=== PATIENT | female | born 1975 | race Caucasian/White ===

== ENCOUNTER → 2016-11-22 | Day surgery (SDC) | payer OTHER ==
[2016-11-21 10:10] VITALS: Ht 176.5 cm; Wt 109.1 kg
[~2016-11-22] VITALS: Ht 176.5 cm; Wt 109.1 kg
[~2016-11-22] MED LIST: ALBINS/ INH; CARV25TA2 PO; CLON0.3T PO; CLON1TAB3 PO; DOCU-105 PO; ERGO500037 PO; FLUO40CA8 PO; FURO40TA3 PO; HYDR25TA4 PO; IMP/50 PO; INSDGI SC; IPRA1AER2 INH; ISOSORBIDE ER PO; LISI-725 PO; METF1000 PO; NIFE90TA34 PO; NVLGI/PEN PO; NVLGIPEN PO; PANT40TA PO; POTA20TA16 PO; RANI150T3 PO; SODIUM CHLORIDE 0.9% 500ML 500 ML IV ONE; SPIR25TA89 PO; TOPI100T20 PO; VNTHFA/IN INH; ZIPR60CA PO
--- NOTE | 2016-11-22 14:30 | Endo History and Physical ---
History & Physical Date of Service: Nov 22, 2016. Chief Complaint: Abnormal CT, change in bowel habits Referring Physician: Galen History of Present Illness Pt with chronic severe constipation for colonscopy. CT scan [facility] 2016 dilated colon with gastrograffin enema no obvious stricture. No abd pain at present. Past Surgical History Hx Cardiac Surgery: Yes (HEART CATH X3, STENT X1) Hx Internal Defibrillator: No Hx Pacemaker: No Hx Abdominal Surgery: Yes (LAPAROSCOPY X3, MULTIPLE D&C'S, JUSTINE BSO, LOTUS) Hx of Implantable Prosthesis: No Hx Post-Op Nausea and Vomiting: No Hx Cancer Surgery: No Hx Thoracic Surgery: No Hx Orthopedic: Yes (LT LEG BLOOD CLOT REMOVAL, LT KNEE SURGERY X4) Hx Urinary Tract Surgery: No Family History None Social History Smoking Status: Current Every Day Smoker Hx Substance Use: Yes (SEE MED LIST) Hx Alcohol Use: Yes (QUIT 9 YEARS AGO) Allergies Coded Allergies: Buspirone (Verified Allergy, Unknown, RASH, 11/21/16) Penicillins (Verified Allergy, Unknown, HIVES AND PASSES OUT, 11/21/16) Sertraline (Verified Allergy, Unknown, HIVES AND PASSES OUT, 11/21/16) Trazodone (Verified Allergy, Unknown, IRRITATES NEUROPATHY AND HIVES, 11/21) Valproic Acid (Verified Allergy, Unknown, HIVES, DIZZINESS, SLURRING SPEECH, 11/21/16) Current Medications Reported Home Medications Medications Dose Route/Sig Max Daily Dose Days Date Category Dose Instructions Combivent Respimat (Ipratropium-Albuterol) 1 Aer Aer 1 Puffs INH QID PRN 11/21/16 Reported Proventil 0.083% 2.5MG/3ML (Albuterol Sulf) 2.5 Mg/3 Ml Nebu 2.5 Mg INH TID 11/21/16 Reported Ventolin Hfa (Albuterol) 200 Puffs/45875 Mcg Aers 2-4 Puffs INH Q6H PRN 11/21/16 Reported Vitamin D 42870 Unit (Ergocalciferol) 50,000 Unit Cap 50,000 Unit PO WK 11/21/16 Reported Lantus (Insulin Glargine) 100 Unit/Ml Inj 38 Units SC 1130 11/21/16 Reported Novolog Flexpen (Insulin Aspart) 100 Units/Ml Inj 14 Units PO QPM 11/21/16 Reported +SLIDING SCALE Novolog Flexpen (Insulin Aspart) 100 Units/Ml Inj 12 Units PO LUNCH 11/21/16 Reported +SLIDING SCALE Novolog Flexpen (Insulin Aspart) 100 Units/Ml Inj 10 Units PO QAM 11/21/16 Reported +SLIDING SCALE Hctz (Hydrochlorothiazide) 25 Mg Tab 25 Mg PO BID 11/21/16 Reported [Isosorbide Er] 90 Mg PO QAM 11/21/16 Reported Prozac (Fluoxetine HCl) 40 Mg Cap 40 Mg PO QAM 11/21/16 Reported Lasix (Furosemide) 40 Mg Tab 40 Mg PO QAM 11/21/16 Reported Glucophage (Metformin Hcl) 1,000 Mg Tab 1,000 Mg PO BID 11/21/16 Reported Nifedipine Er (Nifedipine) 90 Mg Tab 1 Tab PO QAM 11/21/16 Reported Protonix (Pantoprazole Sodium) 40 Mg Tab 40 Mg PO BID 11/21/16 Reported Zantac (Ranitidine HCl) 150 Mg Tab 150 Mg PO BID 11/21/16 Reported Coreg (Carvedilol) 25 Mg Tab 25 Mg PO BID 11/21/16 Reported Klonopin (Clonazepam) 1 Mg Tab 1 Mg PO QID 11/21/16 Reported Catapres (Clonidine Hcl) 0.3 Mg Tab 2 Tabs PO TID 11/21/16 Reported Dulcolax Stool Softener (Docusate Sodium) 100 Mg Cap 1 Cap PO BID 11/21/16 Reported Tofranil (Imipramine HCl) 50 Mg Tab 3 Tabs PO HS 11/21/16 Reported Zestril (Lisinopril) 20 Mg Tab 20 Mg PO BID 11/21/16 Reported Klor-Con (Potassium Chloride) 20 Meq Tabcr 2 Tabs PO BID 11/21/16 Reported Aldactone (Spironolactone) 25 Mg Tab 25 Mg PO BID 11/21/16 Reported Topamax (Topiramate) 100 Mg Tab 100 Mg PO BID 11/21/16 Reported Geodon (Ziprasidone Hcl) 60 Mg Cap 60 Mg PO HS 11/21/16 Reported Vital Signs Weight (Kilograms): 109.09 Height (Feet): 5 Height (Inches): 9.5 Review of Systems Respiratory: No shortness of breath Cardiovascular: No chest pain Physical Exam General Appearance: WD/WN, no apparent distress Respiratory/Chest: Respiratory effort: no dyspnea, good air movement Auscultation: breath sounds normal Cardiovascular: Heart Auscultation: RRR, no murmurs Abdomen: Inspection & Palpation: soft, no tenderness, guarding & rebound, no masses, distended Liver: no hepatomegaly Assessment and Plan For colonscopy today for chronic constipation and dilated colon on CT scan.
--- NOTE | 2016-11-22 15:35 | Discharge Instructions ---
Endoscopy Patient Instructions Date / Procedure(s) Performed Nov 22, 2016. Colonoscopy Allergy Information Coded Allergies: Buspirone (Verified Allergy, Unknown, RASH, 11/21/16) Penicillins (Verified Allergy, Unknown, HIVES AND PASSES OUT, 11/21/16) Sertraline (Verified Allergy, Unknown, HIVES AND PASSES OUT, 11/21/16) Trazodone (Verified Allergy, Unknown, IRRITATES NEUROPATHY AND HIVES, 11/21) Valproic Acid (Verified Allergy, Unknown, HIVES, DIZZINESS, SLURRING SPEECH, 11/21/16) Discharge Date / Findings Nov 22, 2016. Poor prep. Dilated colon. Medication Instructions Stopped Medication(s): Metformin Restart Stopped Medication(s): Restart all medications Provider Instructions Activity Restrictions - No exercising or heavy lifting for 24 hours. - Do not drink alcohol the day of the procedure. - Do not drive a car or operate machinery until the day after the procedure. - Do not make any important decisions or sign important papers in 24 hours after the procedure. Following Day: - Return to full activity which may include returning to work/school. Diet Start your diet with liquids and light foods (jello, soup, juice, toast). Then eat your usual diet if not nauseated. Treatment For Common After Affects For mild abdominal pain, bloating, or excessive gas: - Rest - Eat lightly - Lie on right side Keep appointment with colorectal surgeon tomorrow 11/23/16. Please call to make appointment with DR Coto also. Follow-Up Information Follow-up with Galen as scheduled Anesthesia Information What You Should Know You have had a procedure that required some medicine to reduce anxiety and discomfort. This treatment is called moderate sedation. After receiving the treatment, you may be sleepy, but you will be able to breathe on your own. The effects of the treatment may last for several hours. Follow these instructions along with Activity/Diet recommendations noted above: * Do NOT do anything where dizziness or clumsiness would be dangerous. * Rest quietly at home today, then you can be up and about tomorrow. * Have a responsible person stay with you the rest of today. * You may have had an I.V. today. If so, you may take the dressing off later today. Recommendations Call your doctor if: * Trouble breathing * Continuous vomiting for more than 24 hours * Temperature above 101 degrees * Severe abdominal pain or bloating * Pain not relieved by pain medicine ordered * There is increased drainage or redness from any incision * A large amount of rectal bleeding greater than 2-3 tablespoons. (If you had a polyp/s removed or have hemorrhoids, a small amount of blood - from the rectum is to be expected.) * You have any unanswered questions or concerns. IN THE EVENT OF A SERIOUS EMERGENCY, GO TO THE NEAREST EMERGENCY ROOM Your discharge instructions were prepared by provider Valentin Bailey. Patient Instructions Signature Page Cheryl Gary Patient (or Guardian) Signature/Date: I have read and understand the instructions given to me by my caregivers. Caregiver/RN/Doctor Signature/Date: The above-named patient and/or guardian has received patient instructions on this date. + Original Patient Signature Page (only) stays with chart. Please make copy for patient.
--- NOTE | 2016-11-22 15:40 | Anesthesiology Progress Note ---
Anesthesia Post Op Note Date & Time Nov 22, 2016 at 15:39 Vital Signs Vital Signs Past 12 Hours Date Time Temp Pulse Resp B/P (MAP) Pulse Ox O2 Delivery O2 Flow Rate FiO2 11/22/16 14:29 36.7 71 20 125/92 (103) 97 Room Air Notes Mental Status: alert / awake / arousable, participated in evaluation Pt Amnestic to Procedure: Yes Nausea / Vomiting: adequately controlled Pain: adequately controlled Airway Patency, RR, SpO2: stable & adequate BP & HR: stable & adequate Hydration State: stable & adequate Anesthetic Complications: no major complications apparent Patient weaned to room air at time of this note. SpO2 98%. She is awake and conversant. Denies anesthetic problems.
--- NOTE | 2016-11-22 15:55 | Progress Note ---
Progress Note Date of Service Nov 22, 2016. Progress Note Pt awake and alert post colonoscopy with no complaint. present. Went over procedure results and recommendation for f/u with colorectal surgery and DR Coto.
[2016-11-22 16:03] VITALS: BP 135/97; PULSE 62; O2SAT 100
--- NOTE | 2016-11-23 00:14 | GI REPORT ---
Procedure Date: 11/22/2016 2:17 PM Procedure: Colonoscopy Indications: Abnormal CT of the GI tract markedly dilated colon, Constipation intractable/chronic Medicines: Monitored Anesthesia Care Complications: No immediate complications. Estimated Blood Loss: Estimated blood loss: none. Procedure: Pre-Anesthesia Assessment: - The risks and benefits of the procedure and the sedation options and risks were discussed with the patient. All questions were answered and informed consent was obtained. - Patient identification and proposed procedure were verified prior to the procedure by the physician, the nurse and the histology manager. The procedure was verified in the procedure room. - Procedure and risks explained to patient which include but not limited to medication reaction, bleeding, perforation, aspiration, and missed lesions. Prep was poor. Extensive washes and suctioning done as needed to get overall fair visualization of the mucosa. Retroflexion to look at the distal rectum and anal canal done. Scope only advanced with lumen visualized. Judicious gas insufflation and gas removal done on way out. Slow withdrawal with careful examination of the mucosa. After I obtained informed consent, the scope was passed under direct vision. Throughout the procedure, the patient's blood pressure, pulse, and oxygen saturations were monitored continuously. The On-site loaner was introduced through the anus and advanced to the cecum, identified by appendiceal orifice and ileocecal valve. The colonoscopy was technically difficult and complex due to significant looping. Successful completion of the procedure was aided by changing the patient to a prone position, using manual pressure and straightening and shortening the scope to obtain bowel loop reduction. The patient tolerated the procedure well. The bowel preparation used was GoLYTELY. Findings: The colon (entire examined portion) revealed grossly excessive looping. Advancing the scope required changing the patient to a prone position, using manual pressure and straightening and shortening the scope to obtain bowel loop reduction. The lumen of the colon (entire examined portion) was grossly dilated. Copious quantities of semi-liquid stool was found in the entire colon, interfering with visualization. The exam was otherwise without abnormality on direct and retroflexion views. Impression: - There was significant looping of the colon. - Dilated in the entire examined colon. - Stool in the entire examined colon. - The examination was otherwise normal on direct and retroflexion views. - No specimens collected. Recommendation: - Discharge patient to home (ambulatory). - Keep appointment with colorectal surgeon tomorrow 11/23/16 Dr Lai. F/U with Dr Coto. Continue laxative. Valentin Bailey M.D. Valentin Bailey MD 11/22/2016 3:41:56 PM This report has been signed electronically. Note Initiated On: 11/22/2016 2:17 PM I attest to the content of the Intraoperative Record and orders documented therein, exceptions below
== END | disposition home or self-care (01) ==
LOC: C.GI 13:53 → MERGE 14:15
PROVIDERS: ATTEND Internal Medicine Gastroenterology
DX: K59.39 Other megacolon (principal); K59.00 Constipation, unspecified; F17.200 Nicotine dependence, unspecified, uncomplicated; Z79.4 Long term (current) use of insulin; Z79.899 Other long term (current) drug therapy

== ENCOUNTER 2017-03-04 23:58 | Inpatient (IN) | payer OTHER ==
[~2017-03-04] VITALS: Ht 175.3 cm; Wt 109.5 kg
[2017-03-04 23:50] VITALS: BP 122/82; PULSE 65; TEMP 36.8; O2SAT 94; BMI 35.6
[~2017-03-04 23:58] MED LIST changes: +IMIP100C4 PO; -IMP/50 PO; +NITR0.2D7 SC; -SODIUM CHLORIDE 0.9% 500ML 500 ML IV ONE
[2017-03-05] VITALS (7 sets, daily range): BP systolic 111–137; BP diastolic 79–99; PULSE 67–83; TEMP 36.3–36.5; O2SAT 92–100
[2017-03-05] MEDS ORDERED: ACET325T96 PO (01:18)
[2017-03-05] MEDS ORDERED: CLON-497 PO (01:18)
--- NOTE | 2017-03-05 01:41 | History and Physical ---
History & Physical Date & Time of Service: Mar 05, 2017 at 01:41 Chief Complaint: Melena Primary Care Physician: No Doctor, Assigned History of Present Illness Source: patient Cheryl Gary is a 41 year old female with multiple chronic conditions (bipolar disorder, seizure disorder, type 2 diabetes on insulin, COPD, recent pancreatitis, chronic constipation, Hep C) who presents as a transfer from [facility] for evaluation of her persistent abdominal pain. The patient had initially presented to [facility] reporting a month history of severe nausea and reports 8 weeks of not having a bowel movement. She reports each time she smells food she gets severely nauseated, but is still able to eat and keep food down. She has not vomited this entire time. She had a CT scan in [place] which showed severe fecal matter dilating her colon, mainly in her ascending and transverse colon. She was given the diagnosis of colonic inertia. The patient requested to be transferred to [facility] since she has previously seen the GI physicians through the [facility] in [place]. Per records, she had a colonoscopy with Dr. Fisher in October which showed stool throughout her entire colon and multiple dilated loops of bowel. In January she had an EGD which demonstrated chronic gastritis and pathology reports were negative for H. pylori. Upon entering the patients room, she was very somnolent and required multiple attempts to wake up. Although laying comfortably, she requests further pain medications, specifically dilaudid. She denies any chest pain, shortness of breath, or leg swelling. Past Medical/Surgical History PMHx COPD DVT after knee surgery Hx of pneumonia Migraines Seizure disorder Hx of TIA Diabetes mellitus type 2 GERD IBS Chronic constipation Bipolar disorder Anemia Hepatitis C Hx of MRSA PSHx Hysterectomy L. knee surgery x 8 Cholecystectomy Cardiac catheterization in 2016 Family History Positive for diabetes, hypertension, and autoimmune disorders in parents. Social History Smoking Status: Current Every Day Smoker (smokes 1/2 to 1 pack per day) Smokeless Tobacco Use: No Alcohol Use: none Drug Use: none Housing status: lives alone Occupational Status: disabled (from knee surgery) Immunizations History of Influenza Vaccine: Unknown History of Tetanus Vaccine?: Unknown History of Pneumococcal: Unknown History of Hepatitis B Vaccine: Unknown Multi-Drug Resistant Organisms History of MDRO: No Allergies Coded Allergies: Buspirone (Verified Allergy, Unknown, RASH, 02/06/17) Penicillins (Verified Allergy, Unknown, HIVES AND PASSES OUT, 02/06/17) Sertraline (Verified Allergy, Unknown, HIVES AND PASSES OUT, 02/06/17) Trazodone (Verified Allergy, Unknown, IRRITATES NEUROPATHY AND HIVES, 02/06) Valproic Acid (Verified Allergy, Unknown, HIVES, DIZZINESS, SLURRING SPEECH, 02/06/17) Home Medications Scheduled Carvedilol (Coreg), 25 MG PO BID Clonazepam (Klonopin), 1 MG PO QID Clonidine Hcl (Catapres), 2 TAB PO TID Docusate Sodium (Dulcolax Stool Softener), 1 CAP PO BID Ergocalciferol (Vitamin D 06594 Unit), 50,000 UNIT PO WK Fluoxetine (Prozac), 40 MG PO QAM Imipramine Pamoate (Tofranil Pm), 2 CAP PO HS Insulin Aspart (Novolog Flexpen), 10 UNITS PO QAM Insulin Aspart (Novolog Flexpen), 12 UNITS PO LUNCH Insulin Aspart (Novolog Flexpen), 12 UNITS PO SUPPER Insulin Glargine (Lantus), 32 UNITS SC AT LUNCH Nitroglycerin (Nitroglycerin), 1 DOSE SC Q8H Pantoprazole (Protonix), 40 MG PO BID Potassium Ext Rel (Klor-Con), 2 TABS PO BID Ranitidine Hcl (Zantac), 150 MG PO BID Spironolactone (Aldactone), 25 MG PO BID Topiramate (Topamax), 100 MG PO BID Ziprasidone Hcl (Geodon), 60 MG PO HS [Isosorbide Er], 60 MG PO QAM Scheduled PRN Acetaminophen Tab (Tylenol), 650 MG PO Q6 PRN for Pain Albuterol Sulf (Proventil 0.083% 2.5MG/3ML), 2.5 MG INH TID PRN for Wheezing Review of Systems See HPI for pertinent positives & negatives. A total of 10 systems reviewed and were otherwise negative. Physical Exam Vital Signs Date Time Temp Pulse Resp B/P (MAP) Pulse Ox O2 Delivery O2 Flow Rate FiO2 03/04/17 23:50 36.8 65 18 122/82 (95) 94 Room Air General Appearance: WD/WN, no apparent distress, + obese Head: normocephalic, atraumatic Eyes: normal inspection, PERRL, EOMI ENT: hearing grossly normal Neck: supple, no JVD Respiratory/Chest: lungs clear, normal breath sounds, no respiratory distress Cardiovascular: regular rate, rhythm, no murmur, normal peripheral pulses Abdomen/GI: normal bowel sounds (soft but present), non tender, soft, + distended Back: no CVA tenderness, no muscle spasm Extremities/Musculoskelatal: normal inspection, no calf tenderness, normal capillary refill, no pedal edema, normal range of motion Neurologic/Psych: demand planning analyst II-XII nml as tested, no motor/sensory deficits, alert, normal mood/affect, oriented x 3 Skin: normal color, warm/dry, no rash Diagnostics Laboratory Results Pending Impression Assessment and Plan 41 yo F, transferred from [facility], primarily for evaluation and management of severe constipation (colonic inertia) Colonic inertia - GI Consult - Dr Coto - Continue Lactulose, Senna, Miralax - Toradol for pain. Will avoid opiates due to concern for pain medication seeking as well as worsening constipation. - Zofran/Compazine for nausea. Type 2 DM - Lantus w/Novolog sliding scale, goal 140-180 - Check A1c Bipolar disorder - Home dose of Klonopin is listed as 1mg QID - will need to clarify in daytime - Continue Geodon, Fluoxetine HTN - Continue Coreg, Aldactone, Lisinopril Hx of Migraines - Continue Topamax VTE: Heparin q8h SQ Code status: Full Dispo: Admit to Med/Surg Resident Physician Supervision Note: Pt seen/evaluated independently. I discussed the case with the resident and agree with the findings and plan as documented in the note. Any exceptions or clarifications are listed here: 41 y/o F Hx Bipolar disease, DM, HTN, Hep C, fecal impaction. Pt was transferred from [place] with a diagnosis of "colonic inertia" by her own request. OE AAO x 3 S1,2 R CTAB Abdomen shows mild distention without significant tenderness No CCE P: Pt had requested transfer specifically to see her GI MD who we will consult She appears fecally impacted on imaging and laxatives and an enema have been ordered Placed on SS for DM COnt psychoactive meds as prescribed Documented By: Kartik Chandler VTE Prophylaxis VTE Risk Assessment Done? Y/N: Yes Risk Level: Moderate Additional Copies To Cyndi Yepez M.D. Resident Tracking Resident Involvement: Resident Care Provided Care Provided: Adult [facility]
[2017-03-05] MEDS ORDERED: ONDANSETRON INJ 2 MG/ML 2 ML VIAL IV PRN (01:45)
[2017-03-05] MEDS ORDERED: POLYETHYLENE (MIRALAX) 17 GM PACK PO PRN (01:45)
[2017-03-05] MEDS ORDERED: MAGNESIUM HYDROXIDE SUSP 30 ML UDC PO PRN (01:45)
[2017-03-05] MEDS ORDERED: IPRATROPIUM BROMIDE/ALBUTEROL respimat INH INH PRN (01:45)
[2017-03-05] MEDS ORDERED: ALUMINUM/MAGNESIUM/SIMETH (MAALOX MAX) 30 ML UDC PO PRN (01:45)
[2017-03-05] MEDS ORDERED: ACETAMINOPHEN 325 MG TAB PO PRN (01:45)
[2017-03-05] MEDS ORDERED: CLON0.3T PO (02:14)
[2017-03-05 02:25] LABS: HEMATOCRIT 30.1 % (37-47); MEAN CELL VOLUME 84.1 fL (80-100); MEAN CORPUSCULAR HEMOGLOBIN 29.9 pg (25-34); MEAN CORPUSCULAR HGB CONC 35.5 g/dl (32-36); MEAN PLATELET VOLUME 9.4 fL (7.4-10.4); PLATELET COUNT 239 K/uL (130-400); RED BLOOD COUNT 3.58 M/uL (4.2-5.4); WHITE BLOOD COUNT 7.97 K/uL (4.8-10.8)
[2017-03-05] MEDS ORDERED: GLUCOSE 40% GEL 15 GM TUBE PO PRN (02:30)
[2017-03-05] MEDS ORDERED: GLUCOSE 10 TABS/TUBE PO PRN (02:30)
[2017-03-05] MEDS ORDERED: GLUCAGON FOR INJ 1 MG VIAL SQ PRN (02:30)
[2017-03-05] MEDS ORDERED: DEXTROSE 50% 50 ML SYR IV PRN (02:30)
[2017-03-05 02:41] LABS: PROTHROMBIN TIME (PATIENT) 10.7 SECONDS (9.0-12.0)
[2017-03-05 02:45] LABS: ALT/SGPT 27 U/L (12-78); AST/SGOT 20 U/L (15-37); BLOOD UREA NITROGEN 11 mg/dl (7-18); BUN/CREATININE RATIO 9.9 (10-20); CALCIUM 8.4 mg/dl (8.5-10.1); CARBON DIOXIDE 21 mmol/L (21-32); CHLORIDE 95 mmol/L (98-107); CREATININE 1.16 mg/dl (0.60-1.20); GLUCOSE 128 mg/dl (70-99); POTASSIUM 3.4 mmol/L (3.5-5.1); SODIUM 124 mmol/L (136-145)
[2017-03-05 02:47] LABS: ALKALINE PHOSPHATASE 100 U/L (45-117)
[2017-03-05] MEDS ORDERED: MILK AND MOLASSES ENEMA PR STA (02:54)
[2017-03-05 04:12] LABS: COMPLETE YES; EOS % 0.4 %; IG% 0.5 %; LYMPH % 23.8 %; MONO % 6.3 %; OVALOCYTES 1+
[2017-03-05] MEDS ORDERED: PNEUMOCOCCAL POLYSACCHARIDES 25 MCG/0.5 ML VIAL/SYR IM. ONE (05:30)
[2017-03-05] MEDS ORDERED: PNEUMOCOCCAL ADMINISTRATION CHARGE ONE (05:30)
[2017-03-05] MEDS ORDERED: NURSING DECISION MEDICATION ORDER SCH (06:00)
[2017-03-05] MEDS ORDERED: HEPARIN SOD 5000 UNIT/0.5 ML CARP SQ SCH (06:00)
[2017-03-05] MEDS: INSULIN ASPART 100 UNITS/ML 3 ML PEN SC SCH ×4 (07:09→22:05)
[2017-03-05] MEDS ORDERED: INSULIN ASPART 100 UNITS/ML 3 ML PEN SC SCH (08:00)
[2017-03-05] MEDS: KETOROLAC TROMETHAMINE 15 MG/ML VIAL IV PRN ×2 (08:02→19:14)
[2017-03-05] MEDS ORDERED: LISINOPRIL 20 MG TAB PO SCH (09:00)
[2017-03-05] MEDS ORDERED: METFORMIN HCL 500 MG TAB PO SCH (09:00)
[2017-03-05] MEDS ORDERED: NON-FORMULARY MEDICATION (Nifedipine (Nifedipine Er) 1 TAB) PO SCH (09:00)
[2017-03-05] MEDS: PANTOprazole SOD 40 MG TAB PO SCH ×2 (09:21→21:56)
[2017-03-05] MEDS: POTASSIUM CHLORIDE 20 MEQ TABCR PO SCH ×2 (09:22→21:56)
[2017-03-05] MEDS: INSULIN GLARGINE SOLOSTAR 100 UNITS/ML 3 ML PEN SC SCH ×2 (09:23→22:01)
[2017-03-05] MEDS: SPIRONOLACTONE 25 MG TAB PO SCH ×2 (09:24→21:57)
[2017-03-05] MEDS: RANITIDINE HCL 150 MG TAB PO SCH ×2 (09:24→21:57)
[2017-03-05] MEDS: DOCUSATE SODIUM 100 MG CAP PO SCH ×2 (09:24→21:56)
[2017-03-05] MEDS: ISOSORBIDE MONONITRATE 30 MG TABCR PO SCH (09:24)
[2017-03-05] MEDS: CARVEDILOL 25 MG TAB PO SCH ×2 (09:25→21:56)
[2017-03-05] MEDS: FLUOXETINE HCL 20 MG CAP PO SCH (09:25)
[2017-03-05] MEDS: CLONIDINE HCL 0.3 MG TAB PO SCH ×3 (09:26→21:57)
[2017-03-05] MEDS: TOPIRAMATE 100 MG TAB PO SCH ×2 (09:26→21:56)
[2017-03-05] MEDS ORDERED: NURSING VERBAL MED ORDER ONE ×2 (09:45→17:15)
[2017-03-05] MEDS: CLONAZEPAM 1 MG TAB PO SCH ×4 (09:46→22:04)
[2017-03-05] MEDS: ALBUTEROL 0.083% NEBU SOLN 3 ML VIAL INH PRN ×2 (10:44→17:11)
[2017-03-05] MEDS: LACTULOSE SYRUP 30 GM/45 ML UDP PO PRN (10:58)
[2017-03-05 12:48] LABS: BUN/CREATININE RATIO 9.8 (10-20); CREATININE 1.2 mg/dl (0.60-1.20); POTASSIUM 3.8 mmol/L (3.5-5.1)
[2017-03-05] MEDS ORDERED: TAP WATER ENEMA PR ONE (16:00)
[2017-03-05] MEDS ORDERED: NITROGLYCERIN OINT 2% 1GM PACKET EXT ONE (16:45)
--- NOTE | 2017-03-05 16:45 | GASTROINTESTINAL CONSULTATION ---
DATE OF CONSULTATION: 03/05/2017 DATE OF CONSULTATION: 03/05/2017 CHIEF COMPLAINT: Colonic inertia obstipation. HISTORY OF PRESENT ILLNESS: Mrs. Gary is a 41-year-old white female known to me from recent office visit evaluations. The patient has issues with colonic inertia and has had multiple evaluations. In October, the patient underwent colonoscopy which was poorly prepped. The patient presented to the Emergency Room in [place] on Saturday with several days of increasing abdominal girth with inability to have stools. She had been taking Ultram for 4-5 days prior to admission because of trauma to her head. She reports taking her lactulose twice daily as prescribed as well as MiraLax 2 capfuls in 12 ounces of water daily. I was contacted by Dr. Marinelli at [facility] who requested transfer at the patient's preference to [facility]. Presently, the patient has had some bowel movements by the patient's description with 2 events reported today. PAST MEDICAL HISTORY: Includes COPD, DVT after knee surgery, history of pneumonia, migraine, seizure disorder, diabetes type 2, GERD, IBS, chronic constipation, bipolar disorder, chronic hepatitis C, anemia and MRSA. PAST SURGICAL HISTORY: Surgically, she had a hysterectomy, left knee surgery several times, cholecystectomy and cardiac catheterization 2015. FAMILY HISTORY: Contributory for hypertension, diabetes, autoimmune disorders. SOCIAL HISTORY: The patient smokes 1/2-1 pack daily. Denies alcohol use. Lives alone and is disabled from her knee surgeries. ALLERGIES: SHE IS ALLERGIC TO BUSPIRONE, PENICILLIN, SERTRALINE, TRAZODONE, AND VALPROIC ACID. HOME MEDICATIONS: Include carvedilol, clonazepam, clonidine, Colace, vitamin D, fluoxetine, imipramine, insulin, nitroglycerin, pantoprazole, potassium, ranitidine, spironolactone, topiramate, ziprasidone, and isosorbide. REVIEW OF SYSTEMS: Otherwise noncontributory based on 13-point exam except for mentioned above. The patient denies any melena or bright red blood per rectum chronically, although she did report some small amount of blood last evening, perhaps due to administration of enemas. PHYSICAL EXAMINATION: VITAL SIGNS: On admission temperature 36.8, heart rate 65, blood pressure 122/82, respirations 18, 94% on room air. GENERAL: The patient is awake, alert and oriented x3. She is in bed comfortable, although her abdomen is distended compared to previous exams. LUNGS: Clear to auscultation. HEART: Normal S1, S2. HEENT: Sclerae are anicteric, conjunctiva moist. Oral mucosa moist. NECK: There is no cervical or supraclavicular adenopathy. I do not appreciate hepatosplenomegaly. Head is normocephalic. EXTREMITIES: Overall normal range of motion. ABDOMEN: Distended, tympanitic without rebound or guarding. There is no focal tenderness. There may be a ventral wall hernia. I do not appreciate ascites or shifting dullness. EXTREMITIES: Without clubbing, cyanosis. There is trace to +1 pitting edema bilaterally. RECTAL: Deferred. The patient has no imaging studies during this hospitalization. LABORATORY STUDIES: On admission, sodium was decreased at 124, BUN and creatinine 11 and 1.1 with normal liver function tests, ALT 27, AST 20, alkaline phosphatase 100, total bilirubin 0.1. Sugars have been in the 150-200 range and her sodium is improved today. BUN and creatinine are 12 and 1.2. INR 1.0. Her medications currently in the hospital include nitroglycerin patch, imipramine, ziprasidone, carvedilol, clonazepam, Colace, Prozac, Protonix, ranitidine, spironolactone, clonidine, isosorbide mononitrate, insulin, p.r.n. medications. She is also on lactulose 30 grams every 4 hours as a p.r.n. I made the following recommendations. IMPRESSION: The patient with history of chronic constipation, obstipation that seemed to worsen after taking Ultram prior to her [place] admission on Saturday. Her bowel habit problems are multifactorial and include medication effects, erratic diabetes control, possibly events of prior surgeries, irritable bowel syndrome, constipation as well as background colonic dysmotility. I believe the first point of order would be to aggressively try to promote stool evacuation and to this end I believe the use of enemas along with GoLYTELY prep. The lactulose, although it is reasonable has to be cautiously used given her history of diabetes. I will prescribe a GoLYTELY prep tonight and continue with tap water enemas. I would also consider a flat plate tomorrow to assess for her colonic distention and effectiveness of the bowel regimen. Senokot is reasonable along with daily MiraLax. This should be increased to 1 capful 3 times daily with 12-16 ounces of water. Would also refrain from any anticholinergic and opioid agents that would reduce colonic motility. Would also encourage patient to ambulate as soon as she is able. I will continue to follow with you. Please ensure that all of her electrolytes including magnesium, phosphorus, calcium and potassium are optimized. If you have any questions, please do not hesitate to contact me. Thank you for allowing me to participate in this patient's care.
[2017-03-05] MEDS ORDERED: LAVAGE SOLUTION 4000ML PO SCH (18:00)
[2017-03-05] MEDS: CEFTRIAXONE SOD INJ 1 GM in DEXTROSE 5% ADD-VANTAGE 50ML 50 ML IV SCH (18:58)
--- NOTE | 2017-03-05 19:11 | Hospitalist Progress Note ---
Hospitalist Progress Note Date of Service Mar 05, 2017. Subjective Pt evaluation today including: conversation w/ patient, physical exam, chart review, lab review, review of studies, review of inpatient medication list Patient seen and evaluated. Reporting improvement in abdominal pain and has had BMs. GI on the case. Initial evaluation this AM patient was sleeping and unable to wake up. She is completely A&O on re-evaluation this evening. She reports that she was recently diagnosed with esophageal yeast infection but only took 3 days of treatment because her dog ate the rest of the medication She reports dysuria and according to [place] records she presented with leukocytosis and was placed on Rocephin and will continue this. Patient was given IVF according to records at [place] and still presenting with hyponatremia. She has not had fluid here and repeat is showing an increase in fluids. She does appear dry and reporting limited urine output. Will get labs in AM and re-evaluate. Possible SIADH given SSRI use. She reports that she has had a strong cough x 1 month and did have mild hemoptysis in sputum when arriving to room. Constitutional: No fever, No chills Respiratory: + cough, + sputum, + hemoptysis, No shortness of breath Cardiovascular: + chest pain (chronic) Abdomen: + pain, + constipation, No nausea, No vomiting, No diarrhea Musculoskeletal: No swelling, No calf pain Female : + dysuria Skin: No rash Medications Current Inpatient Medications Medications (Trade) Dose Ordered Sig/Ralph Route Start Time Stop Time Status Last Admin Dose Admin Acetaminophen (Tylenol Tab) 650 mg Q4H PRN PO 03/05/17 01:45 04/04/17 01:44 Al Hydrox/Mg Hydrox/Simethicone (Maalox Max Susp) 15 ml Q4H PRN PO 03/05/17 01:45 04/04/17 01:44 Magnesium Hydroxide (Milk Of Magnesia Susp) 30 ml Q6H PRN PO 03/05/17 01:45 04/04/17 01:44 Polyethylene (Miralax Powder Packet) 17 gm DAILY PRN PO 03/05/17 01:45 04/04/17 01:44 Ondansetron HCl (Zofran Inj) 4 mg Q6H PRN IV 03/05/17 01:45 04/04/17 01:44 Albuterol Sulfate (Ventolin 0.083% 2.5MG/3ML Neb) 2.5 mg TID PRN INH 03/05/17 01:45 04/04/17 01:44 03/05/17 17:11 2.5 MG Carvedilol (Coreg Tab) 25 mg BID PO 03/05/17 09:00 04/04/17 08:59 03/05/17 09:25 25 MG Clonazepam (Klonopin Tab) 1 mg QID PO 03/05/17 09:00 04/04/17 08:59 03/05/17 17:18 1 MG Docusate Sodium (coLACE CAP) 100 mg BID PO 03/05/17 09:00 04/04/17 08:59 03/05/17 09:24 100 MG Fluoxetine HCl (Prozac Cap) 40 mg QAM PO 03/05/17 09:00 04/04/17 08:59 03/05/17 09:25 40 MG Imipramine HCl (Tofranil Tab) 200 mg HS PO 03/05/17 21:00 04/04/17 20:59 Albuterol/ Ipratropium (Combivent Respimat Inh) 1 puffs QID PRN INH 03/05/17 01:45 04/04/17 01:44 Pantoprazole Sodium (Protonix Tab) 40 mg BID PO 03/05/17 09:00 04/04/17 08:59 03/05/17 09:21 40 MG Potassium Chloride (Klor-Con Tab) 40 meq BID PO 03/05/17 09:00 04/04/17 08:59 03/05/17 09:22 40 MEQ Ranitidine HCl (zANTac TAB) 150 mg BID PO 03/05/17 09:00 04/04/17 08:59 03/05/17 09:24 150 MG Spironolactone (Aldactone Tab) 25 mg BID PO 03/05/17 09:00 04/04/17 08:59 03/05/17 09:24 25 MG Topiramate (Topamax Tab) 100 mg BID PO 03/05/17 09:00 04/04/17 08:59 03/05/17 09:26 100 MG Ziprasidone (Geodon Cap) 60 mg HS PO 03/05/17 21:00 04/04/17 20:59 Clonidine HCl (Catapres Tab) 0.6 mg TID PO 03/05/17 09:00 04/04/17 08:59 03/05/17 13:02 0.6 MG Isosorbide Mononitrate (Imdur Ext Rel Tab) 90 mg QAM PO 03/05/17 09:00 04/04/17 08:59 03/05/17 09:24 90 MG Lactulose (Chronulac Syrup) 30 gm Q4H PRN PO 03/05/17 01:45 04/04/17 01:44 03/05/17 10:58 30 GM Insulin Glargine (Lantus Solostar Pen) 10 units Q12 SC 03/05/17 09:00 04/04/17 08:59 03/05/17 09:23 10 UNITS Glucose (Glucose 40% Gel) 15-30 GRAMS 15 GRAMS... UD PRN PO 03/05/17 02:30 04/04/17 02:29 Glucose (Glucose Chew Tab) 4-8 Tablets 4 Tabl... UD PRN PO 03/05/17 02:30 04/04/17 02:29 Dextrose (Dextrose 50% 50ML Syringe) 25-50ML OF 50% DW IV FOR... UD PRN IV 03/05/17 02:30 04/04/17 02:29 Glucagon (Glucagon Inj) 1 mg UD PRN SQ 03/05/17 02:30 04/04/17 02:29 Ketorolac Tromethamine (Toradol Inj) 15 mg Q6H PRN IV 03/05/17 03:15 03/10/17 03:14 03/05/17 08:02 15 MG Nitroglycerin (Nitro-Dur 0.2 Mg/Hr Patch) 1 patch QAM TD 03/06/17 09:00 04/05/17 08:59 Miscellaneous (Remove Nitro-Dur Patch) 1 ea DAILY@21 N/A 03/06/17 21:00 04/05/17 20:59 Polyethylene Glycol/ Electrolytes (Golytely Soln) 1 dose 1800 PO 03/05/17 18:00 03/05/17 23:59 Ceftriaxone Sodium 1 gm/ Dextrose 50 ml @ 100 mls/hr Q24H IV 03/05/17 18:00 03/10/17 17:59 Insulin Aspart (novoLOG ASPART) SLIDING SCALE If C... ACHS SC 03/05/17 17:15 04/04/17 17:14 Objective Vital Signs Date Time Temp Pulse Resp B/P (MAP) Pulse Ox O2 Delivery O2 Flow Rate FiO2 03/05/17 17:19 116/84 (95) 03/05/17 17:12 70 16 99 Room Air 03/05/17 15:36 36.5 67 18 111/79 (90) 92 Room Air 03/05/17 10:45 77 16 99 Room Air 03/05/17 08:00 Room Air 03/05/17 07:17 83 18 133/99 (110) 99 Room Air 03/04/17 23:50 36.8 65 18 122/82 (95) 94 Room Air 03/04/17 23:50 Room Air 03/04/17 23:50 Room Air Physical Exam General Appearance: WD/WN, no apparent distress, + obese Eyes: sclerae normal ENT: hearing grossly normal, pharynx normal (no exudates or yeast findings in oropharynx) Neck: supple, no JVD, trachea midline Respiratory/Chest: lungs clear, normal breath sounds, no respiratory distress, no accessory muscle use Cardiovascular: regular rate, rhythm, no gallop, no murmur Abdomen: normal bowel sounds, non tender, + distended Extremities: no pedal edema, no calf tenderness Neurologic/Psychiatric: alert, oriented x 3 Skin: normal color, warm/dry Laboratory Results Last 24 Hours Test 03/05/17 01:58 03/05/17 02:29 03/05/17 06:21 03/05/17 11:59 White Blood Count 7.97 K/uL Red Blood Count 3.58 M/uL Hemoglobin 10.7 g/dL Hematocrit 30.1 % Mean Corpuscular Volume 84.1 fL Mean Corpuscular Hemoglobin 29.9 pg Mean Corpuscular Hemoglobin Concent 35.5 g/dl Platelet Count 239 K/uL Mean Platelet Volume 9.4 fL Neutrophils (%) (Auto) 69.0 % Lymphocytes (%) (Auto) 23.8 % Monocytes (%) (Auto) 6.3 % Eosinophils (%) (Auto) 0.4 % Basophils (%) (Auto) 0.0 % Neutrophils # (Auto) 5.50 K/uL Lymphocytes # (Auto) 1.90 K/uL Monocytes # (Auto) 0.50 K/uL Eosinophils # (Auto) 0.03 K/uL Basophils # (Auto) 0.00 K/uL RDW Standard Deviation 40.4 fL RDW Coefficient of Variation 13.3 % Immature Granulocyte % (Auto) 0.5 % Immature Granulocyte # (Auto) 0.04 K/uL Ovalocytes 1+ Prothrombin Time 10.7 SECONDS Prothromb Time International Ratio 1.0 Sodium Level 124 mmol/L 126 mmol/L Potassium Level 3.4 mmol/L 3.8 mmol/L Chloride Level 95 mmol/L 96 mmol/L Carbon Dioxide Level 21 mmol/L 20 mmol/L Anion Gap 8.0 mmol/L 10.0 mmol/L Blood Urea Nitrogen 11 mg/dl 12 mg/dl Creatinine 1.16 mg/dl 1.20 mg/dl Estimated GFR () 67.7 65.0 Estimated GFR (Non- 58.4 56.1 BUN/Creatinine Ratio 9.9 9.8 Random Glucose 128 mg/dl 183 mg/dl Calcium Level 8.4 mg/dl 9.0 mg/dl Total Bilirubin 0.1 mg/dl Aspartate Amino Transf (AST/SGOT) 20 U/L Alanine Aminotransferase (ALT/SGPT) 27 U/L Alkaline Phosphatase 100 U/L Total Protein 6.7 gm/dl Albumin 3.3 gm/dl Globulin 3.4 gm/dl Albumin/Globulin Ratio 1.0 Bedside Glucose 152 mg/dl 163 mg/dl Est Creatinine Clear Calc Drug Dose 81.4 ml/min Test 03/05/17 12:08 Bedside Glucose 201 mg/dl Assessment and Plan 41 yo F, transferred from [facility], primarily for evaluation and management of severe constipation (colonic inertia) Colonic Inertia: Possibly Worsened by Recent Ultram - Plan to utilize Golytely and Enemas; will add Senna and can place Miralax daily after prep - Colace 100 mg BID and add Senna 17.2 mg daily - Toradol PRN pain and avoid narcotics - GI Consult - Dr Coto following - recommending bowel regimen Hyponatremia: Possible SIADH - Was given fluids in [place] per records and still hyponatremic; with holding fluids the level is improving - Will draw labs in AM and see Na and re-evaluate - possibly induced by psych meds - Allow to drink orally and continue to monitor - Aldactone 25 mg BID - Monitor electrolytes UTI per [place]: - Per records she was treated with Ceftriaxone - she is reporting dysuria and will continue at this time Type 2 DM: - Hold Metformin at this time and cover with SSI and Lantus Bipolar disorder - Klonopin 1 mg QID - confirmed with her pharmacy - Prozac 40 mg daily, Imipramine 200 mg HS, Geodon 60 mg HS HTN: - Lisinopril on hold - Coreg 25 mg BID, Clonidine 0.6 mg TID Hx of Migraines - Continue Topamax 100 mg BID Tobacco User with Chronic Cough: - Albuterol PRN and Combivent PRN Chronic Chest Pain with CAD: - Imdur 90 mg daily, Nitro patch - Will cover with nitro paste through the evening until patch placed in AM - make sure paste removed before applying patch DVT Prophylaxis: Heparin 5000 units SC Q8H Code Status: FULL RESUSCITATION Disposition: - Continue bowel prep and antibiotics for UTI can treat x 3-5 days - Monitor hyponatremia and can D/C if this is resolved Continued [facility] stay due to: inadequate po fluid intake Discharge planning: home
[2017-03-05] MEDS: IMIPRAMINE HCL 50 MG TAB PO SCH (21:55)
[2017-03-05] MEDS: ZIPRASIDONE 20 MG CAP PO SCH (21:56)
[2017-03-06] MEDS: KETOROLAC TROMETHAMINE 15 MG/ML VIAL IV PRN ×3 (05:40→18:20)
[2017-03-06 07:53] LABS: HEMATOCRIT 28.2 % (37-47); MEAN CELL VOLUME 84.4 fL (80-100); MEAN CORPUSCULAR HEMOGLOBIN 29.3 pg (25-34); MEAN CORPUSCULAR HGB CONC 34.8 g/dl (32-36); MEAN PLATELET VOLUME 9.2 fL (7.4-10.4); PLATELET COUNT 212 K/uL (130-400); RED BLOOD COUNT 3.34 M/uL (4.2-5.4); WHITE BLOOD COUNT 8.51 K/uL (4.8-10.8)
[2017-03-06 08:17] LABS: CALCIUM 7.9 mg/dl (8.5-10.1); CREATININE 1.03 mg/dl (0.60-1.20); POTASSIUM 3.5 mmol/L (3.5-5.1)
[2017-03-06 08:18] LABS: PHOSPHORUS 2.1 mg/dl (2.5-4.9)
--- NOTE | 2017-03-06 09:07 | DIAGNOSTIC IMAGING REPORT ---
KUB CLINICAL HISTORY: Abdominal Pain COMPARISON STUDY: No previous studies for comparison. FINDINGS: There is an IVC filter with its apex at the L2 level. There is gaseous distention of the colon which measures up to 14 cm in diameter. Gas is visualized down to the level of the rectosigmoid. There are surgical clips within the right upper quadrant consistent with a prior cholecystectomy. IMPRESSION: Gaseous distention of colon consistent with a colonic ileus. The colon measures 14 cm in maximal diameter. Electronically signed by: Rod Potter M.D. 03/06/2017 9:05 AM Dictated Date/Time: 03/06/2017 9:03 AM
[2017-03-06] MEDS: CARVEDILOL 25 MG TAB PO SCH ×2 (09:32→20:04)
[2017-03-06] MEDS: TOPIRAMATE 100 MG TAB PO SCH ×2 (09:32→20:06)
[2017-03-06] MEDS: RANITIDINE HCL 150 MG TAB PO SCH ×2 (09:32→20:06)
[2017-03-06] MEDS: SPIRONOLACTONE 25 MG TAB PO SCH (09:33)
[2017-03-06] MEDS: DOCUSATE SODIUM 100 MG CAP PO SCH ×2 (09:33→20:04)
[2017-03-06] MEDS: FLUOXETINE HCL 20 MG CAP PO SCH (09:33)
[2017-03-06] MEDS: ISOSORBIDE MONONITRATE 30 MG TABCR PO SCH (09:33)
[2017-03-06] MEDS: SENNA 8.6 MG TAB PO SCH (09:34)
[2017-03-06] MEDS: POTASSIUM CHLORIDE 20 MEQ TABCR PO SCH ×2 (09:34→20:06)
[2017-03-06] MEDS: CLONIDINE HCL 0.3 MG TAB PO SCH ×3 (09:35→20:04)
[2017-03-06 09:40] VITALS: BP 114/81; PULSE 73
[2017-03-06] MEDS: INSULIN ASPART 100 UNITS/ML 3 ML PEN SC SCH ×5 (09:58→21:54)
[2017-03-06] MEDS: PANTOprazole SOD 40 MG TAB PO SCH ×2 (09:59→20:06)
[2017-03-06] MEDS: INSULIN GLARGINE SOLOSTAR 100 UNITS/ML 3 ML PEN SC SCH ×2 (10:02→21:55)
[2017-03-06] MEDS: CLONAZEPAM 1 MG TAB PO SCH ×4 (10:03→20:17)
[2017-03-06] MEDS: ACETAMINOPHEN 325 MG TAB PO PRN ×2 (11:32→19:48)
[2017-03-06] MEDS: NITROGLYCERIN 0.2 MG/HR PATCH TD SCH (11:32)
[2017-03-06] MEDS: SODIUM CHLORIDE 0.9% 1000ML 1,000 ML IV SCH ×2 (11:32→21:40)
[2017-03-06] MEDS: LACTULOSE SYRUP 30 GM/45 ML UDP PO PRN (11:38)
[2017-03-06] MEDS ORDERED: NICOTINE 21 MG/24 HR TDSY TD ONE (12:30)
[2017-03-06 14:07] VITALS: BP 158/66; PULSE 95
--- NOTE | 2017-03-06 14:27 | Hospitalist Progress Note ---
Hospitalist Progress Note Date of Service Mar 06, 2017. Subjective Pt evaluation today including: conversation w/ patient, physical exam, chart review, lab review, review of studies, review of inpatient medication list Patient seen and evaluated. No acute events overnight. Continues to have bowel movements but still having distention and abdominal pain. Is improving Na reduced back to 124. Appears she was 116 in [place] and will try to slowly correct this. She thinks she does have low Na levels chronically. Will request records from PCP and last labs. KUB reveals ileus. Denies any further symptoms at this time. Constitutional: No fever, No chills Respiratory: No cough, No shortness of breath Cardiovascular: No chest pain Abdomen: + pain, + diarrhea, No nausea, No vomiting, No GI bleeding Musculoskeletal: No calf pain Female : No dysuria Heme: No abnormal bleeding/bruising Skin: No rash Medications Current Inpatient Medications Medications (Trade) Dose Ordered Sig/Ralph Route Start Time Stop Time Status Last Admin Dose Admin Acetaminophen (Tylenol Tab) 650 mg Q4H PRN PO 03/05/17 01:45 04/04/17 01:44 03/06/17 11:32 650 MG Al Hydrox/Mg Hydrox/Simethicone (Maalox Max Susp) 15 ml Q4H PRN PO 03/05/17 01:45 04/04/17 01:44 03/05/17 21:13 15 ML Magnesium Hydroxide (Milk Of Magnesia Susp) 30 ml Q6H PRN PO 03/05/17 01:45 04/04/17 01:44 Polyethylene (Miralax Powder Packet) 17 gm DAILY PRN PO 03/05/17 01:45 04/04/17 01:44 Ondansetron HCl (Zofran Inj) 4 mg Q6H PRN IV 03/05/17 01:45 04/04/17 01:44 Albuterol Sulfate (Ventolin 0.083% 2.5MG/3ML Neb) 2.5 mg TID PRN INH 03/05/17 01:45 04/04/17 01:44 03/05/17 17:11 2.5 MG Carvedilol (Coreg Tab) 25 mg BID PO 03/05/17 09:00 04/04/17 08:59 03/06/17 09:32 25 MG Clonazepam (Klonopin Tab) 1 mg QID PO 03/05/17 09:00 04/04/17 08:59 03/06/17 10:03 1 MG Docusate Sodium (coLACE CAP) 100 mg BID PO 03/05/17 09:00 04/04/17 08:59 03/06/17 09:33 100 MG Fluoxetine HCl (Prozac Cap) 40 mg QAM PO 03/05/17 09:00 04/04/17 08:59 03/06/17 09:33 40 MG Imipramine HCl (Tofranil Tab) 200 mg HS PO 03/05/17 21:00 04/04/17 20:59 03/05/17 21:55 200 MG Albuterol/ Ipratropium (Combivent Respimat Inh) 1 puffs QID PRN INH 03/05/17 01:45 04/04/17 01:44 Pantoprazole Sodium (Protonix Tab) 40 mg BID PO 03/05/17 09:00 04/04/17 08:59 03/06/17 09:59 40 MG Potassium Chloride (Klor-Con Tab) 40 meq BID PO 03/05/17 09:00 04/04/17 08:59 03/06/17 09:34 40 MEQ Ranitidine HCl (zANTac TAB) 150 mg BID PO 03/05/17 09:00 04/04/17 08:59 03/06/17 09:32 150 MG Spironolactone (Aldactone Tab) 25 mg BID PO 03/05/17 09:00 04/04/17 08:59 03/06/17 09:33 25 MG Topiramate (Topamax Tab) 100 mg BID PO 03/05/17 09:00 04/04/17 08:59 03/06/17 09:32 100 MG Ziprasidone (Geodon Cap) 60 mg HS PO 03/05/17 21:00 04/04/17 20:59 03/05/17 21:56 60 MG Clonidine HCl (Catapres Tab) 0.6 mg TID PO 03/05/17 09:00 04/04/17 08:59 03/06/17 13:44 0.6 MG Isosorbide Mononitrate (Imdur Ext Rel Tab) 90 mg QAM PO 03/05/17 09:00 04/04/17 08:59 03/06/17 09:33 90 MG Lactulose (Chronulac Syrup) 30 gm Q4H PRN PO 03/05/17 01:45 04/04/17 01:44 03/06/17 11:38 30 GM Insulin Glargine (Lantus Solostar Pen) 10 units Q12 SC 03/05/17 09:00 04/04/17 08:59 03/06/17 10:02 10 UNITS Glucose (Glucose 40% Gel) 15-30 GRAMS 15 GRAMS... UD PRN PO 03/05/17 02:30 04/04/17 02:29 Glucose (Glucose Chew Tab) 4-8 Tablets 4 Tabl... UD PRN PO 03/05/17 02:30 04/04/17 02:29 Dextrose (Dextrose 50% 50ML Syringe) 25-50ML OF 50% DW IV FOR... UD PRN IV 03/05/17 02:30 04/04/17 02:29 Glucagon (Glucagon Inj) 1 mg UD PRN SQ 03/05/17 02:30 04/04/17 02:29 Ketorolac Tromethamine (Toradol Inj) 15 mg Q6H PRN IV 03/05/17 03:15 03/10/17 03:14 03/06/17 12:05 15 MG Nitroglycerin (Nitro-Dur 0.2 Mg/Hr Patch) 1 patch QAM TD 03/06/17 09:00 04/05/17 08:59 03/06/17 11:32 1 PATCH Miscellaneous (Remove Nitro-Dur Patch) 1 ea DAILY@21 N/A 03/06/17 21:00 04/05/17 20:59 Ceftriaxone Sodium 1 gm/ Dextrose 50 ml @ 100 mls/hr Q24H IV 03/05/17 18:00 03/10/17 17:59 03/05/17 18:58 100 MLS/HR Insulin Aspart (novoLOG ASPART) SLIDING SCALE If C... ACHS SC 03/05/17 17:15 04/04/17 17:14 03/06/17 13:41 7 UNITS Senna (Senokot Tab) 17.2 mg QAM PO 03/06/17 09:00 04/05/17 08:59 03/06/17 09:34 17.2 MG Sodium Chloride 1,000 ml @ 100 mls/hr Q10H IV 03/06/17 09:00 04/05/17 08:59 03/06/17 11:32 100 MLS/HR Nicotine (Nicoderm Cq 21MG Patch) 1 patch QAM TD 03/07/17 09:00 04/06/17 08:59 Miscellaneous (Remove Nicoderm Patch) 1 ea HS N/A 03/06/17 21:00 04/05/17 20:59 Objective Vital Signs Date Time Temp Pulse Resp B/P (MAP) Pulse Ox O2 Delivery O2 Flow Rate FiO2 03/06/17 09:40 73 114/81 (92) 03/06/17 00:55 Room Air 03/05/17 22:55 36.3 68 16 124/89 (101) 100 Room Air 03/05/17 21:48 70 137/91 (106) 03/05/17 17:19 116/84 (95) 03/05/17 17:12 70 16 99 Room Air 03/05/17 16:30 Room Air 03/05/17 15:36 36.5 67 18 111/79 (90) 92 Room Air Physical Exam General Appearance: WD/WN, no apparent distress, + obese Eyes: sclerae normal ENT: hearing grossly normal Neck: supple, no JVD, trachea midline Respiratory/Chest: lungs clear, normal breath sounds, no respiratory distress, no accessory muscle use Cardiovascular: regular rate, rhythm, no gallop, no murmur Abdomen: normal bowel sounds, non tender, + distended Extremities: no pedal edema Neurologic/Psychiatric: alert, + pertinent finding (drowsy) Skin: normal color, warm/dry Laboratory Results Last 24 Hours Test 03/05/17 15:11 03/05/17 17:12 03/05/17 20:56 03/06/17 07:35 Bedside Glucose 160 mg/dl 152 mg/dl 318 mg/dl White Blood Count 8.51 K/uL Red Blood Count 3.34 M/uL Hemoglobin 9.8 g/dL Hematocrit 28.2 % Mean Corpuscular Volume 84.4 fL Mean Corpuscular Hemoglobin 29.3 pg Mean Corpuscular Hemoglobin Concent 34.8 g/dl RDW Standard Deviation 42.1 fL RDW Coefficient of Variation 13.7 % Platelet Count 212 K/uL Mean Platelet Volume 9.2 fL Sodium Level 124 mmol/L Potassium Level 3.5 mmol/L Chloride Level 94 mmol/L Carbon Dioxide Level 20 mmol/L Anion Gap 9.0 mmol/L Blood Urea Nitrogen 11 mg/dl Creatinine 1.03 mg/dl Est Creatinine Clear Calc Drug Dose 94.8 ml/min Estimated GFR () 78.2 Estimated GFR (Non- 67.5 BUN/Creatinine Ratio 11.0 Random Glucose 148 mg/dl Calcium Level 7.9 mg/dl Phosphorus Level 2.1 mg/dl Magnesium Level 2.0 mg/dl Test 03/06/17 08:14 03/06/17 09:17 03/06/17 09:49 03/06/17 12:05 Bedside Glucose 142 mg/dl 274 mg/dl 207 mg/dl Osmolality 264 mOsm/kg Test 03/06/17 12:10 Urine Osmolality 134 mOms/kg Assessment and Plan 41 yo F, transferred from [facility], primarily for evaluation and management of severe constipation (colonic inertia) Colonic Inertia - Ileus: Possibly Worsened by Recent Ultram - Colace 100 mg BID, Senna 17.2 mg daily, and Miralax daily - Toradol PRN pain and avoid narcotics - GI Consult - Dr Coto following - recommending bowel regimen Hyponatremia: Possible SIADH - Was given fluids in [place] per records and still hyponatremic - per records was 116 on admission to [facility] - continue to monitor - Will draw labs in AM and see Na and re-evaluate - possibly induced by psych meds? possible chronic component? - did request records - Aldactone 25 mg BID will be on hold - Monitor electrolytes UTI per [facility]: - Per records she was treated with Ceftriaxone - she is reporting dysuria and will continue at this time Type 2 DM: - Hold Metformin at this time and cover with SSI and Lantus Bipolar disorder - Klonopin 1 mg QID - confirmed with her pharmacy - recommend slow taper - Prozac 40 mg daily, Imipramine 200 mg HS, Geodon 60 mg HS HTN: - Lisinopril on hold - Coreg 25 mg BID, Clonidine 0.6 mg TID Hx of Migraines - Continue Topamax 100 mg BID Tobacco User with Chronic Cough: - Albuterol PRN and Combivent PRN - Nicotine patch Chronic Chest Pain with CAD: - Imdur 90 mg daily, Nitro patch DVT Prophylaxis: Heparin 5000 units SC Q8H Code Status: FULL RESUSCITATION Disposition: - Continue bowel regimen and antibiotics for UTI can treat x 3-5 days - Monitor hyponatremia and can D/C when this resolves and can advance diet Continued [facility] stay due to: multiple IV medications needed Discharge planning: home
[2017-03-06 15:37] VITALS: BP 130/89; PULSE 67; TEMP 36.8; O2SAT 100
[2017-03-06 17:44] VITALS: PULSE 74; O2SAT 97
[2017-03-06] MEDS: ALBUTEROL 0.083% NEBU SOLN 3 ML VIAL INH PRN (17:44)
[2017-03-06] MEDS: CEFTRIAXONE SOD INJ 1 GM in DEXTROSE 5% ADD-VANTAGE 50ML 50 ML IV SCH (18:19)
[2017-03-06] MEDS: ZIPRASIDONE 20 MG CAP PO SCH (20:05)
[2017-03-06] MEDS: IMIPRAMINE HCL 50 MG TAB PO SCH (20:06)
[2017-03-06 23:06] VITALS: BP 98/61; PULSE 64; TEMP 36.4; O2SAT 100
[2017-03-07] VITALS (10 sets, daily range): BP systolic 140–175; BP diastolic 89–119; PULSE 64–81; TEMP 36.3–36.8; O2SAT 97–100; Ht 175.3 cm; Wt 109.5 kg
[2017-03-07] MEDS: KETOROLAC TROMETHAMINE 15 MG/ML VIAL IV PRN ×4 (02:52→22:17)
[2017-03-07] MEDS: SODIUM CHLORIDE 0.9% 1000ML 1,000 ML IV SCH ×2 (05:21→13:37)
[2017-03-07 06:27] LABS: HEMATOCRIT 24.9 % (37-47); MEAN CELL VOLUME 87.1 fL (80-100); MEAN CORPUSCULAR HGB CONC 33.3 g/dl (32-36); MEAN PLATELET VOLUME 8.9 fL (7.4-10.4); PLATELET COUNT 165 K/uL (130-400); RED BLOOD COUNT 2.86 M/uL (4.2-5.4); WHITE BLOOD COUNT 6.13 K/uL (4.8-10.8)
[2017-03-07] MEDS: ACETAMINOPHEN 325 MG TAB PO PRN ×2 (06:35→18:53)
--- NOTE | 2017-03-07 07:01 | GASTROENTEROLOGY PROGRESS NOTE ---
DATE: 03/06/2017 SUBJECTIVE: Mrs. Gary was seen, examined and chart reviewed. The patient reports that she has had some benefit with the bowel prep and finished nearly most of it. She continues on clear liquids. She denies any rectal bleeding. Her abdomen is flatter by her assessment and had a KUB earlier this morning which revealed gastric distention with colonic ileus. The colon shows a 14 cm maximum diameter. There was gas present to the level of the rectosigmoid region. CURRENT MEDICATIONS: Include nicotine patch, MiraLax, nitroglycerin patch, senna, imipramine, ziprasidone, Rocephin, insulin, carvedilol, clonazepam, Colace, Meloxicam, pantoprazole, ranitidine, topiramate, clonidine, Imdur. ALLERGIES: BUSPIRONE, PENICILLIN, SERTRALINE, TRAZODONE, VALPROIC ACID. PHYSICAL EXAMINATION: VITAL SIGNS: Today, blood pressure this afternoon 130/89, respirations are 18, heart rate 67, afebrile, 36.7 and 100% on room air. GENERAL: The patient is awake, alert and oriented x3. Sclerae are anicteric. HEENT: Conjunctiva moist. Oral mucosa moist. HEART: Normal S1, S2. LUNGS: Clear to auscultation. ABDOMEN: Less distended than yesterday and less tympanitic. There is no rebound or guarding. I do not appreciate hepatosplenomegaly although the abdominal body habitus limits the exam. EXTREMITIES: Trace edema is noted. RECTAL: Deferred. LABORATORY STUDIES: This morning, white count 8.5, platelet 212, hemoglobin is 9.8. IMPRESSION AND PLAN: We will continue bowel prepping with intentions to consider colonoscopy for this transition zone noted on the flat plate as well as the patient's chronic inertia and anemia. During the summer a colonoscopy was attempted but the bowel prep was limited. Will continue with the GoLYTELY prep , clear liquid diet and a regimen of lactulose. All questions answered. SHIRIND
[2017-03-07 07:07] LABS: BUN/CREATININE RATIO 7.9 (10-20); CALCIUM 7.4 mg/dl (8.5-10.1); CREATININE 0.8 mg/dl (0.60-1.20); MAGNESIUM 2.1 mg/dl (1.8-2.4); PHOSPHORUS 2.9 mg/dl (2.5-4.9); POTASSIUM 4.4 mmol/L (3.5-5.1)
[2017-03-07] MEDS: PANTOprazole SOD 40 MG TAB PO SCH ×2 (08:08→21:29)
[2017-03-07] MEDS: POTASSIUM CHLORIDE 20 MEQ TABCR PO SCH ×2 (08:09→21:30)
[2017-03-07] MEDS: CARVEDILOL 25 MG TAB PO SCH ×2 (08:10→21:31)
[2017-03-07] MEDS: NICOTINE 21 MG/24 HR TDSY TD SCH (08:10)
[2017-03-07] MEDS: FLUOXETINE HCL 20 MG CAP PO SCH (08:11)
[2017-03-07] MEDS: CLONIDINE HCL 0.3 MG TAB PO SCH ×3 (08:11→21:31)
[2017-03-07] MEDS: DOCUSATE SODIUM 100 MG CAP PO SCH ×2 (08:11→21:29)
[2017-03-07] MEDS: ISOSORBIDE MONONITRATE 30 MG TABCR PO SCH (08:12)
[2017-03-07] MEDS: POLYETHYLENE (MIRALAX) 17 GM PACK PO SCH (08:13)
[2017-03-07] MEDS: SENNA 8.6 MG TAB PO SCH (08:13)
[2017-03-07] MEDS: RANITIDINE HCL 150 MG TAB PO SCH ×2 (08:14→21:29)
[2017-03-07] MEDS: TOPIRAMATE 100 MG TAB PO SCH ×2 (08:14→21:29)
[2017-03-07] MEDS: NITROGLYCERIN 0.2 MG/HR PATCH TD SCH (08:14)
[2017-03-07] MEDS: CLONAZEPAM 1 MG TAB PO SCH ×4 (08:23→21:33)
[2017-03-07] MEDS: INSULIN ASPART 100 UNITS/ML 3 ML PEN SC SCH ×4 (09:46→21:00)
[2017-03-07] MEDS: INSULIN GLARGINE SOLOSTAR 100 UNITS/ML 3 ML PEN SC SCH ×2 (09:47→21:47)
[2017-03-07] MEDS ORDERED: ALBUT/IPRATROP 3MG/0.5MG NEB 3 ML VIAL INH PRN (11:30)
--- NOTE | 2017-03-07 12:55 | Hospitalist Progress Note ---
Hospitalist Progress Note Date of Service Mar 07, 2017. Subjective Pt evaluation today including: conversation w/ patient, physical exam, chart review, lab review, review of studies, review of inpatient medication list Patient seen and evaluated. No acute overnight. Patient expressed frustration about PRN breathing treatments. Explained that without orders they cannot be given. She does state she has PRN duonebs at home and will put them on order. Reporting continued abdominal pain but is improving. Abdomen is softer and continues to have bowel movements. Planning on colonoscopy tomorrow. Na is almost normal and looks more hydrated but continues on the dry side. Treating for UTI from [place] which can stop today as she will have 5 day coverage. Constitutional: No fever, No chills Respiratory: + cough, + shortness of breath (intermittent - chronic) Cardiovascular: No chest pain Abdomen: + pain, + diarrhea, No nausea, No vomiting Musculoskeletal: No swelling, No calf pain Female : No dysuria Heme: No abnormal bleeding/bruising Skin: No rash Medications Current Inpatient Medications Medications (Trade) Dose Ordered Sig/Ralph Route Start Time Stop Time Status Last Admin Dose Admin Acetaminophen (Tylenol Tab) 650 mg Q4H PRN PO 03/05/17 01:45 04/04/17 01:44 03/07/17 06:35 650 MG Al Hydrox/Mg Hydrox/Simethicone (Maalox Max Susp) 15 ml Q4H PRN PO 03/05/17 01:45 04/04/17 01:44 03/05/17 21:13 15 ML Magnesium Hydroxide (Milk Of Magnesia Susp) 30 ml Q6H PRN PO 03/05/17 01:45 04/04/17 01:44 Ondansetron HCl (Zofran Inj) 4 mg Q6H PRN IV 03/05/17 01:45 04/04/17 01:44 Carvedilol (Coreg Tab) 25 mg BID PO 03/05/17 09:00 04/04/17 08:59 03/07/17 08:10 25 MG Clonazepam (Klonopin Tab) 1 mg QID PO 03/05/17 09:00 04/04/17 08:59 03/07/17 08:23 1 MG Docusate Sodium (coLACE CAP) 100 mg BID PO 03/05/17 09:00 1/4/18 08:59 03/07/17 08:11 100 MG Fluoxetine HCl (Prozac Cap) 40 mg QAM PO 03/05/17 09:00 04/04/17 08:59 03/07/17 08:11 40 MG Imipramine HCl (Tofranil Tab) 200 mg HS PO 03/05/17 21:00 04/04/17 20:59 03/06/17 20:06 200 MG Albuterol/ Ipratropium (Combivent Respimat Inh) 1 puffs QID PRN INH 03/05/17 01:45 04/04/17 01:44 03/06/17 23:13 1 PUFFS Pantoprazole Sodium (Protonix Tab) 40 mg BID PO 03/05/17 09:00 04/04/17 08:59 03/07/17 08:08 40 MG Potassium Chloride (Klor-Con Tab) 40 meq BID PO 03/05/17 09:00 04/04/17 08:59 03/07/17 08:09 40 MEQ Ranitidine HCl (zANTac TAB) 150 mg BID PO 03/05/17 09:00 04/04/17 08:59 03/07/17 08:14 150 MG Spironolactone (Aldactone Tab) 25 mg BID PO 03/05/17 09:00 04/04/17 08:59 Future Hold 03/06/17 09:33 25 MG Topiramate (Topamax Tab) 100 mg BID PO 03/05/17 09:00 04/04/17 08:59 03/07/17 08:14 100 MG Ziprasidone (Geodon Cap) 60 mg HS PO 03/05/17 21:00 04/04/17 20:59 03/06/17 20:05 60 MG Clonidine HCl (Catapres Tab) 0.6 mg TID PO 03/05/17 09:00 04/04/17 08:59 03/07/17 08:11 0.6 MG Isosorbide Mononitrate (Imdur Ext Rel Tab) 90 mg QAM PO 03/05/17 09:00 04/04/17 08:59 03/07/17 08:12 90 MG Lactulose (Chronulac Syrup) 30 gm Q4H PRN PO 03/05/17 01:45 04/04/17 01:44 03/06/17 11:38 30 GM Insulin Glargine (Lantus Solostar Pen) 10 units Q12 SC 03/05/17 09:00 04/04/17 08:59 03/07/17 09:47 10 UNITS Glucose (Glucose 40% Gel) 15-30 GRAMS 15 GRAMS... UD PRN PO 03/05/17 02:30 04/04/17 02:29 Glucose (Glucose Chew Tab) 4-8 Tablets 4 Tabl... UD PRN PO 03/05/17 02:30 04/04/17 02:29 Dextrose (Dextrose 50% 50ML Syringe) 25-50ML OF 50% DW IV FOR... UD PRN IV 03/05/17 02:30 04/04/17 02:29 Glucagon (Glucagon Inj) 1 mg UD PRN SQ 03/05/17 02:30 04/04/17 02:29 Ketorolac Tromethamine (Toradol Inj) 15 mg Q6H PRN IV 03/05/17 03:15 03/10/17 03:14 03/07/17 09:23 15 MG Nitroglycerin (Nitro-Dur 0.2 Mg/Hr Patch) 1 patch QAM TD 03/06/17 09:00 04/05/17 08:59 03/07/17 08:14 1 PATCH Miscellaneous (Remove Nitro-Dur Patch) 1 ea DAILY@21 N/A 03/06/17 21:00 04/05/17 20:59 03/06/17 20:07 1 EA Ceftriaxone Sodium 1 gm/ Dextrose 50 ml @ 100 mls/hr Q24H IV 03/05/17 18:00 03/10/17 17:59 03/06/17 18:19 100 MLS/HR Insulin Aspart (novoLOG ASPART) SLIDING SCALE If C... ACHS SC 03/05/17 17:15 04/04/17 17:14 03/07/17 09:46 7 UNITS Senna (Senokot Tab) 17.2 mg QAM PO 03/06/17 09:00 04/05/17 08:59 03/07/17 08:13 17.2 MG Sodium Chloride 1,000 ml @ 100 mls/hr Q10H IV 03/06/17 09:00 04/05/17 08:59 03/07/17 05:21 100 MLS/HR Nicotine (Nicoderm Cq 21MG Patch) 1 patch QAM TD 03/07/17 09:00 04/06/17 08:59 03/07/17 08:10 1 PATCH Miscellaneous (Remove Nicoderm Patch) 1 ea HS N/A 03/06/17 21:00 04/05/17 20:59 03/06/17 20:07 1 EA Polyethylene (Miralax Powder Packet) 17 gm DAILY PO 03/07/17 09:00 04/04/17 01:44 03/07/17 08:13 17 GM Albuterol/ Ipratropium (Duoneb) 3 ml Q2H PRN INH 03/07/17 11:30 04/06/17 11:29 Objective Vital Signs Date Time Temp Pulse Resp B/P (MAP) Pulse Ox O2 Delivery O2 Flow Rate FiO2 03/07/17 07:40 Room Air 03/07/17 07:13 36.8 64 19 140/89 (106) 99 Room Air 03/06/17 23:15 Room Air 03/06/17 23:06 36.4 64 16 98/61 (73) 100 Room Air 03/06/17 17:44 74 16 97 Room Air 03/06/17 15:37 36.8 67 18 130/89 (103) 100 Room Air 03/06/17 15:30 Room Air Physical Exam General Appearance: WD/WN, no apparent distress, + obese Eyes: sclerae normal ENT: hearing grossly normal Neck: supple, no JVD, trachea midline Respiratory/Chest: lungs clear, normal breath sounds, no respiratory distress, no accessory muscle use Cardiovascular: regular rate, rhythm, no gallop, no murmur Abdomen: normal bowel sounds, soft (with minimal distension) Extremities: no calf tenderness Neurologic/Psychiatric: alert, oriented x 3 Skin: normal color, warm/dry Laboratory Results Last 24 Hours Test 03/06/17 16:58 03/06/17 20:28 03/07/17 06:07 03/07/17 07:43 Bedside Glucose 161 mg/dl 308 mg/dl 89 mg/dl White Blood Count 6.13 K/uL Red Blood Count 2.86 M/uL Hemoglobin 8.3 g/dL Hematocrit 24.9 % Mean Corpuscular Volume 87.1 fL Mean Corpuscular Hemoglobin 29.0 pg Mean Corpuscular Hemoglobin Concent 33.3 g/dl RDW Standard Deviation 44.7 fL RDW Coefficient of Variation 13.9 % Platelet Count 165 K/uL Mean Platelet Volume 8.9 fL Sodium Level 132 mmol/L Potassium Level 4.4 mmol/L Chloride Level 107 mmol/L Carbon Dioxide Level 20 mmol/L Anion Gap 5.0 mmol/L Blood Urea Nitrogen 6 mg/dl Creatinine 0.80 mg/dl Est Creatinine Clear Calc Drug Dose 122.0 ml/min Estimated GFR () 106.1 Estimated GFR (Non- 91.6 BUN/Creatinine Ratio 7.9 Random Glucose 61 mg/dl Calcium Level 7.4 mg/dl Phosphorus Level 2.9 mg/dl Magnesium Level 2.1 mg/dl Assessment and Plan 41 yo F, transferred from [facility], primarily for evaluation and management of severe constipation (colonic inertia) Colonic Inertia - Ileus: Possibly Worsened by Recent Ultram - Colace 100 mg BID, Senna 17.2 mg daily, and Miralax daily - Toradol PRN pain and avoid narcotics - GI Consult - Dr Coto following - recommending bowel regimen to start this evening with plans for colonoscopy tomorrow Hyponatremia: Dehydration - Was 116 on admission to [place] - almost resolved - Aldactone 25 mg BID will be on hold - Monitor electrolytes UTI per [place]: - Ceftriaxone x 1 more dose today to complete 5 day coverage Type 2 DM: - Hold Metformin at this time and cover with SSI and Lantus Bipolar Disorder - Klonopin 1 mg QID - confirmed with her pharmacy - recommend slow taper as an outpatient - Prozac 40 mg daily, Imipramine 200 mg HS, Geodon 60 mg HS HTN: - Lisinopril on hold - Coreg 25 mg BID, Clonidine 0.6 mg TID Hx of Migraines - Continue Topamax 100 mg BID Tobacco User with Chronic Cough: - Albuterol PRN and Combivent PRN - Nicotine patch Chronic Chest Pain with CAD: - Imdur 90 mg daily, Nitro patch DVT Prophylaxis: Heparin 5000 units SC Q8H Code Status: FULL RESUSCITATION Disposition: - Plan is for colonoscopy tomorrow - pending timing of colonoscopy and results - likely D/C tomorrow vs Saturday Continued [facility] stay due to: other (further studies) Discharge planning: home
[2017-03-07] MEDS: CEFTRIAXONE SOD INJ 1 GM in DEXTROSE 5% ADD-VANTAGE 50ML 50 ML IV SCH (17:33)
[2017-03-07] MEDS ORDERED: LAVAGE SOLUTION 4000ML PO SCH (18:43)
[2017-03-07] MEDS ORDERED: MoRPHine SULFATE 4 MG/ML 1 ML CARP\\VIAL IV STA (20:34)
[2017-03-07] MEDS ORDERED: HydrALAZINE HCL 20 MG/ML VIAL IV. STA (20:34)
[2017-03-07] MEDS ORDERED: HydrALAZINE HCL 20 MG/ML VIAL IV. PRN (20:45)
[2017-03-07] MEDS: IMIPRAMINE HCL 50 MG TAB PO SCH (21:29)
[2017-03-07] MEDS: ZIPRASIDONE 20 MG CAP PO SCH (21:30)
[2017-03-07] MEDS ORDERED: NURSING VERBAL MED ORDER ONE (22:15)
[2017-03-08] VITALS (10 sets, daily range): BP systolic 103–173; BP diastolic 65–121; PULSE 61–83; TEMP 36.2–36.7; O2SAT 98–100
[2017-03-08] MEDS: SODIUM CHLORIDE 0.9% 1000ML 1,000 ML IV SCH ×2 (00:26→10:18)
[2017-03-08] MEDS: KETOROLAC TROMETHAMINE 15 MG/ML VIAL IV PRN ×4 (03:44→23:26)
[2017-03-08] MEDS ORDERED: MAGNESIUM CITRATE 296 ML/BTL PO ONE (05:30)
[2017-03-08] MEDS: INSULIN ASPART 100 UNITS/ML 3 ML PEN SC SCH ×5 (06:00→21:00)
[2017-03-08] MEDS: NITROGLYCERIN 0.2 MG/HR PATCH TD SCH (06:07)
--- NOTE | 2017-03-08 07:24 | GASTROENTEROLOGY PROGRESS NOTE ---
DATE: 03/07/2017 The patient seen, chart reviewed. The patient has had several bowel movements that are liquid and reports that her stools are brownish in color, although relatively clear. She had some passage of solid stool earlier in the day. Her abdominal pain is intermittent but markedly diminished from admission as well as her sense of abdominal distention has also improved. CURRENT MEDICATIONS: Include insulin, DuoNeb, nicotine, MiraLax, senna, imipramine, ziprasidone, fluoxetine, ranitidine, pantoprazole. She is also on lactulose, although this appears to be a p.r.n. dosing schedule. ALLERGIES: INCLUDE BUSPIRONE, PENICILLIN, SERTRALINE, TRAZODONE, VALPROIC ACID. LABORATORY STUDIES: Hemoglobin today is 8.3 which is down from 03/05/2017, white count 6.1, platelets 165,000. Serum chemistry, BUN and creatinine are 6 and 0.8, potassium 4.4, sodium slightly low at 132, calcium 7.4, mag and phosphatase are in satisfactory range. PHYSICAL EXAMINATION: VITAL SIGNS: Blood pressure 175/115, afebrile at 36.3, pulse 69, 98% on room air. GENERAL: The patient is awake, alert and oriented x3. HEENT: Sclerae anicteric. Conjunctivae moist. Oral mucosa moist. HEART: Normal S1, S2. LUNGS: Clear to auscultation. ABDOMEN: Obese, minimally tympanitic without rebound or guarding. There is no area of focal tenderness. EXTREMITIES: Without clubbing or cyanosis. There is trace edema. RECTAL: Deferred. IMPRESSION AND PLAN: The patient has responded well to bowel cleansing over the last couple days and we will plan to do colonoscopy to assess for the patient's chronic constipation, transition zone appreciated on flat plate, as well as her anemia. Hopefully, with a little bit more prepping through the night and into tomorrow morning, she will be ready for colonoscopy tomorrow afternoon. This will be performed by Dr. Fisher or Dr. Bailey. Further recommendations to follow. We will make the patient n.p.o. after midnight except clears. All questions answered. Once the colonoscopy is completed, we will need to streamline and optimize the patient's home bowel regimen which ideally should include Senokot, MiraLax and a stool softener. Would minimize lactulose given her history of diabetes.
[2017-03-08] MEDS: NICOTINE 21 MG/24 HR TDSY TD SCH (07:42)
[2017-03-08] MEDS: INSULIN GLARGINE SOLOSTAR 100 UNITS/ML 3 ML PEN SC SCH (08:11)
[2017-03-08] MEDS: CLONAZEPAM 1 MG TAB PO SCH ×4 (08:14→20:25)
[2017-03-08] MEDS: POTASSIUM CHLORIDE 20 MEQ TABCR PO SCH ×2 (08:14→20:29)
[2017-03-08] MEDS: DOCUSATE SODIUM 100 MG CAP PO SCH ×2 (08:14→20:27)
[2017-03-08] MEDS: SENNA 8.6 MG TAB PO SCH (08:15)
[2017-03-08] MEDS: FLUOXETINE HCL 20 MG CAP PO SCH (08:15)
[2017-03-08] MEDS: CLONIDINE HCL 0.3 MG TAB PO SCH ×3 (08:15→20:27)
[2017-03-08] MEDS: PANTOprazole SOD 40 MG TAB PO SCH ×2 (08:15→20:30)
[2017-03-08] MEDS ORDERED: NURSING VERBAL MED ORDER ONE ×2 (08:15→15:30)
[2017-03-08] MEDS: TOPIRAMATE 100 MG TAB PO SCH ×2 (08:15→20:30)
[2017-03-08] MEDS: ISOSORBIDE MONONITRATE 30 MG TABCR PO SCH (08:15)
[2017-03-08] MEDS: RANITIDINE HCL 150 MG TAB PO SCH ×2 (08:15→20:30)
[2017-03-08] MEDS: POLYETHYLENE (MIRALAX) 17 GM PACK PO SCH (08:16)
[2017-03-08] MEDS: CARVEDILOL 25 MG TAB PO SCH ×2 (08:16→20:27)
[2017-03-08 08:39] LABS: HEMATOCRIT 31.2 % (37-47); MEAN CELL VOLUME 87.4 fL (80-100); MEAN CORPUSCULAR HEMOGLOBIN 29.1 pg (25-34); MEAN CORPUSCULAR HGB CONC 33.3 g/dl (32-36); MEAN PLATELET VOLUME 9.4 fL (7.4-10.4); PLATELET COUNT 215 K/uL (130-400); RED BLOOD COUNT 3.57 M/uL (4.2-5.4); WHITE BLOOD COUNT 7.53 K/uL (4.8-10.8)
[2017-03-08 09:11] LABS: CREATININE 0.79 mg/dl (0.60-1.20)
[2017-03-08 09:12] LABS: BUN/CREATININE RATIO 5.7 (10-20); CALCIUM 8.5 mg/dl (8.5-10.1); MAGNESIUM 2.9 mg/dl (1.8-2.4); PHOSPHORUS 3.3 mg/dl (2.5-4.9); POTASSIUM 3.8 mmol/L (3.5-5.1)
--- NOTE | 2017-03-08 12:30 | Endo History and Physical ---
History & Physical Date of Service: Mar 08, 2017. Chief Complaint: Rectal bleeding Referring Physician: Dr Chandler History of Present Illness For colonoscopy Past Surgical History Hx Cardiac Surgery: Yes (Cardiac cath/stent placed) Hx Internal Defibrillator: No Hx Pacemaker: No Hx Abdominal Surgery: Yes (Hysterectomy; cholecystectomy) Hx Post-Op Nausea and Vomiting: No Hx Cancer Surgery: No Hx Thoracic Surgery: No Hx Orthopedic: Yes (Left knee surgery) Hx Urinary Tract Surgery: No Social History Smoking Status: Current Every Day Smoker (smokes 1/2 to 1 pack per day) Smokeless Tobacco Use: No Hx Substance Use: No Hx Alcohol Use: No Allergies Coded Allergies: Buspirone (Verified Allergy, Unknown, RASH, 02/06/17) Penicillins (Verified Allergy, Unknown, HIVES AND PASSES OUT, 02/06/17) Sertraline (Verified Allergy, Unknown, HIVES AND PASSES OUT, 02/06/17) Trazodone (Verified Allergy, Unknown, IRRITATES NEUROPATHY AND HIVES, 02/06) Valproic Acid (Verified Allergy, Unknown, HIVES, DIZZINESS, SLURRING SPEECH, 02/06/17) Current Medications Reported Home Medications Medications Dose Route/Sig Max Daily Dose Days Date Category Dose Instructions Catapres (Clonidine Hcl) 0.3 Mg Tab 2 Tab PO TID 30 03/05/17 Reported Tylenol (Acetaminophen) 325 Mg Tab 650 Mg PO Q6 PRN 03/05/17 Reported Nitroglycerin 0.2 Mg/Hr Dis 1 Dose SC Q8H 01/21/17 Reported Tofranil Pm (Imipramine Pamoate) 100 Mg Cap 2 Cap PO HS 01/21/17 Reported Proventil 0.083% 2.5MG/3ML (Albuterol Sulf) 2.5 Mg/3 Ml Nebu 2.5 Mg INH TID PRN 11/21/16 Reported Vitamin D 74374 Unit (Ergocalciferol) 50,000 Unit Cap 50,000 Unit PO WK 11/21/16 Reported Lantus (Insulin Glargine) 100 Unit/Ml Inj 32 Units SC AT LUNCH 11/21/16 Reported Novolog Flexpen (Insulin Aspart) 100 Units/Ml Inj 12 Units PO SUPPER 11/21/16 Reported +SLIDING SCALE Novolog Flexpen (Insulin Aspart) 100 Units/Ml Inj 12 Units PO LUNCH 11/21/16 Reported +SLIDING SCALE Novolog Flexpen (Insulin Aspart) 100 Units/Ml Inj 10 Units PO QAM 11/21/16 Reported +SLIDING SCALE [Isosorbide Er] 60 Mg PO QAM 11/21/16 Reported Prozac (Fluoxetine HCl) 40 Mg Cap 40 Mg PO QAM 11/21/16 Reported Protonix (Pantoprazole Sodium) 40 Mg Tab 40 Mg PO BID 11/21/16 Reported Zantac (Ranitidine HCl) 150 Mg Tab 150 Mg PO BID 11/21/16 Reported Coreg (Carvedilol) 25 Mg Tab 25 Mg PO BID 11/21/16 Reported Klonopin (Clonazepam) 1 Mg Tab 1 Mg PO QID 11/21/16 Reported Dulcolax Stool Softener (Docusate Sodium) 100 Mg Cap 1 Cap PO BID 11/21/16 Reported Klor-Con (Potassium Chloride) 20 Meq Tabcr 2 Tabs PO BID 11/21/16 Reported Aldactone (Spironolactone) 25 Mg Tab 25 Mg PO BID 11/21/16 Reported Topamax (Topiramate) 100 Mg Tab 100 Mg PO BID 11/21/16 Reported Geodon (Ziprasidone Hcl) 60 Mg Cap 60 Mg PO HS 11/21/16 Reported Vital Signs Weight (Kilograms): 109.500 Height (Feet): 5 Height (Inches): 9.00 Date Time Temp Pulse Resp B/P (MAP) Pulse Ox O2 Delivery O2 Flow Rate FiO2 03/08/17 11:51 36.7 66 14 138/95 (109) 99 Room Air 03/08/17 08:24 98 Room Air 03/08/17 08:09 36.5 78 14 152/100 (117) 98 Room Air 03/08/17 07:48 Room Air 03/08/17 05:54 76 162/103 (122) 03/08/17 00:40 Room Air 03/08/17 00:27 36.4 73 17 132/93 (106) 100 Room Air 03/07/17 22:05 147/106 (120) 03/07/17 21:24 81 158/105 (122) 03/07/17 21:01 Room Air 03/07/17 20:31 36.5 75 18 169/113 (131) 100 Room Air 03/07/17 20:15 161/97 (118) 03/07/17 20:10 172/119 (136) 03/07/17 17:00 168/103 (124) 03/07/17 16:13 69 161/103 (122) 03/07/17 16:09 36.3 69 20 175/115 (135) 98 Room Air 03/07/17 15:48 77 16 97 Room Air 03/07/17 15:40 Room Air Physical Exam General Appearance: + obese Respiratory/Chest: Respiratory effort: no dyspnea Cardiovascular: Heart Auscultation: RRR Abdomen: Inspection & Palpation: soft Assessment and Plan Rectal bleeding for colonoscopy
--- NOTE | 2017-03-08 13:21 | Discharge Instructions ---
Endoscopy Patient Instructions Date / Procedure(s) Performed Mar 08, 2017. Colonoscopy Allergy Information Coded Allergies: Buspirone (Verified Allergy, Unknown, RASH, 02/06/17) Penicillins (Verified Allergy, Unknown, HIVES AND PASSES OUT, 02/06/17) Sertraline (Verified Allergy, Unknown, HIVES AND PASSES OUT, 02/06/17) Trazodone (Verified Allergy, Unknown, IRRITATES NEUROPATHY AND HIVES, 02/06) Valproic Acid (Verified Allergy, Unknown, HIVES, DIZZINESS, SLURRING SPEECH, 02/06/17) Discharge Date / Findings Mar 08, 2017. Redundant colon Medication Instructions Restart Stopped Medication(s): resume meds Current Inpatient Medications Medications (Trade) Dose Ordered Sig/Ralph Route Start Time Stop Time Status Last Admin Dose Admin Acetaminophen (Tylenol Tab) 650 mg Q4H PRN PO 03/05/17 01:45 04/04/17 01:44 03/07/17 18:53 650 MG Al Hydrox/Mg Hydrox/Simethicone (Maalox Max Susp) 15 ml Q4H PRN PO 03/05/17 01:45 04/04/17 01:44 03/05/17 21:13 15 ML Magnesium Hydroxide (Milk Of Magnesia Susp) 30 ml Q6H PRN PO 03/05/17 01:45 04/04/17 01:44 Ondansetron HCl (Zofran Inj) 4 mg Q6H PRN IV 03/05/17 01:45 04/04/17 01:44 Carvedilol (Coreg Tab) 25 mg BID PO 03/05/17 09:00 04/04/17 08:59 03/08/17 08:16 25 MG Clonazepam (Klonopin Tab) 1 mg QID PO 03/05/17 09:00 04/04/17 08:59 03/08/17 08:14 1 MG Docusate Sodium (coLACE CAP) 100 mg BID PO 03/05/17 09:00 04/04/17 08:59 03/08/17 08:14 100 MG Fluoxetine HCl (Prozac Cap) 40 mg QAM PO 03/05/17 09:00 04/04/17 08:59 03/08/17 08:15 40 MG Imipramine HCl (Tofranil Tab) 200 mg HS PO 03/05/17 21:00 04/04/17 20:59 03/07/17 21:29 200 MG Albuterol/ Ipratropium (Combivent Respimat Inh) 1 puffs QID PRN INH 03/05/17 01:45 04/04/17 01:44 03/06/17 23:13 1 PUFFS Pantoprazole Sodium (Protonix Tab) 40 mg BID PO 03/05/17 09:00 04/04/17 08:59 03/08/17 08:15 40 MG Potassium Chloride (Klor-Con Tab) 40 meq BID PO 03/05/17 09:00 04/04/17 08:59 03/08/17 08:14 40 MEQ Ranitidine HCl (zANTac TAB) 150 mg BID PO 03/05/17 09:00 04/04/17 08:59 03/08/17 08:15 150 MG Spironolactone (Aldactone Tab) 25 mg BID PO 03/05/17 09:00 04/04/17 08:59 Future Hold 03/06/17 09:33 25 MG Topiramate (Topamax Tab) 100 mg BID PO 03/05/17 09:00 04/04/17 08:59 03/08/17 08:15 100 MG Ziprasidone (Geodon Cap) 60 mg HS PO 03/05/17 21:00 04/04/17 20:59 03/07/17 21:30 60 MG Clonidine HCl (Catapres Tab) 0.6 mg TID PO 03/05/17 09:00 04/04/17 08:59 03/08/17 08:15 0.6 MG Isosorbide Mononitrate (Imdur Ext Rel Tab) 90 mg QAM PO 03/05/17 09:00 04/04/17 08:59 03/08/17 08:15 90 MG Lactulose (Chronulac Syrup) 30 gm Q4H PRN PO 03/05/17 01:45 04/04/17 01:44 03/06/17 11:38 30 GM Glucose (Glucose 40% Gel) 15-30 GRAMS 15 GRAMS... UD PRN PO 03/05/17 02:30 04/04/17 02:29 Glucose (Glucose Chew Tab) 4-8 Tablets 4 Tabl... UD PRN PO 03/05/17 02:30 04/04/17 02:29 Dextrose (Dextrose 50% 50ML Syringe) 25-50ML OF 50% DW IV FOR... UD PRN IV 03/05/17 02:30 04/04/17 02:29 03/08/17 06:33 25 ML Glucagon (Glucagon Inj) 1 mg UD PRN SQ 03/05/17 02:30 04/04/17 02:29 Ketorolac Tromethamine (Toradol Inj) 15 mg Q6H PRN IV 03/05/17 03:15 03/10/17 03:14 03/08/17 10:36 15 MG Nitroglycerin (Nitro-Dur 0.2 Mg/Hr Patch) 1 patch QAM TD 03/06/17 09:00 04/05/17 08:59 03/08/17 06:07 1 PATCH Miscellaneous (Remove Nitro-Dur Patch) 1 ea DAILY@21 N/A 03/06/17 21:00 04/05/17 20:59 03/06/17 20:07 1 EA Senna (Senokot Tab) 17.2 mg QAM PO 03/06/17 09:00 04/05/17 08:59 03/08/17 08:15 17.2 MG Sodium Chloride 1,000 ml @ 100 mls/hr Q10H IV 03/06/17 09:00 04/05/17 08:59 03/08/17 10:18 100 MLS/HR Nicotine (Nicoderm Cq 21MG Patch) 1 patch QAM TD 03/07/17 09:00 04/06/17 08:59 03/08/17 07:42 1 PATCH Miscellaneous (Remove Nicoderm Patch) 1 ea HS N/A 03/06/17 21:00 04/05/17 20:59 03/06/17 20:07 1 EA Polyethylene (Miralax Powder Packet) 17 gm DAILY PO 03/07/17 09:00 04/04/17 01:44 03/07/17 08:13 17 GM Albuterol/ Ipratropium (Duoneb) 3 ml Q2H PRN INH 03/07/17 11:30 04/06/17 11:29 03/07/17 15:48 3 ML Insulin Glargine (Lantus Solostar Pen) 5 units Q12 SC 12/7/17 21:00 04/04/17 08:59 03/07/17 21:47 5 UNITS Hydralazine HCl (HydrALAZINE INJ) 10 mg Q6H PRN IV. 03/07/17 20:45 04/06/17 20:44 Insulin Aspart (novoLOG ASPART) SLIDING SCALE If C... Q6 SC 03/08/17 00:00 04/04/17 17:14 Provider Instructions Activity Restrictions - No exercising or heavy lifting for 24 hours. - Do not drink alcohol the day of the procedure. - Do not drive a car or operate machinery until the day after the procedure. - Do not make any important decisions or sign important papers in 24 hours after the procedure. Following Day: - Return to full activity which may include returning to work/school. Diet Start your diet with liquids and light foods (jello, soup, juice, toast). Then eat your usual diet if not nauseated. Treatment For Common After Affects For mild abdominal pain, bloating, or excessive gas: - Rest - Eat lightly - Lie on right side Follow-Up Information Follow-up with as scheduled Anesthesia Information What You Should Know You have had a procedure that required some medicine to reduce anxiety and discomfort. This treatment is called moderate sedation. After receiving the treatment, you may be sleepy, but you will be able to breathe on your own. The effects of the treatment may last for several hours. Follow these instructions along with Activity/Diet recommendations noted above: * Do NOT do anything where dizziness or clumsiness would be dangerous. * Rest quietly at home today, then you can be up and about tomorrow. * Have a responsible person stay with you the rest of today. * You may have had an I.V. today. If so, you may take the dressing off later today. Recommendations Call your doctor if: * Trouble breathing * Continuous vomiting for more than 24 hours * Temperature above 101 degrees * Severe abdominal pain or bloating * Pain not relieved by pain medicine ordered * There is increased drainage or redness from any incision * A large amount of rectal bleeding greater than 2-3 tablespoons. (If you had a polyp/s removed or have hemorrhoids, a small amount of blood - from the rectum is to be expected.) * You have any unanswered questions or concerns. IN THE EVENT OF A SERIOUS EMERGENCY, GO TO THE NEAREST EMERGENCY ROOM Your discharge instructions were prepared by provider Andrea Fisher. Patient Instructions Signature Page Cheryl Gary Patient (or Guardian) Signature/Date: I have read and understand the instructions given to me by my caregivers. Caregiver/RN/Doctor Signature/Date: The above-named patient and/or guardian has received patient instructions on this date. + Original Patient Signature Page (only) stays with chart. Please make copy for patient.
--- NOTE | 2017-03-08 13:26 | GI REPORT ---
Procedure Date: 03/08/2017 12:46 PM Procedure: Colonoscopy Indications: Melena, Constipation Medicines: Propofol total dose 300 mg IV, Lidocaine 40 mg IV Complications: No immediate complications. Estimated Blood Loss: Estimated blood loss: none. Procedure: Pre-Anesthesia Assessment: - Prior to the procedure, a History and Physical was performed, and patient medications, allergies and sensitivities were reviewed. The patient's tolerance of previous anesthesia was reviewed. - The risks and benefits of the procedure and the sedation options and risks were discussed with the patient. All questions were answered and informed consent was obtained. After I obtained informed consent, the scope was passed under direct vision. Throughout the procedure, the patient's blood pressure, pulse, and oxygen saturations were monitored continuously. The Scope was introduced through the anus and advanced to the cecum, identified by appendiceal orifice and ileocecal valve. The colonoscopy was somewhat difficult due to significant looping. Successful completion of the procedure was aided by applying abdominal pressure. The quality of the bowel preparation was poor. Findings: Normal mucosa was found in the entire colon. Impression: - Preparation of the colon was poor. - Normal mucosa in the entire examined colon. - No specimens collected. Recommendation: - Return patient to [facility] for ongoing care. Andrea Fisher M.D. Andrea Fisher MD 03/08/2017 1:26:08 PM This report has been signed electronically. Note Initiated On: 03/08/2017 12:46 PM I attest to the content of the Intraoperative Record and orders documented therein, exceptions below
[2017-03-08] MEDS ORDERED: LIDOCAINE HCL 2% 2 ML VIAL (20MG/ML) ONE (13:50)
[2017-03-08] MEDS ORDERED: PROPOFOL IV EMULSION 10 MG/ML 20 ML VIAL IV ONE (13:50)
--- NOTE | 2017-03-08 14:14 | Anesthesiology Progress Note ---
Anesthesia Post Op Note Date & Time Mar 08, 2017 at 14:13 Vital Signs Pain Intensity: 0 Vital Signs Past 12 Hours Date Time Temp Pulse Resp B/P (MAP) Pulse Ox O2 Delivery O2 Flow Rate FiO2 03/08/17 14:00 70 20 150/103 (119) 99 Room Air 03/08/17 13:45 68 20 142/99 (113) 98 Room Air 03/08/17 13:30 66 20 121/72 (88) 96 Room Air 03/08/17 12:32 36.6 72 22 135/95 (108) 96 Room Air 03/08/17 11:51 36.7 66 14 138/95 (109) 99 Room Air 03/08/17 08:24 98 Room Air 03/08/17 08:09 36.5 78 14 152/100 (117) 98 Room Air 03/08/17 07:48 Room Air 03/08/17 05:54 76 162/103 (122) Notes Mental Status: alert / awake / arousable, participated in evaluation Pt Amnestic to Procedure: Yes Nausea / Vomiting: adequately controlled Pain: adequately controlled Airway Patency, RR, SpO2: stable & adequate BP & HR: stable & adequate Hydration State: stable & adequate Anesthetic Complications: no major complications apparent The patient is due for her BP medication on the floor. The floor nurse was contacted and will be giving her her scheduled medications when she arrives.
[2017-03-08] MEDS: ACETAMINOPHEN 325 MG TAB PO PRN ×2 (16:24→20:25)
--- NOTE | 2017-03-08 18:17 | Hospitalist Progress Note ---
Hospitalist Progress Note Date of Service Mar 08, 2017. Subjective Pt evaluation today including: conversation w/ patient, physical exam, chart review, lab review, review of studies, review of inpatient medication list Patient seen and evaluated. No acute events overnight. Continues to have good bowel movements and abdominal bloat and pain resolved. Have had issues with hypoglycemia likely due to clear liquid diet. Is on solid foods at this time. Will hold Lantus at this time and just cover with sliding scale. She underwent colonoscopy which bowel prep was poor Pending no further intervention in-hospital plan for D/C tomorrow with good bowel regimen. Constitutional: No fever, No chills Respiratory: + cough, No shortness of breath Cardiovascular: No chest pain Abdomen: + diarrhea, No pain, No nausea, No vomiting Musculoskeletal: No swelling, No calf pain Female : No dysuria Heme: No abnormal bleeding/bruising Skin: No rash Medications Current Inpatient Medications Medications (Trade) Dose Ordered Sig/Ralph Route Start Time Stop Time Status Last Admin Dose Admin Acetaminophen (Tylenol Tab) 650 mg Q4H PRN PO 03/05/17 01:45 04/04/17 01:44 03/08/17 16:24 650 MG Al Hydrox/Mg Hydrox/Simethicone (Maalox Max Susp) 15 ml Q4H PRN PO 03/05/17 01:45 04/04/17 01:44 03/05/17 21:13 15 ML Magnesium Hydroxide (Milk Of Magnesia Susp) 30 ml Q6H PRN PO 03/05/17 01:45 04/04/17 01:44 Ondansetron HCl (Zofran Inj) 4 mg Q6H PRN IV 03/05/17 01:45 04/04/17 01:44 03/08/17 16:18 4 MG Carvedilol (Coreg Tab) 25 mg BID PO 03/05/17 09:00 04/04/17 08:59 03/08/17 08:16 25 MG Clonazepam (Klonopin Tab) 1 mg QID PO 03/05/17 09:00 04/04/17 08:59 03/08/17 17:05 1 MG Docusate Sodium (coLACE CAP) 100 mg BID PO 03/05/17 09:00 04/04/17 08:59 03/08/17 08:14 100 MG Fluoxetine HCl (Prozac Cap) 40 mg QAM PO 03/05/17 09:00 04/04/17 08:59 03/08/17 08:15 40 MG Imipramine HCl (Tofranil Tab) 200 mg HS PO 03/05/17 21:00 04/04/17 20:59 03/07/17 21:29 200 MG Albuterol/ Ipratropium (Combivent Respimat Inh) 1 puffs QID PRN INH 03/05/17 01:45 04/04/17 01:44 03/06/17 23:13 1 PUFFS Pantoprazole Sodium (Protonix Tab) 40 mg BID PO 03/05/17 09:00 04/04/17 08:59 03/08/17 08:15 40 MG Potassium Chloride (Klor-Con Tab) 40 meq BID PO 03/05/17 09:00 04/04/17 08:59 03/08/17 08:14 40 MEQ Ranitidine HCl (zANTac TAB) 150 mg BID PO 03/05/17 09:00 04/04/17 08:59 03/08/17 08:15 150 MG Spironolactone (Aldactone Tab) 25 mg BID PO 03/05/17 09:00 04/04/17 08:59 Future Hold 03/06/17 09:33 25 MG Topiramate (Topamax Tab) 100 mg BID PO 03/05/17 09:00 04/04/17 08:59 03/08/17 08:15 100 MG Ziprasidone (Geodon Cap) 60 mg HS PO 03/05/17 21:00 04/04/17 20:59 03/07/17 21:30 60 MG Clonidine HCl (Catapres Tab) 0.6 mg TID PO 03/05/17 09:00 04/04/17 08:59 03/08/17 14:51 0.6 MG Isosorbide Mononitrate (Imdur Ext Rel Tab) 90 mg QAM PO 03/05/17 09:00 04/04/17 08:59 03/08/17 08:15 90 MG Lactulose (Chronulac Syrup) 30 gm Q4H PRN PO 03/05/17 01:45 04/04/17 01:44 03/06/17 11:38 30 GM Glucose (Glucose 40% Gel) 15-30 GRAMS 15 GRAMS... UD PRN PO 03/05/17 02:30 04/04/17 02:29 Glucose (Glucose Chew Tab) 4-8 Tablets 4 Tabl... UD PRN PO 03/05/17 02:30 04/04/17 02:29 Dextrose (Dextrose 50% 50ML Syringe) 25-50ML OF 50% DW IV FOR... UD PRN IV 03/05/17 02:30 04/04/17 02:29 03/08/17 06:33 25 ML Glucagon (Glucagon Inj) 1 mg UD PRN SQ 03/05/17 02:30 04/04/17 02:29 Ketorolac Tromethamine (Toradol Inj) 15 mg Q6H PRN IV 03/05/17 03:15 03/10/17 03:14 03/08/17 17:05 15 MG Nitroglycerin (Nitro-Dur 0.2 Mg/Hr Patch) 1 patch QAM TD 03/06/17 09:00 04/05/17 08:59 03/08/17 06:07 1 PATCH Miscellaneous (Remove Nitro-Dur Patch) 1 ea DAILY@21 N/A 03/06/17 21:00 04/05/17 20:59 03/06/17 20:07 1 EA Senna (Senokot Tab) 17.2 mg QAM PO 03/06/17 09:00 04/05/17 08:59 03/08/17 08:15 17.2 MG Sodium Chloride 1,000 ml @ 100 mls/hr Q10H IV 03/06/17 09:00 04/05/17 08:59 03/08/17 10:18 100 MLS/HR Nicotine (Nicoderm Cq 21MG Patch) 1 patch QAM TD 03/07/17 09:00 04/06/17 08:59 03/08/17 07:42 1 PATCH Miscellaneous (Remove Nicoderm Patch) 1 ea HS N/A 03/06/17 21:00 04/05/17 20:59 03/06/17 20:07 1 EA Polyethylene (Miralax Powder Packet) 17 gm DAILY PO 03/07/17 09:00 04/04/17 01:44 03/07/17 08:13 17 GM Albuterol/ Ipratropium (Duoneb) 3 ml Q2H PRN INH 03/07/17 11:30 04/06/17 11:29 03/07/17 15:48 3 ML Insulin Glargine (Lantus Solostar Pen) 5 units Q12 SC 03/07/17 21:00 04/04/17 08:59 03/07/17 21:47 5 UNITS Hydralazine HCl (HydrALAZINE INJ) 10 mg Q6H PRN IV. 03/07/17 20:45 04/06/17 20:44 Insulin Aspart (novoLOG ASPART) SLIDING SCALE If C... ACHS SC 03/08/17 17:15 04/07/17 17:14 Objective Vital Signs Date Time Temp Pulse Resp B/P (MAP) Pulse Ox O2 Delivery O2 Flow Rate FiO2 03/08/17 16:12 152/92 (112) 03/08/17 14:48 36.3 70 20 165/114 (131) 100 Room Air 03/08/17 14:00 70 20 150/103 (119) 99 Room Air 03/08/17 13:45 68 20 142/99 (113) 98 Room Air 03/08/17 13:30 66 20 121/72 (88) 96 Room Air 03/08/17 12:32 36.6 72 22 135/95 (108) 96 Room Air 03/08/17 11:51 36.7 66 14 138/95 (109) 99 Room Air 03/08/17 08:24 98 Room Air 03/08/17 08:09 36.5 78 14 152/100 (117) 98 Room Air 03/08/17 07:48 Room Air 03/08/17 05:54 76 162/103 (122) 03/08/17 00:40 Room Air 03/08/17 00:27 36.4 73 17 132/93 (106) 100 Room Air 03/07/17 22:05 147/106 (120) 03/07/17 21:24 81 158/105 (122) 03/07/17 21:01 Room Air 03/07/17 20:31 36.5 75 18 169/113 (131) 100 Room Air 03/07/17 20:15 161/97 (118) 03/07/17 20:10 172/119 (136) Physical Exam General Appearance: WD/WN, no apparent distress, + obese Eyes: sclerae normal ENT: hearing grossly normal Neck: supple, no JVD, trachea midline Respiratory/Chest: lungs clear, normal breath sounds, no respiratory distress, no accessory muscle use Cardiovascular: regular rate, rhythm, no gallop, no murmur Abdomen: normal bowel sounds, non tender, soft Extremities: no pedal edema, no calf tenderness Neurologic/Psychiatric: alert, oriented x 3 Skin: normal color, warm/dry Laboratory Results Last 24 Hours Test 03/07/17 21:38 03/08/17 00:32 03/08/17 06:29 03/08/17 06:57 Bedside Glucose 86 mg/dl 150 mg/dl 65 mg/dl 109 mg/dl Test 03/08/17 07:53 03/08/17 11:57 03/08/17 12:39 White Blood Count 7.53 K/uL Red Blood Count 3.57 M/uL Hemoglobin 10.4 g/dL Hematocrit 31.2 % Mean Corpuscular Volume 87.4 fL Mean Corpuscular Hemoglobin 29.1 pg Mean Corpuscular Hemoglobin Concent 33.3 g/dl RDW Standard Deviation 45.0 fL RDW Coefficient of Variation 14.0 % Platelet Count 215 K/uL Mean Platelet Volume 9.4 fL Nucleated RBC Absolute Count (auto) 0.02 K/uL Nucleated Red Blood Cells % 0.2 % Sodium Level 137 mmol/L Potassium Level 3.8 mmol/L Chloride Level 108 mmol/L Carbon Dioxide Level 19 mmol/L Anion Gap 10.0 mmol/L Blood Urea Nitrogen 5 mg/dl Creatinine 0.79 mg/dl Est Creatinine Clear Calc Drug Dose 123.6 ml/min Estimated GFR () 107.8 Estimated GFR (Non- 93.0 BUN/Creatinine Ratio 5.7 Random Glucose 83 mg/dl Calcium Level 8.5 mg/dl Phosphorus Level 3.3 mg/dl Magnesium Level 2.9 mg/dl Bedside Glucose 110 mg/dl 103 mg/dl Assessment and Plan 41 yo F, transferred from [facility], primarily for evaluation and management of severe constipation (colonic inertia) Colonic Inertia - Ileus: Possibly Worsened by Recent Ultram - IMPROVING - Colace 100 mg BID, Senna 17.2 mg daily, and Miralax daily - will likely need to continue this bowel regimen on D/C - Toradol PRN pain and avoid narcotics - GI following - appreciate recommendations - underwent colonoscopy with poor bowel prep prior - redundant colon Hyponatremia: Dehydration - RESOLVED - Was 116 on admission to [facility] - currently + 3.5 L fluids - will stop IVF allow her to take in orally - Aldactone 25 mg BID can be resumed on D/C - Monitor electrolytes UTI per [facility]: - UCx here with [place] - no further Abx Type 2 DM: - Hold Metformin at this time and cover with SSI - having intermittent lows likely due to clear liquid diet Bipolar Disorder - Klonopin 1 mg QID - confirmed with her pharmacy - recommend slow taper as an outpatient - Prozac 40 mg daily, Imipramine 200 mg HS, Geodon 60 mg HS HTN: - Lisinopril can be resumed on D/C - Coreg 25 mg BID, Clonidine 0.6 mg TID Hx of Migraines - Continue Topamax 100 mg BID Tobacco User with Chronic Cough: - Albuterol PRN and Combivent PRN - Nicotine patch Chronic Chest Pain with CAD: - Imdur 90 mg daily, Nitro patch DVT Prophylaxis: Heparin 5000 units SC Q8H Code Status: FULL RESUSCITATION Disposition: - Pending no further intervention by GI patient will be D/C'd tomorrow - Transportation set for 11 AM - plan to continue Colace, Senna, and Miralax with daily use - recommend GI follow-up as outpatient Discharge planning: home
[2017-03-08] MEDS: ZIPRASIDONE 20 MG CAP PO SCH (20:28)
[2017-03-08] MEDS: IMIPRAMINE HCL 50 MG TAB PO SCH (20:30)
[2017-03-09 00:30] VITALS: BP 127/83; PULSE 94; O2SAT 99
[2017-03-09 03:45] VITALS: BP 117/74; PULSE 75
[2017-03-09] MEDS: ACETAMINOPHEN 325 MG TAB PO PRN (04:35)
[2017-03-09] MEDS: KETOROLAC TROMETHAMINE 15 MG/ML VIAL IV PRN (05:32)
[2017-03-09 07:03] LABS: HEMATOCRIT 26.8 % (37-47); MEAN CELL VOLUME 87.6 fL (80-100); MEAN CORPUSCULAR HEMOGLOBIN 30.1 pg (25-34); MEAN CORPUSCULAR HGB CONC 34.3 g/dl (32-36); MEAN PLATELET VOLUME 9.3 fL (7.4-10.4); PLATELET COUNT 176 K/uL (130-400); RED BLOOD COUNT 3.06 M/uL (4.2-5.4); WHITE BLOOD COUNT 6.76 K/uL (4.8-10.8)
[2017-03-09 07:25] LABS: BUN/CREATININE RATIO 7.7 (10-20); CALCIUM 7.9 mg/dl (8.5-10.1); CREATININE 0.81 mg/dl (0.60-1.20); MAGNESIUM 2.1 mg/dl (1.8-2.4); POTASSIUM 4.2 mmol/L (3.5-5.1)
[2017-03-09 07:29] LABS: PHOSPHORUS 3.8 mg/dl (2.5-4.9)
[2017-03-09 07:33] VITALS: BP 145/95; PULSE 67; TEMP 36.4; O2SAT 96
[2017-03-09] MEDS: RANITIDINE HCL 150 MG TAB PO SCH (08:23)
[2017-03-09] MEDS: POTASSIUM CHLORIDE 20 MEQ TABCR PO SCH (08:23)
[2017-03-09] MEDS: TOPIRAMATE 100 MG TAB PO SCH (08:23)
[2017-03-09] MEDS: POLYETHYLENE (MIRALAX) 17 GM PACK PO SCH (08:24)
[2017-03-09] MEDS: FLUOXETINE HCL 20 MG CAP PO SCH (08:24)
[2017-03-09] MEDS: PANTOprazole SOD 40 MG TAB PO SCH (08:24)
[2017-03-09] MEDS: CLONIDINE HCL 0.3 MG TAB PO SCH (08:24)
[2017-03-09] MEDS: ISOSORBIDE MONONITRATE 30 MG TABCR PO SCH (08:25)
[2017-03-09] MEDS: NITROGLYCERIN 0.2 MG/HR PATCH TD SCH (08:25)
[2017-03-09] MEDS: SENNA 8.6 MG TAB PO SCH (08:25)
[2017-03-09] MEDS: NICOTINE 21 MG/24 HR TDSY TD SCH (08:26)
[2017-03-09] MEDS: DOCUSATE SODIUM 100 MG CAP PO SCH (08:26)
[2017-03-09] MEDS: CARVEDILOL 25 MG TAB PO SCH (08:26)
[2017-03-09] MEDS: CLONAZEPAM 1 MG TAB PO SCH (09:02)
[2017-03-09] MEDS: INSULIN ASPART 100 UNITS/ML 3 ML PEN SC SCH (09:06)
[2017-03-09 10:31] VITALS: BP 145/95; PULSE 67; TEMP 36.4; O2SAT 96
[2017-03-09] MEDS ORDERED: NTRTP2 TD (11:45)
[2017-03-09] MEDS ORDERED: INSDGIPEN SC (11:45)
--- NOTE | 2017-03-09 11:48 | Discharge Instructions ---
Discharge Instructions Date of Service Mar 09, 2017. Admission Reason for Admission: Melena Discharge Discharge Diagnosis / Problem: Large Bowel Obstruction Discharge Goals Goal(s): Decrease discomfort, Improve function Activity Recommendations Activity Limitations: resume your previous activity . Instructions / Follow-Up Instructions / Follow-Up Followup with Primary care provider in 1 [address] up [address]. Fisher's office in next 3-4 weeks for management of her chronic constipation. It is likely due to dependence on her laxatives. Patient willl need to slowly taper off these meds. Will defer to outpatient PCP and GI. Current Hospital Diet Patient's current hospital diet: Diabetes Type 2 Diet Discharge Diet Recommended Diet: Diabetes Type 2 Diet Procedures Procedures Performed: COLONOSCOPY Pending Studies Studies pending at discharge: no Medical Emergencies . Who to Call and When: Medical Emergencies: If at any time you feel your situation is an emergency, please call 911 immediately. . Non-Emergent Contact Non-Emergency issues call your: Primary Care Provider Call Non-Emergent contact if: you have any medication questions . . "Provider Documentation" section prepared by Willy Ayala. . VTE Core Measure Inpt VTE Proph given/why not?: Unfractionated heparin SQ
--- NOTE | 2017-03-09 11:49 | Discharge Summary ---
Discharge Summary Date of Service Mar 09, 2017. Discharge Summary Admission Date: Mar 04, 2017 at 23:58 Discharge Date: Mar 09, 2017 Immunizations: Have You Had Influenza Vaccine: Unknown History of Tetanus Vaccine?: Unknown History of Pneumococcal: Unknown History of Hepatitis B Vaccine: Unknown Hospital Course This includes examination of the patient, discharge planning, medication reconciliation, and communication with other providers. Discharge Instructions Please refer to the electronic Patient Visit Report (Discharge Instructions) for additional information.
== END 2017-03-09 12:24 | disposition home or self-care (01) | DRG 392 ==
LOC: C.MSW 23:58
PROVIDERS: ADMIT Internal Medicine; ATTEND Internal Medicine Sports Medicine
PROC: 0DJD8ZZ Inspection of Lower Intestinal Tract, Via Natural or Artificial Opening Endoscopic (ICD-10-PCS; principal; 2017-03-08 12:26)
DX: K59.8 Other specified functional intestinal disorders (principal); E87.1 Hypo-osmolality and hyponatremia; N39.0 Urinary tract infection, site not specified; J44.9 Chronic obstructive pulmonary disease, unspecified; G40.909 Epilepsy, unspecified, not intractable, without status epilepticus; E11.9 Type 2 diabetes mellitus without complications; K21.9 Gastro-esophageal reflux disease without esophagitis; K58.9 Irritable bowel syndrome, unspecified; F31.9 Bipolar disorder, unspecified; F17.200 Nicotine dependence, unspecified, uncomplicated; I25.10 Atherosclerotic heart disease of native coronary artery without angina pectoris; Z90.710 Acquired absence of both cervix and uterus; Z87.01 Personal history of pneumonia (recurrent); Z90.49 Acquired absence of other specified parts of digestive tract; Z86.73 Personal history of transient ischemic attack (TIA), and cerebral infarction without residual deficits; Z83.3 Family history of diabetes mellitus

== ENCOUNTER → 2017-04-19 | Outpatient (CLI) | payer OTHER ==
[~2017-04-19] MED LIST changes: +ACET325T96 PO; -FURO40TA3 PO; -HYDR25TA4 PO; -INSDGI SC; +INSDGIPEN SC; -IPRA1AER2 INH; -LISI-725 PO; -METF1000 PO; -NIFE90TA34 PO; -NITR0.2D7 SC; +NTRTP2 TD; -VNTHFA/IN INH
--- NOTE | 2017-04-19 12:06 | DIAGNOSTIC IMAGING REPORT ---
NECK ULTRASOUND HISTORY: RT SIDE FACE SWELLING COMPARISON: None. FINDINGS: Within the right cheek at the patient's abnormality there is a 5 x 4 x 3 mm subcutaneous hypoechoic focus. There is surrounding increased echogenicity. IMPRESSION: A 5 x 4 x 3 mm subcutaneous hypoechoic focus within the right cheek with surrounding increased echogenicity. This is nonspecific could be due to a tiny subcutaneous hematoma or an abscess. Clinical correlation recommended. Electronically signed by: Mike Mo M.D. 04/19/2017 12:04 PM Dictated Date/Time: 04/19/2017 12:02 PM
== END | disposition home or self-care (01) ==
LOC: C.ULTRBC 11:03
PROVIDERS: ATTEND Nurse Practitioner
DX: S00.83XA Contusion of other part of head, initial encounter (principal); X58.XXXA Exposure to other specified factors, initial encounter

== ENCOUNTER → 2017-05-03 | Outpatient (CLI) | payer OTHER ==
--- NOTE | 2017-05-03 14:53 | DIAGNOSTIC IMAGING REPORT ---
CT ABDOMEN NO IV/ORAL CONT (CT) CT DOSE: 694.36 mGycm CLINICAL HISTORY: ADRENAL NODULE TECHNIQUE: Unenhanced images through the upper abdomen were obtained. A dose lowering technique was utilized adhering to the principles of ALARA. COMPARISON STUDY: Outside CT scan dated 10/17/2016 FINDINGS: The visualized portions lung bases reveal minimal dependent atelectasis/scarring. No hepatic masses are visualized on this noncontrast study. The gallbladder is surgically absent. No splenic masses are visualized. No pancreatic masses are visualized. There is a 27 mm soft tissue mass abutting the left adrenal gland. This appears slightly smaller than on the preceding study. The mass has a mean attenuation value of 24 Hounsfield units. Previous CVA mass had a mean Hounsfield attenuation value of less than 10. There is no evidence of abdominal aortic dilatation. There is an IVC filter present. The struts extend beyond the IVC lumen. There is moderate fecal retention. There is a stable 8 mm right renal upper pole calculus. There is mild renal cortical scarring. There is a 12 mm left renal cyst. IMPRESSION: 1. Slight interval decrease in the size of the left adrenal gland nodule. Prior studies indicated that nodule represents an adenoma 2. Stable 8 mm right renal calculus 3. Moderate fecal retention 4. IVC filter. The struts extend beyond the IVC lumen Electronically signed by: Rod Potter M.D. 05/03/2017 2:51 PM Dictated Date/Time: 05/03/2017 2:45 PM
== END | disposition home or self-care (01) ==
LOC: C.CTS 14:19
PROVIDERS: ATTEND Nurse Practitioner
DX: E27.9 Disorder of adrenal gland, unspecified (principal); N20.0 Calculus of kidney

== ENCOUNTER 2017-05-10 14:05 | Inpatient (IN) | payer OTHER ==
[~2017-05-10] VITALS: Ht 165.1 cm; Wt 110.1 kg
[~2017-05-10 14:05] MED LIST changes: +ACET-1693 PO; -ACET325T96 PO; -IMIP100C4 PO
[2017-05-10] MEDS ORDERED: ONDA8TAB6 PO (14:42)
[2017-05-10] MEDS ORDERED: RIZA10TA18 PO (14:42)
[2017-05-10] MEDS ORDERED: NVLG SQ ×3 (14:42)
[2017-05-10] MEDS ORDERED: NICO21DI35 TD (14:42)
[2017-05-10] MEDS ORDERED: ATOR-24 PO (14:42)
[2017-05-10] MEDS ORDERED: HYDR2.5C37 TOP (14:42)
[2017-05-10] MEDS ORDERED: BENZ100C84 PO (14:42)
[2017-05-10] MEDS ORDERED: KETOROLAC TROMETHAMINE 30 MG/ML VIAL IV STA (14:42)
[2017-05-10] MEDS ORDERED: RRALBUT083 INH (14:42)
[2017-05-10] MEDS ORDERED: HYDR25TA4 PO (14:42)
[2017-05-10] MEDS ORDERED: IPRASOL4 INH (14:42)
[2017-05-10] MEDS ORDERED: VNTHFA/IN INH (14:42)
[2017-05-10] MEDS ORDERED: MRLP17 PO (14:42)
[2017-05-10] MEDS ORDERED: CLOP1TAB15 PO (14:42)
[2017-05-10] MEDS ORDERED: DICL50TA3 PO (14:42)
[2017-05-10] MEDS ORDERED: METH-307 PO (14:42)
[2017-05-10] MEDS ORDERED: NYSTCRE11 (14:42)
[2017-05-10] MEDS ORDERED: IPRA1AER2 INH (14:42)
[2017-05-10] MEDS ORDERED: SODIUM CHLORIDE 0.9% 1000ML 1,000 ML IV ONE (14:45)
[2017-05-10] MEDS ORDERED: PRCSR90 PO (14:49)
[2017-05-10] MEDS ORDERED: ISOS60TA25 PO (14:49)
[2017-05-10] MEDS ORDERED: LACT10SO17 PO (14:49)
[2017-05-10] MEDS ORDERED: INSPMPHMLG (14:49)
[2017-05-10] MEDS ORDERED: INSDGI SC (14:49)
--- NOTE | 2017-05-10 14:49 | EMERGENCY ROOM VISIT NOTE ---
"History First contact with patient: 14:19 Chief Complaint: ILLNESS Stated Complaint: ILLNESS History of Present Illness The patient is a 42 year old female who presents to the Emergency Room with complaints of leg weakness for the last 4 days. History is limited as the patient is altered. She says that her legs collapsed from underneath her 2 days ago. She also reports nausea and vomiting. She denies any abdominal pain. Her last bowel movement was reportedly normal. She denies any headache. She does feel cold. Review of Systems 10 system review performed and negative unless noted in HPI or below Past Medical/Surgical History Medical Problems: (1) Colonic inertia (2) Encephalopathy (3) Intractable abdominal pain Social History Smoking Status: Current Every Day Smoker Drug Use: none Occupation Status: disabled Current/Historical Medications Scheduled Atorvastatin (Lipitor), 40 MG PO DAILY Benzonatate (Tessalon Perles), 100 MG PO Q8 Carvedilol (Coreg), 25 MG PO BID Clonazepam (Klonopin), 1 MG PO QID Clonidine Hcl (Catapres), 2 TAB PO TID Clopidogrel (Plavix), 75 MG PO DAILY Diclofenac (Voltaren), 50 MG PO BID Docusate Sodium (Dulcolax Stool Softener), 1 CAP PO BID Fluoxetine (Prozac), 40 MG PO QAM Hydrochlorothiazide (Hctz), 25 MG PO BID Hydrocortisone 2.5% (Rectal) (Anusol-Hc 2.5%), 1 APPLN TOP BID Imipramine Pamoate (Tofranil Pm), 2 CAP PO HS Insulin Aspart (Novolog), 12 UNITS SQ QDB Insulin Aspart (Novolog), 12 UNITS SQ QDL Insulin Aspart (Novolog), 14 UNITS SQ QDD Insulin Glargine (Lantus), 38 UNITS SC QDL Ipratropium-Albuterol (Combivent Respimat), 1 PUFFS INH QID Isosorbide Mononitrate Ext Rel (Imdur Ext Rel), 60 MG PO QAM Lactulose (Chronulac), 30 ML PO QID Lisinopril (Prinivil), 20 MG PO BID Metformin Hcl (Glucophage), 1,000 MG PO BID Methocarbamol (Robaxin), 750 MG PO BID Nicotine (Nicoderm Cq 21MG Patch), 1 PATCH TD DAILY Nifedipine (Nifedipine ER), 90 MG PO DAILY Nitroglycerin (Nitroglycerin Transdermal), 1 PATCH TD QAM Pantoprazole (Protonix), 40 MG PO BID Polyethylene (Miralax), 17 GM PO BID Potassium Ext Rel (Klor-Con), 40 MEQ PO BID Ranitidine Hcl (Zantac), 150 MG PO BID Spironolactone (Aldactone), 25 MG PO DAILY Tiotropium [place] (Spiriva Respimat), 2 PUFF INH DAILY Tramadol (Ultram), 50 MG PO HS Ziprasidone Hcl (Geodon), 60 MG PO HS Scheduled PRN Albuterol Hfa (Ventolin Hfa), 2 PUFFS INH QID PRN for Wheezing Albuterol Sulf (Albuterol Sulfate), 3 ML INH Q6H PRN for SOB/Wheezing Ipratropium-Albuterol (Duoneb), 1 TREATMENT INH Q6H PRN for SOB/Wheezing Ondansetron (Ondansetron HCl), 4 MG SL TID PRN for Nausea or Vomiting Ondansetron Hcl (Zofran), 8 MG PO TID PRN for Nausea Miscellaneous Medications Insulin Human Lispro (Humalog) Nystatin/Triamcinolone (Mycolog ||) Rizatriptan Benzoate (Maxalt), 10 MG PO Physical Exam Vital Signs Date Time Temp Pulse Resp B/P (MAP) Pulse Ox O2 Delivery O2 Flow Rate FiO2 05/10/17 17:35 71 23 97 05/10/17 17:30 115/79 05/10/17 17:05 72 16 95 05/10/17 17:01 127/90 05/10/17 16:35 70 18 91 05/10/17 16:30 107/73 05/10/17 16:05 71 23 96 05/10/17 16:01 103/72 05/10/17 15:52 71 20 98/73 99 Room Air 05/10/17 15:51 98/73 05/10/17 14:37 99 Room Air 05/10/17 14:36 74 05/10/17 14:35 74 21 05/10/17 14:25 36.6 73 20 65/ 95 Room Air 05/10/17 14:23 97/65 Physical Exam GENERAL: 42-year-old female, drowsy in appearance, SKIN: The skin was without rashes, erythema, edema, or bruising. HEAD: Normocephalic atraumatic. EYES: Pupils equal round and reactive to light and accommodation. Conjunctivae without injection, sclerae without icterus. Extraocular movements intact. MOUTH: Mucous membranes dry NECK: Supple without nuchal rigidity. No lymphadenopathy. Cervical spine is nontender. No JVD. HEART: Regular rate and rhythm without murmurs gallops or rubs. LUNGS: Clear to auscultation bilaterally without wheezes, rales or rhonchi. No accessory muscle use. ABDOMEN: Positive bowel sounds x 4.Soft, nontender, without organomegaly. No guarding or rebound tenderness. MUSCULOSKELETAL: No muscle atrophy, erythema, or edema noted. Strength 5/5 throughout. NEURO: Patient was alert and oriented to person place and time. Slurred speech noted. Cerebellar function grossly intact. Normal sensation to touch. No focal neurological deficits. Medical Decision & Procedures ER Provider Diagnostic Interpretation: CT head IMPRESSION: No acute intracranial abnormality. Electronically signed by: Geoffrey Potts M.D. 05/10/2017 3:35 PM Dictated Date/Time: 05/10/2017 3:34 PM CXR Electronically signed by: Geoffrey Potts M.D. 05/10/2017 3:27 PM Dictated Date/Time: 05/10/2017 3:26 PM The status of this report is Signed. Draft = Not yet reviewed or approved by Radiologist. Signed = Reviewed and approved by Radiologist. <AttendingPhy></AttendingPhy> <FamilyPhy>Cyndi Yepez M.D.</FamilyPhy> < PrimaryPhy>Cyndi Yepez M.D.</PrimaryPhy> <UnitNumber>[id number]</ UnitNumber> <VisitNumber>[id number]</VisitNumber> Laboratory Results Test 05/10/17 15:50 Immature Granulocyte % (Auto) 0.9 % White Blood Count 10.58 K/uL (4.8-10.8) Red Blood Count 3.65 M/uL (4.2-5.4) Hemoglobin 10.7 g/dL (12.0-16.0) Hematocrit 31.8 % (37-47) Mean Corpuscular Volume 87.1 fL (80-100) Mean Corpuscular Hemoglobin 29.3 pg (25-34) Mean Corpuscular Hemoglobin Concent 33.6 g/dl (32-36) Platelet Count 255 K/uL (130-400) Mean Platelet Volume 9.8 fL (7.4-10.4) Neutrophils (%) (Auto) 64.8 % Lymphocytes (%) (Auto) 26.6 % Monocytes (%) (Auto) 6.2 % Eosinophils (%) (Auto) 1.5 % Basophils (%) (Auto) 0.0 % Neutrophils # (Auto) 6.86 K/uL (1.4-6.5) Lymphocytes # (Auto) 2.81 K/uL (1.2-3.4) Monocytes # (Auto) 0.66 K/uL (0.11-0.59) Eosinophils # (Auto) 0.16 K/uL (0-0.5) Basophils # (Auto) 0.00 K/uL (0-0.2) Immature Granulocyte # (Auto) 0.09 K/uL (0.00-0.02) Osmolality 267 mOsm/kg (280-300) Total Bilirubin 0.2 mg/dl (0.2-1) Aspartate Amino Transf (AST/SGOT) 9 U/L (15-37) Alanine Aminotransferase (ALT/SGPT) 21 U/L (12-78) Alkaline Phosphatase 124 U/L (45-117) Ammonia 24.0 umol/L (11-32) Total Protein 7.2 gm/dl (6.4-8.2) Albumin 3.7 gm/dl (3.4-5.0) Globulin 3.5 gm/dl (2.5-4.0) Albumin/Globulin Ratio 1.1 (0.9-2) Thyroid Stimulating Hormone (TSH) 1.540 uIu/ml (0.300-4.500) Medications Administered Medications (Trade) Dose Ordered Sig/Ralph Route Start Time Stop Time Status Last Admin Dose Admin Sodium Chloride 1,000 ml @ 999 mls/hr Q1H1M ONCE IV 05/10/17 14:45 05/10/17 15:45 DC 05/10/17 15:54 999 MLS/HR Ketorolac Tromethamine (Toradol Inj) 30 mg NOW STAT IV 05/10/17 14:42 05/10/17 14:44 DC 05/10/17 16:16 30 MG Sodium Chloride 1,000 ml @ 125 mls/hr Q8H IV 05/10/17 17:55 06/09/17 17:54 05/11/17 11:13 125 MLS/HR Ondansetron HCl (Zofran Inj) 4 mg Q6H PRN IV 05/10/17 18:00 06/09/17 17:59 05/11/17 12:18 4 MG Tramadol HCl (Ultram Tab) 50 mg HS PRN PO 05/10/17 18:00 05/11/17 11:01 DC 05/10/17 21:22 50 MG ECG Indication: altered mental status Rate (beats per minute): 70 Rhythm: normal sinus Findings: ST depression (Anterior) Change: no significant change ED Course Patient was seen and examined Vital signs including blood pressure were reviewed medications list was verified with patient Labs were obtained, and a saline lock was established The patient was medicated with Toradol. She was hydrated with 1 L of normal saline. The patient's workup was reviewed. She was reassessed. She was sleeping in bed. We discussed the results of her workup. She voiced understanding. Case was also discussed with my supervising physician and case management. I then discussed the case with the [facility] hospitalist group kindly agreed to admit the patient for further workup and treatment. Medical Decision Differential diagnosis: Intracranial abnormality, drug abuse, hypoglycemia, dehydration, infectious etiology This patient is a 42-year-old female that presents to the emergency department with leg weakness and altered mental status. On exam, her speech was slurred. She did not have any other focal weakness that I could assess. Her workup reveals significant hyponatremia and acute renal insufficiency. The etiology of these are unclear. Possibly related to her medications. I do feel comfortable sending this patient home. I believe she needs to be admitted to the hospital for further workup and treatment. She is in agreement with this plan. This chart was completed in part utilizing [employer] Voice Recognition software. Attempts were made to minimize the grammatical errors, random word insertions, pronoun errors and incomplete sentences. Any formal questions or concerns about the content, text or information contained within the body of this dictation should be directly addressed to the provider for clarification. Medication Reconcilliation Current Medication List: was personally reviewed by me Blood Pressure Screening Patient's blood pressure: Low blood pressure Blood pressure disposition: Did not require urgent referral Impression Primary Impression: Hyponatremia Departure Information Referrals Cyndi Yepez M.D. (PCP) Patient Instructions My [facility]"
[2017-05-10] MEDS ORDERED: ONDA4TAB54 SL (14:50)
[2017-05-10] MEDS ORDERED: LISI20TA3 PO (14:50)
[2017-05-10] MEDS ORDERED: METF-384 PO (14:50)
[2017-05-10] MEDS ORDERED: TIOT1SPR INH (14:52)
[2017-05-10] MEDS ORDERED: TRAM-10 PO (14:52)
[2017-05-10] MEDS ORDERED: IMIP100C4 PO (15:28)
--- NOTE | 2017-05-10 15:28 | DIAGNOSTIC IMAGING REPORT ---
SINGLE VIEW CHEST CLINICAL HISTORY: Change in mental status. FINDINGS: An AP, portable, upright chest radiograph is obtained. No prior studies are available for comparison at the time of dictation. The examination is degraded by portable technique and patient rotation. The cardiomediastinal silhouette is unremarkable. The lungs and pleural spaces are clear. No pneumothorax is seen. The bony thorax is grossly intact. IMPRESSION: No active disease in the chest. Electronically signed by: Geoffrey Potts M.D. 05/10/2017 3:27 PM Dictated Date/Time: 05/10/2017 3:26 PM
--- NOTE | 2017-05-10 15:36 | DIAGNOSTIC IMAGING REPORT ---
CT SCAN OF THE BRAIN WITHOUT IV CONTRAST CLINICAL HISTORY: Change in mental status. COMPARISON STUDY: No priors. TECHNIQUE: Unenhanced axial CT scan of the brain is performed from the vertex to the skull base. A dose lowering technique was utilized adhering to the principles of ALARA. CT DOSE: 623.48 mGy.cm FINDINGS: Brain parenchyma: The brain parenchyma is normal in appearance. There is no hemorrhage, mass effect, or evidence of acute territorial ischemia by CT criteria. Antonio-white matter is preserved. No extra-axial fluid collection is seen. Ventricles, sulci, cisterns: Normal in configuration. Intracranial vasculature: The visualized intracranial vasculature at the skull base is normal in appearance. Calvarium: Unremarkable. Sinuses and mastoids: The visualized paranasal sinuses are clear. The mastoid air cells are well pneumatized. Orbits: The bony orbits are grossly intact. IMPRESSION: No acute intracranial abnormality. Electronically signed by: Geoffrey Potts M.D. 05/10/2017 3:35 PM Dictated Date/Time: 05/10/2017 3:34 PM
[2017-05-10 16:18] LABS: EOS % 1.5 %; EOS ABS # 0.16 K/uL (0-0.5); HEMATOCRIT 31.8 % (37-47); HEMOGLOBIN 10.7 g/dL (12.0-16.0); IG# 0.09 K/uL (0.00-0.02); LYMPH % 26.6 %; LYMPH ABS # 2.81 K/uL (1.2-3.4); MEAN CELL VOLUME 87.1 fL (80-100); MEAN CORPUSCULAR HEMOGLOBIN 29.3 pg (25-34); MEAN CORPUSCULAR HGB CONC 33.6 g/dl (32-36); MEAN PLATELET VOLUME 9.8 fL (7.4-10.4); MONO % 6.2 %; MONO ABS # 0.66 K/uL (0.11-0.59); NEUT % 64.8 %; NEUT ABS # 6.86 K/uL (1.4-6.5); PLATELET COUNT 255 K/uL (130-400); RED CELL DISTRIBUTION WIDTH SD 44.9 fL (36.4-46.3); WHITE BLOOD COUNT 10.58 K/uL (4.8-10.8)
[2017-05-10 16:36] LABS: ALBUMIN 3.7 gm/dl (3.4-5.0); CALCIUM 8.8 mg/dl (8.5-10.1); CREATININE 1.78 mg/dl (0.60-1.20); POTASSIUM 4.6 mmol/L (3.5-5.1)
[2017-05-10 16:47] LABS: TOTAL PROTEIN 7.2 gm/dl (6.4-8.2)
[2017-05-10] MEDS ORDERED: ALUMINUM/MAGNESIUM/SIMETH (MAALOX MAX) 30 ML UDC PO PRN (18:00)
[2017-05-10] MEDS ORDERED: ACETAMINOPHEN 325 MG TAB PO PRN (18:00)
[2017-05-10] MEDS ORDERED: GLUCAGON FOR INJ 1 MG VIAL SQ PRN (18:00)
[2017-05-10] MEDS ORDERED: MAGNESIUM HYDROXIDE SUSP 30 ML UDC PO PRN (18:00)
[2017-05-10] MEDS ORDERED: GLUCOSE 10 TABS/TUBE PO PRN (18:00)
[2017-05-10] MEDS ORDERED: DEXTROSE 50% 50 ML SYR IV PRN (18:00)
[2017-05-10] MEDS ORDERED: POLYETHYLENE (MIRALAX) 17 GM PACK PO PRN (18:00)
[2017-05-10] MEDS ORDERED: METHOCARBAMOL 750 MG TAB PO PRN (18:00)
[2017-05-10] MEDS ORDERED: GLUCOSE 40% GEL 15 GM TUBE PO PRN (18:00)
[2017-05-10] MEDS ORDERED: ALBUTEROL HFA 8 GM INHALER INH PRN (18:00)
[2017-05-10] MEDS ORDERED: TRAMADOL HCL 50 MG TAB PO PRN (18:00)
--- NOTE | 2017-05-10 18:16 | History and Physical ---
History & Physical Date & Time of Service: May 10, 2017 at 18:13 Chief Complaint: Illness Primary Care Physician: Cyndi Yepez M.D. History of Present Illness Source: patient Ms. Gary is a 42 y/o female with PMHx of Bipolar Disorder, Seizure Disorder, T2DM, COPD, Chronic Constipation, Hepatitis C, and S/P B/L Fasciotomy from DVTs (unknown when this occurred but incisions well healed) who presents to the ED from her PCP for b/l leg pain and imbalance x 4 days. HPI limited as patient is altered. She will wake up and answers short questions but drifts off and mumbles and falls asleep. Unsure if she took anything that could have caused her AMS. She states her feet a very painful but cannot get further details. She says she has been extremely nauseous and vomiting but unsure how much. She states she has been having regular bowel movements each day. She also reports "seizures" stating they are not normal for her. She states she is awake and alert during these episodes and notices a diffuse shaking. Not able to get duration or these symptoms. She denies fevers. Past Medical/Surgical History 1. Bipolar Disorder 2. Seizure Disorder 3. T2DM 4. COPD 5. Chronic Constipation 6. Hepatitis C 7. H/O DVT S/P B/L Fasciotomy Family History Unable to obtain. Social History Smoking Status: Current Every Day Smoker Drug Use: none Housing status: lives alone Occupational Status: disabled Immunizations History of Influenza Vaccine: Unknown History of Tetanus Vaccine?: Unknown History of Pneumococcal: Unknown History of Hepatitis B Vaccine: Unknown Multi-Drug Resistant Organisms History of MDRO: Yes Type of MDRO: MRSA Allergies Coded Allergies: Buspirone (Verified Allergy, Unknown, RASH, 02/06/17) Penicillins (Verified Allergy, Unknown, HIVES AND PASSES OUT, 02/06/17) Sertraline (Verified Allergy, Unknown, HIVES AND PASSES OUT, 02/06/17) Trazodone (Verified Allergy, Unknown, IRRITATES NEUROPATHY AND HIVES, 02/06) Valproic Acid (Verified Allergy, Unknown, HIVES, DIZZINESS, SLURRING SPEECH, 02/06/17) Home Medications Scheduled Atorvastatin (Lipitor), 40 MG PO DAILY Benzonatate (Tessalon Perles), 100 MG PO Q8 Carvedilol (Coreg), 25 MG PO BID Clonazepam (Klonopin), 1 MG PO QID Clonidine Hcl (Catapres), 2 TAB PO TID Clopidogrel (Plavix), 75 MG PO DAILY Diclofenac (Voltaren), 50 MG PO BID Docusate Sodium (Dulcolax Stool Softener), 1 CAP PO BID Fluoxetine (Prozac), 40 MG PO QAM Hydrochlorothiazide (Hctz), 25 MG PO BID Hydrocortisone 2.5% (Rectal) (Anusol-Hc 2.5%), 1 APPLN TOP BID Imipramine Pamoate (Tofranil Pm), 2 CAP PO HS Insulin Aspart (Novolog), 12 UNITS SQ QDB Insulin Aspart (Novolog), 12 UNITS SQ QDL Insulin Aspart (Novolog), 14 UNITS SQ QDD Insulin Glargine (Lantus), 38 UNITS SC QDL Ipratropium-Albuterol (Combivent Respimat), 1 PUFFS INH QID Isosorbide Mononitrate Ext Rel (Imdur Ext Rel), 60 MG PO QAM Lactulose (Chronulac), 30 ML PO QID Lisinopril (Prinivil), 20 MG PO BID Metformin Hcl (Glucophage), 1,000 MG PO BID Methocarbamol (Robaxin), 750 MG PO BID Nicotine (Nicoderm Cq 21MG Patch), 1 PATCH TD DAILY Nifedipine (Nifedipine ER), 90 MG PO DAILY Nitroglycerin (Nitroglycerin Transdermal), 1 PATCH TD QAM Pantoprazole (Protonix), 40 MG PO BID Polyethylene (Miralax), 17 GM PO BID Potassium Ext Rel (Klor-Con), 40 MEQ PO BID Ranitidine Hcl (Zantac), 150 MG PO BID Spironolactone (Aldactone), 25 MG PO DAILY Tiotropium [place] (Spiriva Respimat), 2 PUFF INH DAILY Tramadol (Ultram), 50 MG PO HS Ziprasidone Hcl (Geodon), 60 MG PO HS Scheduled PRN Albuterol Hfa (Ventolin Hfa), 2 PUFFS INH QID PRN for Wheezing Albuterol Sulf (Albuterol Sulfate), 3 ML INH Q6H PRN for SOB/Wheezing Ipratropium-Albuterol (Duoneb), 1 TREATMENT INH Q6H PRN for SOB/Wheezing Ondansetron (Ondansetron HCl), 4 MG SL TID PRN for Nausea or Vomiting Ondansetron Hcl (Zofran), 8 MG PO TID PRN for Nausea Miscellaneous Medications Insulin Human Lispro (Humalog) Nystatin/Triamcinolone (Mycolog ||) Rizatriptan Benzoate (Maxalt), 10 MG PO Review of Systems ROS limited given AMS. States she has leg pain, nausea/vomiting, and tired. Physical Exam Vital Signs Date Time Temp Pulse Resp B/P (MAP) Pulse Ox O2 Delivery O2 Flow Rate FiO2 05/10/17 17:35 71 23 97 05/10/17 17:30 115/79 05/10/17 17:05 72 16 95 05/10/17 17:01 127/90 05/10/17 16:35 70 18 91 05/10/17 16:30 107/73 05/10/17 16:05 71 23 96 05/10/17 16:01 103/72 05/10/17 15:52 71 20 98/73 99 Room Air 05/10/17 15:51 98/73 05/10/17 14:37 99 Room Air 05/10/17 14:36 74 05/10/17 14:35 74 21 05/10/17 14:25 36.6 73 20 65/ 95 Room Air 05/10/17 14:23 97/65 General Appearance: WDWN in NAD who is intermittently alert but drowsy HEENT: Head is normocephalic/atraumatic; mucous membranes dry Neck: Supple; Trachea midline; Neg JVD Heart: RRR with no M/G/R Lungs: CTA in all lung bolanos bilaterally anteriorly Abdomen: Soft, non-tender, non-distended; Positive BS x 4 quadrants Extremities: Neg cyanosis or edema Neurological: Speech intermittently clear then mumbled due to drowsiness Skin: Normal Color; Warm/Dry Diagnostics Laboratory Results Results Past 24 Hours Test 05/10/17 15:50 Range/Units White Blood Count 10.58 4.8-10.8 K/uL Red Blood Count 3.65 4.2-5.4 M/uL Hemoglobin 10.7 12.0-16.0 g/dL Hematocrit 31.8 37-47 % Mean Corpuscular Volume 87.1 80-100 fL Mean Corpuscular Hemoglobin 29.3 25-34 pg Mean Corpuscular Hemoglobin Concent 33.6 32-36 g/dl Platelet Count 255 130-400 K/uL Mean Platelet Volume 9.8 7.4-10.4 fL Neutrophils (%) (Auto) 64.8 % Lymphocytes (%) (Auto) 26.6 % Monocytes (%) (Auto) 6.2 % Eosinophils (%) (Auto) 1.5 % Basophils (%) (Auto) 0.0 % Neutrophils # (Auto) 6.86 1.4-6.5 K/uL Lymphocytes # (Auto) 2.81 1.2-3.4 K/uL Monocytes # (Auto) 0.66 0.11-0.59 K/uL Eosinophils # (Auto) 0.16 0-0.5 K/uL Basophils # (Auto) 0.00 0-0.2 K/uL RDW Standard Deviation 44.9 36.4-46.3 fL RDW Coefficient of Variation 14.0 11.5-14.5 % Immature Granulocyte % (Auto) 0.9 % Immature Granulocyte # (Auto) 0.09 0.00-0.02 K/uL Sodium Level 125 136-145 mmol/L Potassium Level 4.6 3.5-5.1 mmol/L Chloride Level 98 98-107 mmol/L Carbon Dioxide Level 17 21-32 mmol/L Anion Gap 10.0 3-11 mmol/L Blood Urea Nitrogen 19 7-18 mg/dl Creatinine 1.78 0.60-1.20 mg/dl Est Creatinine Clear Calc Drug Dose 51.7 ml/min Estimated GFR () 40.1 Estimated GFR (Non- 34.6 BUN/Creatinine Ratio 10.8 10-20 Random Glucose 87 70-99 mg/dl Osmolality 267 280-300 mOsm/kg Calcium Level 8.8 8.5-10.1 mg/dl Total Bilirubin 0.2 0.2-1 mg/dl Aspartate Amino Transf (AST/SGOT) 9 15-37 U/L Alanine Aminotransferase (ALT/SGPT) 21 12-78 U/L Alkaline Phosphatase 124 45-117 U/L Ammonia 24.0 11-32 umol/L Total Protein 7.2 6.4-8.2 gm/dl Albumin 3.7 3.4-5.0 gm/dl Globulin 3.5 2.5-4.0 gm/dl Albumin/Globulin Ratio 1.1 0.9-2 Thyroid Stimulating Hormone (TSH) 1.540 0.300-4.500 uIu/ml Diagnostic Radiology CT SCAN OF THE BRAIN WITHOUT IV CONTRAST FINDINGS: Brain parenchyma: The brain parenchyma is normal in appearance. There is no hemorrhage, mass effect, or evidence of acute territorial ischemia by CT criteria. Antonio-white matter is preserved. No extra-axial fluid collection is seen. Ventricles, sulci, cisterns: Normal in configuration. Intracranial vasculature: The visualized intracranial vasculature at the skull base is normal in appearance. Calvarium: Unremarkable. Sinuses and mastoids: The visualized paranasal sinuses are clear. The mastoid air cells are well pneumatized. Orbits: The bony orbits are grossly intact. IMPRESSION: No acute intracranial abnormality. SINGLE VIEW CHEST FINDINGS: An AP, portable, upright chest radiograph is obtained. No prior studies are available for comparison at the time of dictation. The examination is degraded by portable technique and patient rotation. The cardiomediastinal silhouette is unremarkable. The lungs and pleural spaces are clear. No pneumothorax is seen. The bony thorax is grossly intact. IMPRESSION: No active disease in the chest. EKG Normal sinus rhythm Low voltage QRS ST & T wave abnormality, consider anterior ischemia Prolonged QT Abnormal ECG When compared with ECG of 09-MAR-2017 00:40, T wave inversion now evident in Anterior leads Confirmed by CARLEE HUGHES ([id number]) on 05/10/2017 4:36:41 PM Impression Assessment and Plan Ms. Gary is a 42 y/o female with PMHx of Bipolar Disorder, Seizure Disorder, T2DM, COPD, Chronic Constipation, Hepatitis C, and S/P B/L Fasciotomy from DVTs (unknown when this occurred but incisions well healed) who presents to the ED from her PCP for b/l leg pain and imbalance x 4 days. Acute Metabolic vs Toxic Encephalopathy: - No direct source of infectious identified currently - await UA and obtain drug screen - On previous direct admission she had moments of lethargy and was more altered from Dilaudid when coming from [place] via ambulance - Patient is maintaining her airway appropriately and will wake up and give short answers but quickly falls asleep - Hold medications while lethargic - she is on multiple psychiatric medications and when mentation improves will continue these at reduced dosing to prevent withdrawal effects - Ammonia is WNL Chronic Hyponatremic: - Above may be related to this but given chronicity possibly not - place [place] to assess I&O accurately - she does appear dry on examination but given home medications it is possible this is SIADH - Given that she is clinically dry will give NSS at 125 mL/hr and trend BMP NIDIA: - Fluids as above and monitor kidney function Leg Pain S/P B/L Fasciotomy with H/O DVT: - Obtain venous U/S - R/O DVT - Home pain medications when mentation improves - Plavix 75 mg daily HTN: - Coreg 25 mg BID; Nifedipine 90 mg daily, and Clonidine 0.6 mg TID COPD without Exacerbation: - PRN nebs and inhalers Bipolar Disorder and Seizure Disorder: - Reporting diffuse tremors with total cognitive awareness - possible pseudoseizure vs rigors? - Klonopin 0.5 mg QID (reduced from 1 mg); Prozac 40 mg daily; Tofranil 200 mg HS; Geodon 60 mg HS T2DM: - Hold home regimen and cover with SSI Chronic Chest Pain: - Imdur 60 mg daily and Nitro patch daily (she was very adamant about having this patch on previous admission) DVT Prophylaxis: Heparin Code Status: FULL RESUSCITATION Disposition: - Await improvement in mental status Resident Physician Supervision Note: Pt evaluated independently. I discussed the case with the PA and agree with the findings and plan as documented in the note. Any exceptions or clarifications are listed here: 42 y/o F Bipolar Disorder, seizure Disorder, DMII, COPD, chronic constipation, hepatitis C, DVTs - presents with impaired balance and AMS/somnolence. Initial labs are notable for hypoNa which appears chronic, NIDIA and a (+) UA. She takes multiple psychiatric meds and it is not clear if she is compliant with prescribed dosing. OE Somnolent, obese young F - cannoy contribute to HPI S1,2 R CTAB - poor effort NT, ND No CCE Will not comply with neuro exam - no notable motor deficits - tends to fall asleep P: AMS - etiology not clear - hold nonessential psychoactive meds and check levels Aggressive IVF for NIDIA Cont HTN meds as prescribed May need mental health involvement if there is no short-term improvement Documented By: Kartik Chandler Level of Care Telemetry Resuscitation Status FULL RESUSCITATION VTE Prophylaxis VTE Risk Assessment Done? Y/N: Yes Risk Level: Moderate Given or contraindicated: SCD's
--- NOTE | 2017-05-10 19:20 | DIAGNOSTIC IMAGING REPORT ---
VENOUS DOPPLER LWR EXT BILA HISTORY: Pain. Edema. Pain R/O DVT - H/O B/L Fasciotomy COMPARISON STUDY: None. FINDINGS: There is normal compressibility, flow, and augmentation within the bilateral lower extremity deep venous systems. IMPRESSION: No DVT within the right or left lower extremity. The above report was generated using voice recognition software. It may contain grammatical, syntax or spelling errors. Electronically signed by: Yahir Joe M.D. 05/10/2017 7:19 PM Dictated Date/Time: 05/10/2017 7:18 PM
[2017-05-10 20:00] VITALS: BP 143/92; PULSE 80; TEMP 36.6; Ht 165.1 cm; Wt 110.1 kg
[2017-05-10] MEDS: SODIUM CHLORIDE 0.9% 1000ML 1,000 ML IV SCH (20:06)
[2017-05-10 20:29] LABS: CALCIUM 8.5 mg/dl (8.5-10.1); CREATININE 1.59 mg/dl (0.60-1.20); POTASSIUM 4.3 mmol/L (3.5-5.1)
[2017-05-10] MEDS: DOCUSATE SODIUM 100 MG CAP PO SCH (20:59)
[2017-05-10] MEDS: INSULIN ASPART 100 UNITS/ML 3 ML PEN SC SCH (21:00)
[2017-05-10] MEDS: POLYETHYLENE (MIRALAX) 17 GM PACK PO SCH (21:00)
[2017-05-10] MEDS ORDERED: ALBUT/IPRATROP 3MG/0.5MG NEB 3 ML VIAL INH PRN (21:00)
[2017-05-10] MEDS: HYDROCORTISONE HC 2.5% CRM 30GM TUBE EXT SCH (21:00)
[2017-05-10] MEDS: CARVEDILOL 25 MG TAB PO SCH (21:03)
[2017-05-10] MEDS: DICLOFENAC SOD 25 MG TABEC PO SCH (21:03)
[2017-05-10] MEDS: LACTULOSE SYRUP 20 GM/30 ML UDC PO SCH (21:04)
[2017-05-10] MEDS: IPRATROPIUM BROMIDE/ALBUTEROL respimat INH INH SCH (21:04)
[2017-05-10] MEDS: CLONIDINE HCL 0.3 MG TAB PO SCH (21:04)
[2017-05-10] MEDS: CLONAZEPAM 0.5 MG TAB PO SCH (21:22)
[2017-05-10] MEDS: ONDANSETRON INJ 2 MG/ML 2 ML VIAL IV PRN (21:23)
[2017-05-10] MEDS: PANTOprazole SOD 40 MG TAB PO SCH (21:54)
[2017-05-10] MEDS: BENZONATATE 100MG CAP PO SCH (21:54)
[2017-05-10] MEDS: IMIPRAMINE HCL 50 MG TAB PO SCH (21:54)
[2017-05-10] MEDS: RANITIDINE HCL 150 MG TAB PO SCH (21:55)
[2017-05-10] MEDS: HEPARIN SOD 5000 UNIT/0.5 ML CARP SQ SCH (21:55)
[2017-05-10 23:32] VITALS: PULSE 77; O2SAT 94
[2017-05-11] VITALS (7 sets, daily range): BP systolic 93–138; BP diastolic 54–95; PULSE 66–77; TEMP 36.3–36.8; O2SAT 91–99
[2017-05-11] MEDS: SODIUM CHLORIDE 0.9% 1000ML 1,000 ML IV SCH ×3 (03:54→19:16)
[2017-05-11] MEDS: BENZONATATE 100MG CAP PO SCH (06:07)
[2017-05-11 06:09] LABS: HEMATOCRIT 28.7 % (37-47); HEMOGLOBIN 9.9 g/dL (12.0-16.0); MEAN CELL VOLUME 87.2 fL (80-100); MEAN CORPUSCULAR HEMOGLOBIN 30.1 pg (25-34); MEAN CORPUSCULAR HGB CONC 34.5 g/dl (32-36); MEAN PLATELET VOLUME 9.6 fL (7.4-10.4); PLATELET COUNT 243 K/uL (130-400); RED CELL DISTRIBUTION WIDTH SD 44.9 fL (36.4-46.3); WHITE BLOOD COUNT 10.01 K/uL (4.8-10.8)
[2017-05-11] MEDS: HEPARIN SOD 5000 UNIT/0.5 ML CARP SQ SCH ×3 (06:09→20:37)
[2017-05-11 06:50] LABS: CREATININE 1.39 mg/dl (0.60-1.20); POTASSIUM 4.4 mmol/L (3.5-5.1)
[2017-05-11] MEDS: HYDROCORTISONE HC 2.5% CRM 30GM TUBE EXT SCH ×2 (07:16→08:17)
[2017-05-11] MEDS: ONDANSETRON INJ 2 MG/ML 2 ML VIAL IV PRN ×3 (08:06→23:20)
[2017-05-11] MEDS: DOCUSATE SODIUM 100 MG CAP PO SCH ×2 (08:08→20:34)
[2017-05-11] MEDS: POLYETHYLENE (MIRALAX) 17 GM PACK PO SCH ×2 (08:08→20:34)
[2017-05-11] MEDS: NITROGLYCERIN 0.2 MG/HR PATCH TD SCH (08:09)
[2017-05-11] MEDS: CLONAZEPAM 0.5 MG TAB PO SCH ×4 (08:10→20:34)
[2017-05-11] MEDS: NIFEdipine 30 MG CR TAB PO SCH (08:10)
[2017-05-11] MEDS: LACTULOSE SYRUP 20 GM/30 ML UDC PO SCH ×4 (08:11→20:34)
[2017-05-11] MEDS: RANITIDINE HCL 150 MG TAB PO SCH ×2 (08:11→20:35)
[2017-05-11] MEDS: FLUOXETINE HCL 20 MG CAP PO SCH (08:12)
[2017-05-11] MEDS: IPRATROPIUM BROMIDE/ALBUTEROL respimat INH INH SCH ×4 (08:12→20:33)
[2017-05-11] MEDS: CLONIDINE HCL 0.3 MG TAB PO SCH ×3 (08:12→20:34)
[2017-05-11] MEDS: CLOPIDOGREL BISULFATE 75 MG TAB PO SCH (08:12)
[2017-05-11] MEDS: ATORVASTATIN 40 MG TAB PO SCH (08:12)
[2017-05-11] MEDS: ISOSORBIDE MONONITRATE 60 MG TABCR PO SCH (08:13)
[2017-05-11] MEDS: PANTOprazole SOD 40 MG TAB PO SCH ×2 (08:13→20:34)
[2017-05-11] MEDS: CARVEDILOL 25 MG TAB PO SCH ×2 (08:13→20:01)
[2017-05-11] MEDS: DICLOFENAC SOD 25 MG TABEC PO SCH ×2 (08:14→20:35)
[2017-05-11] MEDS: INSULIN ASPART 100 UNITS/ML 3 ML PEN SC SCH ×4 (08:16→20:36)
[2017-05-11] MEDS: NICOTINE 21 MG/24 HR TDSY TD SCH (08:17)
[2017-05-11] MEDS ORDERED: NYSTATIN POWDER 15GM BTL EXT PRN (11:00)
[2017-05-11] MEDS ORDERED: INSULIN GLARGINE SOLOSTAR 100 UNITS/ML 3 ML PEN SC SCH (11:00)
[2017-05-11] MEDS: TRAMADOL HCL 50 MG TAB PO PRN ×2 (12:00→16:44)
--- NOTE | 2017-05-11 15:06 | Progress Note ---
Subjective Date of Service: May 11, 2017. Subjective this pt is sleepy and has some slurring of speech, she complains that she does require additional pain medicine and had questions regarding needing nitro paste ( she is on isosorbide), she has no focal issues and she did not have a fluid restriction so her sodium has not improved Problem List Medical Problems: (1) Hyponatremia Status: Acute Review of Systems Constitutional: + weakness, + fatigue, No chills Respiratory: No cough, No wheezing Cardiac: No chest pain, No PND, No edema Abdomen: No pain, No nausea, No vomiting Musculoskeletal: + joint pain, + muscle pain Female : No dysuria, No urinary frequency Neurologic: + weakness, No memory loss Psychiatric: + depression symptoms, + anxiety Objective Vital Signs Date Time Temp Pulse Resp B/P (MAP) Pulse Ox O2 Delivery O2 Flow Rate FiO2 05/11/17 12:00 Room Air 05/11/17 12:00 36.6 74 19 138/95 (109) 99 Room Air 05/11/17 08:11 36.5 74 24 106/71 (83) 95 Room Air 05/11/17 08:00 Room Air 05/11/17 05:09 36.7 66 18 107/70 (82) 91 Nasal Cannula 05/11/17 04:00 Nasal Cannula 2.0 05/11/17 00:17 36.8 74 17 121/77 (92) 95 Nasal Cannula 3.0 05/11/17 00:00 Nasal Cannula 2.0 05/10/17 23:32 77 18 94 Nasal Cannula 2.0 05/10/17 20:00 36.6 80 16 143/92 Nasal Cannula 2.0 05/10/17 18:43 74 05/10/17 18:27 95 Nasal Cannula 3.0 05/10/17 18:27 88 Room Air 05/10/17 17:35 71 23 97 05/10/17 17:30 115/79 05/10/17 17:05 72 16 95 05/10/17 17:01 127/90 05/10/17 16:35 70 18 91 05/10/17 16:30 107/73 05/10/17 16:05 71 23 96 05/10/17 16:01 103/72 05/10/17 15:52 71 20 98/73 99 Room Air 05/10/17 15:51 98/73 Physical Exam General Appearance: WD/WN, + mild distress Eyes: normal inspection, sclerae normal Neck: supple, trachea midline Respiratory/Chest: chest non-tender, + decreased breath sounds (bases) Cardiovascular: regular rate, rhythm, no murmur Abdomen: normal bowel sounds, non tender, soft Extremities: no pedal edema, no calf tenderness Neurologic/Psychiatric: alert, oriented x 3 Laboratory Results Last 24 Hours Test 05/10/17 15:50 05/10/17 18:25 05/10/17 18:45 05/10/17 19:54 White Blood Count 10.58 K/uL Red Blood Count 3.65 M/uL Hemoglobin 10.7 g/dL Hematocrit 31.8 % Mean Corpuscular Volume 87.1 fL Mean Corpuscular Hemoglobin 29.3 pg Mean Corpuscular Hemoglobin Concent 33.6 g/dl Platelet Count 255 K/uL Mean Platelet Volume 9.8 fL Neutrophils (%) (Auto) 64.8 % Lymphocytes (%) (Auto) 26.6 % Monocytes (%) (Auto) 6.2 % Eosinophils (%) (Auto) 1.5 % Basophils (%) (Auto) 0.0 % Neutrophils # (Auto) 6.86 K/uL Lymphocytes # (Auto) 2.81 K/uL Monocytes # (Auto) 0.66 K/uL Eosinophils # (Auto) 0.16 K/uL Basophils # (Auto) 0.00 K/uL RDW Standard Deviation 44.9 fL RDW Coefficient of Variation 14.0 % Immature Granulocyte % (Auto) 0.9 % Immature Granulocyte # (Auto) 0.09 K/uL Sodium Level 125 mmol/L 127 mmol/L Potassium Level 4.6 mmol/L 4.3 mmol/L Chloride Level 98 mmol/L 100 mmol/L Carbon Dioxide Level 17 mmol/L 18 mmol/L Anion Gap 10.0 mmol/L 9.0 mmol/L Blood Urea Nitrogen 19 mg/dl 20 mg/dl Creatinine 1.78 mg/dl 1.59 mg/dl Est Creatinine Clear Calc Drug Dose 51.7 ml/min 57.9 ml/min Estimated GFR () 40.1 45.9 Estimated GFR (Non- 34.6 39.6 BUN/Creatinine Ratio 10.8 12.3 Random Glucose 87 mg/dl 88 mg/dl Osmolality 267 mOsm/kg Calcium Level 8.8 mg/dl 8.5 mg/dl Total Bilirubin 0.2 mg/dl Aspartate Amino Transf (AST/SGOT) 9 U/L Alanine Aminotransferase (ALT/SGPT) 21 U/L Alkaline Phosphatase 124 U/L Ammonia 24.0 umol/L Total Protein 7.2 gm/dl Albumin 3.7 gm/dl Globulin 3.5 gm/dl Albumin/Globulin Ratio 1.1 Thyroid Stimulating Hormone (TSH) 1.540 uIu/ml Bedside Glucose 92 mg/dl Urine Color YELLOW Urine Appearance CLEAR Urine pH 5.0 Urine Specific [place] 1.008 Urine Protein NEG Urine Glucose (UA) NEG Urine Ketones NEG Urine Occult Blood NEG Urine Nitrite NEG Urine Bilirubin NEG Urine Urobilinogen NEG Urine Leukocyte Esterase LARGE Urine WBC (Auto) 10-30 /hpf Urine RBC (Auto) 0-4 /hpf Urine Hyaline Casts (Auto) 1-5 /lpf Urine Epithelial Cells (Auto) >30 /lpf Urine Bacteria (Auto) NEG Urine Osmolality 243 mOms/kg Urine Test NEG Urine Opiates Screen NEG Urine Methadone, Qualitative NEG Urine Barbiturates NEG Urine Phencyclidine (PCP) Level NEG Ur Amphetamine/Methamphetamine NEG MDMA (Ecstasy) Screen NEG Urine Benzodiazepines Screen POS Urine Cocaine Metabolite NEG Urine Marijuana (THC) NEG Test 05/10/17 20:40 05/11/17 05:47 05/11/17 06:47 05/11/17 11:21 Bedside Glucose 136 mg/dl 159 mg/dl 261 mg/dl White Blood Count 10.01 K/uL Red Blood Count 3.29 M/uL Hemoglobin 9.9 g/dL Hematocrit 28.7 % Mean Corpuscular Volume 87.2 fL Mean Corpuscular Hemoglobin 30.1 pg Mean Corpuscular Hemoglobin Concent 34.5 g/dl RDW Standard Deviation 44.9 fL RDW Coefficient of Variation 14.0 % Platelet Count 243 K/uL Mean Platelet Volume 9.6 fL Sodium Level 127 mmol/L Potassium Level 4.4 mmol/L Chloride Level 102 mmol/L Carbon Dioxide Level 18 mmol/L Anion Gap 7.0 mmol/L Blood Urea Nitrogen 16 mg/dl Creatinine 1.39 mg/dl Est Creatinine Clear Calc Drug Dose 47.4 ml/min Estimated GFR () 54.0 Estimated GFR (Non- 46.6 BUN/Creatinine Ratio 11.7 Random Glucose 161 mg/dl Calcium Level 8.0 mg/dl Magnesium Level 2.1 mg/dl Assessment and Plan 42 y/o female with metabolic encephalopathy felt secondary to hyponatremia, has a PMHx of Bipolar Disorder, Seizure Disorder, T2DM, COPD, Chronic Constipation, Hepatitis C, and S/P B/L Fasciotomy from DVTs (unknown when this occurred but incisions well healed) Acute Metabolic vs Toxic Encephalopathy: concern for medications causing sedation, could protect airway on admission - No direct source of infectious identified currently - - Hold medications while lethargic - she is on multiple psychiatric medications - Ammonia is WNL Chronic Hyponatremia ? SIADH will check random urine sodium and place on fluid restriction - Given that she is clinically dry will give NSS at 125 mL/hr and trend BMP NIDIA: hydration and monitor kidney function Leg Pain S/P B/L Fasciotomy with H/O DVT: - Obtain venous U/S - negative for DVT - restart ultram prn leg pain - Plavix 75 mg daily HTN:- Coreg 25 mg BID; Nifedipine 90 mg daily, and Clonidine 0.6 mg TID COPD without Exacerbation: - PRN nebs and inhalers Bipolar Disorder and Seizure Disorder:- Klonopin 0.5 mg QID (reduced from 1 mg) ; Prozac 40 mg daily; Tofranil 200 mg HS; Geodon 60 mg HS T2DM:- Hold home regimen and cover with SSI Chronic Chest Pain:- Imdur 60 mg daily and Nitro patch daily (she was very adamant about having this patch on previous admission) however on 05/11 she wanted nitro paste, we stopped both DVT Prophylaxis: Heparin Code Status: FULL RESUSCITATION Disposition: - Await improvement in mental status
[2017-05-11] MEDS: ZIPRASIDONE 20 MG CAP PO SCH (20:34)
[2017-05-11] MEDS: IMIPRAMINE HCL 50 MG TAB PO SCH (20:34)
[2017-05-12] VITALS (7 sets, daily range): BP systolic 110–132; BP diastolic 72–93; PULSE 69–80; TEMP 36.4–36.8; O2SAT 93–98
[2017-05-12] MEDS: SODIUM CHLORIDE 0.9% 1000ML 1,000 ML IV SCH ×3 (01:55→18:00)
[2017-05-12] MEDS: HEPARIN SOD 5000 UNIT/0.5 ML CARP SQ SCH ×3 (05:16→21:56)
[2017-05-12 06:23] LABS: HEMATOCRIT 27.7 % (37-47); HEMOGLOBIN 9.3 g/dL (12.0-16.0); MEAN CELL VOLUME 88.2 fL (80-100); MEAN CORPUSCULAR HEMOGLOBIN 29.6 pg (25-34); MEAN CORPUSCULAR HGB CONC 33.6 g/dl (32-36); MEAN PLATELET VOLUME 9.7 fL (7.4-10.4); PLATELET COUNT 227 K/uL (130-400); RED CELL DISTRIBUTION WIDTH CV 14.2 % (11.5-14.5); RED CELL DISTRIBUTION WIDTH SD 45.9 fL (36.4-46.3); WHITE BLOOD COUNT 7.26 K/uL (4.8-10.8)
[2017-05-12 06:54] LABS: CALCIUM 7.7 mg/dl (8.5-10.1); CREATININE 1.17 mg/dl (0.60-1.20)
[2017-05-12] MEDS: IPRATROPIUM BROMIDE/ALBUTEROL respimat INH INH SCH ×4 (07:15→20:15)
[2017-05-12] MEDS: CLONIDINE HCL 0.3 MG TAB PO SCH ×3 (07:16→20:21)
[2017-05-12] MEDS: DOCUSATE SODIUM 100 MG CAP PO SCH ×2 (07:17→20:22)
[2017-05-12] MEDS: LACTULOSE SYRUP 20 GM/30 ML UDC PO SCH ×2 (07:17→12:04)
[2017-05-12] MEDS: CARVEDILOL 25 MG TAB PO SCH ×2 (07:18→20:24)
[2017-05-12] MEDS: ISOSORBIDE MONONITRATE 60 MG TABCR PO SCH (07:18)
[2017-05-12] MEDS: POLYETHYLENE (MIRALAX) 17 GM PACK PO SCH ×3 (07:19→20:22)
[2017-05-12] MEDS: CLOPIDOGREL BISULFATE 75 MG TAB PO SCH (07:19)
[2017-05-12] MEDS: ATORVASTATIN 40 MG TAB PO SCH (07:19)
[2017-05-12] MEDS: NIFEdipine 30 MG CR TAB PO SCH (07:20)
[2017-05-12] MEDS: RANITIDINE HCL 150 MG TAB PO SCH ×2 (07:20→20:28)
[2017-05-12] MEDS: PANTOprazole SOD 40 MG TAB PO SCH ×2 (07:20→20:26)
[2017-05-12] MEDS: DICLOFENAC SOD 25 MG TABEC PO SCH ×2 (07:21→20:27)
[2017-05-12] MEDS: FLUOXETINE HCL 20 MG CAP PO SCH (07:21)
[2017-05-12] MEDS: NICOTINE 21 MG/24 HR TDSY TD SCH (07:21)
[2017-05-12] MEDS: NITROGLYCERIN 0.2 MG/HR PATCH TD SCH (07:22)
[2017-05-12] MEDS: HYDROCORTISONE HC 2.5% CRM 30GM TUBE EXT SCH ×2 (07:29→20:14)
[2017-05-12] MEDS: CLONAZEPAM 0.5 MG TAB PO SCH ×4 (07:32→20:30)
--- NOTE | 2017-05-12 07:51 | Progress Note ---
Subjective Date of Service: May 12, 2017. Subjective this pt is feeling better still not able to ambulate well and concerned about constipaiton claims to have no bowel movement for 2 weeks Problem List Medical Problems: (1) Hyponatremia Status: Acute Review of Systems Constitutional: + weakness, + fatigue, No fever, No chills Respiratory: No cough, No shortness of breath, No dyspnea on exertion Cardiac: No chest pain, No PND, No edema Abdomen: + pain, + constipation, No nausea, No vomiting, No diarrhea Female : No dysuria, No urinary frequency Neurologic: + weakness, No memory loss Psychiatric: + depression symptoms, + anxiety Objective Vital Signs Date Time Temp Pulse Resp B/P (MAP) Pulse Ox O2 Delivery O2 Flow Rate FiO2 05/12/17 07:38 36.4 73 18 110/72 (85) 94 Room Air 05/12/17 04:01 Room Air 05/12/17 04:00 36.8 69 20 118/82 (94) 98 Room Air 05/12/17 00:02 Room Air 05/11/17 23:49 36.3 77 22 101/83 (89) 96 Room Air 05/11/17 20:02 Room Air 05/11/17 19:56 36.8 72 20 93/54 (67) 92 Room Air 05/11/17 16:00 Room Air 05/11/17 15:43 36.6 73 22 101/73 (82) 97 Room Air 05/11/17 12:00 Room Air 05/11/17 12:00 36.6 74 19 138/95 (109) 99 Room Air 05/11/17 08:11 36.5 74 24 106/71 (83) 95 Room Air 05/11/17 08:00 Room Air Physical Exam General Appearance: WD/WN, + mild distress Eyes: normal inspection, sclerae normal Respiratory/Chest: chest non-tender, lungs clear, normal breath sounds Cardiovascular: regular rate, rhythm, no murmur Abdomen: normal bowel sounds, soft, + guarding, + tenderness Extremities: no pedal edema, no calf tenderness Neurologic/Psychiatric: alert, oriented x 3 Laboratory Results Last 24 Hours Test 05/11/17 11:21 05/11/17 15:25 05/11/17 16:17 05/11/17 20:24 Bedside Glucose 261 mg/dl 121 mg/dl 215 mg/dl Urine Random Sodium 47 mEq/L Test 05/12/17 05:35 05/12/17 06:52 White Blood Count 7.26 K/uL Red Blood Count 3.14 M/uL Hemoglobin 9.3 g/dL Hematocrit 27.7 % Mean Corpuscular Volume 88.2 fL Mean Corpuscular Hemoglobin 29.6 pg Mean Corpuscular Hemoglobin Concent 33.6 g/dl RDW Standard Deviation 45.9 fL RDW Coefficient of Variation 14.2 % Platelet Count 227 K/uL Mean Platelet Volume 9.7 fL Sodium Level 137 mmol/L Potassium Level 4.0 mmol/L Chloride Level 110 mmol/L Carbon Dioxide Level 19 mmol/L Anion Gap 8.0 mmol/L Blood Urea Nitrogen 10 mg/dl Creatinine 1.17 mg/dl Est Creatinine Clear Calc Drug Dose 77.4 ml/min Estimated GFR () 66.6 Estimated GFR (Non- 57.4 BUN/Creatinine Ratio 8.6 Random Glucose 182 mg/dl Calcium Level 7.7 mg/dl Magnesium Level 2.0 mg/dl Bedside Glucose 195 mg/dl Assessment and Plan 42 y/o female with metabolic encephalopathy felt secondary to hyponatremia, has a PMHx of Bipolar Disorder, Seizure Disorder, T2DM, COPD, Chronic Constipation, Hepatitis C, and S/P B/L Fasciotomy from DVTs (unknown when this occurred but incisions well healed) Acute Metabolic vs Toxic Encephalopathy: concern for medications causing sedation, could protect airway on admission - No direct source of infectious identified currently -has had great improvement with supervision of medication administration implying that issue was toxic encephalopathy from polypharmacy Lethargy has resolved with holding medicines, - she was on multiple psychiatric medications for Bipolar Disorder and Seizure Disorder:- Klonopin 0.5 mg QID (reduced from 1 mg); Prozac 40 mg daily; Tofranil 200 mg HS; Geodon 60 mg HS Chronic Hyponatremia has improved with fluid restriction Constipation, has been issue with her before, will try enema and increased cathartics, in the past pt required go lytely and tap water enemas NIDIA: resolved Leg Pain S/P B/L Fasciotomy with H/O DVT: - Obtain venous U/S - negative for DVT - restarted ultram with good improvement - Plavix 75 mg daily HTN:- Coreg 25 mg BID; Nifedipine 90 mg daily, and Clonidine 0.6 mg TID COPD without Exacerbation: - PRN nebs and inhalers T2DM:- Hold home regimen and cover with SSI Chronic Chest Pain:- Imdur 60 mg daily and Nitro patch daily (she was very adamant about having this patch on previous admission) however on 05/11 she wanted nitro paste, we stopped both DVT Prophylaxis: Heparin Code Status: FULL RESUSCITATION Disposition: - Await improvement in mental status
[2017-05-12] MEDS: INSULIN ASPART 100 UNITS/ML 3 ML PEN SC SCH ×4 (08:27→21:58)
[2017-05-12] MEDS: ONDANSETRON INJ 2 MG/ML 2 ML VIAL IV PRN ×2 (14:33→20:46)
[2017-05-12] MEDS ORDERED: BISACODYL 10 MG SUPP PR STA (15:03)
[2017-05-12] MEDS: LACTULOSE SYRUP 30 GM/45 ML UDP PO SCH ×2 (17:01→20:22)
[2017-05-12] MEDS: TRAMADOL HCL 50 MG TAB PO PRN (18:11)
[2017-05-12] MEDS: ZIPRASIDONE 20 MG CAP PO SCH (20:24)
[2017-05-12] MEDS: IMIPRAMINE HCL 50 MG TAB PO SCH (20:31)
[2017-05-13 00:15] VITALS: O2SAT 93
[2017-05-13 00:39] VITALS: BP 128/86; PULSE 72; TEMP 36.5; O2SAT 98
[2017-05-13] MEDS: SODIUM CHLORIDE 0.9% 1000ML 1,000 ML IV SCH ×2 (02:09→08:22)
[2017-05-13] MEDS: HEPARIN SOD 5000 UNIT/0.5 ML CARP SQ SCH ×2 (06:16→13:58)
[2017-05-13 07:15] LABS: HEMATOCRIT 28.2 % (37-47); HEMOGLOBIN 9.4 g/dL (12.0-16.0); MEAN CORPUSCULAR HEMOGLOBIN 29.7 pg (25-34); MEAN CORPUSCULAR HGB CONC 33.3 g/dl (32-36); MEAN PLATELET VOLUME 9.9 fL (7.4-10.4); NUCLEATED RED BLOOD CELL ABS 0.03 K/uL (0-0); PLATELET COUNT 223 K/uL (130-400); RED CELL DISTRIBUTION WIDTH SD 45.9 fL (36.4-46.3); WHITE BLOOD COUNT 7.66 K/uL (4.8-10.8)
[2017-05-13 07:20] VITALS: BP 126/86; PULSE 65; TEMP 36.6; O2SAT 97
[2017-05-13 07:26] LABS: CALCIUM 8.4 mg/dl (8.5-10.1); CREATININE 0.96 mg/dl (0.60-1.20)
[2017-05-13] MEDS: HYDROCORTISONE HC 2.5% CRM 30GM TUBE EXT SCH (08:03)
[2017-05-13] MEDS: IPRATROPIUM BROMIDE/ALBUTEROL respimat INH INH SCH ×2 (08:04→12:46)
[2017-05-13] MEDS: CLONIDINE HCL 0.3 MG TAB PO SCH ×2 (08:06→13:54)
[2017-05-13] MEDS: LACTULOSE SYRUP 30 GM/45 ML UDP PO SCH ×2 (08:09→12:46)
[2017-05-13] MEDS: DOCUSATE SODIUM 100 MG CAP PO SCH (08:09)
[2017-05-13] MEDS: ISOSORBIDE MONONITRATE 60 MG TABCR PO SCH (08:10)
[2017-05-13] MEDS: CARVEDILOL 25 MG TAB PO SCH (08:10)
[2017-05-13] MEDS: POLYETHYLENE (MIRALAX) 17 GM PACK PO SCH ×2 (08:11→13:55)
[2017-05-13] MEDS: CLOPIDOGREL BISULFATE 75 MG TAB PO SCH (08:11)
[2017-05-13] MEDS: ATORVASTATIN 40 MG TAB PO SCH (08:11)
[2017-05-13] MEDS: FLUOXETINE HCL 20 MG CAP PO SCH (08:12)
[2017-05-13] MEDS: NIFEdipine 30 MG CR TAB PO SCH (08:12)
[2017-05-13] MEDS: PANTOprazole SOD 40 MG TAB PO SCH (08:12)
[2017-05-13] MEDS: RANITIDINE HCL 150 MG TAB PO SCH (08:13)
[2017-05-13] MEDS: DICLOFENAC SOD 25 MG TABEC PO SCH (08:13)
[2017-05-13] MEDS: NITROGLYCERIN 0.2 MG/HR PATCH TD SCH (08:14)
[2017-05-13] MEDS: CLONAZEPAM 0.5 MG TAB PO SCH ×2 (08:21→12:54)
[2017-05-13] MEDS: NICOTINE 21 MG/24 HR TDSY TD SCH (08:21)
[2017-05-13] MEDS: INSULIN ASPART 100 UNITS/ML 3 ML PEN SC SCH ×2 (08:29→12:51)
[2017-05-13] MEDS ORDERED: MAGNESIUM SULFATE 1GM / D5W 1 GM in PREMIXED IN D5W 100 ML IV ONE (09:15)
--- NOTE | 2017-05-13 10:36 | Discharge Instructions ---
Discharge Instructions Date of Service May 13, 2017. Admission Reason for Admission: Encephalopathy, Hyponatremia Discharge Discharge Diagnosis / Problem: encephalopathy from medicines, low sodium Discharge Goals Goal(s): Diagnostic testing, Therapeutic intervention Activity Recommendations Activity Limitations: as noted below You initially had confusion from low blood salt due to drinking too much water, this allowed your medicines to also make you confused this improved but please do not have excess water and only take medicines as directed For your constipation please try to have at least a bowel movement every day or every other day for your leg pain please be careful with your ultram use see your family doctor this week Current Hospital Diet Patient's current hospital diet: Diabetes Type 2 Diet Discharge Diet Recommended Diet: Diabetes Type 2 Diet Pending Studies Studies pending at discharge: no Medical Emergencies . Who to Call and When: Medical Emergencies: If at any time you feel your situation is an emergency, please call 911 immediately. . Non-Emergent Contact Non-Emergency issues call your: Primary Care Provider Call Non-Emergent contact if: temperature is above 101, your pain is unusual for you . . "Provider Documentation" section prepared by Sung Perea. . VTE Core Measure Inpt VTE Proph given/why not?: SCD's
[2017-05-13 11:06] VITALS: BP 126/86; PULSE 65; TEMP 36.6; O2SAT 97
[2017-05-13] MEDS ORDERED: INSULIN GLARGINE SOLOSTAR 100 UNITS/ML 3 ML PEN SC SCH (12:00)
--- NOTE | 2017-05-14 09:44 | Discharge Summary ---
"Discharge Summary Date of Service May 13, 2017. Discharge Summary Admission Date: May 10, 2017 at 18:07 Discharge Date: May 13, 2017 Discharge Disposition: Home Principal Diagnosis: toxic encephalopathy, constipation Immunizations: Have You Had Influenza Vaccine: Unknown History of Tetanus Vaccine?: Unknown History of Pneumococcal: Unknown History of Hepatitis B Vaccine: Unknown Medication Reconciliation Continued Medications: Albuterol Hfa (Ventolin Hfa) 200 Puffs/06291 Mcg Aers 2 PUFFS INH QID PRN for Wheezing, #1 INHALER Albuterol Sulf (Albuterol Sulfate) 2.5 Mg/3 Ml Nebu 3 ML INH Q6H PRN for SOB/Wheezing Atorvastatin (Lipitor) 40 Mg Tab 40 MG PO DAILY, TAB Carvedilol (Coreg) 25 Mg Tab 25 MG PO BID Clonazepam (Klonopin) 1 Mg Tab 0.5 MG PO QID one half of a pill Clonidine Hcl (Catapres) 0.3 Mg Tab 2 TAB PO TID for 30 Days, #30 TAB 2 Refills Clopidogrel (Plavix) 75 Mg Tab 75 MG PO DAILY, TAB Diclofenac (Voltaren) 50 Mg Tabec 50 MG PO BID, TAB Docusate Sodium (Dulcolax Stool Softener) 100 Mg Cap 1 CAP PO BID Fluoxetine (Prozac) 40 Mg Cap 40 MG PO QAM Hydrocortisone 2.5% (Rectal) (Anusol-Hc 2.5%) 2.5 % Cre 1 APPLN TOP BID for 7 Days, #30 GM Imipramine Pamoate (Tofranil Pm) 100 Mg Cap 2 CAP PO HS, CAP Insulin Aspart (Novolog) 100 Units/Ml Inj 12 UNITS SQ QDB Insulin Aspart (Novolog) 100 Units/Ml Inj 12 UNITS SQ QDL Insulin Aspart (Novolog) 100 Units/Ml Inj 14 UNITS SQ QDD Insulin Glargine (Lantus) 100 Unit/Ml Inj 38 UNITS SC QDL, VIAL Insulin Human Lispro (Humalog) 1 Ea Inj sliding scale Ipratropium-Albuterol (Combivent Respimat) 1 Aer Aer 1 PUFFS INH QID, INH Ipratropium-Albuterol (Duoneb) 3 Ml Nebu 1 TREATMENT INH Q6H PRN for SOB/Wheezing, INHA Isosorbide Mononitrate Ext Rel (Imdur Ext Rel) 60 Mg Ertab 60 MG PO QAM, TAB Lactulose (Chronulac) 10 Gm/15 Ml Syrp 30 ML PO QID Metformin Hcl (Glucophage) 1,000 Mg Tab 1000 MG PO BID, TAB Nicotine (Nicoderm Cq 21MG Patch) 21 Mg/24 Hr Dis 1 PATCH TD DAILY, PATCH Nifedipine (Nifedipine ER) 90 Mg Tabcr 90 MG PO DAILY Nitroglycerin (Nitroglycerin Transdermal) 1 Patch Tdsy 1 PATCH TD QAM for 30 Days, #30 PATCH 1 Refill Tolerance is minimized by using a patch-on period of 12 to 14 hours/day and patch-off period of 10 to 12 hours/day. Nystatin/Triamcinolone (Mycolog ||) Cr Ondansetron (Ondansetron HCl) 4 Mg Tab 4 MG SL TID PRN for Nausea or Vomiting Pantoprazole (Protonix) 40 Mg Tab 40 MG PO BID Polyethylene (Miralax) 17 Gm Pow 17 GM PO BID Potassium Ext Rel (Klor-Con) 20 Meq Tabcr 40 MEQ PO BID Ranitidine Hcl (Zantac) 150 Mg Tab 150 MG PO BID Rizatriptan Benzoate (Maxalt) 10 Mg Tab 10 MG PO, TAB Tiotropium [place] (Spiriva Respimat) 2.5 Mcg/Act Spr 2 PUFF INH DAILY, INHALER Tramadol (Ultram) 50 Mg Tab 50 MG PO HS, TAB Ziprasidone Hcl (Geodon) 60 Mg Cap 60 MG PO HS Discontinued Medications: Benzonatate (Tessalon Perles) 100 Mg Cap 100 MG PO Q8, CAP Hydrochlorothiazide (Hctz) 25 Mg Tab 25 MG PO BID, TAB Lisinopril (Prinivil) 20 Mg Tab 20 MG PO BID, TAB Methocarbamol (Robaxin) 750 Mg Tab 750 MG PO BID, TAB Ondansetron Hcl (Zofran) 8 Mg Tab 8 MG PO TID PRN for Nausea, TAB Spironolactone (Aldactone) 25 Mg Tab 25 MG PO DAILY Discharge Exam Review of Systems: Constitutional: No fever, No chills Abdomen: No pain, No nausea Physical Exam: General Appearance: WD/WN, no apparent distress Neurologic/Psychiatric: alert, oriented x 3 Hospital Course 42 y/o female with metabolic encephalopathy felt secondary to hyponatremia, has a PMHx of Bipolar Disorder, Seizure Disorder, T2DM, COPD, Chronic Constipation, Hepatitis C, and S/P B/L Fasciotomy from DVTs (unknown when this occurred but incisions well healed) Acute Metabolic vs Toxic Encephalopathy: concern for medications causing sedation, could protect airway on admission - No direct source of infectious identified currently -has had great improvement with supervision of medication administration implying that issue was toxic encephalopathy from polypharmacy Lethargy has resolved with holding medicines, - she was on multiple psychiatric medications for Bipolar Disorder and Seizure Disorder:- Klonopin 0.5 mg QID (reduced from 1 mg); Prozac 40 mg daily; Tofranil 200 mg HS; Geodon 60 mg HS Chronic Hyponatremia has improved with fluid restriction Constipation, has been issue with her before, will try enema and increased cathartics, in the past pt required go lytely and tap water enemas NIDIA: resolved Leg Pain S/P B/L Fasciotomy with H/O DVT: - Obtain venous U/S - negative for DVT - restarted ultram with good improvement - Plavix 75 mg daily HTN:- Coreg 25 mg BID; Nifedipine 90 mg daily, and Clonidine 0.6 mg TID COPD without Exacerbation: - PRN nebs and inhalers T2DM:- Hold home regimen and cover with SSI Chronic Chest Pain:- Imdur 60 mg daily and Nitro patch daily (she was very adamant about having this patch on previous admission) however on 05/11 she wanted nitro paste, we stopped both Code Status: FULL RESUSCITATION Total Time Spent: Greater than 30 minutes This includes examination of the patient, discharge planning, medication reconciliation, and communication with other providers. Discharge Instructions Please refer to the electronic Patient Visit Report (Discharge Instructions) for additional information."
--- NOTE | 2017-05-16 08:15 | EDITING REQUIRED CODING QUERY ---
CODING QUERY To promote full compliance with coding requirements relating to patient care, provider participation is requested in all cases of roll cleaner uncertainty. Please assist us with the question(s) below: Coding Question(s): Please clarify below, in your clinical opinion, regarding the Encephalopathy. ( ) Toxic Encephalopathy as well as possible Metabolic Encephalopathy ( xx ) Toxic Encephalopathy only - the Metabolic Encephalopathy was ruled-out Physician's Response(s): Thank you Lis Smith Principal Diagnosis: "_that condition established after study, to be chiefly responsible for occasioning the admission of the patient to the hospital for care." Co-Existing Principal Diagnosis: "_when two or more diagnoses equally meet the criteria for principal diagnosis as determined by the circumstances of admission, diagnostic work up, and/or therapy provided, and the Alphabetic Index, Tabular List, or another coding guideline does not provide sequencing direction, any one of the diagnoses may be sequenced first." "When the physician has documented what appears to be a current diagnosis in the body of the record, but has not included the diagnosis in the final diagnostic statement, the physician should be asked whether the diagnosis should be added." ([facility] 2 QTR90. p3-4)
--- NOTE | 2017-05-16 08:21 | EDITING REQUIRED CODING QUERY ---
CODING QUERY To promote full compliance with coding requirements relating to patient care, provider participation is requested in all cases of equipment mechanic uncertainty. Please assist us with the question(s) below: Coding Question(s): Chronic Hyponatremia with questionable SIADH was documented in the beginning of the record, however, there is no documentation of questionable SIADH on the last Progress Note and Discharge Summary. Please clarify below, in your clinical opinion. ( xx) Possible SIADH ( ) Possible SIADH was ruled-out Physician's Response(s): Thank you Lis Smith Principal Diagnosis: "_that condition established after study, to be chiefly responsible for occasioning the admission of the patient to the hospital for care." Co-Existing Principal Diagnosis: "_when two or more diagnoses equally meet the criteria for principal diagnosis as determined by the circumstances of admission, diagnostic work up, and/or therapy provided, and the Alphabetic Index, Tabular List, or another coding guideline does not provide sequencing direction, any one of the diagnoses may be sequenced first." "When the physician has documented what appears to be a current diagnosis in the body of the record, but has not included the diagnosis in the final diagnostic statement, the physician should be asked whether the diagnosis should be added." ([facility] 2 QTR90. p3-4)
== END 2017-05-13 15:55 | disposition home or self-care (01) | DRG 643 ==
LOC: EDBD 14:05 → C.EDB 14:06 → C.2E 18:07 → EEVIPCON 18:07 → ENRESERV 18:37 → C.MS2W 05-12 15:59
PROVIDERS: ADMIT Internal Medicine; ATTEND Internal Medicine
DX: E22.2 Syndrome of inappropriate secretion of antidiuretic hormone (principal); G92 Toxic encephalopathy; Z68.41 Body mass index [BMI] 40.0-44.9, adult; T43.95XA Adverse effect of unspecified psychotropic drug, initial encounter; N28.9 Disorder of kidney and ureter, unspecified; M79.604 Pain in right leg; M79.605 Pain in left leg; R07.9 Chest pain, unspecified; G89.29 Other chronic pain; K59.09 Other constipation; I10 Essential (primary) hypertension; E11.9 Type 2 diabetes mellitus without complications; G40.909 Epilepsy, unspecified, not intractable, without status epilepticus; J44.9 Chronic obstructive pulmonary disease, unspecified; F31.9 Bipolar disorder, unspecified; E66.3 Overweight; F17.200 Nicotine dependence, unspecified, uncomplicated; Z79.899 Other long term (current) drug therapy; Z79.4 Long term (current) use of insulin; Z86.718 Personal history of other venous thrombosis and embolism; Z86.19 Personal history of other infectious and parasitic diseases; Z88.8 Allergy status to other drugs, medicaments and biological substances; Z88.0 Allergy status to penicillin

== ENCOUNTER 2017-11-14 16:07 | Emergency (ER) | payer OTHER ==
[~2017-11-14] VITALS: Ht 175.3 cm; Wt 100.9 kg
[~2017-11-14 16:07] MED LIST changes: -ACET-1693 PO; -ALBINS/ INH; +ATOR-24 PO; +CLON1TAB10 PO; -CLON1TAB3 PO; +CLOP1TAB15 PO; +DICL50TA3 PO; -ERGO500037 PO; +HYDR2.5C37 TOP; +IMIP100C4 PO; +INSDGI SC; -INSDGIPEN SC; +INSPMPHMLG; +IPRA-64 INH; +IPRA1AER2 INH; +ISOS60TA25 PO; -ISOSORBIDE ER PO; +LACT10SO3 PO; +METF-384 PO; +MRLP17 PO; +NICO21DI35 TD; +NVLG SQ; -NVLGI/PEN PO; -NVLGIPEN PO; +NYSTCRE11; +ONDA4TAB54 SL; +POTA-639 PO; -POTA20TA16 PO; +PRCSR90 PO; +RIZA10TA18 PO; +RRALBUT083 NEB; -SPIR25TA89 PO; +TIOT1SPR INH; -TOPI100T20 PO; +TRAM-10 PO; +VNTHFA/IN INH
[2017-11-14 16:14] VITALS: Ht 175.3 cm; Wt 100.9 kg
[2017-11-14] MEDS ORDERED: SODIUM CHLORIDE 0.9% 1000ML 1,000 ML IV STA (16:27)
[2017-11-14] MEDS ORDERED: ONDANSETRON INJ 2 MG/ML 2 ML VIAL IV STA (16:27)
[2017-11-14] MEDS ORDERED: KETOROLAC TROMETHAMINE 30 MG/ML VIAL IV STA (16:27)
[2017-11-14 16:51] LABS: BASO % 0.5 %; BASO ABS # 0.03 K/uL (0-0.2); EOS % 1.5 %; EOS ABS # 0.09 K/uL (0-0.5); HEMATOCRIT 32.5 % (37-47); HEMOGLOBIN 10.8 g/dL (12.0-16.0); IG# 0.01 K/uL (0.00-0.02); LYMPH % 46.1 %; LYMPH ABS # 2.81 K/uL (1.2-3.4); MEAN CORPUSCULAR HEMOGLOBIN 27.9 pg (25-34); MEAN CORPUSCULAR HGB CONC 33.2 g/dl (32-36); MEAN PLATELET VOLUME 9.4 fL (7.4-10.4); MONO % 7.9 %; MONO ABS # 0.48 K/uL (0.11-0.59); NEUT % 43.8 %; NEUT ABS # 2.68 K/uL (1.4-6.5); PLATELET COUNT 498 K/uL (130-400); RED CELL DISTRIBUTION WIDTH CV 13.7 % (11.5-14.5); RED CELL DISTRIBUTION WIDTH SD 41.9 fL (36.4-46.3)
[2017-11-14 17:16] LABS: ALBUMIN 3.3 gm/dl (3.4-5.0); ALKALINE PHOSPHATASE 187 U/L (45-117); ALT/SGPT 24 U/L (12-78); AST/SGOT 29 U/L (15-37); BLOOD UREA NITROGEN 19 mg/dl (7-18); CARBON DIOXIDE 23 mmol/L (21-32); CREATININE 1.76 mg/dl (0.60-1.20); GLUCOSE 197 mg/dl (70-99); LIPASE 100 U/L (73-393); POTASSIUM 3.2 mmol/L (3.5-5.1); SODIUM 129 mmol/L (136-145); TOTAL PROTEIN 7.6 gm/dl (6.4-8.2)
--- NOTE | 2017-11-14 17:40 | DIAGNOSTIC IMAGING REPORT ---
CT SCAN OF THE ABDOMEN AND PELVIS WITHOUT IV CONTRAST CLINICAL HISTORY: Generalized abdominal pain. COMPARISON STUDY: Abdominal CT dated 05/03/2017 and 10/17/2016. TECHNIQUE: CT scan of the abdomen and pelvis is performed from the lung bases to the proximal femora. Images are reviewed in the axial, sagittal, and coronal planes. IV contrast was not administered for this examination. Note that the examination was performed in significantly suboptimal fashion without oral and IV contrast. The examination is also degraded by large body habitus, and by streak artifact from the body wall abutting the CT gantry. A dose lowering technique was utilized adhering to the principles of ALARA. CT DOSE: 1042.93 mGy.cm FINDINGS: Lung bases: The heart is normal in size noting trace pericardial fluid. There are age advanced coronary artery calcifications. There is a 10 mm left lower lobe pulmonary nodule seen on image #25. There is no airspace consolidation or pleural effusion. Dependent atelectasis is seen bilaterally. A tiny hiatal hernia is noted. Liver: The unenhanced liver is normal in size, contour, and attenuation. There is mild central intrahepatic biliary ductal dilatation. Gallbladder: Surgically absent noting clips in the gallbladder fossa. Spleen: Normal in size and attenuation. Pancreas: The unenhanced pancreas is atrophic and grossly unremarkable. Adrenal glands: A 3.0 cm left adrenal nodule is unchanged in appearance from previous. This contains foci of macroscopic fat. There are 2 small right adrenal nodules which measure up to 1.1 cm. Kidneys: The unenhanced kidneys demonstrate cortical atrophy and are without hydronephrosis. There is a 7 mm nonobstructing calculus in the right upper pole. No left renal calculi are identified. A 13 mm exophytic cyst is noted on the left. Abdominal vasculature: The abdominal aorta is normal in course and caliber noting moderate and age advanced atherosclerotic calcification. An IVC filter is in place. Bowel: There is severe constipation. No bowel obstruction is seen. The cecum is located in the left lower quadrant. The appendix is well-visualized and normal. Peritoneum: There is no intraperitoneal free air or abdominal ascites. Lymphadenopathy: None. Pelvic viscera: The bladder is normal as visualized. The uterus is surgically absent. No adnexal lesion is seen. Skeletal structures: The skeletal structures are osteopenic. No lytic or blastic lesions are seen. IMPRESSION: 1. Suboptimal examination without oral and IV contrast. 2. There are no acute infectious or inflammatory findings in the abdomen or pelvis. 3. Severe constipation. No bowel obstruction is seen. 4. Nonobstructing right renal calculus. 5. Bilateral adrenal nodules have not significantly changed from prior examinations. 6. There is a 10 mm left lower lobe pulmonary nodule. This was not included on prior examinations and is pathologically indeterminant. A follow-up chest CT in 3 months time is recommended for reassessment of this nodule and the remainder of the thorax. 7. There is age advanced atherosclerotic calcification of the coronary arteries. Consider nonemergent cardiology assessment. 8. Additional findings as above. Electronically signed by: Geoffrey Potts M.D. 11/14/2017 5:39 PM Dictated Date/Time: 11/14/2017 5:29 PM
[2017-11-14] MEDS ORDERED: TOPI50TA16 PO (17:43)
[2017-11-14] MEDS ORDERED: SENN-61 PO (17:43)
[2017-11-14] MEDS ORDERED: SPIR25TA PO (17:43)
[2017-11-14] MEDS ORDERED: METH-307 PO (17:43)
[2017-11-14] MEDS ORDERED: MAGN400T6 PO (17:43)
[2017-11-14] MEDS ORDERED: LISI-725 PO (17:43)
[2017-11-14] MEDS ORDERED: FAMO40TA6 PO (17:43)
[2017-11-14] MEDS ORDERED: HYDR25TA4 PO (17:43)
[2017-11-14] MEDS ORDERED: RANI300C PO (17:43)
[2017-11-14] MEDS ORDERED: FRS/40 PO (17:43)
[2017-11-14] MEDS ORDERED: ONDA8TAB12 PO (17:48)
[2017-11-14] MEDS ORDERED: INSU100I23 SC (18:03)
[2017-11-14] MEDS ORDERED: INSU100I2 SC ×3 (18:03)
--- NOTE | 2017-11-14 18:05 | EMERGENCY ROOM VISIT NOTE ---
History Report prepared by Kiran: Noe Sánchez Under the Supervision of: Dr. Chintan Hilliard D.O. First contact with patient: 16:11 Chief Complaint: ABDOMINAL PAIN Stated Complaint: ABDOMINAL PAIN History of Present Illness The patient is a 42 year old female who presents to the Emergency Room with complaints of abdominal pain that she thinks is caused by colitis that she was diagnosed with in the beginning of August of 2017. The patient reports that she currently has constant severe pains that is accompanied with swelling in her abdomen and diarrhea. She also complains of light-headedness that she thinks might make her fall like it has in the past. She was prescribed antibiotics and pain medications for the infection back in August but she states the pain medications only worked for a little bit. She reports that during this time in August she was experiencing black stool and hematochezia. She also has a history of a hysterectomy and C Diff, in which she was prescribed Lavacol for. Source of History: patient Onset: August Position: abdomen Symptom Intensity: severe Timing: constant Associated Symptoms: + diarrhea, + weakness Review of Systems See HPI for pertinent positives & negatives. A total of 10 systems reviewed and were otherwise negative. Past Medical & Surgical Medical Problems: (1) Colonic inertia (2) Encephalopathy (3) Intractable abdominal pain Family History Patient reports no known family medical history. Social History Smoking Status: Current Every Day Smoker Drug Use: none Marital Status: Occupation Status: disabled Current/Historical Medications Scheduled Atorvastatin (Lipitor), 40 MG PO HS Carvedilol (Coreg), 25 MG PO BID Clonidine Hcl (Catapres), 0.6 MG PO TID Docusate Sodium (Dulcolax Stool Softener), 200 MG PO BID Famotidine (Pepcid), 40 MG PO HS Furosemide (Lasix), 40 MG PO DAILY Hydrochlorothiazide (Hctz), 25 MG PO BID Imipramine Pamoate (Tofranil Pm), 200 MG PO HS Insulin Glargine (Basaglar Kwikpen), 32 UNITS SC QPM Insulin Lispro (Human) (Humalog Kwikpen), 10 UNITS SC QAM Insulin Lispro (Human) (Humalog Kwikpen), 12 UNITS SC WITH LUNCH Insulin Lispro (Human) (Humalog Kwikpen), 14 UNITS SC WITH DINNER Isosorbide Mononitrate Ext Rel (Imdur Ext Rel), 60 MG PO QAM Lisinopril (Zestril), 20 MG PO BID Magnesium Oxide (Mag-Ox), 400 MG PO QAM Metformin Hcl (Glucophage), 1,000 MG PO BID Methocarbamol (Robaxin), 750 MG PO BID Nifedipine (Nifedipine ER), 90 MG PO DAILY Pantoprazole (Protonix), 40 MG PO BID Potassium Ext Rel (Klor-Con), 20 MEQ PO QID Ranitidine Hcl (Ranitidine Hcl), 300 MG PO BID Spironolactone (Aldactone), 25 MG PO BID Topiramate (Topamax), 100 MG PO BID Ziprasidone Hcl (Geodon), 60 MG PO HS Scheduled PRN Albuterol Hfa (Ventolin Hfa), 2 PUFFS INH QID PRN for SOB/Wheezing Albuterol Sulf (Albuterol Sulfate), 3 ML NEB Q6H PRN for SOB/Wheezing Benzonatate (Tessalon Perles), 100 MG PO BID PRN for Cough Clonazepam (Klonopin), 1 MG PO BID PRN for Panic Disorder Nitroglycerin (Nitro-Bid), 0.5 INCH TOP UD PRN for Chest Pain Ondansetron Hcl (Zofran), 8 MG PO TID PRN for Nausea or Vomiting Senna (Senokot), 17.2 MG PO BID PRN for Constipation Allergies Coded Allergies: Buspirone (Verified Allergy, Unknown, RASH, 02/06/17) Penicillins (Verified Allergy, Unknown, HIVES AND PASSES OUT, 02/06/17) Sertraline (Verified Allergy, Unknown, HIVES AND PASSES OUT, 02/06/17) Trazodone (Verified Allergy, Unknown, IRRITATES NEUROPATHY AND HIVES, 02/06) Valproic Acid (Verified Allergy, Unknown, HIVES, DIZZINESS, SLURRING SPEECH, 02/06/17) Physical Exam Vital Signs Date Time Temp Pulse Resp B/P (MAP) Pulse Ox O2 Delivery O2 Flow Rate FiO2 11/14/17 18:54 105/76 122/82 119/77 11/14/17 18:19 67 14 106/69 96 Room Air 11/14/17 17:00 121/68 113/74 71/54 11/14/17 16:14 36.7 77 19 109/68 Room Air Physical Exam CONSTITUTIONAL/VITAL SIGNS: Reviewed / noted above. GENERAL: Non-toxic in appearance. INTEGUMENTARY: Warm, dry, and [place]. HEAD: Normocephalic. EYES: without scleral icterus or trauma. ENT/OROPHARYNX: clear and moist. LYMPHADENOPATHY/NECK: Is supple without lymphadenopathy or meningismus. RESPIRATORY: Lungs clear and equal. CARDIOVASCULAR: Regular rate and rhythm. GI/ABDOMEN: Soft and mildly tender in suprapubic area. No organomegaly or pulsatile mass. No rebound or guarding. Normal bowel sounds. EXTREMITIES: Warm and well perfused. BACK: No CVA tenderness. NEUROLOGICAL: Intact without focal deficits. PSYCHIATRIC: normal affect. MUSCULOSKELETAL: Normally developed with good muscle tone. Medical Decision & Procedures ER Provider Diagnostic Interpretation: Radiology results as stated below per my review and radiologist interpretation: CT SCAN OF THE ABDOMEN AND PELVIS WITHOUT IV CONTRAST CLINICAL HISTORY: Generalized abdominal pain. COMPARISON STUDY: Abdominal CT dated 05/03/2017 and 10/17/2016. TECHNIQUE: CT scan of the abdomen and pelvis is performed from the lung bases to the proximal femora. Images are reviewed in the axial, sagittal, and coronal planes. IV contrast was not administered for this examination. Note that the examination was performed in significantly suboptimal fashion without oral and IV contrast. The examination is also degraded by large body habitus, and by streak artifact from the body wall abutting the CT gantry. A dose lowering technique was utilized adhering to the principles of ALARA. CT DOSE: 1042.93 mGy.cm FINDINGS: Lung bases: The heart is normal in size noting trace pericardial fluid. There are age advanced coronary artery calcifications. There is a 10 mm left lower lobe pulmonary nodule seen on image #25. There is no airspace consolidation or pleural effusion. Dependent atelectasis is seen bilaterally. A tiny hiatal hernia is noted. Liver: The unenhanced liver is normal in size, contour, and attenuation. There is mild central intrahepatic biliary ductal dilatation. Gallbladder: Surgically absent noting clips in the gallbladder fossa. Spleen: Normal in size and attenuation. Pancreas: The unenhanced pancreas is atrophic and grossly unremarkable. Adrenal glands: A 3.0 cm left adrenal nodule is unchanged in appearance from previous. This contains foci of macroscopic fat. There are 2 small right adrenal nodules which measure up to 1.1 cm. Kidneys: The unenhanced kidneys demonstrate cortical atrophy and are without hydronephrosis. There is a 7 mm nonobstructing calculus in the right upper pole. No left renal calculi are identified. A 13 mm exophytic cyst is noted on the left. Abdominal vasculature: The abdominal aorta is normal in course and caliber noting moderate and age advanced atherosclerotic calcification. An IVC filter is in place. Bowel: There is severe constipation. No bowel obstruction is seen. The cecum is located in the left lower quadrant. The appendix is well-visualized and normal. Peritoneum: There is no intraperitoneal free air or abdominal ascites. Lymphadenopathy: None. Pelvic viscera: The bladder is normal as visualized. The uterus is surgically absent. No adnexal lesion is seen. Skeletal structures: The skeletal structures are osteopenic. No lytic or blastic lesions are seen. IMPRESSION: 1. Suboptimal examination without oral and IV contrast. 2. There are no acute infectious or inflammatory findings in the abdomen or pelvis. 3. Severe constipation. No bowel obstruction is seen. 4. Nonobstructing right renal calculus. 5. Bilateral adrenal nodules have not significantly changed from prior examinations. 6. There is a 10 mm left lower lobe pulmonary nodule. This was not included on prior examinations and is pathologically indeterminant. A follow-up chest CT in 3 months time is recommended for reassessment of this nodule and the remainder of the thorax. 7. There is age advanced atherosclerotic calcification of the coronary arteries. Consider nonemergent cardiology assessment. 8. Additional findings as above. Electronically signed by: Geoffrey Potts M.D. 11/14/2017 5:39 PM Dictated Date/Time: 11/14/2017 5:29 PM Laboratory Results 11/14/17 16:42 Red Blood Count 3.87, Mean Corpuscular Volume 84.0, Mean Corpuscular Hemoglobin 27.9, Mean Corpuscular Hemoglobin Concent 33.2, Mean Platelet Volume 9.4, Neutrophils (%) (Auto) 43.8, Lymphocytes (%) (Auto) 46.1, Monocytes (%) (Auto) 7.9, Eosinophils (%) (Auto) 1.5, Basophils (%) (Auto) 0.5, Neutrophils # (Auto) 2.68, Lymphocytes # (Auto) 2.81, Monocytes # (Auto) 0.48, Eosinophils # (Auto) 0.09, Basophils # (Auto) 0.03 11/14/17 16:42 Test 11/14/17 16:42 11/14/17 17:32 White Blood Count 6.10 K/uL (4.8-10.8) Red Blood Count 3.87 M/uL (4.2-5.4) Hemoglobin 10.8 g/dL (12.0-16.0) Hematocrit 32.5 % (37-47) Mean Corpuscular Volume 84.0 fL (80-100) Mean Corpuscular Hemoglobin 27.9 pg (25-34) Mean Corpuscular Hemoglobin Concent 33.2 g/dl (32-36) Platelet Count 498 K/uL (130-400) Mean Platelet Volume 9.4 fL (7.4-10.4) Neutrophils (%) (Auto) 43.8 % Lymphocytes (%) (Auto) 46.1 % Monocytes (%) (Auto) 7.9 % Eosinophils (%) (Auto) 1.5 % Basophils (%) (Auto) 0.5 % Neutrophils # (Auto) 2.68 K/uL (1.4-6.5) Lymphocytes # (Auto) 2.81 K/uL (1.2-3.4) Monocytes # (Auto) 0.48 K/uL (0.11-0.59) Eosinophils # (Auto) 0.09 K/uL (0-0.5) Basophils # (Auto) 0.03 K/uL (0-0.2) RDW Standard Deviation 41.9 fL (36.4-46.3) RDW Coefficient of Variation 13.7 % (11.5-14.5) Immature Granulocyte % (Auto) 0.2 % Immature Granulocyte # (Auto) 0.01 K/uL (0.00-0.02) Anion Gap 10.0 mmol/L (3-11) Est Creatinine Clear Calc Drug Dose 52.7 ml/min Estimated GFR () 40.6 Estimated GFR (Non- 35.1 BUN/Creatinine Ratio 11.0 (10-20) Calcium Level 9.0 mg/dl (8.5-10.1) Total Bilirubin 0.2 mg/dl (0.2-1) Direct Bilirubin < 0.1 mg/dl (0-0.2) Aspartate Amino Transf (AST/SGOT) 29 U/L (15-37) Alanine Aminotransferase (ALT/SGPT) 24 U/L (12-78) Alkaline Phosphatase 187 U/L (45-117) Total Protein 7.6 gm/dl (6.4-8.2) Albumin 3.3 gm/dl (3.4-5.0) Lipase 100 U/L (73-393) Urine Color YELLOW Urine Appearance CLEAR (CLEAR) Urine pH 5.0 (4.5-7.5) Urine Specific [place] 1.008 (1.000-1.030) Urine Protein NEG (NEG) Urine Glucose (UA) NEG (NEG) Urine Ketones NEG (NEG) Urine Occult Blood NEG (NEG) Urine Nitrite NEG (NEG) Urine Bilirubin NEG (NEG) Urine Urobilinogen NEG (NEG) Urine Leukocyte Esterase TRACE (NEG) Urine WBC (Auto) 1-5 /hpf (0-5) Urine RBC (Auto) 0-4 /hpf (0-4) Urine Hyaline Casts (Auto) 1-5 /lpf (0-5) Urine Epithelial Cells (Auto) >30 /lpf (0-5) Urine Bacteria (Auto) NEG (NEG) Urine Test NEG (NEG) Laboratory results as stated above per my review. Medications Administered Medications (Trade) Dose Ordered Sig/Ralph Route Start Time Stop Time Status Last Admin Dose Admin Sodium Chloride 1,000 ml @ 999 mls/hr Q1H1M STAT IV 11/14/17 16:27 11/14/17 17:27 DC 11/14/17 16:27 999 MLS/HR Ondansetron HCl (Zofran Inj) 4 mg NOW STAT IV 11/14/17 16:27 11/14/17 16:31 DC 11/14/17 16:51 4 MG Ketorolac Tromethamine (Toradol Inj) 30 mg NOW STAT IV 11/14/17 16:27 11/14/17 16:31 DC 11/14/17 16:54 30 MG ED Course 1620: Previous medical records were reviewed. The patient was evaluated in room B8. A complete history and physical examination was performed. 0: Patient saw Dr. Dee Del Toro today at [facility]. She notes that the patient has ongoing diarrhea and she feels like she still has C. Diff. 1627: Sodium Chloride 1000ml @ 999mls/hr IV, Zofran 4mg IV, Toradol 30mg IV 1806: On reevaluation, the patient is resting in bed. I discussed the results and findings with the patient. She verbalized agreement of the treatment plan. She was discharged home. Medical Decision Differential considered: pancreatitis, hepatitis, or acute cholecystitis, AAA, UTI, pyelonephritis, kidney stones, appendicitis, diverticulitis, shingles, bowel obstruction mesenteric ischemia, intussusception,hernia, ovarian torsion, ruptured ovarian cyst,ectopic , . This is a 42-year-old female who presents to the ED with a chief complaint of abdominal pain. The patient states that her pain is in the lower abdomen. She also reports that her abdomen is swollen. She feels a little lightheaded. The patient has been treated previously at [facility]. She reported that they diagnosed her with C. difficile and place her on Levaquin. This does not make sense if this is since this would not be considered standard of treatment. The patient reports some abdominal swelling in the lower abdomen. She states that she had colitis in August. She does have a history of insulin-dependent diabetes and bipolar disorder. She came here from [place] today for evaluation of her symptoms. Her vital signs are stable. Her physical exam did not reveal any significant abnormalities. There was some mild tenderness to palpation of the lower abdomen in the suprapubic area. It did not appear swollen to me. Blood work reveals a normal CBC, sodium is 129 and potassium is 3.2. BUN is 19 and creatinine is 1.76. Glucose is 197. CT scan of the abdomen pelvis reveals constipation. There is also noted to be a 10 mm left lower lobe nodule. Follow -up CT scan of the chest was recommended in 3 months. Urine did not show infection and a test was negative. The patient was treated with IV Toradol, IV Zofran and IV fluids. She is felt to be stable for discharge and outpatient follow-up. She did not have any diarrhea here. Medication Reconcilliation Current Medication List: was personally reviewed by me Blood Pressure Screening Patient's blood pressure: Normal blood pressure Impression Primary Impression: Lower abdominal pain Additional Impression: Constipation Scribe Attestation The scribe's documentation has been prepared under my direction and personally reviewed by me in its entirety. I confirm that the note above accurately reflects all work, treatment, procedures, and medical decision making performed by me. Departure Information Dispostion Home / Self-Care Referrals Cyndi Yepez M.D. (PCP) Patient Instructions Abdominal Pain, My [facility] Additional Instructions You have a 10 mm nodule noted in her left lower lung. A CT scan of the chest was recommended in 3 months. Your CAT scan shows constipation. Take [id number] medication for constipation. Follow-up with your doctor for further care and evaluation in 1-6 days. Return to the emergency department for worsening or new symptoms or any concerns. You have been examined and treated today on an emergency basis only. This is not a substitute for, or an effort to provide, complete comprehensive medical care. It is impossible to recognize and treat all injuries or illnesses in a single emergency department visit. It is therefore important that you follow up closely with your doctor. Call as soon as possible for an appointment. Problem Qualifiers
[2017-11-14] MEDS ORDERED: CLON1TAB10 PO (18:06)
[2017-11-14] MEDS ORDERED: [UNRECOGNIZED DRUG - CODE] TOP (18:06)
[2017-11-14] MEDS ORDERED: BENZ100C18 PO (18:07)
[2017-11-14 19:13] VITALS: BP 119/77; PULSE 67; TEMP 36.7; O2SAT 96
== END 2017-11-14 19:14 | disposition home or self-care (01) ==
LOC: EDBD 16:07 → C.EDB 16:08
DX: K59.00 Constipation, unspecified (principal); K52.9 Noninfective gastroenteritis and colitis, unspecified; F17.200 Nicotine dependence, unspecified, uncomplicated; Z79.4 Long term (current) use of insulin; Z79.84 Long term (current) use of oral hypoglycemic drugs; Z79.899 Other long term (current) drug therapy; Z88.8 Allergy status to other drugs, medicaments and biological substances; Z88.0 Allergy status to penicillin; Z88.6 Allergy status to analgesic agent

== ENCOUNTER 2017-11-14 22:59 | Emergency (ER) | payer OTHER ==
[~2017-11-14] VITALS: Ht 172.7 cm; Wt 99.1 kg
[~2017-11-14 22:59] MED LIST changes: +BENZ100C18 PO; +FAMO40TA6 PO; +FRS/40 PO; +HYDR25TA4 PO; +INSU100I2 SC; +INSU100I23 SC; +LISI-725 PO; +MAGN400T6 PO; +METH-307 PO; +ONDA8TAB12 PO; +RANI300C PO; +SENN-61 PO; +SPIR25TA PO; +TOPI50TA16 PO; +[UNRECOGNIZED DRUG - CODE] TOP
[2017-11-14 23:00] VITALS: TEMP 36.5; Ht 172.7 cm; Wt 99.1 kg
[2017-11-14 23:41] VITALS: BP 117/71; PULSE 72; O2SAT 99
--- NOTE | 2017-11-14 23:41 | EMERGENCY ROOM VISIT NOTE ---
History Report prepared by Kiran: Noe Sánchez Under the Supervision of: Dr. Chintan Hilliard D.O. First contact with patient: 23:25 Chief Complaint: CHEST PAIN Stated Complaint: CHEST PAIN History of Present Illness The patient is a 42 year old female who presents to the Emergency Room with complaints of chest pains that she experienced about 30 minutes ago, but has since resolved. To help with the pain the patient states she used a patch of Nitroglycerin. The patient denies fevers and chills. Source of History: patient Onset: 30 minutes ago Position: chest Timing: resolved Modifying Factors (Relieving): other (nitroglycerin) Associated Symptoms: No fevers, No chills Review of Systems See HPI for pertinent positives & negatives. A total of 10 systems reviewed and were otherwise negative. Past Medical & Surgical Medical Problems: (1) Colonic inertia (2) Encephalopathy (3) Intractable abdominal pain Family History Patient reports no known family medical history. Social History Smoking Status: Current Every Day Smoker Drug Use: none Marital Status: Occupation Status: disabled Current/Historical Medications Scheduled Atorvastatin (Lipitor), 40 MG PO HS Carvedilol (Coreg), 25 MG PO BID Clonidine Hcl (Catapres), 0.6 MG PO TID Docusate Sodium (Dulcolax Stool Softener), 200 MG PO BID Famotidine (Pepcid), 40 MG PO HS Furosemide (Lasix), 40 MG PO DAILY Hydrochlorothiazide (Hctz), 25 MG PO BID Imipramine Pamoate (Tofranil Pm), 200 MG PO HS Insulin Glargine (Basaglar Kwikpen), 32 UNITS SC QPM Insulin Lispro (Human) (Humalog Kwikpen), 10 UNITS SC QAM Insulin Lispro (Human) (Humalog Kwikpen), 12 UNITS SC WITH LUNCH Insulin Lispro (Human) (Humalog Kwikpen), 14 UNITS SC WITH DINNER Isosorbide Mononitrate Ext Rel (Imdur Ext Rel), 60 MG PO QAM Lisinopril (Zestril), 20 MG PO BID Magnesium Oxide (Mag-Ox), 400 MG PO QAM Metformin Hcl (Glucophage), 1,000 MG PO BID Methocarbamol (Robaxin), 750 MG PO BID Nifedipine (Nifedipine ER), 90 MG PO DAILY Pantoprazole (Protonix), 40 MG PO BID Potassium Ext Rel (Klor-Con), 20 MEQ PO QID Ranitidine Hcl (Ranitidine Hcl), 300 MG PO BID Spironolactone (Aldactone), 25 MG PO BID Topiramate (Topamax), 100 MG PO BID Ziprasidone Hcl (Geodon), 60 MG PO HS Scheduled PRN Albuterol Hfa (Ventolin Hfa), 2 PUFFS INH QID PRN for SOB/Wheezing Albuterol Sulf (Albuterol Sulfate), 3 ML NEB Q6H PRN for SOB/Wheezing Benzonatate (Tessalon Perles), 100 MG PO BID PRN for Cough Clonazepam (Klonopin), 1 MG PO BID PRN for Panic Disorder Nitroglycerin (Nitro-Bid), 0.5 INCH TOP UD PRN for Chest Pain Ondansetron Hcl (Zofran), 8 MG PO TID PRN for Nausea or Vomiting Senna (Senokot), 17.2 MG PO BID PRN for Constipation Allergies Coded Allergies: Buspirone (Verified Allergy, Unknown, RASH, 02/06/17) Penicillins (Verified Allergy, Unknown, HIVES AND PASSES OUT, 02/06/17) Sertraline (Verified Allergy, Unknown, HIVES AND PASSES OUT, 02/06/17) Trazodone (Verified Allergy, Unknown, IRRITATES NEUROPATHY AND HIVES, 02/06) Valproic Acid (Verified Allergy, Unknown, HIVES, DIZZINESS, SLURRING SPEECH, 02/06/17) Physical Exam Vital Signs Date Time Temp Pulse Resp B/P (MAP) Pulse Ox O2 Delivery O2 Flow Rate FiO2 11/14/17 23:18 70 11/14/17 23:00 36.5 86 20 119/89 100 Room Air Physical Exam CONSTITUTIONAL/VITAL SIGNS: Reviewed / noted above. GENERAL: Non-toxic in appearance. INTEGUMENTARY: Warm, dry, and [place]. HEAD: Normocephalic. EYES: without scleral icterus or trauma. ENT/OROPHARYNX: clear and moist. LYMPHADENOPATHY/NECK: Is supple without lymphadenopathy or meningismus. RESPIRATORY: Lungs clear and equal. CARDIOVASCULAR: Regular rate and rhythm. GI/ABDOMEN: Soft and nontender. No organomegaly or pulsatile mass. No rebound or guarding. Normal bowel sounds. EXTREMITIES: Warm and well perfused. BACK: No CVA tenderness. NEUROLOGICAL: Intact without focal deficits. PSYCHIATRIC: normal affect. MUSCULOSKELETAL: Normally developed with good muscle tone. Medical Decision & Procedures ECG Per My Interpretation Indication: chest pain Rate (beats per minute): 59 Rhythm: sinus bradycardia Findings: no ectopy, other (No ST elevation) ED Course 2325: Previous medical records were reviewed. The patient was evaluated in room C1. A complete history and physical examination was performed. 2340: On reevaluation, the patient is resting in bed. I discussed the results and findings with the patient. She verbalized agreement of the treatment plan. She was discharged home. Medical Decision the differential was considered includes acute myocardial infarction, acute coronary syndrome, myocarditis, pericarditis, pericardial effusions /tamponade, esophageal perforation, thoracic aortic dissection, pulmonary embolism, pneumonia, pneumothorax, pancreatitis, shingles, acute cholecystitis, perforated abdominal viscus. This is a 42-year-old female who presents to the emergency department from our waiting room with a chief complaint of chest pain. The patient was actually discharged less than a few hours ago. She was waiting for a ride. She was in the waiting room. She states that she developed some chest pain. She was brought back into the emergency department for evaluation. A 12-lead EKG did not show any acute process. The patient's exam was again unremarkable. The patient has normal vital signs. After discussing the results of her EKG, I feel the patient is stable for discharge. The patient states that she put nitro paste on her chest. The patch that she use is similar to that which would be used in a hospital setting and is unlikely something that she would have at home. It also had the appearance of being old. The patient was felt to be stable for discharge, again. Blood Pressure Screening Patient's blood pressure: Normal blood pressure Impression Primary Impression: Substernal precordial chest pain Scribe Attestation The scribe's documentation has been prepared under my direction and personally reviewed by me in its entirety. I confirm that the note above accurately reflects all work, treatment, procedures, and medical decision making performed by me. Departure Information Referrals Cyndi Yepez M.D. (PCP) Patient Instructions My [facility]
== END 2017-11-14 23:42 | disposition home or self-care (01) ==
LOC: C.EDB 23:00 → C.EDC 23:42
DX: R07.2 Precordial pain (principal); F17.210 Nicotine dependence, cigarettes, uncomplicated; Z79.899 Other long term (current) drug therapy; Z79.4 Long term (current) use of insulin; Z79.84 Long term (current) use of oral hypoglycemic drugs; Z88.0 Allergy status to penicillin; Z88.8 Allergy status to other drugs, medicaments and biological substances

== ENCOUNTER 2018-07-03 15:01 | Inpatient (IN) ==
--- NOTE | 2018-07-03 15:36 | Emergency Department Note ---
History of Present Illness General Chief Complaint: Chest Pain Stated Complaint: chest & back pain Time Seen by Provider: 07/03/18 16:08 Source: patient Mode of arrival: ambulatory Limitations: no limitations History of Present Illness Provider Complaint: chest pain Onset (ago): day(s) 2 Duration: constant and intermittent Onset: during rest Pain Location: substernal Pain Radiation: none Severity: severe Maximum Pain Intensity: 7 Current Pain Intensity: 10 Quality: + tightness and + sharp Relieved By: + nothing Exacerbated By: + nothing Context: no recent illness, no recent surgery, no recent immobilization, no recent travel, no trauma/injury and no history of DVT/PE Associated symptoms: + dyspnea, + palpitations and + leg swelling; no nausea, no vomiting, no fever and no cough Treatments prior to arrival: none This 43-year-old female patient was sent to the emergency department by pulmonology. The patient presented to pulmonology outpatient for follow-up re garding a VATS procedure. At this time, the patient began complaining of chest pain, worse for the past 2-3 months, but much much worse over the past 2 days. The patient reports "it feels like something is stuck in my throat". She does report coughing, fevers, and chills. She does report vomiting as well. The patient describes her pain as 10/10 and sharp. She states she feels terrible. She was recently admitted to [facility] for acute hyperkalemia, acute renal failure, uremic encephalopathy. She reports having similar symptoms at that time. History is difficult to elicit, as the patient is falling asleep and appears altered during interview. I did speak with MARLEEN Christian from pulmonology who sent the patient. She states that she saw the patient 1-2 months ago and the patient was acting completely normally. She states there was no lower extremity edema or altered mental status at that time. She is very concerned that the patient could be experiencing the uremic encephalopathy again. During the outpatient visit, the patient did report suicidal ideation to Adri. Adri is completing a 302, but believes the patient may require medical admission. Related Data On Oral Contraceptives: No Home Medications Home Medications Medication Instructions Recorded Confirmed Type Marcaglar GaikPen U-100 Insulin 42 unit SUBCUT DAILY@1130 01/02/18 04/09/18 History acetaminophen [Acetaminophen Extra 1,000 mg PO DAILY PRN 01/02/18 07/03/18 History Strength] atorvastatin [Lipitor] 40 mg PO HS 01/02/18 07/03/18 History carvedilol 25 mg PO BID 01/02/18 07/03/18 History clonazepam 1 mg PO BID 01/02/18 07/03/18 History clonidine HCl 0.6 mg PO TID 01/02/18 07/03/18 History docusate sodium [Colace] 200 mg PO BID 01/02/18 07/03/18 History ergocalciferol (vitamin D2) 50,000 units PO .Q2W 01/02/18 07/03/18 History famotidine [Pepcid] 40 mg PO HS 01/02/18 07/03/18 History insulin lispro [Humalog U-100 10 unit SUBCUT QDB 01/02/18 04/09/18 History Insulin] insulin lispro [Humalog U-100 12 unit SUBCUT QDL 01/02/18 04/09/18 History Insulin] insulin lispro [Humalog U-100 14 unit SUBCUT QPM 01/02/18 04/09/18 History Insulin] ipratropium-albuterol 3 ml INHALATION Q4H PRN 01/02/18 07/03/18 History isosorbide mononitrate 60 mg PO QAM 01/02/18 07/03/18 History nifedipine 90 mg PO QAM 01/02/18 07/03/18 History pantoprazole 40 mg PO BID 01/02/18 07/03/18 History rizatriptan 10 mg PO DIRECTED PRN 01/02/18 07/03/18 History nitroglycerin 1 dose TRANSDERMAL UD PRN 01/27/18 07/03/18 History metformin 1,000 mg PO BID 01/29/18 07/03/18 History furosemide [Lasix] 40 mg PO DAILY 04/09/18 07/03/18 History potassium chloride 20 meq PO QID 04/09/18 07/03/18 History albuterol sulfate [Ventolin HFA] 2 puff INHALATION Q4H PRN 07/03/18 07/03/18 History guaifenesin [Mucus Relief] 400 mg PO Q4H PRN 07/03/18 07/03/18 History imipramine pamoate 200 mg PO HS 07/03/18 07/03/18 History levofloxacin 500 mg PO DAILY 07/03/18 07/03/18 History lisinopril 20 mg PO BID 07/03/18 07/03/18 History loratadine 10 mg PO DAILY PRN 07/03/18 07/03/18 History magnesium oxide 400 mg PO DAILY 07/03/18 07/03/18 History methocarbamol 750 mg PO BID 07/03/18 07/03/18 History ondansetron HCl 4 mg PO TID PRN 07/03/18 07/03/18 History prednisone See Rx Instructions .ROUTE .COMPLEX 07/03/18 07/03/18 History ranitidine HCl 300 mg PO AMHS 07/03/18 07/03/18 History sennosides [senna] 17.2 mg PO TID 07/03/18 07/03/18 History spironolactone 25 mg PO BID 07/03/18 07/03/18 History topiramate 200 mg PO BID 07/03/18 07/03/18 History Allergies Allergy/AdvReac Type Severity Reaction Status Date / Time Penicillins Allergy Intermediate HIVES AND Verified 07/03/18 16:00 PASSES OUT sertraline Allergy Intermediate HIVES AND Verified 07/03/18 16:00 PASSES OUT trazodone Allergy Intermediate IRRITATES Verified 07/03/18 16:00 NEUROPATHY AND HIVES valproic acid Allergy Intermediate HIVES, Verified 07/03/18 16:00 DIZZINESS, SLURRING SPEECH buspirone Allergy Mild RASH Verified 07/03/18 16:00 acetaminophen [From Percocet] Allergy Unknown Unknown Verified 07/03/18 16:00 ibuprofen Allergy Unknown Unknown Verified 07/03/18 16:00 lamotrigine [From Lamictal] Allergy Unknown Unknown Verified 07/03/18 16:00 mirtazapine [From Remeron] Allergy Unknown Unknown Verified 07/03/18 16:00 oxycodone [From Percocet] Allergy Unknown Unknown Verified 07/03/18 16:00 phenytoin [From Dilantin] Allergy Unknown Unknown Verified 07/03/18 16:00 quetiapine [From Seroquel] Allergy Unknown Unknown Verified 07/03/18 16:00 Past Med/Surg History Medical History Acute renal failure Hyperkalemia Uremic encephalopathy Chronic back pain Deep vein thrombosis 1998 LEFT LEG Diabetes mellitus, type 2 IDDM Explosive personality disorder Fatty liver disease, nonalcoholic GERD (gastroesophageal reflux disease) Controlled GI bleed Hyperlipidemia Pancreatitis 2010 Panic anxiety syndrome Rheumatoid arthritis Surgical History H/O removal of cyst ON ABDOMEN History of anesthesia reaction TAKES MORE ANESTHESIA TO GET TO SLEEP History of bronchoscopy History of cardiac cath History of cholecystectomy History of colonoscopy History of dilatation and curettage [id number] History of esophagogastroduodenoscopy (EGD) History of heart artery stent X1 STENT (2012) History of lung surgery RIGHT VATS (12/2017) History of surgery PER PT HAD 32 GYNECOLOGY SURGERIES TO "SCRAP UTERUS AND OVARIES" History of tooth extraction ALL TEETH REMOVED History of total abdominal hysterectomy and bilateral salpingo-oophorectomy History of total left knee replacement (TKR) Family History Mother Family history of diabetes mellitus Social History Preferred Language: Kiswahili Communication Ability: Effective Ad Copy Writer Required: No Beliefs That Will Affect Care: None Current Living Situation: Spouse and Family Current Living Situation Comment: AND SISTER Other Information That Helps Us Care for You: No Feels Safe at Home: Yes Safety Concerns: Feels Safe At This Time Smoking Status: Current every day smoker Hx Alcohol Use: No Hx Substance Use: No Review of Systems A total of 10 systems reviewed and were otherwise negative Physical Exam Vital Signs Vital Signs - 24 hr 07/03/18 15:10 07/03/18 17:00 07/03/18 17:05 Temperature 36.4 C L Temperature Source Oral Sepsis Recent Fever Within 48 Hours No Sepsis New/Unexplained Change in Mental Status No Sepsis Action Taken by Nursing No Action Required Pulse Rate 77 Pulse Rate [Left Finger] 59 L Pulse Rhythm [Left Finger] Pulse Strength [Left Finger] Respiratory Rate 15 16 Respiratory Effort / Characteristics Non-Labored Spontaneous Non-Labored Respiratory Depth Normal Normal Respiratory Pattern Regular Regular Blood Pressure 108/74 Blood Pressure [Left Arm] 123/89 Blood Pressure Mean 85 Blood Pressure Mean [Left Arm] 100 Blood Pressure Position Lying Blood Pressure Position [Left Arm] Pulse Oximetry 99 99 98 Oxygen Delivery Method Room Air Room Air Room Air 07/03/18 17:30 07/03/18 18:32 07/03/18 19:30 Temperature Temperature Source Sepsis Recent Fever Within 48 Hours Sepsis New/Unexplained Change in Mental Status Sepsis Action Taken by Nursing Pulse Rate Pulse Rate [Left Finger] 63 67 76 Pulse Rhythm [Left Finger] Pulse Strength [Left Finger] Respiratory Rate 16 16 18 Respiratory Effort / Characteristics Non-Labored Non-Labored Non-Labored Respiratory Depth Normal Normal Normal Respiratory Pattern Regular Regular Regular Blood Pressure Blood Pressure [Left Arm] 140/97 134/97 144/97 H Blood Pressure Mean Blood Pressure Mean [Left Arm] 111 109 112 Blood Pressure Position Blood Pressure Position [Left Arm] Pulse Oximetry 97 98 99 Oxygen Delivery Method Room Air Room Air Room Air 07/03/18 20:53 07/03/18 21:45 07/03/18 22:32 Temperature Temperature Source Sepsis Recent Fever Within 48 Hours Sepsis New/Unexplained Change in Mental Status Sepsis Action Taken by Nursing Pulse Rate 76 Pulse Rate [Left Finger] 75 69 Pulse Rhythm [Left Finger] Pulse Strength [Left Finger] Respiratory Rate 16 19 12 Respiratory Effort / Characteristics Non-Labored Respiratory Depth Normal Respiratory Pattern Regular Blood Pressure 149/102 H Blood Pressure [Left Arm] 140/103 H 134/100 Blood Pressure Mean Blood Pressure Mean [Left Arm] 115 111 Blood Pressure Position Blood Pressure Position [Left Arm] Sitting Pulse Oximetry 99 99 99 Oxygen Delivery Method Room Air Room Air Room Air 07/03/18 22:45 Temperature 36.5 C Temperature Source Oral Sepsis Recent Fever Within 48 Hours Sepsis New/Unexplained Change in Mental Status Sepsis Action Taken by Nursing Pulse Rate Pulse Rate [Left Finger] 63 Pulse Rhythm [Left Finger] Regular Pulse Strength [Left Finger] Normal Respiratory Rate 22 Respiratory Effort / Characteristics Non-Labored Spontaneous Respiratory Depth Normal Respiratory Pattern Regular Blood Pressure Blood Pressure [Left Arm] 142/101 H Blood Pressure Mean Blood Pressure Mean [Left Arm] 114 Blood Pressure Position Blood Pressure Position [Left Arm] Lying Pulse Oximetry 93 Oxygen Delivery Method Room Air VITALS: Vitals are noted on the nurse's note and reviewed by myself. Vital signs stable. GENERAL: This is a 43-year-old white female, slurred speech, extremely weak, and dozing off throughout examination. In no obvious acute distress, nondiaphoretic, well-developed well-nourished. SKIN: Bilateral 1+ lower extremity edema. The skin was otherwise without rashes, erythema, edema, or bruising. There is no tenting of the skin. Capillary reflex less than 2 seconds. HEAD: Normocephalic atraumatic. EARS: External auditory canals clear, tympanic membranes pearly thomson without erythema or effusion bilaterally. EYES: Pupils equal round and reactive to light and accommodation. Conjunctivae without injection, sclerae without icterus. Extraocular movements intact. NOSE: Patent, turbinates without inflammation or discharge. No sinus tenderness. MOUTH: Mucous membranes moist. Tonsils are not enlarged. Pharynx without erythema or exudate. Uvula midline. Airway patent. Tongue does not deviate. NECK: Supple without nuchal rigidity. No lymphadenopathy. No thyromegaly. Cervical spine is nontender. No JVD. HEART: Regular rate and rhythm without murmurs gallops or rubs. LUNGS: Clear to auscultation bilaterally without wheezes, rales or rhonchi. No dullness to percussion. No retractions or accessory muscle use. ABDOMEN: Positive bowel sounds x 4. Normal tympanic percussion. Distended with generalized tenderness to palpation. The abdomen is otherwise without obvious masses or organomegaly. Galeana sign negative. No guarding or rebound tenderness. MUSCULOSKELETAL: No muscle atrophy, erythema, or edema noted. Full range of motion without joint tenderness in all extremities. No tenderness to palpation. Normal gait. Strength 3/5 throughout. NEURO: Patient was alert and oriented to person place and time but slow with responses. Normal sensation to light and sharp touch. Deep tendon reflexes 2+ throughout. No focal neurological deficits. Cranial nerves II through XII grossly intact. Course The patient was seen and evaluated as above. IV access obtained, labs drawn. Imaging performed and reviewed by myself and radiologist as above. Labs reviewed by myself. I discussed the case with my attending. Patient was medicated with 2 L normal saline solution. I discussed the findings with the patient at bedside. She is complaining of suicidal ideation at this time because nursing staff would not take her to the bathroom and she is in pain. Note, previously, the patient had been sleeping and barely responsive each time we spoke with her, so pain medication was initially ordered but not given because of these findings. She complains of pain at this time. She was given 50 mcg of fentanyl. I spoke with the ED pharmacist, Ellen, who recommends 8 units of Novolog. Pt's BSG dropped to the 200's, so we gave 4 units Novolog. I discussed the case again with my attending. We did agree on admission. I contacted the [facility] hospitalist group regarding admission. They did come see and evaluate the patient. The patient complained of pain again. She became more more suicidal as she complained of pain. I did have the psychiatric case maker come speak with her. The patient was given 15 mg IV Toradol per the hospitalist. Please see hospitalist dictation regarding ongoing management care of this patient Administered Medications Acetaminophen (Tylenol) 650 mg PO Q4H PRN PRN Reason: Pain or Fever Stop: 08/02/18 23:00 Last Admin: 07/04/18 00:26 Dose: 650 mg Documented by: [id number] Atorvastatin Calcium (Lipitor) 40 mg PO HS [facility] Stop: 08/02/18 23:00 Last Admin: 07/04/18 00:25 Dose: 40 mg Documented by: [id number] Carvedilol (Coreg) 25 mg PO BID [facility] Stop: 08/02/18 23:00 Last Admin: 07/04/18 00:25 Dose: 25 mg Documented by: [id number] Clonazepam (Klonopin) 1 mg PO BID [facility] Stop: 08/02/18 23:00 Last Admin: 07/04/18 00:25 Dose: 1 mg Documented by: [id number] Clonidine HCl (Catapress) 0.6 mg PO TID [facility] Stop: 08/02/18 23:00 Last Admin: 07/04/18 00:26 Dose: 0.6 mg Documented by: [id number] Docusate Sodium (Colace) 200 mg PO BID [facility] Stop: 08/02/18 23:00 Last Admin: 07/04/18 00:25 Dose: 200 mg Documented by: [id number] Famotidine (Pepcid) 40 mg PO HS [facility] Stop: 08/02/18 23:00 Last Admin: 07/04/18 00:25 Dose: 40 mg Documented by: [id number] Lactated Ringer's (Lr) 1,000 mls @ 200 mls/hr IV .Q5H [facility] Stop: 08/02/18 23:00 Last Admin: 07/04/18 00:26 Dose: 200 mls/hr Documented by: [id number] Imipramine HCl (Tofranil) 200 mg PO HS [facility] Stop: 08/02/18 23:00 Last Admin: 07/04/18 01:14 Dose: 200 mg Documented by: [id number] Insulin Aspart (Novolog Flexpen) 0 units SC Q6 [facility] Stop: 08/03/18 00:00 Last Admin: 07/04/18 00:35 Dose: 2 units Documented by: [id number] Cosigned by: [id number] Ketorolac Tromethamine (Toradol) 15 mg IV Q6H PRN PRN Reason: Pain Stop: 07/08/18 23:00 Last Admin: 07/04/18 00:26 Dose: 15 mg Documented by: [id number] Lisinopril (Zestril) 20 mg PO BID [facility] Stop: 08/02/18 23:00 Last Admin: 07/04/18 00:08 Dose: Not Given Documented by: [id number] Methocarbamol (Robaxin) 750 mg PO BID [facility] Stop: 08/02/18 23:00 Last Admin: 07/04/18 00:24 Dose: 750 mg Documented by: [id number] Pantoprazole Sodium (Protonix) 40 mg PO BIDM [facility] Stop: 08/02/18 23:00 Last Admin: 07/04/18 00:24 Dose: 40 mg Documented by: [id number] Potassium Chloride (Klor-Con M20) 20 meq PO QID [facility] Stop: 08/02/18 23:00 Last Admin: 07/04/18 00:07 Dose: Not Given Documented by: [id number] Ranitidine HCl (Zantac) 300 mg PO AMHS [facility] Stop: 08/02/18 23:00 Last Admin: 07/04/18 00:23 Dose: 300 mg Documented by: [id number] Sennosides (Senokot) 17.2 mg PO TID [facility] Stop: 08/02/18 23:00 Last Admin: 07/04/18 00:24 Dose: 17.2 mg Documented by: [id number] Spironolactone (Aldactone) 25 mg PO BID [facility] Stop: 08/02/18 23:00 Last Admin: 07/04/18 00:07 Dose: Not Given Documented by: [id number] Topiramate (Topamax) 200 mg PO BID [facility] Stop: 08/02/18 23:00 Last Admin: 07/04/18 00:24 Dose: 200 mg Documented by: [id number] Discontinued Medications Fentanyl Citrate (Fentanyl Citrate) 50 mcg IV NOW STA Stop: 07/03/18 17:38 Last Admin: 07/03/18 18:04 Dose: Not Given Documented by: [id number] Fentanyl Citrate (Fentanyl Citrate) 50 mcg IV NOW STA Stop: 07/03/18 19:16 Last Admin: 07/03/18 19:27 Dose: 50 mcg Documented by: [id number] Sodium Chloride (Nss 1000ml) 2,000 mls @ 999 mls/hr IV .Q2H1M ONE Stop: 07/03/18 19:37 Last Infusion: 07/03/18 19:28 Dose: 0 mls/hr Documented by: [id number] Admin: 07/03/18 18:03 Dose: 999 mls/hr Documented by: [id number] Insulin Aspart (Novolog Flexpen) 8 units SC NOW STA Stop: 07/03/18 18:30 Last Admin: 07/03/18 19:11 Dose: 4 units Documented by: [id number] Cosigned by: [id number] Insulin Aspart (Novolog Flexpen) 4 units SC NOW STA Stop: 07/03/18 19:13 Last Admin: 07/03/18 19:38 Dose: Not Given Documented by: [id number] Cosigned by: [id number] Ketorolac Tromethamine (Toradol) 15 mg IV NOW STA Stop: 07/03/18 21:48 Last Admin: 07/03/18 22:02 Dose: 15 mg Documented by: [id number] Ondansetron HCl (Zofran) 4 mg IV NOW STA Stop: 07/03/18 17:39 Last Admin: 07/03/18 19:27 Dose: 4 mg Documented by: [id number] Medical Decision Making Differential Diagnosis + fracture of rib, + pneumothorax, + stable angina, + unstable angina pectoris, + atypical chest pain, + st elevation myocardial infarction, + costochondritis, + chest pain, + biliary colic, + cardiac ischemia, + myocarditis, + pericarditis, + costochondritis, + pleurisy, + aortic dissection, + pulmonary embolism, + pneumonia, + musculoskeletal, + infections, + cholecystitis, + pancreatitis and + esophageal rupture Hypoglycemia, Barbiturate Toxicity, Benzodiazepine Toxicity, Depression and Suicidality, Diabetic Ketoacidosis, Encephalitis, Ethylene Glycol Toxicity, Meningitis, Metabolic Acidosis, Opioid Toxicity, CVA, TIA, Intracranial Abnormality, Acute Psychosis, Amongst Others. Medical Records Attestation: I reviewed the patient's medical records. Records from [place] provided to me by MARLEEN Christian. These were reviewed. Home Medications Current Medication List: was personally reviewed by me Laboratory Data Attestation: I reviewed the patient's lab results. The patient is anemic with a hemoglobin of 11.49.7 and hematocrit of 29.5. No leukocytosis. Coags normal. ABGs show an acidemia. Lactic acid elevated at 3.7. Patient slightly hyponatremic at 130. Creatinine elevated 1.35. Glucose elevated at 397. Serum osmolality 288. Hepatic function without significant abnormality. Lipase mildly elevated at 453. Vitamin B12 low at 239. Folate 7.6. TSH normal. Prolactin 4.98. HCG negative. Urinalysis without definite evidence of infection. Urine drug screen negative. Medical alcohol normal. Negative influenza testing. Phosphorus and magnesium normal. Ammonia normal. Result diagrams: 07/03/18 16:24 07/03/18 16:24 Lab Results 07/03/18 07/03/18 07/03/18 Range/Units 16:21 16:21 16:21 WBC (4.8-10.8) K/uL RBC (4.2-5.4) M/uL Hgb (12.0-16.0) g/dL Hct (37-47) % MCV (80-100) fL MCH (25-34) pg MCHC (32-36) g/dL RDW Std Deviation (36.4-46.3) fL RDW Coeff of Shelia (11.5-14.5) % Plt Count (130-400) K/uL MPV (7.4-10.4) fL Immature Gran % (Auto) % Neut % (Auto) % Lymph % (Auto) % [place] % (Auto) % Eos % (Auto) % Baso % (Auto) % Immature Gran # (Auto) (0.00-0.02) K/uL Neut # (Auto) (1.4-6.5) K/uL Lymph # (Auto) (1.2-3.4) K/uL [place] # (Auto) (0.11-0.59) K/uL Eos # (Auto) (0-0.5) K/uL Baso # (Auto) (0-0.2) K/uL PT (9.0-12.0) Seconds INR (0.9-1.1) APTT (21.0-31.0) Seconds PTT Ratio ABG pH 7.33 L (7.35-7.45) ABG pCO2 33 L (35-46) mmHg ABG pO2 64 L (80-95) mm/Hg ABG HCO3 17 L (19-24) mmol/L ABG O2 Saturation 91.0 (90-95) % ABG Base Excess -8.4 (-9-1.8) mEq/L Justin Test POS (Pos) Barometric Pressure 739.9 mm/Hg Oxygen Given ROOM AIR Sodium (136-145) mmol/L Potassium (3.5-5.1) mmol/L Chloride (98-107) mmol/L Carbon Dioxide (21-32) mmol/L Anion Gap (3-11) BUN (7-18) mg/dl Creatinine (0.6-1.2) mg/dl Est Cr Clr Drug Dosing ml/min Est GFR ( Amer) Est GFR (Non-Af Amer) BUN/Creatinine Ratio (10-20) Glucose (70-99) mg/dl POC Glucose (70-99) Osmolality (280-300) mOsm/kg Lactate 3.7 H* (0.4-2.0) mmol/L Calcium (8.5-10.1) mg/dl Phosphorus (2.5-4.9) mg/dl Magnesium (1.8-2.4) mg/dl Total Bilirubin (0.2-1) mg/dl AST (15-37) U/L ALT (12-78) U/L Alkaline Phosphatase (45-117) U/L Ammonia (11-32) umol/L Troponin I (0-0.045) ng/ml NT-Pro-B Natriuret Pep (0-450) pg/ml Total Protein (6.4-8.2) gm/dl Albumin (3.4-5.0) gm/dl Globulin (2.5-4.0) gm/dl Albumin/Globulin Ratio (0.9-2) Lipase (73-393) U/L Vitamin B12 (211-911) pg/ml Folate (>5.38) ng/ml Beta-Hydroxybutyric Acd (0.2-2.81) mg/dl TSH (0.300-4.500) uIu/ml Prolactin ng/ml HCG, Qual (Negative) Urine Color Urine Appearance (Clear) Urine pH (4.5-7.5) Ur Specific [place] (1.000-1.030) Urine Protein (Negative) Urine Glucose (UA) (Negative) Urine Ketones (Negative) Urine Blood (Negative) Urine Nitrite (Negative) Urine Bilirubin (Negative) Urine Urobilinogen (Negative) Ur Leukocyte Esterase (Negative) Urine Opiates Screen (Neg) Ur Methadone, Qual (Neg) Urine Barbiturates (Neg) Ur Phencyclidine (PCP) (Neg) U Amphetamin/Meth Scrn (Neg) MDMA (Ecstasy) Screen (Neg) U Benzodiazepines Scrn (Neg) Ur Cocaine Metabolite (Neg) U Marijuana (THC) Screen (Neg) Ethyl Alcohol mg/dL < 3.0 (0-3) mg/dl Influenza Type A Ag (Neg) Influenza Type B Ag (Neg) Blood Type Antibody Screen 07/03/18 07/03/18 07/03/18 Range/Units 16:24 16:24 16:24 WBC (4.8-10.8) K/uL RBC (4.2-5.4) M/uL Hgb (12.0-16.0) g/dL Hct (37-47) % MCV (80-100) fL MCH (25-34) pg MCHC (32-36) g/dL RDW Std Deviation (36.4-46.3) fL RDW Coeff of Shelia (11.5-14.5) % Plt Count (130-400) K/uL MPV (7.4-10.4) fL Immature Gran % (Auto) % Neut % (Auto) % Lymph % (Auto) % [place] % (Auto) % Eos % (Auto) % Baso % (Auto) % Immature Gran # (Auto) (0.00-0.02) K/uL Neut # (Auto) (1.4-6.5) K/uL Lymph # (Auto) (1.2-3.4) K/uL [place] # (Auto) (0.11-0.59) K/uL Eos # (Auto) (0-0.5) K/uL Baso # (Auto) (0-0.2) K/uL PT (9.0-12.0) Seconds INR (0.9-1.1) APTT (21.0-31.0) Seconds PTT Ratio ABG pH (7.35-7.45) ABG pCO2 (35-46) mmHg ABG pO2 (80-95) mm/Hg ABG HCO3 (19-24) mmol/L ABG O2 Saturation (90-95) % ABG Base Excess (-9-1.8) mEq/L Justin Test (Pos) Barometric Pressure mm/Hg Oxygen Given Sodium (136-145) mmol/L Potassium (3.5-5.1) mmol/L Chloride (98-107) mmol/L Carbon Dioxide (21-32) mmol/L Anion Gap (3-11) BUN (7-18) mg/dl Creatinine (0.6-1.2) mg/dl Est Cr Clr Drug Dosing ml/min Est GFR ( Amer) Est GFR (Non-Af Amer) BUN/Creatinine Ratio (10-20) Glucose (70-99) mg/dl POC Glucose (70-99) Osmolality 288 (280-300) mOsm/kg Lactate (0.4-2.0) mmol/L Calcium (8.5-10.1) mg/dl Phosphorus 3.4 (2.5-4.9) mg/dl Magnesium (1.8-2.4) mg/dl Total Bilirubin (0.2-1) mg/dl AST (15-37) U/L ALT (12-78) U/L Alkaline Phosphatase (45-117) U/L Ammonia 25.0 (11-32) umol/L Troponin I (0-0.045) ng/ml NT-Pro-B Natriuret Pep (0-450) pg/ml Total Protein (6.4-8.2) gm/dl Albumin (3.4-5.0) gm/dl Globulin (2.5-4.0) gm/dl Albumin/Globulin Ratio (0.9-2) Lipase (73-393) U/L Vitamin B12 (211-911) pg/ml Folate (>5.38) ng/ml Beta-Hydroxybutyric Acd (0.2-2.81) mg/dl TSH (0.300-4.500) uIu/ml Prolactin ng/ml HCG, Qual (Negative) Urine Color Urine Appearance (Clear) Urine pH (4.5-7.5) Ur Specific [place] (1.000-1.030) Urine Protein (Negative) Urine Glucose (UA) (Negative) Urine Ketones (Negative) Urine Blood (Negative) Urine Nitrite (Negative) Urine Bilirubin (Negative) Urine Urobilinogen (Negative) Ur Leukocyte Esterase (Negative) Urine Opiates Screen (Neg) Ur Methadone, Qual (Neg) Urine Barbiturates (Neg) Ur Phencyclidine (PCP) (Neg) U Amphetamin/Meth Scrn (Neg) MDMA (Ecstasy) Screen (Neg) U Benzodiazepines Scrn (Neg) Ur Cocaine Metabolite (Neg) U Marijuana (THC) Screen (Neg) Ethyl Alcohol mg/dL (0-3) mg/dl Influenza Type A Ag (Neg) Influenza Type B Ag (Neg) Blood Type Antibody Screen 07/03/18 07/03/18 07/03/18 Range/Units 16:24 16:24 16:24 WBC 4.79 L (4.8-10.8) K/uL RBC 3.32 L (4.2-5.4) M/uL Hgb 9.7 L (12.0-16.0) g/dL Hct 29.5 L (37-47) % MCV 88.9 (80-100) fL MCH 29.2 (25-34) pg MCHC 32.9 (32-36) g/dL RDW Std Deviation 45.8 (36.4-46.3) fL RDW Coeff of Shelia 14.0 (11.5-14.5) % Plt Count 264 (130-400) K/uL MPV 10.2 (7.4-10.4) fL Immature Gran % (Auto) 0.2 % Neut % (Auto) 76.0 % Lymph % (Auto) 20.7 % [place] % (Auto) 2.9 % Eos % (Auto) 0.0 % Baso % (Auto) 0.2 % Immature Gran # (Auto) 0.01 (0.00-0.02) K/uL Neut # (Auto) 3.64 (1.4-6.5) K/uL Lymph # (Auto) 0.99 L (1.2-3.4) K/uL [place] # (Auto) 0.14 (0.11-0.59) K/uL Eos # (Auto) 0.00 (0-0.5) K/uL Baso # (Auto) 0.01 (0-0.2) K/uL PT 11.1 (9.0-12.0) Seconds INR 1.1 (0.9-1.1) APTT 23.2 (21.0-31.0) Seconds PTT Ratio 0.9 ABG pH (7.35-7.45) ABG pCO2 (35-46) mmHg ABG pO2 (80-95) mm/Hg ABG HCO3 (19-24) mmol/L ABG O2 Saturation (90-95) % ABG Base Excess (-9-1.8) mEq/L Justin Test (Pos) Barometric Pressure mm/Hg Oxygen Given Sodium 130 L (136-145) mmol/L Potassium 5.1 (3.5-5.1) mmol/L Chloride 103 (98-107) mmol/L Carbon Dioxide 18 L (21-32) mmol/L Anion Gap 10.0 (3-11) BUN 15 (7-18) mg/dl Creatinine 1.35 H (0.6-1.2) mg/dl Est Cr Clr Drug Dosing 66.0 ml/min Est GFR ( Amer) 55.6 Est GFR (Non-Af Amer) 48.0 BUN/Creatinine Ratio 11.0 (10-20) Glucose 397 H* (70-99) mg/dl POC Glucose (70-99) Osmolality (280-300) mOsm/kg Lactate (0.4-2.0) mmol/L Calcium 8.6 (8.5-10.1) mg/dl Phosphorus (2.5-4.9) mg/dl Magnesium 1.9 (1.8-2.4) mg/dl Total Bilirubin 0.2 (0.2-1) mg/dl AST 5 L (15-37) U/L ALT 12 (12-78) U/L Alkaline Phosphatase 122 H (45-117) U/L Ammonia (11-32) umol/L Troponin I < 0.015 (0-0.045) ng/ml NT-Pro-B Natriuret Pep 222 (0-450) pg/ml Total Protein 6.4 (6.4-8.2) gm/dl Albumin 2.9 L (3.4-5.0) gm/dl Globulin 3.5 (2.5-4.0) gm/dl Albumin/Globulin Ratio 0.8 L (0.9-2) Lipase 453 H (73-393) U/L Vitamin B12 (211-911) pg/ml Folate (>5.38) ng/ml Beta-Hydroxybutyric Acd 0.85 (0.2-2.81) mg/dl TSH 0.700 (0.300-4.500) uIu/ml Prolactin ng/ml HCG, Qual (Negative) Urine Color Urine Appearance (Clear) Urine pH (4.5-7.5) Ur Specific [place] (1.000-1.030) Urine Protein (Negative) Urine Glucose (UA) (Negative) Urine Ketones (Negative) Urine Blood (Negative) Urine Nitrite (Negative) Urine Bilirubin (Negative) Urine Urobilinogen (Negative) Ur Leukocyte Esterase (Negative) Urine Opiates Screen (Neg) Ur Methadone, Qual (Neg) Urine Barbiturates (Neg) Ur Phencyclidine (PCP) (Neg) U Amphetamin/Meth Scrn (Neg) MDMA (Ecstasy) Screen (Neg) U Benzodiazepines Scrn (Neg) Ur Cocaine Metabolite (Neg) U Marijuana (THC) Screen (Neg) Ethyl Alcohol mg/dL (0-3) mg/dl Influenza Type A Ag (Neg) Influenza Type B Ag (Neg) Blood Type Antibody Screen 07/03/18 07/03/18 07/03/18 Range/Units 16:24 16:24 16:24 WBC (4.8-10.8) K/uL RBC (4.2-5.4) M/uL Hgb (12.0-16.0) g/dL Hct (37-47) % MCV (80-100) fL MCH (25-34) pg MCHC (32-36) g/dL RDW Std Deviation (36.4-46.3) fL RDW Coeff of Shelia (11.5-14.5) % Plt Count (130-400) K/uL MPV (7.4-10.4) fL Immature Gran % (Auto) % Neut % (Auto) % Lymph % (Auto) % [place] % (Auto) % Eos % (Auto) % Baso % (Auto) % Immature Gran # (Auto) (0.00-0.02) K/uL Neut # (Auto) (1.4-6.5) K/uL Lymph # (Auto) (1.2-3.4) K/uL [place] # (Auto) (0.11-0.59) K/uL Eos # (Auto) (0-0.5) K/uL Baso # (Auto) (0-0.2) K/uL PT (9.0-12.0) Seconds INR (0.9-1.1) APTT (21.0-31.0) Seconds PTT Ratio ABG pH (7.35-7.45) ABG pCO2 (35-46) mmHg ABG pO2 (80-95) mm/Hg ABG HCO3 (19-24) mmol/L ABG O2 Saturation (90-95) % ABG Base Excess (-9-1.8) mEq/L Justin Test (Pos) Barometric Pressure mm/Hg Oxygen Given Sodium (136-145) mmol/L Potassium (3.5-5.1) mmol/L Chloride (98-107) mmol/L Carbon Dioxide (21-32) mmol/L Anion Gap (3-11) BUN (7-18) mg/dl Creatinine (0.6-1.2) mg/dl Est Cr Clr Drug Dosing ml/min Est GFR ( Amer) Est GFR (Non-Af Amer) BUN/Creatinine Ratio (10-20) Glucose (70-99) mg/dl POC Glucose (70-99) Osmolality (280-300) mOsm/kg Lactate (0.4-2.0) mmol/L Calcium (8.5-10.1) mg/dl Phosphorus (2.5-4.9) mg/dl Magnesium (1.8-2.4) mg/dl Total Bilirubin (0.2-1) mg/dl AST (15-37) U/L ALT (12-78) U/L Alkaline Phosphatase (45-117) U/L Ammonia (11-32) umol/L Troponin I (0-0.045) ng/ml NT-Pro-B Natriuret Pep (0-450) pg/ml Total Protein (6.4-8.2) gm/dl Albumin (3.4-5.0) gm/dl Globulin (2.5-4.0) gm/dl Albumin/Globulin Ratio (0.9-2) Lipase (73-393) U/L Vitamin B12 239 (211-911) pg/ml Folate 7.62 (>5.38) ng/ml Beta-Hydroxybutyric Acd (0.2-2.81) mg/dl TSH (0.300-4.500) uIu/ml Prolactin 4.98 ng/ml HCG, Qual Negative (Negative) Urine Color Urine Appearance (Clear) Urine pH (4.5-7.5) Ur Specific [place] (1.000-1.030) Urine Protein (Negative) Urine Glucose (UA) (Negative) Urine Ketones (Negative) Urine Blood (Negative) Urine Nitrite (Negative) Urine Bilirubin (Negative) Urine Urobilinogen (Negative) Ur Leukocyte Esterase (Negative) Urine Opiates Screen (Neg) Ur Methadone, Qual (Neg) Urine Barbiturates (Neg) Ur Phencyclidine (PCP) (Neg) U Amphetamin/Meth Scrn (Neg) MDMA (Ecstasy) Screen (Neg) U Benzodiazepines Scrn (Neg) Ur Cocaine Metabolite (Neg) U Marijuana (THC) Screen (Neg) Ethyl Alcohol mg/dL (0-3) mg/dl Influenza Type A Ag (Neg) Influenza Type B Ag (Neg) Blood Type Antibody Screen 07/03/18 07/03/18 07/03/18 Range/Units 16:50 16:59 16:59 WBC (4.8-10.8) K/uL RBC (4.2-5.4) M/uL Hgb (12.0-16.0) g/dL Hct (37-47) % MCV (80-100) fL MCH (25-34) pg MCHC (32-36) g/dL RDW Std Deviation (36.4-46.3) fL RDW Coeff of Shelia (11.5-14.5) % Plt Count (130-400) K/uL MPV (7.4-10.4) fL Immature Gran % (Auto) % Neut % (Auto) % Lymph % (Auto) % [place] % (Auto) % Eos % (Auto) % Baso % (Auto) % Immature Gran # (Auto) (0.00-0.02) K/uL Neut # (Auto) (1.4-6.5) K/uL Lymph # (Auto) (1.2-3.4) K/uL [place] # (Auto) (0.11-0.59) K/uL Eos # (Auto) (0-0.5) K/uL Baso # (Auto) (0-0.2) K/uL PT (9.0-12.0) Seconds INR (0.9-1.1) APTT (21.0-31.0) Seconds PTT Ratio ABG pH (7.35-7.45) ABG pCO2 (35-46) mmHg ABG pO2 (80-95) mm/Hg ABG HCO3 (19-24) mmol/L ABG O2 Saturation (90-95) % ABG Base Excess (-9-1.8) mEq/L Justin Test (Pos) Barometric Pressure mm/Hg Oxygen Given Sodium (136-145) mmol/L Potassium (3.5-5.1) mmol/L Chloride (98-107) mmol/L Carbon Dioxide (21-32) mmol/L Anion Gap (3-11) BUN (7-18) mg/dl Creatinine (0.6-1.2) mg/dl Est Cr Clr Drug Dosing ml/min Est GFR ( Amer) Est GFR (Non-Af Amer) BUN/Creatinine Ratio (10-20) Glucose (70-99) mg/dl POC Glucose (70-99) Osmolality (280-300) mOsm/kg Lactate (0.4-2.0) mmol/L Calcium (8.5-10.1) mg/dl Phosphorus (2.5-4.9) mg/dl Magnesium (1.8-2.4) mg/dl Total Bilirubin (0.2-1) mg/dl AST (15-37) U/L ALT (12-78) U/L Alkaline Phosphatase (45-117) U/L Ammonia (11-32) umol/L Troponin I (0-0.045) ng/ml NT-Pro-B Natriuret Pep (0-450) pg/ml Total Protein (6.4-8.2) gm/dl Albumin (3.4-5.0) gm/dl Globulin (2.5-4.0) gm/dl Albumin/Globulin Ratio (0.9-2) Lipase (73-393) U/L Vitamin B12 (211-911) pg/ml Folate (>5.38) ng/ml Beta-Hydroxybutyric Acd (0.2-2.81) mg/dl TSH (0.300-4.500) uIu/ml Prolactin ng/ml HCG, Qual (Negative) Urine Color Yellow Urine Appearance Clear (Clear) Urine pH 6.5 (4.5-7.5) Ur Specific [place] 1.013 (1.000-1.030) Urine Protein Negative (Negative) Urine Glucose (UA) 3+ H (Negative) Urine Ketones Negative (Negative) Urine Blood Negative (Negative) Urine Nitrite Negative (Negative) Urine Bilirubin Negative (Negative) Urine Urobilinogen Negative (Negative) Ur Leukocyte Esterase Negative (Negative) Urine Opiates Screen Neg (Neg) Ur Methadone, Qual Neg (Neg) Urine Barbiturates Neg (Neg) Ur Phencyclidine (PCP) Neg (Neg) U Amphetamin/Meth Scrn Neg (Neg) MDMA (Ecstasy) Screen Neg (Neg) U Benzodiazepines Scrn Neg (Neg) Ur Cocaine Metabolite Neg (Neg) U Marijuana (THC) Screen Neg (Neg) Ethyl Alcohol mg/dL (0-3) mg/dl Influenza Type A Ag Neg for Influ A (Neg) Influenza Type B Ag Neg for Influ B (Neg) Blood Type Antibody Screen 07/03/18 07/03/18 07/03/18 Range/Units 17:32 19:09 23:13 WBC (4.8-10.8) K/uL RBC (4.2-5.4) M/uL Hgb (12.0-16.0) g/dL Hct (37-47) % MCV (80-100) fL MCH (25-34) pg MCHC (32-36) g/dL RDW Std Deviation (36.4-46.3) fL RDW Coeff of Shelia (11.5-14.5) % Plt Count (130-400) K/uL MPV (7.4-10.4) fL Immature Gran % (Auto) % Neut % (Auto) % Lymph % (Auto) % [place] % (Auto) % Eos % (Auto) % Baso % (Auto) % Immature Gran # (Auto) (0.00-0.02) K/uL Neut # (Auto) (1.4-6.5) K/uL Lymph # (Auto) (1.2-3.4) K/uL [place] # (Auto) (0.11-0.59) K/uL Eos # (Auto) (0-0.5) K/uL Baso # (Auto) (0-0.2) K/uL PT (9.0-12.0) Seconds INR (0.9-1.1) APTT (21.0-31.0) Seconds PTT Ratio ABG pH (7.35-7.45) ABG pCO2 (35-46) mmHg ABG pO2 (80-95) mm/Hg ABG HCO3 (19-24) mmol/L ABG O2 Saturation (90-95) % ABG Base Excess (-9-1.8) mEq/L Justin Test (Pos) Barometric Pressure mm/Hg Oxygen Given Sodium (136-145) mmol/L Potassium (3.5-5.1) mmol/L Chloride (98-107) mmol/L Carbon Dioxide (21-32) mmol/L Anion Gap (3-11) BUN (7-18) mg/dl Creatinine (0.6-1.2) mg/dl Est Cr Clr Drug Dosing ml/min Est GFR ( Amer) Est GFR (Non-Af Amer) BUN/Creatinine Ratio (10-20) Glucose (70-99) mg/dl POC Glucose 265 H 188 H (70-99) Osmolality (280-300) mOsm/kg Lactate (0.4-2.0) mmol/L Calcium (8.5-10.1) mg/dl Phosphorus (2.5-4.9) mg/dl Magnesium (1.8-2.4) mg/dl Total Bilirubin (0.2-1) mg/dl AST (15-37) U/L ALT (12-78) U/L Alkaline Phosphatase (45-117) U/L Ammonia (11-32) umol/L Troponin I (0-0.045) ng/ml NT-Pro-B Natriuret Pep (0-450) pg/ml Total Protein (6.4-8.2) gm/dl Albumin (3.4-5.0) gm/dl Globulin (2.5-4.0) gm/dl Albumin/Globulin Ratio (0.9-2) Lipase (73-393) U/L Vitamin B12 (211-911) pg/ml Folate (>5.38) ng/ml Beta-Hydroxybutyric Acd (0.2-2.81) mg/dl TSH (0.300-4.500) uIu/ml Prolactin ng/ml HCG, Qual (Negative) Urine Color Urine Appearance (Clear) Urine pH (4.5-7.5) Ur Specific [place] (1.000-1.030) Urine Protein (Negative) Urine Glucose (UA) (Negative) Urine Ketones (Negative) Urine Blood (Negative) Urine Nitrite (Negative) Urine Bilirubin (Negative) Urine Urobilinogen (Negative) Ur Leukocyte Esterase (Negative) Urine Opiates Screen (Neg) Ur Methadone, Qual (Neg) Urine Barbiturates (Neg) Ur Phencyclidine (PCP) (Neg) U Amphetamin/Meth Scrn (Neg) MDMA (Ecstasy) Screen (Neg) U Benzodiazepines Scrn (Neg) Ur Cocaine Metabolite (Neg) U Marijuana (THC) Screen (Neg) Ethyl Alcohol mg/dL (0-3) mg/dl Influenza Type A Ag (Neg) Influenza Type B Ag (Neg) Blood Type A Positive Antibody Screen NEGATIVE 07/04/18 Range/Units 00:17 WBC (4.8-10.8) K/uL RBC (4.2-5.4) M/uL Hgb (12.0-16.0) g/dL Hct (37-47) % MCV (80-100) fL MCH (25-34) pg MCHC (32-36) g/dL RDW Std Deviation (36.4-46.3) fL RDW Coeff of Shelia (11.5-14.5) % Plt Count (130-400) K/uL MPV (7.4-10.4) fL Immature Gran % (Auto) % Neut % (Auto) % Lymph % (Auto) % [place] % (Auto) % Eos % (Auto) % Baso % (Auto) % Immature Gran # (Auto) (0.00-0.02) K/uL Neut # (Auto) (1.4-6.5) K/uL Lymph # (Auto) (1.2-3.4) K/uL [place] # (Auto) (0.11-0.59) K/uL Eos # (Auto) (0-0.5) K/uL Baso # (Auto) (0-0.2) K/uL PT (9.0-12.0) Seconds INR (0.9-1.1) APTT (21.0-31.0) Seconds PTT Ratio ABG pH (7.35-7.45) ABG pCO2 (35-46) mmHg ABG pO2 (80-95) mm/Hg ABG HCO3 (19-24) mmol/L ABG O2 Saturation (90-95) % ABG Base Excess (-9-1.8) mEq/L Justin Test (Pos) Barometric Pressure mm/Hg Oxygen Given Sodium (136-145) mmol/L Potassium (3.5-5.1) mmol/L Chloride (98-107) mmol/L Carbon Dioxide (21-32) mmol/L Anion Gap (3-11) BUN (7-18) mg/dl Creatinine (0.6-1.2) mg/dl Est Cr Clr Drug Dosing ml/min Est GFR ( Amer) Est GFR (Non-Af Amer) BUN/Creatinine Ratio (10-20) Glucose (70-99) mg/dl POC Glucose (70-99) Osmolality (280-300) mOsm/kg Lactate (0.4-2.0) mmol/L Calcium (8.5-10.1) mg/dl Phosphorus (2.5-4.9) mg/dl Magnesium (1.8-2.4) mg/dl Total Bilirubin (0.2-1) mg/dl AST (15-37) U/L ALT (12-78) U/L Alkaline Phosphatase (45-117) U/L Ammonia (11-32) umol/L Troponin I < 0.015 (0-0.045) ng/ml NT-Pro-B Natriuret Pep (0-450) pg/ml Total Protein (6.4-8.2) gm/dl Albumin (3.4-5.0) gm/dl Globulin (2.5-4.0) gm/dl Albumin/Globulin Ratio (0.9-2) Lipase (73-393) U/L Vitamin B12 (211-911) pg/ml Folate (>5.38) ng/ml Beta-Hydroxybutyric Acd (0.2-2.81) mg/dl TSH (0.300-4.500) uIu/ml Prolactin ng/ml HCG, Qual (Negative) Urine Color Urine Appearance (Clear) Urine pH (4.5-7.5) Ur Specific [place] (1.000-1.030) Urine Protein (Negative) Urine Glucose (UA) (Negative) Urine Ketones (Negative) Urine Blood (Negative) Urine Nitrite (Negative) Urine Bilirubin (Negative) Urine Urobilinogen (Negative) Ur Leukocyte Esterase (Negative) Urine Opiates Screen (Neg) Ur Methadone, Qual (Neg) Urine Barbiturates (Neg) Ur Phencyclidine (PCP) (Neg) U Amphetamin/Meth Scrn (Neg) MDMA (Ecstasy) Screen (Neg) U Benzodiazepines Scrn (Neg) Ur Cocaine Metabolite (Neg) U Marijuana (THC) Screen (Neg) Ethyl Alcohol mg/dL (0-3) mg/dl Influenza Type A Ag (Neg) Influenza Type B Ag (Neg) Blood Type Antibody Screen Imaging Data Chest x-ray: Radiologist's impression: XR chest 1V portable CLINICAL HISTORY: Chest pain. COMPARISON STUDY: Chest CT May 07, 2018. FINDINGS: Postoperative findings within the right lung are noted. Lung volumes are diminished. There is no pneumothorax or pleural effusion. Interstitial thickening is noted. IMPRESSION: Interstitial thickening which may represent normal vasculature on this hypoventilatory study. An infectious process or pulmonary edema could appear similar. Electronically signed by: Jeffery Cano M.D. 07/03/2018 4:[address] scan - chest: Radiologist's impression: CT chest wo con CLINICAL HISTORY: 43 years-old Female with chest pain. Acute atypical chest pain TECHNIQUE: Multiaxial CT images of the chest were performed without contrast. A dose lowering technique was utilized adhering to the principles of ALARA. COMPARISON: CT abdomen and pelvis of same day, chest CT 05/07/2018 FINDINGS: Thyroid appears mildly enlarged and heterogeneous without dominant nodule. No adenopathy by CT size criteria. Coronary arterial calcifications are noted. No pericardial effusion. No thoracic aortic aneurysm. Calcification the thoracic aorta and proximal great vessels. No pneumothorax or pleural effusion. Postoperative changes from prior right upper lobe wedge resection. Pleural parenchymal scarring about the suture line redemonstrated. Unchanged 9 x 6 mm solid nodule of the right upper lobe on image 79 series 6. Subsegmental bibasilar linear consolidative and groundglass densities suggest atelectasis. Pulmonary nodules of the superior segment left lower lobe have decreased from comparison, largest measuring up to 5 mm, previously conglomerate nodules measuring up to approximately 1.8 cm within this distribution. There are no new or enlarging pulmonary nodules identified. 2 mm solid nodule right upper lobe on image 62 series 6 is likely benign. Central airways appear patent. Process of the imaged upper abdomen. The spleen measures within the upper limits of normal. Soft tissues and breast parenchyma appear unremarkable. Multiple healed remote right-sided rib fractures. Partially imaged healing subacute fracture about the lateral aspect of the right ninth rib. Spine and sternum appear intact. IMPRESSION: 1. No acute intrathoracic abnormality identified. 2. Bibasilar opacities suggest probable atelectasis. 3. Postoperative changes from prior right upper lobe wedge resection. 4. Unchanged 9 x 6 mm solid nodule of the right upper lobe. Decreased size and number of the solid pulmonary nodules of the superior segment left lower lobe suggestive of a resolving infectious or inflammatory pneumonitis. 5. Coronary arterial calcifications. Please refer to below summary of Fleischner criteria recommendations for follow- up of incidental CT nodules (Zackery Kimble, Guidelines for management of small pulmonary nodules detected on CT scans: A statement from the Fleischner Society, Radiology 237: [phone].) SOLID NODULES Multiple nodules size: <6 mm * Low risk patients: no routine follow-up * high risk patients: optional CT at 12 months Multiple nodules size: 6-8 mm * Low risk patients: follow-up at 3-6 months, then consider further follow-up at 18-24 months * high risk patients: follow-up at 3-6 months, then at 18-24 months if no c hange Multiple nodules size: >8 mm * Low risk patients: follow-up at 3-6 months, then consider further follow-up at 18-24 months * high risk patients: follow-up at 3-6 months, then at 18-24 months if no change Note: newly detected indeterminate nodule in persons 35 years of age or older. * Low risk patients: minimal or absent history of smoking and/or other known risk factors * high risk patients: history of smoking or of other known risk factors (e.g. first degree relative with lung cancer, or exposure to asbestos, radon, uranium) * if a nodule up to 8 mm is partly solid or is ground glass further follow-up is required after 24 months to exclude possible slow growing adenocarcinoma (MAKI) The above report was generated using voice recognition software. It may contain grammatical, syntax or spelling errors. Electronically signed by: Navi Christianson M.D. 07/03/2018 5:[address] scan - abdomen: Radiologist's impression: CT OF THE ABDOMEN AND PELVIS WITHOUT CONTRAST CLINICAL HISTORY: Abdominal pain. COMPARISON STUDY: CT of the abdomen and pelvis November 14, 2017. PET/CT December 25, 2017. TECHNIQUE: Axial images of the abdomen and pelvis were obtained without IV contrast. Images were reviewed in the axial, sagittal, and coronal planes. Automated exposure control was utilized for the study. A dose lowering technique was utilized adhering to the principles of ALARA. FINDINGS: Please note that the chest CT will be reported separately. Several old right-sided rib fractures are noted. No pneumatosis, free air or portal venous gas is present. Note is made of an 8 mm calculus within the upper pole the right kidney. There are no ureteral calculi. There is no hydronephrosis or hydroureter. Slight prominence of the collecting systems is unchanged. A 3 cm low-attenuation left adrenal nodule is unchanged. This favors an adenoma. A small right adrenal nodule is also unchanged. This favors an adenoma. There is no biliary ductal dilatation status post cholecystectomy. Unenhanced images of the spleen and pancreas are unremarkable. Evaluation of the abdomen and pelvis is suboptimal on this unenhanced exam. There is slight indistinctness of the fat planes adjacent to the pancreatic head. No peripancreatic fluid collection is present. There is no evidence for a bowel obstruction. A large amount of stool within the colon is noted. The appendix is normal. No pneumatosis, free air or portal venous gas is present. There are no suspicious osseous lesions. IVC filters in place. A 1.4 cm low-attenuation lesion within the upper pole of the left kidney is suboptimally assessed on this unenhanced exam but favors a cyst. IMPRESSION: 1. Slight indistinctness of the fat planes adjacent to the pancreatic head. This may reflect acute pancreatitis. No peripancreatic fluid collection. 2. Stable left adrenal nodule which favors an adenoma. 3. Right sided nephrolithiasis. No ureteral calculi. 4. Large amount of stool within the colon. No evidence for a bowel obstruction. Normal appendix. Electronically signed by: Jeffery Cano M.D. 07/03/2018 5:[address]-Head: Radiologist's impression: CT head/brain wo con CLINICAL HISTORY: 43 years-old Female with acute mental status change. Acutely altered mental status TECHNIQUE: Multiple axial CT images of the head were obtained without contrast. A dose lowering technique was utilized adhering to the principles of ALARA. CT DOSE: 767.83 mGy.cm COMPARISON: CT head 05/10/2017. FINDINGS: Study is mildly motion degraded. No acute intracranial hemorrhage, midline shift, intracranial mass, hydrocephalus, territorial ischemia or abnormal extra-axial collection. Mild bifrontal cerebral atrophy. The calvarium is intact. The paranasal sinuses, mastoid air cells, and middle ear cavities are clear. IMPRESSION: Mildly motion degraded exam without acute intracranial abnormality The above report was generated using voice recognition software. It may contain grammatical, syntax or spelling errors. Electronically signed by: Navi Christianson M.D. 07/03/2018 5:20 PM ECG Data Attestation: I personally reviewed and interpreted this ECG as follows: Indication: abdominal pain and chest pain Rate (beats per minute): 77 Rhythm: normal sinus Findings: no acute ischemic change and no ectopy Comparison ECG Date: from (11/14/17) Change: no significant change MDM Narrative This 43-year-old female patient presents emergency department from outpatient pulmonology for evaluation and concern for possible uremic encephalopathy. The patient does have a history of this diagnosis and was admitted in [place] for the same. Workup here in the ED is not consistent with this diagnosis. The patient does have an elevated glucose and appears mildly dehydrated and elevated lactic acid, however there is no significant leukocytosis. The creatinine is only mildly elevated at 1.3. The patient is anemic which is chronic, but worse today than normal. The patient has had an acute change in her mental status. We did elect to perform CT imaging of the head, chest, abdomen, and pelvis. These did not show any acute abnormalities. While here in the emergency dep artment, the patient complains of pain, but in between being awake, she is sleeping and very difficult to arouse. Her vital signs remained very stable. She was medicated with 1 dose of IV narcotics followed by NSAIDs. She was hydrated with fluids and given insulin for her elevated blood glucose. There was questionable acute pancreatitis noted on CT scan, and given this, the acute mental status change, and elevated lipase, I did recommend admission. There is a 302 filled out by MARLEEN Christian from pulmonology, but I feel that the patient will require medical stabilization prior to being sent to any sort of psychiatric facility. The patient did verbalize suicidal ideation while here in the emergency department and made threats to kill herself when not given pain medicine or taken to the bathroom right away. Because of this, she was placed on a one-to-one with suicide precautions. The patient will be further monitored and worked up by the hospitalist service. Please see their dictation regarding ongoing management care of this patient. The chart was completed utilizing [employer] voice recognition software. Grammatical errors, random word insertions, pronoun errors, and incomplete sentences are an occasional consequence of this system due to software limitations, ambient noise, and hardware issues. Any formal questions or concerns about the content, text, or information contained within the body of this dictation should be directly addressed to the provider for clarification. Impression & Plan Pancreatitis, Chest pain, Acute alteration in mental status Discharge Plan Visit Data *Final* Discharge Date/Time: 07/03/18 22:32 Chief Complaint: Chest Pain Stated Complaint: chest & back pain ED Provider: Amanda Quach ED Midlevel Provider: Karen Taylor Discharge Problem: Pancreatitis, Chest pain, Acute alteration in mental status Patient Disposition: Admitted As Inpatient Discharge Instructions Interventions: ED Discharge Assessment Last Done: 07/03/18 22:32 Discharge Problem: Pancreatitis Qualifiers: Chronicity: acute Pancreatitis type: unspecified pancreatitis type Acute pancreatitis complication: unspecified Qualified Code(s): K85.90 - Acute pancreatitis without necrosis or infection, unspecified Chest pain Qualifiers: Chest pain type: unspecified Qualified Code(s): R07.9 - Chest pain, unspecified
--- NOTE | 2018-07-03 16:15 | XRay Report ---
XR chest 1V portable CLINICAL HISTORY: Chest pain. COMPARISON STUDY: Chest CT May 07, 2018. FINDINGS: Postoperative findings within the right lung are noted. Lung volumes are diminished. There is no pneumothorax or pleural effusion. Interstitial thickening is noted. IMPRESSION: Interstitial thickening which may represent normal vasculature on this hypoventilatory s tudy. An infectious process or pulmonary edema could appear similar. Electronically signed by: Jeffery Cano M.D. 07/03/2018 4:14 PM
[2018-07-03 16:40] LABS: Allen Test POS (Pos); HCO3 ABG 17 mmol/L (19-24); PCO2 ABG 33 mmHg (35-46); PO2 ABG 64 mm/Hg (80-95); pH ABG 7.33 (7.35-7.45)
[2018-07-03 16:41] LABS: Basophils # (auto) 0.01 K/uL (0-0.2); Basophils % (auto) 0.2 %; Hematocrit (blood only) 29.5 % (37-47); Hemoglobin 9.7 g/dL (12.0-16.0); Immature Granulocytes # (auto) 0.01 K/uL (0.00-0.02); Immature Granulocytes % (auto) 0.2 %; Lymphocytes # (auto) 0.99 K/uL (1.2-3.4); Lymphocytes % (auto) 20.7 %; Mean Corpuscular Hgb Conc 32.9 g/dL (32-36); Mean Corpuscular Volume 88.9 fL (80-100); Mean Platelet Volume 10.2 fL (7.4-10.4); Monocytes # (auto) 0.14 K/uL (0.11-0.59); Monocytes % (auto) 2.9 %; Neutrophils # (auto) 3.64 K/uL (1.4-6.5); Platelet Count 264 K/uL (130-400); RDW Standard Deviation 45.8 fL (36.4-46.3); Red Blood Count 3.32 M/uL (4.2-5.4); White Blood Count 4.79 K/uL (4.8-10.8)
[2018-07-03 16:55] LABS: INR 1.1 (0.9-1.1); Partial Thromboplastin Ratio 0.9; Partial Thromboplastin Time 23.2 Seconds (21.0-31.0); Prothrombin Time 11.1 Seconds (9.0-12.0)
[2018-07-03 17:04] LABS: Pregnancy Test, Serum Negative (Negative)
[2018-07-03 17:14] LABS: Alanine Aminotransferase 12 U/L (12-78); Albumin Globulin Ratio 0.8 (0.9-2); Albumin Level 2.9 gm/dl (3.4-5.0); Alkaline Phosphatase 122 U/L (45-117); Aspartate Aminotransferase 5 U/L (15-37); Bilirubin,Total 0.2 mg/dl (0.2-1); Blood Urea Nitrogen 15 mg/dl (7-18); Calcium 8.6 mg/dl (8.5-10.1); Carbon Dioxide 18 mmol/L (21-32); Chloride 103 mmol/L (98-107); Est GFR (African American) 55.6; Globulin 3.5 gm/dl (2.5-4.0); Glucose 397 mg/dl (70-99); Magnesium 1.9 mg/dl (1.8-2.4); NT Pro B Type Natriuretic Pept 222 pg/ml (0-450); Potassium 5.1 mmol/L (3.5-5.1); Sodium 130 mmol/L (136-145); Total Protein 6.4 gm/dl (6.4-8.2); Troponin I < 0.015 ng/ml (0-0.045)
--- NOTE | 2018-07-03 17:21 | CT Scan Report ---
CT head/brain wo con CLINICAL HISTORY: 43 years-old Female with acute mental status change. Acutely altered mental status TECHNIQUE: Multiple axial CT images of the head were obtained without contrast. A dose lowering tech nique was utilized adhering to the principles of ALARA. CT DOSE: 767.83 mGy.cm COMPARISON: CT head 05/10/2017. FINDINGS: Study is mildly motion degraded. No acute intracranial hemorrhage, midline shift, intracranial mass, hydrocephalus, territorial ischemia or abnormal extra-axial collection. Mild bifrontal cerebral atrop hy. The calvarium is intact. The paranasal sinuses, mastoid air cells, and middle ear cavities are clear . IMPRESSION: Mildly motion degraded exam without acute intracranial abnormality The above report was generated using voice recognition software. It may contain grammatical, syntax o r spelling errors. Electronically signed by: Navi Christianson M.D. 07/03/2018 5:20 PM
[2018-07-03 17:22] LABS: Appearance Urine Clear (Clear); Bilirubin Urine Negative (Negative); Blood Urine Negative (Negative); Color Urine Yellow; Glucose Urine UA 3+ (Negative); Ketones Urine Negative (Negative); Leukocyte Esterase Urine Negative (Negative); Nitrite Urine Negative (Negative); Protein Urine Negative (Negative); Specific Gravity Urine 1.013 (1.000-1.030); Urobilinogen Urine Negative (Negative); pH Urine 6.5 (4.5-7.5)
[2018-07-03 17:25] LABS: Beta-Hydroxybutyrate 0.85 mg/dl (0.2-2.81)
--- NOTE | 2018-07-03 17:28 | CT Scan Report ---
CT chest wo con CLINICAL HISTORY: 43 years-old Female with chest pain. Acute atypical chest pain TECHNIQUE: Multiaxial CT images of the chest were performed without contrast. A dose lowering techni que was utilized adhering to the principles of ALARA. COMPARISON: CT abdomen and pelvis of same day, chest CT 05/07/2018 FINDINGS: Thyroid appears mildly enlarged and heterogeneous without dominant nodule. No adenopathy by CT size c riteria. Coronary arterial calcifications are noted. No pericardial effusion. No thoracic aortic aneu rysm. Calcification the thoracic aorta and proximal great vessels. No pneumothorax or pleural effusion. Postoperative changes from prior right upper lobe wedge resectio n. Pleural parenchymal scarring about the suture line redemonstrated. Unchanged 9 x 6 mm solid nodule of the right upper lobe on image 79 series 6. Subsegmental bibasilar linear consolidative and ground glass densities suggest atelectasis. Pulmonary nodules of the superior segment left lower lobe have d ecreased from comparison, largest measuring up to 5 mm, previously conglomerate nodules measuring up to approximately 1.8 cm within this distribution. There are no new or enlarging pulmonary nodules zoila ntified. 2 mm solid nodule right upper lobe on image 62 series 6 is likely benign. Central airways ap pear patent. Process of the imaged upper abdomen. The spleen measures within the upper limits of normal. Soft tiss ues and breast parenchyma appear unremarkable. Multiple healed remote right-sided rib fractures. Part ially imaged healing subacute fracture about the lateral aspect of the right ninth rib. Spine and art rnum appear intact. IMPRESSION: 1. No acute intrathoracic abnormality identified. 2. Bibasilar opacities suggest probable atelectasis. 3. Postoperative changes from prior right upper lobe wedge resection. 4. Unchanged 9 x 6 mm solid nodule of the right upper lobe. Decreased size and number of the solid pu lmonary nodules of the superior segment left lower lobe suggestive of a resolving infectious or infla mmatory pneumonitis. 5. Coronary arterial calcifications. Please refer to below summary of Fleischner criteria recommendations for follow-up of incidental CT n odules (Zackery Kimble, Guidelines for management of small pulmonary nodules detected on CT scans: A sta tement from the Fleischner Society, Radiology 237: [phone].) SOLID NODULES Multiple nodules size: <6 mm * Low risk patients: no routine follow-up * high risk patients: optional CT at 12 months Multiple nodules size: 6-8 mm * Low risk patients: follow-up at 3-6 months, then consider further follow-up at 18-24 months * high risk patients: follow-up at 3-6 months, then at 18-24 months if no change Multiple nodules size: >8 mm * Low risk patients: follow-up at 3-6 months, then consider further follow-up at 18-24 months * high risk patients: follow-up at 3-6 months, then at 18-24 months if no change Note: newly detected indeterminate nodule in persons 35 years of age or older. * Low risk patients: minimal or absent history of smoking and/or other known risk factors * high risk patients: history of smoking or of other known risk factors (e.g. first degree relative with lung cancer, or exposure to asbestos, radon, uranium) * if a nodule up to 8 mm is partly solid or is ground glass further follow-up is required after 24 m onths to exclude possible slow growing adenocarcinoma (MAIK) The above report was generated using voice recognition software. It may contain grammatical, syntax o r spelling errors. Electronically signed by: Navi Christianson M.D. 07/03/2018 5:27 PM
[2018-07-03 17:31] LABS: Folate (Folic Acid) 7.62 ng/ml (>5.38)
--- NOTE | 2018-07-03 17:32 | CT Scan Report ---
CT OF THE ABDOMEN AND PELVIS WITHOUT CONTRAST CLINICAL HISTORY: Abdominal pain. COMPARISON STUDY: CT of the abdomen and pelvis November 14, 2017. PET/CT December 25, 2017. TECHNIQUE: Axial images of the abdomen and pelvis were obtained without IV contrast. Images were revi ewed in the axial, sagittal, and coronal planes. Automated exposure control was utilized for the eleazar dy. A dose lowering technique was utilized adhering to the principles of ALARA. FINDINGS: Please note that the chest CT will be reported separately. Several old right-sided rib frac tures are noted. No pneumatosis, free air or portal venous gas is present. Note is made of an 8 mm ca lculus within the upper pole the right kidney. There are no ureteral calculi. There is no hydronephro sis or hydroureter. Slight prominence of the collecting systems is unchanged. A 3 cm low-attenuation left adrenal nodule is unchanged. This favors an adenoma. A small right adrenal nodule is also unchan ged. This favors an adenoma. There is no biliary ductal dilatation status post cholecystectomy. Unenh anced images of the spleen and pancreas are unremarkable. Evaluation of the abdomen and pelvis is sub optimal on this unenhanced exam. There is slight indistinctness of the fat planes adjacent to the panda creatic head. No peripancreatic fluid collection is present. There is no evidence for a bowel obstruc tion. A large amount of stool within the colon is noted. The appendix is normal. No pneumatosis, free air or portal venous gas is present. There are no suspicious osseous lesions. IVC filters in place. A 1.4 cm low-attenuation lesion within the upper pole of the left kidney is suboptimally assessed on this unenhanced exam but favors a cyst. IMPRESSION: 1. Slight indistinctness of the fat planes adjacent to the pancreatic head. This may reflect acute pa ncreatitis. No peripancreatic fluid collection. 2. Stable left adrenal nodule which favors an adenoma. 3. Right sided nephrolithiasis. No ureteral calculi. 4. Large amount of stool within the colon. No evidence for a bowel obstruction. Normal appendix. Electronically signed by: Jeffery Cano M.D. 07/03/2018 5:31 PM
[2018-07-03] MEDS ORDERED: SODIUM CHLORIDE 0.9% 1000ML 2,000 ML IV ONE (17:37)
[2018-07-03] MEDS ORDERED: fentaNYL citrate 100 MCG/2 ML VIAL IV STA ×2 (17:37→19:15)
[2018-07-03] MEDS ORDERED: ONDANSETRON INJ 2 MG/ML 2 ML VIAL IV STA (17:38)
[2018-07-03 17:58] LABS: Amphetamines+Metham, Urine Neg (Neg); Barbiturates, Urine Neg (Neg); Benzodiazepine, Urine Neg (Neg); Cocaine, Urine Neg (Neg); MDMA (Ecstacy), Urine Neg (Neg); Methadone, Urine Neg (Neg); Opiate, Urine Neg (Neg); Phencyclidine, Urine Neg (Neg)
[2018-07-03] MEDS ORDERED: INSULIN ASPART 100 UNITS/ML 3 ML PEN SC STA ×2 (18:29→19:12)
--- NOTE | 2018-07-03 18:55 | Emergency Department Note ---
ED Visit Note Patient seen in conjunction with Karen CANTOR. Please refer to her note for additional details. Patient here markedly somnolent but arousable and oriented. Patient denies any noncompliance or overuse of her current medications. Patient's labs reassuring despite past history of uremic encephalopathy. Patient with no focal neurologic deficit. Vital signs stable. . : Pancreatitis Qualifiers: Chronicity: acute Pancreatitis type: unspecified pancreatitis type Acute pancreatitis complication: unspecified Qualified Code(s): K85.90 - Acute pancreatitis without necrosis or infection, unspecified Chest pain Qualifiers: Chest pain type: unspecified Qualified Code(s): R07.9 - Chest pain, unspecified
[2018-07-03] MEDS ORDERED: KETOROLAC TROMETHAMINE 15 MG/ML VIAL IV STA (21:47)
--- NOTE | 2018-07-03 21:56 | History & Physical Report ---
Date of Service July 03, 2018 Assessment & Plan (1) Chronic obstructive pulmonary disease: (2) History of heart artery stent: (3) Hypertension: (4) DMII (diabetes mellitus, type 2): (5) CAD (coronary artery disease): (6) GERD (gastroesophageal reflux disease): (7) Anxiety: (8) CKD (chronic kidney disease), stage III: (9) Explosive personality disorder: (10) HLD (hyperlipidemia): (11) Panic attack: (12) Pancreatitis: 3yoF with hx of HTN, HLD, CAD s/p stent x 1 in 2012, DVT in 1997 L leg s/p b/l fasciotomy, chronic chest pain, COPD, DM2, Fatty liver disease (non- alcoholic), hx of pancreatitis, GERD, hx of GI bleed, melanosis coli, Hep C,chronic back pain, seizure disorder, bipolar disorder, panic disorder, depression/anxiety, explosive personality disorder presents with chest pain x 2 months which has been worsening over the last week. Chest pain Hx of HTN/HLD/CAD s/p stent x 1 in 2012 -Per 05/2017 admission/discharge note hx of chronic chest pain being treated with nitro paste/patch -Possible a/w pancreatitis as pt reports similar pain during previous episode of pancreatitis -EKG 77 NSR Qtc [address] changes -Troponin neg, BNP wnl -Continue home medications: imdur, nifedipine, carvedilol, lipitor -Hold lasix, lisinopril and spironolactone in the setting of elevated Cr -Continue to monitor and trend troponin -Monitor on telemetry Acute vs. chronic pancreatitis -Pt has hx of pancreatitis -Mild TTP over epigastric and LUQ region -Lipase 453 -LFT alk phos 122 (appears to be elevated in the past as well) -CT abdomen: acute pancreatitis, stable L adrenal nodule-adenoma, R nephrolithiasis, large stool burden -Received 2L NS in the ED -Started on LR 200cc/hr and NPO -Toradol 15mg IV Q6H PRN for pain -Tylenol 650mg Q4H PRN -Continue to monitor clinically Initial concern for AMS in the ED - Improved Post-ictal vs. metabolic vs. toxic encephalopathy -Prior hx of uremic encephalopathy at [facility] but BUN 15 today -Report of diffuse tremors with total cognitive awareness - possible pseudoseizure vs. rigors per previous admission note 05/2017 -Pt reports hx of seizures (mild since age 10) -Pt is on topiramate (not sure if for seizures or for migraine headaches) and Klonopin -Possible post-ictal state -Drug screen negative and etoh level < 3 -Na 130 - mild hyponatremia -ABG ph 7.33, Co2 33, O2 64, HCO3 17 - mild metabolic acidosis -Ammonia 25 -On previous admissions noted to have moments of lethargy as well -Neurology consulted Hx of migraine headaches -Continue home topiramate and rizatriptan PRN Concern for Suicidal Ideation - Psychiartic Hx: Bipolar, anxiety, panic disorder, explosive personality disorder -Continue home imipramine, clonazepam, clonidine -mental health evaluation consult placed COPD -ABG ph 7.33, Co2 33, O2 64, HCO3 17 -Continue home ipratropium/albuterol inh PRN -Continue guaifenesin Mild elevation in Cr in the setting of dehydration -Cr 1.3 (baseline around 1.1) -On IVFs 200c/hr LR Hyponatremia - per records chronic -Mild Na 130 likely hypovolemic as pt appears dehydrated -On LR at 200cc/hr Hyperglycemia Hx of DM: -BSG on arrival 397 -Bhydroxybutyrate nl -No urine ketones but 3+ glucose -Received 12 u of novolog in the ED -Continue home Lantus 42u QAM -On SSI Novolog Chronic constipation -Mild TTP of LLQ region -CT abdomen: large stool burden -Continue home senokot, and colace -Miralax PRN GERD -Continue home ranitidine, pepcid and protonix DVT prop: Lovenox 40mg SQ Code: Full Dispo: med/surg telemetry History of Present Illness Primary Care Provider: NO PCP 43yoF with hx of HTN, HLD, CAD s/p stent x 1 in 2012, DVT in 1997 L leg, COPD, DM2, chronic chest pain, Fatty liver disease (non-alcoholic), hx of pancreatitis, GERD, hx of GI bleed, melanosis coli, chronic back pain, ?seizure disoder, panic disorder, depression/anxiety, explosive personality disorder presents with chest pain x 2 months which has been worsening over the last week. Per ED records, she was seeing pulmonology today, Adri HAWLEY who was concerned about chest pain history and sent her to the ED. Adri also filled a 302 petition as pt reported having SI. Pt denies SI/HI when examined and reports probably being in a lot of pain when she initially said that. Per patient, cp substernal x 2 months but worse over the last week. Described as 9/10 occasionally and sharp but sometimes not as bad. She reports having similar pain when she had pancreatitis in the past. A/w back pain (mid-scapular), nasuea, vomiting, decreased appetite, weight loss, feeling hot, chills, cough, abdominal pain (when she gets gas in her abdomen), chronic constipation (last BM 2 days ago soft after taking bowel regimen, non-bloody and not dark), sob. Denies any fever, PAYTON/dizziness, melena, hematochezia, dysuria, hematuria. Psychiatric hx: per pt has been treated for psychiatric conditions since age 10, she reports having violent tendencies and then passing out, now being treated by Dr. Bartlett in [place]. She is not working and on disability. Allergies Allergy/AdvReac Type Severity Reaction Status Date / Time Penicillins Allergy Intermediate HIVES AND Verified 07/03/18 16:00 PASSES OUT sertraline Allergy Intermediate HIVES AND Verified 07/03/18 16:00 PASSES OUT trazodone Allergy Intermediate IRRITATES Verified 07/03/18 16:00 NEUROPATHY AND HIVES valproic acid Allergy Intermediate HIVES, Verified 07/03/18 16:00 DIZZINESS, SLURRING SPEECH buspirone Allergy Mild RASH Verified 07/03/18 16:00 acetaminophen [From Percocet] Allergy Unknown Unknown Verified 07/03/18 16:00 ibuprofen Allergy Unknown Unknown Verified 07/03/18 16:00 lamotrigine [From Lamictal] Allergy Unknown Unknown Verified 07/03/18 16:00 mirtazapine [From Remeron] Allergy Unknown Unknown Verified 07/03/18 16:00 oxycodone [From Percocet] Allergy Unknown Unknown Verified 07/03/18 16:00 phenytoin [From Dilantin] Allergy Unknown Unknown Verified 07/03/18 16:00 quetiapine [From Seroquel] Allergy Unknown Unknown Verified 07/03/18 16:00 Home Medications Home Medications Medication Instructions Recorded Confirmed Type Basaglar EdgardoPen U-100 Insulin 42 unit SUBCUT DAILY@1130 01/02/18 04/09/18 History acetaminophen [Acetaminophen Extra 1,000 mg PO DAILY PRN 01/02/18 07/03/18 History Strength] atorvastatin [Lipitor] 40 mg PO HS 01/02/18 07/03/18 History carvedilol 25 mg PO BID 01/02/18 07/03/18 History clonazepam 1 mg PO BID 01/02/18 07/03/18 History clonidine HCl 0.6 mg PO TID 01/02/18 07/03/18 History docusate sodium [Colace] 200 mg PO BID 01/02/18 07/03/18 History ergocalciferol (vitamin D2) 50,000 units PO .Q2W 01/02/18 07/03/18 History famotidine [Pepcid] 40 mg PO HS 01/02/18 07/03/18 History insulin lispro [Humalog U-100 10 unit SUBCUT QDB 01/02/18 04/09/18 History Insulin] insulin lispro [Humalog U-100 12 unit SUBCUT QDL 01/02/18 04/09/18 History Insulin] insulin lispro [Humalog U-100 14 unit SUBCUT QPM 01/02/18 04/09/18 History Insulin] ipratropium-albuterol 3 ml INHALATION Q4H PRN 01/02/18 07/03/18 History isosorbide mononitrate 60 mg PO QAM 01/02/18 07/03/18 History nifedipine 90 mg PO QAM 01/02/18 07/03/18 History pantoprazole 40 mg PO BID 01/02/18 07/03/18 History rizatriptan 10 mg PO DIRECTED PRN 01/02/18 07/03/18 History nitroglycerin 1 dose TRANSDERMAL UD PRN 01/27/18 07/03/18 History metformin 1,000 mg PO BID 01/29/18 07/03/18 History potassium chloride 20 meq PO QID 04/09/18 07/03/18 History albuterol sulfate [Ventolin HFA] 2 puff INHALATION Q4H PRN 07/03/18 07/03/18 History guaifenesin [Mucus Relief] 400 mg PO Q4H PRN 07/03/18 07/03/18 History imipramine pamoate 200 mg PO HS 07/03/18 07/03/18 History levofloxacin 500 mg PO DAILY 07/03/18 07/03/18 History loratadine 10 mg PO DAILY PRN 07/03/18 07/03/18 History magnesium oxide 400 mg PO DAILY 07/03/18 07/03/18 History methocarbamol 750 mg PO BID 07/03/18 07/03/18 History ondansetron HCl 4 mg PO TID PRN 07/03/18 07/03/18 History prednisone See Rx Instructions .ROUTE .COMPLEX 07/03/18 07/03/18 History ranitidine HCl 300 mg PO AMHS 07/03/18 07/03/18 History sennosides [senna] 17.2 mg PO TID 07/03/18 07/03/18 History topiramate 200 mg PO BID 07/03/18 07/03/18 History furosemide 40 mg PO DAILY 07/04/18 07/04/18 History lisinopril 20 mg PO BID 07/04/18 07/04/18 History spironolactone 25 mg PO BID 07/04/18 07/04/18 History Past Med/Surg History Medical History Acute renal failure Hyperkalemia Uremic encephalopathy Chronic back pain Deep vein thrombosis 1997 LEFT LEG Diabetes mellitus, type 2 IDDM Explosive personality disorder Fatty liver disease, nonalcoholic GERD (gastroesophageal reflux disease) Controlled GI bleed Hyperlipidemia Pancreatitis 2009 Panic anxiety syndrome Rheumatoid arthritis Surgical History H/O removal of cyst ON ABDOMEN History of anesthesia reaction TAKES MORE ANESTHESIA TO GET TO SLEEP History of bronchoscopy History of cardiac cath History of cholecystectomy History of colonoscopy History of dilatation and curettage Q65--[id number] History of esophagogastroduodenoscopy (EGD) History of heart artery stent X1 STENT (2012) History of lung surgery RIGHT VATS (12/2017) History of surgery PER PT HAD 32 GYNECOLOGY SURGERIES TO "SCRAP UTERUS AND OVARIES" History of tooth extraction ALL TEETH REMOVED History of total abdominal hysterectomy and bilateral salpingo-oophorectomy History of total left knee replacement (TKR) Family History Mother , age 54 of pneumonia. Family history of diabetes mellitus Hypertension Father , age 72 Hypertension Social History Preferred Language: Hebrew Communication Ability: Effective Beliefs That Will Affect Care: None Current Living Situation: Spouse and Family Current Living Situation Comment: AND SISTER current occupational status: disabled other: worked multiple jobs in her 20s, on disability for psych issues since Feels Safe at Home: Yes Smoking Status: Current every day smoker Hx Alcohol Use: No Hx Substance Use: No Review of Systems As per HPI Physical Exam Vital Signs (Past 24 Hours): Last Vital Signs Temp 36.4 C L 07/03/18 15:10 Pulse 75 07/03/18 20:53 Resp 16 07/03/18 20:53 BP 140/103 H 07/03/18 20:53 Pulse Ox 99 07/03/18 20:53 Physical Exam: General: In NAD Neuro: A&O x 4, awake through out history and exam and able to provide history CV: RRR, no m/r/g Pulm: CTAB, equal breath sounds bilaterally, on RA GI: +BS, non-distended, mildly TTP in epigastric, LUQ and LLQ regions extremities: no calf tenderness, 1+ LE edema, L knee and edwards scars from previous surgeries (muscle clot removal and patella surgery per pt), healed scars/wounds on bilateral dorsal feet Results & Data Laboratory Results Abnormal lab results 07/03/18 07/03/18 07/03/18 Range/Units 16:21 16:21 16:24 WBC 4.79 L (4.8-10.8) K/uL RBC 3.32 L (4.2-5.4) M/uL Hgb 9.7 L (12.0-16.0) g/dL Hct 29.5 L (37-47) % Lymph # (Auto) 0.99 L (1.2-3.4) K/uL ABG pH 7.33 L (7.35-7.45) ABG pCO2 33 L (35-46) mmHg ABG pO2 64 L (80-95) mm/Hg ABG HCO3 17 L (19-24) mmol/L Sodium (136-145) mmol/L Carbon Dioxide (21-32) mmol/L Creatinine (0.6-1.2) mg/dl Glucose (70-99) mg/dl POC Glucose (70-99) Lactate 3.7 H* (0.4-2.0) mmol/L AST (15-37) U/L Alkaline Phosphatase (45-117) U/L Albumin (3.4-5.0) gm/dl Albumin/Globulin Ratio (0.9-2) Lipase (73-393) U/L Urine Glucose (UA) (Negative) 07/03/18 07/03/18 07/03/18 Range/Units 16:24 16:59 19:09 WBC (4.8-10.8) K/uL RBC (4.2-5.4) M/uL Hgb (12.0-16.0) g/dL Hct (37-47) % Lymph # (Auto) (1.2-3.4) K/uL ABG pH (7.35-7.45) ABG pCO2 (35-46) mmHg ABG pO2 (80-95) mm/Hg ABG HCO3 (19-24) mmol/L Sodium 130 L (136-145) mmol/L Carbon Dioxide 18 L (21-32) mmol/L Creatinine 1.35 H (0.6-1.2) mg/dl Glucose 397 H* (70-99) mg/dl POC Glucose 265 H (70-99) Lactate (0.4-2.0) mmol/L AST 5 L (15-37) U/L Alkaline Phosphatase 122 H (45-117) U/L Albumin 2.9 L (3.4-5.0) gm/dl Albumin/Globulin Ratio 0.8 L (0.9-2) Lipase 453 H (73-393) U/L Urine Glucose (UA) 3+ H (Negative) Diagnostic Findings [facility], [place] [phone] CT Scan Report Patient: SHANTANU HICKS AAdmit Date: 07/03/18 MR#: [id number]: [address] Acct ID:[id number]: Date: 1975ty Zip: [place] [id number] Age: 43Location: ED Sex: F Room/Bed: Att Phy: Diagnosis: chest & back pain Griselda Phy: PCP,NO Service Date: 07/03/18 Fam Phy: Interpreting Phy: Jarrell Christianson Admit Phy: Ordering Phy: Karen Taylor PA-C cc: ~ CT chest wo con CLINICAL HISTORY: 43 years-old Female with chest pain. Acute atypical chest pain TECHNIQUE: Multiaxial CT images of the chest were performed without contrast. A dose lowering technique was utilized adhering to the principles of ALARA. COMPARISON: CT abdomen and pelvis of same day, chest CT 05/07/2018 FINDINGS: Thyroid appears mildly enlarged and heterogeneous without dominant nodule. No adenopathy by CT size criteria. Coronary arterial calcifications are noted. No pericardial effusion. No thoracic aortic aneurysm. Calcification the thoracic aorta and proximal great vessels. No pneumothorax or pleural effusion. Postoperative changes from prior right upper lobe wedge resection. Pleural parenchymal scarring about the suture line redemonstrated. Unchanged 9 x 6 mm solid nodule of the right upper lobe on image 79 series 6. Subsegmental bibasilar linear consolidative and groundglass densities suggest atelectasis. Pulmonary nodules of the superior segment left lower lobe have decreased from comparison, largest measuring up to 5 mm, previously conglomerate nodules measuring up to approximately 1.8 cm within this distribution. There are no new or enlarging pulmonary nodules identified. 2 mm solid nodule right upper lobe on image 62 series 6 is likely benign. Central airways appear patent. Process of the imaged upper abdomen. The spleen measures within the upper limits of normal. Soft tissues and breast parenchyma appear unremarkable. Multiple healed remote right-sided rib fractures. Partially imaged healing subacute fracture about the lateral aspect of the right ninth rib. Spine and sternum appear intact. IMPRESSION: 1. No acute intrathoracic abnormality identified. 2. Bibasilar opacities suggest probable atelectasis. 3. Postoperative changes from prior right upper lobe wedge resection. 4. Unchanged 9 x 6 mm solid nodule of the right upper lobe. Decreased size and number of the solid pulmonary nodules of the superior segment left lower lobe suggestive of a resolving infectious or inflammatory pneumonitis. 5. Coronary arterial calcifications. CT OF THE ABDOMEN AND PELVIS WITHOUT CONTRAST CLINICAL HISTORY: Abdominal pain. COMPARISON STUDY: CT of the abdomen and pelvis November 14, 2017. PET/CT December 25, 2017. TECHNIQUE: Axial images of the abdomen and pelvis were obtained without IV contrast. Images were reviewed in the axial, sagittal, and coronal planes. Automated exposure control was utilized for the study. A dose lowering technique was utilized adhering to the principles of ALARA. FINDINGS: Please note that the chest CT will be reported separately. Several old right-sided rib fractures are noted. No pneumatosis, free air or portal venous gas is present. Note is made of an 8 mm calculus within the upper pole the right kidney. There are no ureteral calculi. There is no hydronephrosis or hydro ureter. Slight prominence of the collecting systems is unchanged. A 3 cm low- attenuation left adrenal nodule is unchanged. This favors an adenoma. A small right adrenal nodule is also unchanged. This favors an adenoma. There is no biliary ductal dilatation status post cholecystectomy. Unenhanced images of the spleen and pancreas are unremarkable. Evaluation of the abdomen and pelvis is suboptimal on this unenhanced exam. There is slight indistinctness of the fat planes adjacent to the pancreatic head. No peripancreatic fluid collection is present. There is no evidence for a bowel obstruction. A large amount of stool within the colon is noted. The appendix is normal. No pneumatosis, free air or portal venous gas is present. There are no suspicious osseous lesions. IVC filters in place. A 1.4 cm low-attenuation lesion within the upper pole of the left kidney is suboptimally assessed on this unenhanced exam but favors a cyst. IMPRESSION: 1. Slight indistinctness of the fat planes adjacent to the pancreatic head. This may reflect acute pancreatitis. No peripancreatic fluid collection. 2. Stable left adrenal nodule which favors an adenoma. 3. Right sided nephrolithiasis. No ureteral calculi. 4. Large amount of stool within the colon. No evidence for a bowel obstruction. Normal appendix. CT head/brain wo con CLINICAL HISTORY: 43 years-old Female with acute mental status change. Acutely altered mental status TECHNIQUE: Multiple axial CT images of the head were obtained without contrast. A dose lowering technique was utilized adhering to the principles of ALARA. CT DOSE: 767.83 mGy.cm COMPARISON: CT head 05/10/2017. FINDINGS: Study is mildly motion degraded. No acute intracranial hemorrhage, midline shift, intracranial mass, hydrocephalus, territorial ischemia or abnormal extra- axial collection. Mild bifrontal cerebral atrophy. The calvarium is intact. The paranasal sinuses, mastoid air cells, and middle ear cavities are clear. IMPRESSION: Mildly motion degraded exam without acute intracranial abnormality XR chest 1V portable CLINICAL HISTORY: Chest pain. COMPARISON STUDY: Chest CT May 07, 2018. FINDINGS: Postoperative findings within the right lung are noted. Lung volumes are diminished. There is no pneumothorax or pleural effusion. Interstitial thickening is noted. IMPRESSION: Interstitial thickening which may represent normal vasculature on this hypoventilatory study. An infectious process or pulmonary edema could appear similar. Code Status & VTE Plan Code Status Full VTE Prophylaxis Plan VTE Prophylaxis will be ordered: Yes Supervising Physician Co-Signing Physician Notes Attending addendum: I have physically seen this patient, have supervised the medical residents activities, and agree with the H&P unless as otherwise noted. Assessment and Plan: Chest pain-- The patient will be admitted to telemetry for serial cardiac enzymes, serial EKG's, cardiac rhythm monitoring and a 2-D echocardiogram with Dopplers. Continue Imdur, nifedipine, carvedilol. Hold Lasix, lisinopril and spironolactone due to acute kidney injury. Pancreatitis/most likely low level chronic-- Follow serial lipase. Continue aggressive rehydration. Continue Toradol and Tylenol for pain management. Follow clinical exam. Remainder of orders notations as noted. Resident Activity Tracking Resident Involvement: Resident Care Provided Care Provided: Adult [facility]
[2018-07-03] MEDS ORDERED: LORATADINE 10 MG TAB PO PRN (23:01)
[2018-07-03] MEDS ORDERED: NITROGLYCERIN 2% OINTMENT 30GM TUBE EXT PRN (23:01)
[2018-07-03] MEDS ORDERED: ALBUTEROL HFA 8 GM INHALER INH PRN (23:01)
[2018-07-03] MEDS ORDERED: ONDANSETRON INJ 2 MG/ML 2 ML VIAL IV PRN (23:01)
[2018-07-03] MEDS ORDERED: RIZATRIPTAN BENZOATE 10 MG TAB PO PRN (23:01)
[2018-07-03] MEDS ORDERED: guaiFENesin 200 MG TAB PO PRN (23:01)
[2018-07-03] MEDS ORDERED: ALBUT/IPRATROP 3MG/0.5MG NEB 3 ML VIAL INH PRN (23:01)
[2018-07-03] MEDS ORDERED: POLYETHYLENE (MIRALAX) 17 GM PACK PO PRN (23:01)
[2018-07-03] MEDS ORDERED: NITROGLYCERIN SL 0.4 MG/TAB TAB SL PRN (23:01)
[2018-07-03] MEDS ORDERED: GLUCOSE 40% GEL 15 GM TUBE PO PRN (23:45)
[2018-07-03] MEDS ORDERED: GLUCAGON FOR INJ 1 MG VIAL SQ PRN (23:45)
[2018-07-03] MEDS ORDERED: CARBOHYDRATES FOR HYPOGLYCEMIA PO PRN (23:45)
[2018-07-03] MEDS ORDERED: DEXTROSE 50% 50 ML SYRINGE IV PRN (23:45)
[2018-07-03] MEDS ORDERED: GLUCOSE 10 TABS/TUBE PO PRN (23:45)
[2018-07-03] MEDS ORDERED: Nursing to Pharmacy Communication ONE (23:50)
[2018-07-04] MEDS: SPIRONOLACTONE 25 MG TAB PO SCH ×2 (00:07→22:03)
[2018-07-04] MEDS: POTASSIUM CHLORIDE 20 MEQ TABCR PO SCH ×2 (00:07→22:02)
[2018-07-04] MEDS: LISINOPRIL 20 MG TAB PO SCH ×2 (00:08→22:02)
[2018-07-04] MEDS: TOPIRAMATE 100 MG TAB PO SCH ×3 (00:24→20:19)
[2018-07-04] MEDS: SENNA 8.6 MG TAB PO SCH ×4 (00:24→20:19)
[2018-07-04] MEDS: PANTOprazole 40 MG TAB PO SCH ×3 (00:24→16:45)
[2018-07-04] MEDS: METHOCARBAMOL 750 MG TABLET PO SCH ×3 (00:24→20:20)
[2018-07-04] MEDS: ATORVASTATIN 40 MG TAB PO SCH ×2 (00:25→20:17)
[2018-07-04] MEDS: clonazePAM 1 MG TAB PO SCH ×3 (00:25→20:27)
[2018-07-04] MEDS: CARVEDILOL 25 MG TAB PO SCH ×3 (00:25→20:20)
[2018-07-04] MEDS: DOCUSATE SODIUM 100 MG CAP PO SCH ×3 (00:25→20:17)
[2018-07-04] MEDS: FAMOTIDINE 20 MG TAB PO SCH ×2 (00:25→20:20)
[2018-07-04] MEDS: KETOROLAC TROMETHAMINE 15 MG/ML VIAL IV PRN ×4 (00:26→23:09)
[2018-07-04] MEDS: LACTATED RINGER'S 1,000 ML IV SCH ×4 (00:26→16:42)
[2018-07-04] MEDS: ACETAMINOPHEN 325 MG TAB PO PRN (00:26)
[2018-07-04] MEDS: INSULIN ASPART 100 UNITS/ML 3 ML PEN SC SCH ×6 (00:35→20:23)
[2018-07-04] MEDS: IMIPRAMINE HCL 50 MG TAB PO SCH ×2 (01:14→20:18)
[2018-07-04 06:31] LABS: Eosinophils # (auto) 0.05 K/uL (0-0.5); Hematocrit (blood only) 28.4 % (37-47); Hemoglobin 9.4 g/dL (12.0-16.0); Immature Granulocytes # (auto) 0.01 K/uL (0.00-0.02); Immature Granulocytes % (auto) 0.2 %; Lymphocytes # (auto) 1.75 K/uL (1.2-3.4); Lymphocytes % (auto) 36.1 %; Mean Corpuscular Hgb Conc 33.1 g/dL (32-36); Mean Corpuscular Volume 88.2 fL (80-100); Mean Platelet Volume 10.2 fL (7.4-10.4); Monocytes # (auto) 0.38 K/uL (0.11-0.59); Monocytes % (auto) 7.8 %; Neutrophils # (auto) 2.66 K/uL (1.4-6.5); Neutrophils % (auto) 54.9 %; Platelet Count 253 K/uL (130-400); RDW Coefficient of Variation 13.9 % (11.5-14.5); RDW Standard Deviation 44.8 fL (36.4-46.3); Red Blood Count 3.22 M/uL (4.2-5.4); White Blood Count 4.85 K/uL (4.8-10.8)
[2018-07-04 07:22] LABS: Alanine Aminotransferase 9 U/L (12-78); Albumin Globulin Ratio 0.8 (0.9-2); Albumin Level 2.5 gm/dl (3.4-5.0); Alkaline Phosphatase 102 U/L (45-117); Aspartate Aminotransferase 3 U/L (15-37); BUN Creatinine Ratio 11.5 (10-20); Bilirubin,Total 0.3 mg/dl (0.2-1); Blood Urea Nitrogen 11 mg/dl (7-18); Calcium 8.2 mg/dl (8.5-10.1); Carbon Dioxide 22 mmol/L (21-32); Chloride 111 mmol/L (98-107); Creatinine Clr Calc Pharmacy 93.7 ml/min; Est GFR (African American) 86.1; Est GFR (Non-African American) 74.3; Globulin 3.1 gm/dl (2.5-4.0); Glucose 179 mg/dl (70-99); Potassium 3.6 mmol/L (3.5-5.1); Sodium 139 mmol/L (136-145); Total Protein 5.6 gm/dl (6.4-8.2); Troponin I < 0.015 ng/ml (0-0.045)
[2018-07-04] MEDS ORDERED: INSULIN ASPART 100 UNITS/ML 3 ML PEN SC SCH (07:30)
[2018-07-04] MEDS ORDERED: FUROSEMIDE 40 MG TAB PO SCH (09:00)
[2018-07-04] MEDS ORDERED: LISINOPRIL 20 MG TAB PO SCH (09:00)
[2018-07-04] MEDS ORDERED: SPIRONOLACTONE 25 MG TAB PO SCH (09:00)
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
[2018-07-04] MEDS: ISOSORBIDE MONO EXTENDED REL 60 MG TABCR PO SCH (10:20)
[2018-07-04] MEDS: ENOXAPARIN INJ 40 MG/0.4 ML SYR SQ SCH (10:21)
[2018-07-04] MEDS: NIFEdipine EXTENDED REL 30 MG TABCR PO SCH (10:22)
[2018-07-04] MEDS: MAGNESIUM OXIDE 400 MG TAB PO SCH (10:22)
[2018-07-04 10:34] LABS: Estimated Average Glucose 180 mg/dl; Hemoglobin A1C 7.9 % (4.5-5.6)
--- NOTE | 2018-07-04 11:00 | Family Medicine Progress Note ---
Date of Service July 04, 2018 Assessment & Plan (1) Pancreatitis: Ms. Gary is a 43yoF with hx of HTN, HLD, CAD s/p stent x 1 in 2012, DVT in 1997 L leg s/p b/l fasciotomy, chronic chest pain, COPD, DM2, Fatty liver disease (non-alcoholic), hx of pancreatitis, GERD, hx of GI bleed, melanosis coli, Hep C,chronic back pain, seizure disorder, bipolar disorder, panic disorder, depression/anxiety, explosive personality disorder presents with chest pain x 2 months which has been worsening over the last week. Chest pain Hx of HTN/HLD/CAD s/p stent x 1 in 2012 -Per 05/2017 admission/discharge note, hx of chronic chest pain being treated with nitro paste/patch -EKG 77 NSR Qtc [address] changes -Troponin neg, BNP wnl -Continue home medications: imdur, nifedipine, carvedilol, lipitor, lisinopril, lasix and spironolactone -chest pain unlikely to be cardiac Abdominal Pain -Pt has hx of pancreatitis -> lipase only minimally elevated [place] [address] abdomen without convincing evidence for pancreatitis -CT abdomen and pelvis showed large stool burden -> abdominal pain likely secondary to severe constipation -treat with tap water enema, stacked miralax and simethicone -Toradol 15mg IV Q6H PRN for pain -> avoid narcotics -Tylenol 650mg Q4H PRN Initial concern for AMS in the ED - Resolved -Drug screen negative and etoh level < 3 -On previous admissions noted to have moments of lethargy as well -Neurology consulted, thank you for consult -> pain, hyperglycemia and anemia likely contributed to mental status change -> no need for further work-up at this time. Continue current medical management -> continue to follow up in office for migraines. Consider Ajovy for headache prophylaxis Hx of migraine headaches -Continue home topiramate and rizatriptan PRN Concern for Suicidal Ideation - Psychiatric Hx: Bipolar, anxiety, panic disorder, explosive personality disorder -Continue home imipramine, clonazepam, clonidine -psych consult ordered, thank you for recommendations -> does not meet criteria for inpatient psychiatry. Not currently at risk of harm to herself or others -> outpatient f/u COPD -Continue home ipratropium/albuterol inh PRN -Continue guaifenesin Mild elevation in Cr in the setting of dehydration -Cr 1.3 (baseline around 1.1) on admission, resolved to 0.94 -d/c IVF Hyponatremia - per records chronic -Mild Na 130 likely hypovolemic as pt appears dehydrated. Resolved to 139 Hyperglycemia, Hx of DM -BSG on arrival 397 -Bhydroxybutyrate nl -No urine ketones but 3+ glucose -Received 12 u of novolog in the ED -Continue home Lantus 42u QAM -On SSI Novolog -HbA1c 7.9% GERD -Continue home ranitidine, pepcid and protonix DVT proph: Lovenox 40mg SQ Code: Full Disposition: stable for transfer to med/surg. Anticipate d/c tomorrow (2) Chronic obstructive pulmonary disease: (3) History of heart artery stent: (4) Hypertension: (5) DMII (diabetes mellitus, type 2): (6) CAD (coronary artery disease): (7) GERD (gastroesophageal reflux disease): (8) Anxiety: (9) CKD (chronic kidney disease), stage III: (10) Explosive personality disorder: (11) HLD (hyperlipidemia): (12) Panic attack: Supervising Physician Co-Signing Physician Notes I personally examined the patient and verified all edmond points of history and exam, discussed case, and agree with decision making with Dr Solorzano. Abdominal pain everywhere. She notes the pain is in her pancreas. When asked to point she points to the epigastrium as well a diffuse area around her upper abdomen. Vitals noted, in general she is laying in bed quite still does not appear to be in much distress although she is somewhat anxious and tearful. HEENT normal c ephalic atraumatic mucous membranes moist. Abdomen is soft diffusely tender upper abdomen but no guarding no rebound no rigidity no masses no organomegaly Abdominal painhighly doubt pancreatitis due to nominally elevated lipase that resolved in spite of her pain continuing, essentially nonspecific appearance of the pancreas but certainly would not fit with her extreme pain, and the fact that there is a rather significant amount of stool noted on the CT including a rather distended transverse colon. Constipationthis appears to be the root cause for abdominal painbetween enemas and MiraLAX will work to try to clear her bowels. Appreciate psychiatry input Stable for medical, unfortunately the EMR has an error in being able to transfer her. Otherwise as above Subjective Ms. Gary reports she remains with severe abdominal and back pain. She states she has had this pain for a while, and that it has worsened. She expresses frustration at the fact that her toradol is not working for her pain and wants more pain medication. She states that she saw her doctor yesterday and because she was in so much pain, she made a comment about wanting it all to end. She denies currently being suicidal and states she has never tried to harm herself or had thoughts of harming herself in the past. Constitutional: + fatigue; no fever and no chills Respiratory: + cough Cardiovascular: no chest pain Gastrointestinal: + abdominal pain Physical Exam Vital Signs (Past 24 Hours): Last Vital Signs Temp 37.0 C 07/04/18 07:00 Pulse 67 07/04/18 07:00 Resp 17 07/04/18 07:00 BP 122/91 07/04/18 07:00 Pulse Ox 96 07/04/18 07:00 Constitutional: + disheveled, cooperative and comfortable Respiratory: normal respiratory effort, lungs clear to auscultation + cough Cardiovascular: RRR, no murmur, no edema Gastrointestinal (Abdomen): Inspection/Auscultation: abdomen normal to inspection; abdomen not distended Percussion/Palpation: + abdomen tender (tender to light touch throughout) and abdomen soft; no guarding, abdomen not rigid and abdomen not firm Skin: no rashes, warm and dry Psychiatric: Orientation: alert and oriented x 3 Affect: + tearful affect Resident Activity Tracking Resident Involvement: Resident Care Provided Care Provided: Adult Hospital Medicine (1) Pancreatitis Acute pancreatitis complication: unspecified Chronicity: acute Pancreatitis type: unspecified pancreatitis type Qualified Code(s): K85.90 - Acute pancreatitis without necrosis or infection, unspecified
[2018-07-04] MEDS: INSULIN GLARGINE SOLOSTAR 100 UNITS/ML 3 ML PEN SQ SCH (11:02)
[2018-07-04] MEDS ORDERED: TAP WATER ENEMA PR PRN (14:44)
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
[2018-07-04] MEDS ORDERED: POLYETHYLENE (MIRALAX) 17 GM PACK PO ONE (16:00)
[2018-07-04] MEDS: POLYETHYLENE (MIRALAX) 17 GM PACK PO SCH (16:45)
[2018-07-04] MEDS ORDERED: Nursing to Pharmacy Communication ONE (17:34)
[2018-07-05] MEDS ORDERED: SODIUM CHLORIDE 0.65% NA SOLN 45 ML (OCEAN) STA (00:12)
[2018-07-05] MEDS: POLYETHYLENE (MIRALAX) 17 GM PACK PO SCH ×3 (06:05→11:41)
[2018-07-05] MEDS: KETOROLAC TROMETHAMINE 15 MG/ML VIAL IV PRN ×3 (06:05→17:50)
[2018-07-05] MEDS: SIMETHICONE 80 MG CHEW PO PRN ×3 (06:06→23:00)
[2018-07-05] MEDS: FUROSEMIDE 40 MG TAB PO SCH (08:08)
[2018-07-05] MEDS: CYANOCOBALAMIN 500 MCG TABLET (VITAMIN B-12) PO SCH (08:09)
[2018-07-05] MEDS: NIFEdipine EXTENDED REL 30 MG TABCR PO SCH (08:09)
[2018-07-05] MEDS: POTASSIUM CHLORIDE 20 MEQ TABCR PO SCH ×5 (08:09→22:03)
[2018-07-05] MEDS: LISINOPRIL 20 MG TAB PO SCH ×2 (08:09→21:41)
[2018-07-05] MEDS: DOCUSATE SODIUM 100 MG CAP PO SCH ×2 (08:10→21:48)
[2018-07-05] MEDS: PANTOprazole 40 MG TAB PO SCH ×2 (08:10→17:08)
[2018-07-05] MEDS: ISOSORBIDE MONO EXTENDED REL 60 MG TABCR PO SCH (08:11)
[2018-07-05] MEDS: SPIRONOLACTONE 25 MG TAB PO SCH ×2 (08:11→21:41)
[2018-07-05] MEDS: TOPIRAMATE 100 MG TAB PO SCH ×2 (08:12→21:41)
[2018-07-05] MEDS: CARVEDILOL 25 MG TAB PO SCH ×2 (08:12→21:42)
[2018-07-05] MEDS: METHOCARBAMOL 750 MG TABLET PO SCH ×2 (08:12→21:43)
[2018-07-05] MEDS: SENNA 8.6 MG TAB PO SCH ×3 (08:12→21:42)
[2018-07-05] MEDS: MAGNESIUM OXIDE 400 MG TAB PO SCH (08:12)
[2018-07-05] MEDS: ENOXAPARIN INJ 40 MG/0.4 ML SYR SQ SCH (08:13)
[2018-07-05] MEDS: clonazePAM 1 MG TAB PO SCH ×2 (08:26→21:42)
[2018-07-05] MEDS: INSULIN ASPART 100 UNITS/ML 3 ML PEN SC SCH ×4 (08:51→21:53)
[2018-07-05] MEDS: INSULIN GLARGINE SOLOSTAR 100 UNITS/ML 3 ML PEN SQ SCH (08:52)
--- NOTE | 2018-07-05 10:03 | Neurology Progress Note ---
Date of Service July 05, 2018 Assessment & Plan (1) Acute alteration in mental status: Patient has had a history, over the last month, of uremic encephalopathy. She continued to have altered mental status and encephalopathic issues on admission. Since admission, however, she does not have any actual encephalopathy and is thinking fairly clearly with good orientation. Her thought content is appropriate and she does not have any thought disorder this morning. She is a little less sleepy today than yesterday. I suspect that pancreatitis, chronic pain from her chest and abdomen with cough (she is not sleeping well with her chronic pain), significant anemia and marked hyperglycemia of all contributed to her mental status changes and fatigue. The patient has some variable dysarthria which I believe is more related to her sleepiness/fatigue than a stroke/brain lesion (2) Migraines: Patient has a history of longstanding, intermittent, and more recently chronic, near daily migraine headaches. Coughing is making these headaches worse this hospitalization. She has tried and failed a number of medications to take as needed for acute headaches as well as daily medication for headache prophylaxis. Currently she is on topiramate 200 milligrams twice daily which has some help. Rizatriptan as needed can help as well. As an outpatient, Ajovy was considered but she did not want monthly injection. (3) Seizure disorder: Patient has a history of seizures but I believe these are more likely related to her psychiatric conditions especially explosive personality disorder. Stress and anger outbursts lead to events which are called seizures but may be pseudoseizures or other phenomenon. Nevertheless, she has been treated with an anticonvulsant, topiramate 200 milligrams twice daily. She has not had any seizure activity in the hospital. (4) Diabetic polyneuropathy: Patient has a longstanding history of diabetes which is not adequately controlled (glucose of 397 on admission with a hemoglobin A1c of 9.9) She has a generalized polyneuropathy involving predominantly sensory fibers which is likely due to her diabetes. (5) Explosive personality disorder: Patient has multiple psychiatric issues including anxiety, bipolar disorder (diagnosed in the past) panic disorder and explosive personality di sorder. She is followed by Dr. Bartlett in [place] and is currently only on clonazepam. She has tried and failed a number of different medications in the past. She is currently stable with her psychiatric conditions. Recommendations: 1. I see no need for additional neurologic testing or treatment changes at this time. 2. Consider IV Toradol for pain control. Avoid narcotics if possible. Also, we are avoiding gabapentin and Lyrica because of her history of renal issues. These could be discussed with nephrology to see if they could be used for chronic pain. These also may help headaches. These could be initiated as an outpatient as well. 3. Continue topiramate 200 milligrams twice daily for headache prophylaxis. This is also helping to prevent seizures, if she actually has them. She does have a history of nephrolithiasis but she is not having active renal stone pain. On topiramate, she should remain is hydrated is possible. 4. Although Dr. Villa wanted an MRI of the brain back in April of this year, I do not believe the patient would be able to a hold still enough for this test and we can always revisit this is an outpatient. 5. I see no need for EEG at this time. 6. Consider Ajovy, monthly injection for headache prophylaxis, as an outpatient. If this helps, we could discontinue topiramate. Overall, I spent a total 25 minutes with this case including review of records, direct evaluation the patient at bedside, and discussion of the case with the patient, clinical staff, and Dr. Elizabeth, including differential diagnosis and treatment options. Subjective Her headaches are pretty much the same as yesterday. These are made worse by her coughing which is been frequent also. She has chest and abdominal pain like before. She is very blocked up and has not been able to have bowel movements. Constipation has not improved with MiraLax. Blood pressure is 119/82 and glucose 239. Physical Exam Vital Signs (Past 24 Hours): Last Vital Signs Temp 36.3 C L 07/05/18 07:13 Pulse 69 07/05/18 07:13 Resp 18 07/05/18 07:13 BP 119/82 07/05/18 07:13 Pulse Ox 98 07/05/18 07:13 Physical Exam: She is sleepy but easily arousable with voice and gentle shaking. She is alert and oriented once woken and can follow commands well. Her speech is slightly dysarthric as before. Extraocular eye muscles are intact without nystagmus. There is no facial droop. She moves all 4 limbs equally well as before. Her no tremors.
[2018-07-05] MEDS: POLYETHYLENE (MIRALAX) 17 GM PACK PO PRN ×2 (11:42→14:23)
--- NOTE | 2018-07-05 14:21 | Family Medicine Progress Note ---
Date of Service July 05, 2018 Assessment & Plan (1) Chest pain: 43-year-old female was admitted on 03 July 2018 for progressive chest and mid scapular back pain. Chest pain: PMH HTN, HLD, CAD s/p single-vessel stent in 2012. Her chest discomfort is likely related to significant constipation. Troponin negative and EKG without acute ST changes. - Continuing home Imdur, clonidine, Coreg, Lipitor, nifedipine, Lasix, lisinopril, and spironolactone. Abdominal pain, chronic constipation: Ongoing mild epigastric tenderness. Lipase 453 and alk phos 122 (both trended down) suggest against acute pancreatitis. CT a/p suggestive of large stool burden. Given IVF bolus and maintenance rate. Her abdominal discomfort may be more related to stool burden rather than acute pancreatitis. 04Apr BCx pending. - Toradol and Tylenol both as needed for pain. Goal to avoid narcotics. - Working towards more aggressive colon cleanout. Planned / ongoing Colace, sennosides, MiraLAX, as well as enemas. Concern for AMS: Postictal vs metabolic vs toxic encephalopathy. Recent history of uremic encephalopathy. Neurology consulted, see related notes. Her dysarthria was thought to be due to fatigue. Her history of seizure disorders was thought to be more related to psychiatric conditions but remains on Topamax twice daily. Did not recommend any further imaging or EEG at this time. Elevated creatinine: Admit Cr 1.3 (baseline around 1.1). Resolved s/p IVF. Monitoring. Hyperglycemia, DM 2: Initial BS 397 without evidence of DKA. Received NovoLog. HbA1c was 7.9. At home is on Humalog and Basaglar. - Continued here on Lantus as well as sliding scale insulin. Anemia: Admit Hb 9.7, down from recent 10s. Normal MCV. No evidence of acute bleeding. Monitoring. Bipolar disorder, panic disorder, depression, anxiety, explosive personality disorder: Seen in this admission by psychiatry due to reported suicidal statements. See related notes. Did not recommend initiation of new medications. Per their account, patient does not appear to be at acute risk for harm to self or others. - Continue home imipramine, clonazepam, clonidine. Ongoing medical issues: - Migraines: Continue home topiramate and Rizatriptan as needed. Per neurology, could consider outpatient Ajovy. - COPD: Continue home ipratropium/albuterol as needed. Continue guaifenesin. - GERD, PMH GI bleed: Continue home ranitidine, Pepcid, and Protonix. - Hepatitis C, Nonalcoholic fatty liver disease. - Left adrenal nodule/adenoma as well as right-sided nephrolithiasis: Seen on CT a/p. - S/p right VATS with right upper lobe wedge resection for pulmonary nodules. See repeat [id number] CT chest report. - Left leg DVT in 1997 s/p bilateral fasciotomy. Code status: Full code. Diet: Heart healthy, DM 2. DVT prophy: Lovenox. PT/OT: Deferred. Disbo: Admitted to PCU telemetry. (2) Abdominal pain: (3) Chronic constipation: (4) Acute alteration in mental status: (5) Elevated serum creatinine: (6) Hyperglycemia due to type 2 diabetes mellitus: (7) Anemia: (8) Bipolar disorder: (9) Panic disorder: (10) Depression: (11) Anxiety: (12) Explosive personality disorder: (13) Migraines: (14) Chronic obstructive pulmonary disease: (15) GERD (gastroesophageal reflux disease): (16) Left adrenal mass: (17) Nephrolithiasis: Supervising Physician Co-Signing Physician Notes I personally examined the patient and verified all edmond points of history and exam, discussed case, and agree with decision making with Dr Pruitt feeling about the same - but no BM yet. vitals noted nad breathing unlabored walking in room. no focal neuro deficits no pallor or icterus chest/abdominal pain - appearing to be due to severe constipation -d/w nursing to follow through on regimen otherwise as above Subjective Found patient sitting at side of her bed earlier this morning having eaten some of her breakfast. Initially, she recounted her current bowel regimen and does not seem to have worked for her. When asked again, patient states that her abdominal pain overall was improved compared to last night but that her chest feels about the same. She says "I can eat" which seems to be an improvement for her. She denies any further thoughts of hurting herself, stating it was primarily frustration with some ongoing pain. Otherwise, she denies any acute concerns. Physical Exam Vital Signs (Past 24 Hours): Last Vital Signs Temp 36.3 C L 07/05/18 07:13 Pulse 69 07/05/18 07:13 Resp 18 07/05/18 07:13 BP 119/82 07/05/18 07:13 Pulse Ox 98 07/05/18 07:13 Physical Exam: General Appearance: Awake, alert & oriented, comfortable in general, NAD. CV: +S1S2 RRR, no murmur. Pulm: Clear to auscultation throughout. Abdomen: +BS, soft, mildly tender epigastrically and in the right upper quadrant, non-distended. Extremities: No pedal edema or calf tenderness. Moving all extremities naturally and easily. Neuro: No gross neuro deficits. Ambulates without difficulty. Skin: There is a circular abrasion-like wound in the right upper quadrant that appears as if the scab has been removed. There is no present drainage, noted tenderness, or surrounding erythema. Results & Data Laboratory Results 07/05/18 07/05/18 07/04/18 Range/Units 11:38 07:35 20:04 POC Glucose 223 H 239 H 216 H (70-99) 07/04/18 Range/Units 17:58 POC Glucose 159 H (70-99) Medications Administered Current Inpatient Medications Acetaminophen (Tylenol) 650 mg PO Q4H PRN PRN Reason: Pain or Fever Stop: 08/02/18 23:00 Last Admin: 07/04/18 00:26 Dose: 650 mg Documented by: Albuterol (Duoneb) 3 ml INH Q4H PRN PRN Reason: Shortness Of Breath Or Wheezing Stop: 08/02/18 23:00 Albuterol (Ventolin Hfa) 2 puffs INH Q4H PRN PRN Reason: Shortness Of Breath Or Wheezing Stop: 08/02/18 23:00 Atorvastatin Calcium (Lipitor) 40 mg PO HS [facility] Stop: 08/02/18 23:00 Last Admin: 07/04/18 20:17 Dose: 40 mg Documented by: Carvedilol (Coreg) 25 mg PO BID [facility] Stop: 08/02/18 23:00 Last Admin: 07/05/18 08:12 Dose: 25 mg Documented by: Clonazepam (Klonopin) 1 mg PO BID [facility] Stop: 08/02/18 23:00 Last Admin: 07/05/18 08:26 Dose: 1 mg Documented by: Clonidine HCl (Catapress) 0.6 mg PO TID [facility] Stop: 08/02/18 23:00 Last Admin: 07/05/18 08:10 Dose: 0.6 mg Documented by: Cyanocobalamin (Vitamin B-12) 1,000 mcg PO QAM [facility] Stop: 08/04/18 08:59 Last Admin: 07/05/18 08:09 Dose: 1,000 mcg Documented by: Dextrose (Dextrose 50%) 25 - 50 ml IV UD PRN; Protocol PRN Reason: Hypoglycemia Protocol Stop: 08/02/18 23:44 Docusate Sodium (Colace) 200 mg PO BID [facility] Stop: 08/02/18 23:00 Last Admin: 07/05/18 08:10 Dose: 200 mg Documented by: Enoxaparin Sodium (Lovenox) 40 mg SQ Q24H [facility] Stop: 08/03/18 08:59 Last Admin: 07/05/18 08:13 Dose: 40 mg Documented by: Famotidine (Pepcid) 40 mg PO HS [facility] Stop: 08/02/18 23:00 Last Admin: 07/04/18 20:20 Dose: 40 mg Documented by: Furosemide (Lasix) 40 mg PO DAILY [facility] Stop: 08/03/18 08:59 Last Admin: 07/05/18 08:08 Dose: 40 mg Documented by: Glucagon (Glucagen) 1 mg SQ UD PRN; Protocol PRN Reason: Hypoglycemia Protocol Stop: 08/02/18 23:44 Glucose (Glucose 40%) 15 - 30 gm PO UD PRN; Protocol PRN Reason: Hypoglycemia Protocol Stop: 08/02/18 23:44 Glucose (Dex4 Glucose) 4 - 8 tabs PO UD PRN; Protocol PRN Reason: Hypoglycemia Protocol Stop: 08/02/18 23:44 Guaifenesin (Organidin Nr) 400 mg PO Q4H PRN PRN Reason: Congestion Last Admin: 07/05/18 08:10 Dose: 400 mg Documented by: Imipramine HCl (Tofranil) 200 mg PO HS [facility] Stop: 08/02/18 23:00 Last Admin: 07/04/18 20:18 Dose: 200 mg Documented by: Insulin Aspart (Novolog Flexpen) 0 units SC ACHS [facility] Stop: 08/03/18 18:14 Last Admin: 07/05/18 12:52 Dose: 10 units Documented by: Insulin Glargine (Lantus Solostar Pen) 42 units SQ QAM [facility] Stop: 08/03/18 08:59 Last Admin: 07/05/18 08:52 Dose: 42 units Documented by: Isosorbide Mononitrate (Imdur Extended Rel) 60 mg PO QAM [facility] Stop: 08/03/18 08:59 Last Admin: 07/05/18 08:11 Dose: 60 mg Documented by: Ketorolac Tromethamine (Toradol) 15 mg IV Q6H PRN PRN Reason: Pain Stop: 07/08/18 23:00 Last Admin: 07/05/18 12:08 Dose: 15 mg Documented by: Lisinopril (Zestril) 20 mg PO BID [facility] Stop: 08/02/18 23:00 Last Admin: 07/05/18 08:09 Dose: 20 mg Documented by: Loratadine (Claritin) 10 mg PO DAILY PRN PRN Reason: Allergic Symptoms Stop: 08/02/18 23:00 Last Admin: 07/05/18 08:11 Dose: 10 mg Documented by: Magnesium Oxide (Mag-Ox) 400 mg PO DAILY [facility] Stop: 08/03/18 08:59 Last Admin: 07/05/18 08:12 Dose: 400 mg Documented by: Methocarbamol (Robaxin) 750 mg PO BID [facility] Stop: 08/02/18 23:00 Last Admin: 07/05/18 08:12 Dose: 750 mg Documented by: Miscellaneous (Carbohydrates For Hypoglycemia) 15 - 30 gm PO UD PRN PRN Reason: Hypoglycemia Treatment Stop: 08/02/18 23:44 Miscellaneous (Tap Water Enema) 1 ea ID TID PRN; Protocol PRN Reason: constipation Stop: 08/03/18 20:59 Nifedipine ([facility]cardia Xl) [facility] Stop: 08/03/18 08:59 Last Admin: 07/05/18 08:09 Dose: 90 mg Documented by: Nitroglycerin (Nitrostat) 0.4 mg SL UD PRN PRN Reason: Chest Pain Stop: 08/02/18 23:00 Nitroglycerin (Nitro-Bid 2%) 0.5 inch EXT Q6H PRN PRN Reason: Chest Pain Stop: 08/02/18 23:00 Ondansetron HCl (Zofran) 4 mg IV Q6H PRN PRN Reason: Nausea Stop: 08/02/18 23:00 Pantoprazole Sodium (Protonix) 40 mg PO BIDM [facility] Stop: 08/02/18 23:00 Last Admin: 07/05/18 08:10 Dose: 40 mg Documented by: Polyethylene Glycol (Miralax Powder Packet) 17 gm PO DAILY PRN PRN Reason: Constipation Stop: 08/02/18 23:00 Polyethylene Glycol (Miralax Powder Packet) 17 gm PO DAILY [facility] Stop: 08/03/18 14:44 Last Admin: 07/05/18 11:41 Dose: 17 gm Documented by: Polyethylene Glycol (Miralax Powder Packet) 17 gm PO Q1H PRN PRN Reason: Constipation Stop: 08/03/18 14:46 Last Admin: 07/05/18 11:42 Dose: 17 gm Documented by: Potassium Chloride (Klor-Con M20) 20 meq PO QID [facility] Stop: 08/02/18 23:00 Last Admin: 07/05/18 13:01 Dose: Not Given Documented by: Ranitidine HCl (Zantac) 300 mg PO AMHS [facility] Stop: 08/02/18 23:00 Last Admin: 07/05/18 08:12 Dose: 300 mg Documented by: Rizatriptan Benzoate (Maxalt) 10 mg PO UD PRN PRN Reason: Migraine Headache Stop: 08/02/18 23:00 Sennosides (Senokot) 17.2 mg PO TID [facility] Stop: 08/02/18 23:00 Last Admin: 07/05/18 08:12 Dose: 17.2 mg Documented by: Simethicone (Mylicon) 80 mg PO Q6H PRN PRN Reason: gas pain Stop: 08/03/18 14:43 Last Admin: 07/05/18 08:08 Dose: 80 mg Documented by: Spironolactone (Aldactone) 25 mg PO BID [facility] Stop: 08/02/18 23:00 Last Admin: 07/05/18 08:11 Dose: 25 mg Documented by: Topiramate (Topamax) 200 mg PO BID [facility] Stop: 08/02/18 23:00 Last Admin: 07/05/18 08:12 Dose: 200 mg Documented by: Resident Activity Tracking Resident Involvement: Resident Care Provided Care Provided: Adult [facility] Medicine (1) Chest pain Chest pain type: unspecified Qualified Code(s): R07.9 - Chest pain, unspecified
[2018-07-05] MEDS: ACETAMINOPHEN 325 MG TAB PO PRN (17:06)
[2018-07-05] MEDS ORDERED: KETOROLAC TROMETHAMINE 15 MG/ML VIAL IV ONE (20:45)
[2018-07-05] MEDS: IMIPRAMINE HCL 50 MG TAB PO SCH (21:41)
[2018-07-05] MEDS: ATORVASTATIN 40 MG TAB PO SCH (21:42)
[2018-07-05] MEDS: FAMOTIDINE 20 MG TAB PO SCH (21:42)
[2018-07-06] MEDS: POLYETHYLENE (MIRALAX) 17 GM PACK PO PRN (03:35)
[2018-07-06] MEDS: KETOROLAC TROMETHAMINE 15 MG/ML VIAL IV PRN ×4 (03:37→17:05)
[2018-07-06 06:11] LABS: Basophils # (auto) 0.01 K/uL (0-0.2); Basophils % (auto) 0.2 %; Eosinophils # (auto) 0.09 K/uL (0-0.5); Eosinophils % (auto) 1.5 %; Hematocrit (blood only) 31.6 % (37-47); Hemoglobin 10.4 g/dL (12.0-16.0); Immature Granulocytes # (auto) 0.01 K/uL (0.00-0.02); Immature Granulocytes % (auto) 0.2 %; Lymphocytes % (auto) 29.2 %; Mean Corpuscular Hgb Conc 32.9 g/dL (32-36); Mean Corpuscular Volume 88.8 fL (80-100); Mean Platelet Volume 10.2 fL (7.4-10.4); Monocytes # (auto) 0.36 K/uL (0.11-0.59); Monocytes % (auto) 6.2 %; Neutrophils # (auto) 3.65 K/uL (1.4-6.5); Neutrophils % (auto) 62.7 %; Platelet Count 223 K/uL (130-400); RDW Coefficient of Variation 14.2 % (11.5-14.5); RDW Standard Deviation 46.3 fL (36.4-46.3); Red Blood Count 3.56 M/uL (4.2-5.4); White Blood Count 5.82 K/uL (4.8-10.8)
[2018-07-06 06:27] LABS: Calcium 8.1 mg/dl (8.5-10.1); Creatinine Clr Calc Pharmacy 62.5 ml/min; Est GFR (African American) 52.3; Est GFR (Non-African American) 45.1
[2018-07-06 06:37] LABS: Beta-Hydroxybutyrate 0.7 mg/dl (0.2-2.81)
[2018-07-06] MEDS: PANTOprazole 40 MG TAB PO SCH ×2 (08:26→17:05)
[2018-07-06] MEDS: METHOCARBAMOL 750 MG TABLET PO SCH (08:27)
[2018-07-06] MEDS: CARVEDILOL 25 MG TAB PO SCH (08:27)
[2018-07-06] MEDS: POTASSIUM CHLORIDE 20 MEQ TABCR PO SCH ×4 (08:27→17:05)
[2018-07-06] MEDS: FUROSEMIDE 40 MG TAB PO SCH (08:27)
[2018-07-06] MEDS: CYANOCOBALAMIN 500 MCG TABLET (VITAMIN B-12) PO SCH (08:27)
[2018-07-06] MEDS: TOPIRAMATE 100 MG TAB PO SCH (08:28)
[2018-07-06] MEDS: NIFEdipine EXTENDED REL 30 MG TABCR PO SCH (08:28)
[2018-07-06] MEDS: MAGNESIUM OXIDE 400 MG TAB PO SCH (08:28)
[2018-07-06] MEDS: SPIRONOLACTONE 25 MG TAB PO SCH (08:29)
[2018-07-06] MEDS: SENNA 8.6 MG TAB PO SCH ×2 (08:29→13:17)
[2018-07-06] MEDS: ISOSORBIDE MONO EXTENDED REL 60 MG TABCR PO SCH (08:29)
[2018-07-06] MEDS: ENOXAPARIN INJ 40 MG/0.4 ML SYR SQ SCH (08:30)
[2018-07-06] MEDS: LISINOPRIL 20 MG TAB PO SCH (08:30)
[2018-07-06] MEDS: SIMETHICONE 80 MG CHEW PO PRN ×2 (08:31→15:34)
[2018-07-06] MEDS: clonazePAM 1 MG TAB PO SCH (08:36)
[2018-07-06] MEDS: INSULIN ASPART 100 UNITS/ML 3 ML PEN SC SCH ×3 (09:18→17:08)
[2018-07-06] MEDS: INSULIN GLARGINE SOLOSTAR 100 UNITS/ML 3 ML PEN SQ SCH (09:19)
[2018-07-06] MEDS: DOCUSATE SODIUM 100 MG CAP PO SCH (09:30)
[2018-07-06] MEDS ORDERED: SODIUM CHLORIDE 0.9% 1000ML 1,000 ML IV ONE (10:34)
--- NOTE | 2018-07-06 13:20 | Discharge Summary ---
Date of Service July 06, 2018 Admission HPI Per Admitting Provider 43yoF with hx of HTN, HLD, CAD s/p stent x 1 in 2012, DVT in 1997 L leg, COPD, DM2, chronic chest pain, Fatty liver disease (non-alcoholic), hx of pancreatitis, GERD, hx of GI bleed, melanosis coli, chronic back pain, ?seizure disoder, panic disorder, depression/anxiety, explosive personality disorder presents with chest pain x 2 months which has been worsening over the last week. Per ED records, she was seeing pulmonology today, Adri HAWLEY who was concerned about chest pain history and sent her to the ED. Adri also filled a 302 petition as pt reported having SI. Pt denies SI/HI when examined and reports probably being in a lot of pain when she initially said that. Per patient, cp substernal x 2 months but worse over the last week. Described as 9/10 occasionally and sharp but sometimes not as bad. She reports having similar pain when she had pancreatitis in the past. A/w back pain (mid-scapular), nasuea, vomiting, decreased appetite, weight loss, feeling hot, chills, cough, abdominal pain (when she gets gas in her abdomen), chronic constipation (last BM 2 days ago soft after taking bowel regimen, non-bloody and not dark), sob. Denies any fever, PAYTON/dizziness, melena, hematochezia, dysuria, hematuria. Psychiatric hx: per pt has been treated for psychiatric conditions since age 10, she reports having violent tendencies and then passing out, now being treated by Dr. Bartlett in [place]. She is not working and on disability. Admission Exam Per Admitting Provider General: In NAD Neuro: A&O x 4, awake through out history and exam and able to provide history CV: RRR, no m/r/g Pulm: CTAB, equal breath sounds bilaterally, on RA GI: +BS, non-distended, mildly TTP in epigastric, LUQ and LLQ regions extremities: no calf tenderness, 1+ LE edema, L knee and edwards scars from previous surgeries (muscle clot removal and patella surgery per pt), healed scars/wounds on bilateral dorsal feet Principal Diagnosis Abdominal pain, constipation Discharge Exam General Appearance: Awake, alert & oriented, comfortable in general, NAD. CV: +S1S2 RRR, no murmur. Pulm: Clear to auscultation throughout. Abdomen: +BS, soft, mildly tender epigastrically and in the right upper quadrant, non-distended. Extremities: No pedal edema or calf tenderness. Moving all extremities naturally and easily. Neuro: No gross neuro deficits. Ambulates without difficulty. Skin: There is a circular abrasion-like wound in the right upper quadrant that appears as if the scab has been removed. There is no present drainage, noted tenderness, or surrounding erythema. Discharge Data Allergies Allergy/AdvReac Type Severity Reaction Status Date / Time Penicillins Allergy Intermediate HIVES AND Verified 07/03/18 16:00 PASSES OUT sertraline Allergy Intermediate HIVES AND Verified 07/03/18 16:00 PASSES OUT trazodone Allergy Intermediate IRRITATES Verified 07/03/18 16:00 NEUROPATHY AND HIVES valproic acid Allergy Intermediate HIVES, Verified 07/03/18 16:00 DIZZINESS, SLURRING SPEECH buspirone Allergy Mild RASH Verified 07/03/18 16:00 acetaminophen [From Percocet] Allergy Unknown Unknown Verified 07/03/18 16:00 ibuprofen Allergy Unknown Unknown Verified 07/03/18 16:00 lamotrigine [From Lamictal] Allergy Unknown Unknown Verified 07/03/18 16:00 mirtazapine [From Remeron] Allergy Unknown Unknown Verified 07/03/18 16:00 oxycodone [From Percocet] Allergy Unknown Unknown Verified 07/03/18 16:00 phenytoin [From Dilantin] Allergy Unknown Unknown Verified 07/03/18 16:00 quetiapine [From Seroquel] Allergy Unknown Unknown Verified 07/03/18 16:00 Consultations Psychiatry consultation impression and recommendations on 04 July 2018 - 43-year-old female admitted medically due to reports of worsening chest pain, made to outpatient pulmonary provider. In the setting of severe pain, the patient was reported to have made suicidal statements voicing a desire to kill herself because of the level of pain. The patient reports to this provider that she had no plan or intent of actually following through with the statements at the time they were made. She adamantly and convincingly denies any suicidality, homicidality, and other safety concerns at this time. The patient is able to contract for safety, and has several established outpatient psychiatric supports. She reports plan to speak with her outpatient psychiatrist about her treatment goals, but states she has been doing well in regard to mood for the past decade. Given the severity of her current medical condition and reported mood stability, would not recommend initiation of new psychiatric medications at this time. Patient has an extensive history of previous medication trials, many of which are listed as allergies. Any anticipated changes would likely be best pursued in an outpatient setting, with a provider who is more familiar with her treatment needs and previous psychiatric history. Patient also reports that she is not interested in psychiatric medication changes during this acute hospitalization. Despite previous inpatient hospitalizations, the patient denies any previous suicide attempts. At time of interview the patient does not appear to be at acute risk of harm to herself or others. She does not meet criteria for inpatient psychiatric treatment, and appears appropriate for discharge according to primary medical team. We appreciate the opportunity to participate in the care of this patient. - Dr. Sourav Williamson was directly involved in review and discussion of the patient's case and participated in medical decision making regarding treatment recommendations. Neurology progress note assessment and plan on 05 July 2018 (1) Acute alteration in mental status: Patient has had a history, over the last month, of uremic encephalopathy. She continued to have altered mental status and encephalopathic issues on admission. - Since admission, however, she does not have any actual encephalopathy and is thinking fairly clearly with good orientation. Her thought content is appropriate and she does not have any thought disorder this morning. She is a little less sleepy today than yesterday. - I suspect that pancreatitis, chronic pain from her chest and abdomen with cough (she is not sleeping well with her chronic pain), significant anemia and marked hyperglycemia of all contributed to her mental status changes and fatigue. - The patient has some variable dysarthria which I believe is more related to her sleepiness/fatigue than a stroke/brain lesion (2) Migraines: Patient has a history of longstanding, intermittent, and more recently chronic, near daily migraine headaches. Coughing is making these headaches w orse this hospitalization. - She has tried and failed a number of medications to take as needed for acute headaches as well as daily medication for headache prophylaxis. Currently she is on topiramate 200 milligrams twice daily which has some help. Rizatriptan as needed can help as well. As an outpatient, Ajovy was considered but she did not want monthly injection. (3) Seizure disorder: Patient has a history of seizures but I believe these are more likely related to her psychiatric conditions especially explosive personality disorder. Stress and anger outbursts lead to events which are called seizures but may be pseudoseizures or other phenomenon. Nevertheless, she has been treated with an anticonvulsant, topiramate 200 milligrams twice daily. She has not had any seizure activity in the hospital. (4) Diabetic polyneuropathy: Patient has a longstanding history of diabetes which is not adequately controlled (glucose of 397 on admission with a hemoglobin A1c of 9.9) She has a generalized polyneuropathy involving predominantly sensory fibers which is likely due to her diabetes. (5) Explosive personality disorder: Patient has multiple psychiatric issues including anxiety, bipolar disorder (diagnosed in the past) panic disorder and explosive personality disorder. She is followed by Dr. Bartlett in [place] and is currently only on clonazepam. She has tried and failed a number of different medications in the past. She is currently stable with her psychiatric conditions. Recommendations: 1. I see no need for additional neurologic testing or treatment changes at this time. 2. Consider IV Toradol for pain control. Avoid narcotics if possible. Also, we are avoiding gabapentin and Lyrica because of her history of renal issues. These could be discussed with nephrology to see if they could be used for chronic pain. These also may help headaches. These could be initiated as an outpatient as well. 3. Continue topiramate 200 milligrams twice daily for headache prophylaxis. This is also helping to prevent seizures, if she actually has them. She does have a history of nephrolithiasis but she is not having active renal stone pain. On topiramate, she should remain is hydrated is possible. 4. Although Dr. Villa wanted an MRI of the brain back in April of this year, I do not believe the patient would be able to a hold still enough for this test and we can always revisit this is an outpatient. 5. I see no need for EEG at this time. 6. Consider Ajovy, monthly injection for headache prophylaxis, as an outpatient. If this helps, we could discontinue topiramate. Ordered Studies CT of the head without contrast on 03 July 2018 IMPRESSION: Mildly motion degraded exam without acute intracranial abnormality CT of the chest without contrast on 03 July 2018 IMPRESSION: 1. No acute intrathoracic abnormality identified. 2. Bibasilar opacities suggest probable atelectasis. 3. Postoperative changes from prior right upper lobe wedge resection. 4. Unchanged 9 x 6 mm solid nodule of the right upper lobe. Decreased size and number of the solid pulmonary nodules of the superior segment left lower lobe suggestive of a resolving infectious or inflammatory pneumonitis. 5. Coronary arterial calcifications. CT of the abdomen and pelvis without contrast on 03 July 2018 IMPRESSION: 1. Slight indistinctness of the fat planes adjacent to the pancreatic head. This may reflect acute pancreatitis. No peripancreatic fluid collection. 2. Stable left adrenal nodule which favors an adenoma. 3. Right sided nephrolithiasis. No ureteral calculi. 4. Large amount of stool within the colon. No evidence for a bowel obstruction. Normal appendix. Hospital Course (1) Chest pain: 43-year-old female was admitted on 03 July 2018 for progressive chest and mid scapular back pain. Chest pain vs epigastric pain, chronic constipation: PMH HTN, HLD, CAD s/p single-vessel stent in 2012. Troponin negative and EKG without acute ST changes. Do not suspect an acute cardiac process. Ongoing mild epigastric tenderness. Labs, overall CT a/p, and lack of progression of pain suggest against acute pancreatitis. Provided IVF. CT a/p suggests significant constipation which we suspect is the majority of her pain. She was maintained on her home bowel regimen as well as provided enemas which resulted in multiple bowel movements but not necessarily symptomatic improvement. Some of this may be psychiatrically related, though her discomfort cannot be completely attributed to that. - Continuing home Imdur, clonidine, Coreg, Lipitor, nifedipine, Lasix, lisinopril, and spironolactone. - Continuing Colace, sennosides, as well as recommended she try increasing home doses of MiraLAX to prevent similar constipation. - Overall goal remains to avoid narcotics for pain control. She stated repeatedly that Toradol did not help with her pain. Tylenol remains her only as needed option. - Beyond constipation, other gastrointestinal sources may be the cause of her pain to include esophageal stricture, stomach or duodenal ulcer, or other local GI disease. Patient states that she has a pending appointment with Dr. Bailey (gastroenterology) for this upcoming week. Here in the hospital, we requested confirmation of this appointment and assistance in making one if not currently done. Concern for AMS: Postictal vs metabolic vs toxic encephalopathy. Recent history of uremic encephalopathy. Neurology consulted, see related notes. Her dysarthria was thought to be due to fatigue. Her history of seizure disorders was thought to be more related to psychiatric conditions but remains on Topamax twice daily. Did not recommend any further imaging or EEG at this time. Elevated creatinine: Admit Cr 1.3 (baseline around 1.1). This briefly worsened to 1.42 after significant use of MiraLAX and enemas, likely related to some mild dehydration. She was rehydrated and her creatinine remained stable (1.38) at time of discharge. - Encouraged her to keep up with good hydration. She may benefit from an interval BMP check to look for resolution. Hyperglycemia, DM 2: Initial BS 397 without evidence of DKA. Received NovoLog. HbA1c was 7.9. At home is on Humalog and Basaglar. As inpatient was on Lantus as well as sliding scale insulin. Anemia: Admit Hb 9.7, down from recent 10s. Normal MCV. No evidence of acute bleeding. Bipolar disorder, panic disorder, depression, anxiety, explosive personality disorder: Seen in this admission by psychiatry due to reported suicidal statements. See related notes. Did not recommend initiation of new medications. Per their account, patient does not appear to be at acute risk for harm to self or others. Continue home imipramine, clonazepam, and clonidine. Ongoing medical issues: - Migraines: Continue home topiramate and Rizatriptan as needed. Per neurology, could consider outpatient Ajovy. - COPD: Continue home ipratropium/albuterol as needed. Continue guaifenesin. - GERD, PMH GI bleed: Continue home ranitidine, Pepcid, and Protonix. - Hepatitis C, Nonalcoholic fatty liver disease. - Left adrenal nodule/adenoma as well as right-sided nephrolithiasis: Seen on CT a/p. - S/p right VATS with right upper lobe wedge resection for pulmonary nodules. See repeat 03Jul2018 CT chest report. - Left leg DVT in 1997 s/p bilateral fasciotomy. (2) Abdominal pain: (3) Chronic constipation: (4) Acute alteration in mental status: (5) Elevated serum creatinine: (6) Hyperglycemia due to type 2 diabetes mellitus: (7) Anemia: (8) Bipolar disorder: (9) Panic disorder: (10) Depression: (11) Anxiety: (12) Explosive personality disorder: (13) Migraines: (14) Chronic obstructive pulmonary disease: (15) GERD (gastroesophageal reflux disease): (16) Left adrenal mass: (17) Nephrolithiasis: Total Time Total Time Spent Total Time Spent (In Minutes): < 30 min Discharge Plan Discharge Items Patient Disposition: Home - Self-Care Reason For Visit: PANCREATITIS Discharge Diagnosis: Abdominal pain, constipation Discharge Goals: Decrease discomfort and Learn about illness Activity: Per 'Additional Instructions' section Non-emergency contact: Primary Care Provider, Retail Salesworker and Psychiatrist Call non-emergency contact if: you have any medication questions Follow-up/Referrals: Benjamin Yepez [Primary Care Provider] - Diet: Heart Healthy Addtl Provider Instructions: You were admitted to the hospital on July 03, 2018 for chest and upper abdominal pain. While in the hospital we evaluated the following issues: Chest and abdominal pain, chronic constipation: After initial lab tests and CT scans of both your chest and abdomen, the most notable finding was quite a bit of constipation. This could be the single cause for all of your discomfort. We were able to help resolve a lot of your constipation with MiraLAX and enemas here. It does not look like you had a case of acute pancreatitis on this admission. - It remains quite important that you keep up with her bowel regimen and consider using more MiraLAX at home to prevent this level of constipation from returning. - Please follow-up with Dr. Bailey (the drip molder) as you discussed here in the next week or so for ongoing care of your intestines and further evaluation as needed. Elevated creatinine: While in the hospital, as part of routine lab tests, we noticed that at times your kidneys were not working perfectly. This seemed to improve a bit when you received more fluids. Thus it is quite important that you maintain good hydration as best as possible at all times. Please follow-up with your doctor for ongoing monitoring. Statements of self-harm: As we discussed, anytime that you make any statements regarding wanting to harm or kill yourself, people will take this sort of statement very seriously. We understand that it is difficult to control your pain at times. However, if you do ever have feelings of wanting to hurt yourself it is very important that you tell someone so that you can get further help. - It also remains very important that you follow-up with your psychiatric doctor for ongoing care and related medicine management. Overall, you should be on the same chronic medications that you were on prior to this hospitalization. As discussed above, please follow-up with your drip molder, your psychiatrist, as well as your primary care provider as soon as possible for excellent post-hospital continuity of care. Please return to the nearest emergency department if you find that your pain is once again uncontrolled, you have any vomiting, fever, or with any other emergent concerns. Prescriptions: Continued nitroglycerin 2 % Ointment 1 dose TRANSDERMAL UD PRN (Reason: Chest Pain) RF: 0 metformin 1,000 mg Tablet 1,000 mg PO BID RF: 0 sennosides [senna] 8.6 mg tablet 17.2 mg PO TID RF: 0 ranitidine HCl 300 mg tablet 300 mg PO AMHS RF: 0 ondansetron HCl 4 mg tablet 4 mg PO TID PRN (Reason: Nausea And Vomiting) RF: 0 imipramine pamoate 100 mg capsule 200 mg PO HS RF: 0 magnesium oxide 400 mg (241.3 mg magnesium) tablet 400 mg PO DAILY RF: 0 methocarbamol 750 mg tablet 750 mg PO BID RF: 0 topiramate 200 mg tablet 200 mg PO BID RF: 0 albuterol sulfate [Ventolin HFA] 90 mcg/actuation HFA aerosol inhaler 2 puff inhalation Q4H PRN (Reason: Shortness Of Breath Or Wheezing) RF: 0 loratadine 10 mg Tablet 10 mg PO DAILY PRN (Reason: Allergy Symptoms) RF: 0 guaifenesin [Mucus Relief] 400 mg tablet 400 mg PO Q4H PRN (Reason: Congestion) RF: 0 furosemide 40 mg Tablet 40 mg PO DAILY RF: 0 lisinopril 20 mg Tablet 20 mg PO BID RF: 0 spironolactone 25 mg Tablet 25 mg PO BID RF: 0 atorvastatin [Lipitor] 40 mg Tablet 40 mg PO HS RF: 0 carvedilol 25 mg Tablet 25 mg PO BID RF: 0 ipratropium-albuterol 0.5 mg-3 mg(2.5 mg base)/3 mL Solution For Nebulization 3 ml INHALATION Q4H PRN (Reason: Shortness Of Breath Or Wheezing) RF: 0 nifedipine 90 mg Tablet Extended Release 90 mg PO QAM RF: 0 famotidine [Pepcid] 40 mg Tablet 40 mg PO HS RF: 0 rizatriptan 10 mg Tablet 10 mg PO DIRECTED PRN (Reason: Migraine Headache) RF: 0 clonidine HCl 0.3 mg Tablet 0.6 mg PO TID RF: 0 clonazepam 1 mg Tablet 1 mg PO BID RF: 0 acetaminophen [Acetaminophen Extra Strength] 500 mg Tablet 1,000 mg PO DAILY PRN (Reason: Pain) RF: 0 isosorbide mononitrate 60 mg Tablet Extended Release 24 Hr 60 mg PO QAM RF: 0 pantoprazole 40 mg Tablet,Delayed Release (Dr/Ec) 40 mg PO BID RF: 0 docusate sodium [Colace] 100 mg Capsule 200 mg PO BID RF: 0 ergocalciferol (vitamin D2) 50,000 unit Capsule 50,000 units PO .Q2W RF: 0 insulin lispro [Humalog U-100 Insulin] 100 unit/mL Solution 10 unit SUBCUT QDB RF: 0 insulin lispro [Humalog U-100 Insulin] 100 unit/mL Solution 12 unit SUBCUT QDL RF: 0 insulin lispro [Humalog U-100 Insulin] 100 unit/mL Solution 14 unit SUBCUT QPM RF: 0 Basaglar KwikPen U-100 Insulin 100 unit/mL (3 mL) Insulin Pen 42 unit SUBCUT DAILY@1130 RF: 0 potassium chloride 20 mEq Tablet Extended Release 20 meq PO QID RF: 0 Discontinued prednisone 10 mg tablet See Rx Instructions .ROUTE .COMPLEX RF: 0 levofloxacin 500 mg tablet 500 mg PO DAILY RF: 0 Stand-Alone Forms: Call Back Authorization, [facility] Discharge Orders: Discharge Order (Routine); Ordered 07/06/18 Ordered By: Navi Pruitt Admission Data Admit Date/Time: 07/03/18 21:10 Attending Provider: Errol Elizabeth Admit Provider: Deonte More Primary Care Provider: Benjamin Yepez Other Providers: Deonte More ; Luis Verdugo III ; Janice Winters Service: Medical Supervising Physician Co-Signing Physician Notes I personally examined the patient and verified all edmond points of history and exam, discussed case, and agree with decision making with Dr Pruitt had large BMs. sees Dr Bailey (GI) this coming week. vitals noted nad breathing unlabored, abd soft, some granularity in abdominal wall soft tissue chest/abdominal pain - appearing to be due to severe constipation - constipation now alleviated. outpt f/u w GI - does have question of food sticking (?consider EGD as outpt); should abdominal pain persists consider evaluating granularity of abdominal wall soft tissue as ??trigger points dehydration - due to bowel meds/significant bowel movements --> improved some w IVF, outpt f/u, PO fluis, BMP as outpt in 1-2 weeks otherwise as above Resident Activity Tracking Resident Involvement: Resident Care Provided Care Provided: Adult Hospital Medicine
[2018-07-06 14:53] LABS: BUN Creatinine Ratio 11.7 (10-20); Calcium 7.7 mg/dl (8.5-10.1); Creatinine Clr Calc Pharmacy 64.3 ml/min; Est GFR (African American) 54.1; Est GFR (Non-African American) 46.7; Potassium 3.9 mmol/L (3.5-5.1)
[2018-07-06] MEDS: ACETAMINOPHEN 325 MG TAB PO PRN (15:53)
== END 2018-07-06 17:54 | disposition home or self-care (01) | DRG 392 ==
LOC: ED 15:01 → SUATTDRO 21:10 → 2E 21:10 → 4E 07-04 19:35

== ENCOUNTER 2018-12-03 12:35 | Inpatient (IN) ==
[2018-12-03] MEDS ORDERED: SODIUM CHLORIDE 0.9% 1000ML 1,000 ML IV SCH ×2 (13:00→21:00)
--- NOTE | 2018-12-03 13:15 | XRay Report ---
XR chest 1V portable HISTORY: 43 years-old Female Chest Pain acute atypical chest pain COMPARISON: Acute abdominal series radiographs 09/05/2018 TECHNIQUE: Portable AP view of the chest FINDINGS: Cardiomediastinal and hilar silhouettes are within normal limits. Sutures about the mid upper right c hest redemonstrated. No pneumothorax, pleural effusion, focal airspace consolidation or overt pulmona ry edema. Bones of the chest appear grossly intact. IMPRESSION: No acute process. The above report was generated using voice recognition software. It may contain grammatical, syntax o r spelling errors. Electronically signed by: Navi Christianson M.D. 12/03/2018 1:14 PM
[2018-12-03 13:47] LABS: Hematocrit (blood only) 28.3 % (37-47); Hemoglobin 9.1 g/dL (12.0-16.0); Mean Corpuscular Hemoglobin 25.3 pg (25-34); Mean Corpuscular Hgb Conc 32.2 g/dL (32-36); Mean Corpuscular Volume 78.8 fL (80-100); Platelet Count 274 K/uL (130-400); RDW Coefficient of Variation 15.4 % (11.5-14.5); Red Blood Count 3.59 M/uL (4.2-5.4)
--- NOTE | 2018-12-03 13:50 | CT Scan Report ---
CT head/brain wo con CLINICAL HISTORY: 43 years-old Female with ams. Acutely altered mental status TECHNIQUE: Multiple axial CT images of the head were obtained without contrast. A dose lowering tech nique was utilized adhering to the principles of ALARA. CT DOSE: 537.48 mGy.cm COMPARISON: Head CT 09/05/2018 FINDINGS: No acute intracranial hemorrhage, midline shift, intracranial mass, hydrocephalus, territorial ischem ia or abnormal extra-axial collection. Mild bifrontal cerebral atrophy is unchanged. The calvarium is intact. The paranasal sinuses, mastoid air cells, and middle ear cavities are clear . IMPRESSION: No acute intracranial abnormality. The above report was generated using voice recognition software. It may contain grammatical, syntax o r spelling errors. Electronically signed by: Nvai Christianson M.D. 12/03/2018 1:49 PM
[2018-12-03 13:55] LABS: INR 1.1 (0.9-1.1); Prothrombin Time 10.8 Seconds (9.0-12.0)
[2018-12-03 14:06] LABS: Basophils # (auto) 0.02 K/uL (0-0.2); Basophils % (auto) 0.3 %; Eosinophils # (auto) 0.05 K/uL (0-0.5); Eosinophils % (auto) 0.8 %; Immature Granulocytes # (auto) 0.02 K/uL (0.00-0.02); Immature Granulocytes % (auto) 0.3 %; Lymphocytes # (auto) 2.43 K/uL (1.2-3.4); Lymphocytes % (auto) 36.8 %; Monocytes # (auto) 0.26 K/uL (0.11-0.59); Monocytes % (auto) 3.9 %; Neutrophils # (auto) 3.82 K/uL (1.4-6.5); Neutrophils % (auto) 57.9 %
[2018-12-03 14:07] LABS: Alanine Aminotransferase 21 U/L (12-78); Albumin Level 3.8 gm/dl (3.4-5.0); Aspartate Aminotransferase 6 U/L (15-37); BUN Creatinine Ratio 16.5 (10-20); Bilirubin Direct < 0.1 mg/dl (0-0.2); Blood Urea Nitrogen 25 mg/dl (7-18); Calcium 8.8 mg/dl (8.5-10.1); Carbon Dioxide 20 mmol/L (21-32); Chloride 104 mmol/L (98-107); Est GFR (African American) 49.3; Est GFR (Non-African American) 42.6; Glucose 239 mg/dl (70-99); Lipase 50 U/L (73-393); Magnesium 2.1 mg/dl (1.8-2.4); Potassium 4.2 mmol/L (3.5-5.1); Sodium 132 mmol/L (136-145)
[2018-12-03 14:16] LABS: Albumin Globulin Ratio 1.1 (0.9-2); Alkaline Phosphatase 236 U/L (45-117); Bilirubin,Total 0.2 mg/dl (0.2-1); Globulin 3.5 gm/dl (2.5-4.0); Phosphorus 3.8 mg/dl (2.5-4.9); Total Protein 7.3 gm/dl (6.4-8.2); Troponin I < 0.015 ng/ml (0-0.045)
[2018-12-03 14:26] LABS: Base Excess VBG -7.6 mEq/L; HCO3 VBG 18 mmol/L; PCO2 VBG 35 mmHg (38-50); PO2 VBG 28 mmHg; pH VBG 7.32 (7.36-7.41)
[2018-12-03 14:31] LABS: Oxygen Saturation VBG < 60.0 %
[2018-12-03 14:43] LABS: Appearance Urine Clear (Clear); Bilirubin Urine Negative (Negative); Blood Urine Negative (Negative); Color Urine Yellow; Glucose Urine UA Negative (Negative); Ketones Urine Negative (Negative); Leukocyte Esterase Urine Negative (Negative); Nitrite Urine Negative (Negative); Protein Urine Negative (Negative); Specific Gravity Urine 1.014 (1.000-1.030); Urobilinogen Urine Negative (Negative)
[2018-12-03 15:55] LABS: Amphetamines+Metham, Urine Neg (Neg); Barbiturates, Urine Neg (Neg); Benzodiazepine, Urine Neg (Neg); Cocaine, Urine Neg (Neg); MDMA (Ecstacy), Urine Neg (Neg); Methadone, Urine Neg (Neg); Opiate, Urine Neg (Neg); Phencyclidine, Urine Neg (Neg)
[2018-12-03] MEDS ORDERED: DEXTROSE 50% 50 ML SYRINGE IV PRN (20:16)
[2018-12-03] MEDS ORDERED: CARBOHYDRATES FOR HYPOGLYCEMIA PO PRN (20:16)
[2018-12-03] MEDS ORDERED: FUROSEMIDE 40 MG TAB PO PRN (20:16)
[2018-12-03] MEDS ORDERED: ALBUT/IPRATROP 3MG/0.5MG NEB 3 ML VIAL INH PRN (20:16)
[2018-12-03] MEDS ORDERED: GLUCAGON FOR INJ 1 MG VIAL SQ PRN (20:16)
[2018-12-03] MEDS ORDERED: GLUCOSE 10 TABS/TUBE PO PRN (20:16)
[2018-12-03] MEDS ORDERED: ALBUTEROL HFA 8 GM INHALER INH PRN (20:16)
[2018-12-03] MEDS ORDERED: NITROGLYCERIN 2% OINTMENT 30GM TUBE EXT PRN (20:16)
[2018-12-03] MEDS ORDERED: GLUCOSE 40% GEL 15 GM TUBE PO PRN (20:16)
[2018-12-03] MEDS ORDERED: LORATADINE 10 MG TAB PO PRN (20:16)
[2018-12-03] MEDS ORDERED: PHARMACY GLYCEMIC MGMT CONSULT PRN (20:37)
[2018-12-03] MEDS ORDERED: INSULIN ASPART 100 UNITS/ML 3 ML PEN SC SCH (21:00)
[2018-12-03] MEDS ORDERED: FAMOTIDINE 20 MG TAB PO SCH (21:00)
[2018-12-03] MEDS ORDERED: IMIPRAMINE HCL 50 MG TAB PO SCH (21:00)
[2018-12-03] MEDS ORDERED: ATORVASTATIN 40 MG TAB PO SCH (21:00)
[2018-12-03] MEDS ORDERED: INSULIN GLARGINE SOLOSTAR 100 UNITS/ML 3 ML PEN SC ONE (21:00)
--- NOTE | 2018-12-03 21:16 | Emergency Department Note ---
Entered by Brittany Welch acting as a scribe for History of Present Illness General Chief complaint: Altered Mental Status Stated complaint: ams Time Seen by Provider: 12/03/18 12:47 Source: patient Limitations: altered mental status History of Present Illness Onset (ago): minute(s) (prior to arrival) Location: head Pain Consistency: + other (episode) Quality: + other (altered mental status) Associated symptoms: + denies other symptoms (congestion, diarrhea, burning with urination) and + other (slurred speech, dropping things from hands); no cough, no fever/chills and no nausea/vomiting The patient is a 43 year old female who presents to the Emergency Room with altered mental status occurring prior to arrival. The patient states that she is unsure why she is here and that she feel fine. She states that today she had a nervous breakdown today and when that happens, she forgets everything from the night before. She reports that she then was asking her questions that didnt make sense. The patient complains of slurred speech and dropping things from her hands like drinks and cigarettes. She notes that she doesnt think she is having a stroke though because she can still move. She notes that she lives in [place] with her , but doesnt know where she came from. The patient denies this ever happening before, fever, chills, cough, congestion, nausea, vomiting, diarrhea, and burning with urination. HPI and ROS are limited secondary to altered mental status. Home Medications Home Medications Medication Instructions Recorded Confirmed Type Basaglar KwikPen U-100 Insulin 42 unit SUBCUT DAILY@1130 01/02/18 12/03/18 History acetaminophen [Acetaminophen Extra 1,000 mg PO DAILY PRN 01/02/18 12/03/18 History Strength] atorvastatin [Lipitor] 40 mg PO HS 01/02/18 12/03/18 History carvedilol 25 mg PO BID 01/02/18 12/03/18 History clonazepam 1 mg PO BID 01/02/18 12/03/18 History clonidine HCl 0.6 mg PO TID 01/02/18 12/03/18 History famotidine [Pepcid] 40 mg PO HS 01/02/18 12/03/18 History insulin lispro [Humalog U-100 0 unit SUBCUT QDB 01/02/18 12/03/18 History Insulin] insulin lispro [Humalog U-100 0 unit SUBCUT QDL 01/02/18 12/03/18 History Insulin] insulin lispro [Humalog U-100 0 unit SUBCUT QPM 01/02/18 12/03/18 History Insulin] ipratropium-albuterol 3 ml INHALATION Q4H PRN 01/02/18 12/03/18 History isosorbide mononitrate 60 mg PO DAILY 01/02/18 12/03/18 History nifedipine 0 mg PO UNKNOWN 01/02/18 12/03/18 History pantoprazole 40 mg PO BID 01/02/18 12/03/18 History metformin 1,000 mg PO BID 01/29/18 12/03/18 History albuterol sulfate [Ventolin HFA] 2 puff INHALATION Q4H PRN 07/03/18 12/03/18 History loratadine 10 mg PO DAILY PRN 07/03/18 12/03/18 History magnesium oxide 400 mg PO DAILY 07/03/18 12/03/18 History methocarbamol 750 mg PO BID 07/03/18 12/03/18 History ranitidine HCl 300 mg PO AMHS 07/03/18 12/03/18 History furosemide 40 mg PO DAILY PRN 07/04/18 12/03/18 History lisinopril 20 mg PO BID 07/04/18 12/03/18 History spironolactone 25 mg PO BID 07/04/18 12/03/18 History nitroglycerin 2 % transdermal See Rx Instructions TRANSDERMAL 10/31/18 12/03/18 Rx ointment .COMPLEX PRN #30 gm NS tiotropium bromide 2.5 2 puffs INHALATION DAILY gm 11/04/18 12/03/18 History mcg/actuation mist for inhalation gabapentin 600 mg tablet 600 mg PO TID 30 Days #90 tab 11/10/18 12/03/18 Rx lidocaine 5 % topical patch 1 patch TOP DAILY #30 ea 11/19/18 12/03/18 Rx benzonatate 100 mg capsule 100 mg PO TID PRN cap 12/01/18 12/03/18 History docusate sodium 100 mg capsule 200 mg PO TID cap 12/01/18 12/03/18 History ergocalciferol (vitamin D2) 50,000 50,000 units PO Q14D cap 12/01/18 12/03/18 History unit capsule sennosides 8.6 mg tablet 17.2 mg PO BID tab 12/01/18 12/03/18 History fluoxetine 0 mg PO DAILY 12/03/18 12/03/18 History imipramine HCl 200 mg PO HS 12/03/18 12/03/18 History potassium chloride 0 meq PO QID 12/03/18 12/03/18 History topiramate 0 mg PO TID 12/03/18 12/03/18 History Allergies Allergy/AdvReac Type Severity Reaction Status Date / Time lamotrigine [From Lamictal] Allergy Intermediate hallucinati Verified 10/27/18 10:47 ons mirtazapine [From Remeron] Allergy Intermediate "temper", Verified 10/27/18 10:47 "rash" Penicillins Allergy Intermediate HIVES AND Verified 10/27/18 10:47 PASSES OUT sertraline Allergy Intermediate HIVES AND Verified 10/27/18 10:47 PASSES OUT trazodone Allergy Intermediate IRRITATES Verified 10/27/18 10:47 NEUROPATHY AND HIVES valproic acid Allergy Intermediate HIVES, Verified 10/27/18 10:47 DIZZINESS, SLURRING SPEECH oxycodone [From Percocet] Allergy Mild itchy Verified 10/27/18 10:47 phenytoin [From Dilantin] Allergy Mild "makes my Verified 10/27/18 10:47 eyes crossed" quetiapine [From Seroquel] Allergy Mild irriates Verified 10/27/18 10:47 neuropathy acetaminophen [From Percocet] Allergy Verified 10/27/18 10:47 buspirone [From BuSpar] Allergy Verified 10/27/18 10:47 divalproex sodium Allergy Verified 10/27/18 10:47 [From Depakote] ibuprofen AdvReac Mild "irritates Verified 10/27/18 10:47 my stomach" Penicillins Allergy Uncoded 10/27/18 10:47 trazodone Allergy Uncoded 10/27/18 10:47 Past Med/Surg History Medical History Acute renal failure Hyperkalemia Uremic encephalopathy Chronic back pain Deep vein thrombosis 1998 LEFT LEG Diabetes mellitus, type 2 IDDM Explosive personality disorder Fatty liver disease, nonalcoholic GERD (gastroesophageal reflux disease) Controlled GI bleed Hyperlipidemia Pancreatitis and 06/2018 Panic anxiety syndrome Rheumatoid arthritis Surgical History H/O removal of cyst ON ABDOMEN History of anesthesia reaction TAKES MORE ANESTHESIA TO GET TO SLEEP History of bronchoscopy History of cardiac cath History of cholecystectomy History of colonoscopy History of dilatation and curettage C55--KTHHYYONIMIES History of esophagogastroduodenoscopy (EGD) History of heart artery stent X1 STENT (2012) History of lung surgery RIGHT VATS (12/2017) History of surgery PER PT HAD 32 GYNECOLOGY SURGERIES TO "SCRAP UTERUS AND OVARIES" History of tooth extraction ALL TEETH REMOVED History of total abdominal hysterectomy and bilateral salpingo-oophorectomy History of total left knee replacement (TKR) Family History Mother , age 54 of pneumonia. Family history of diabetes mellitus Hypertension Father , age 72 Hypertension Social History Preferred Language: Greenlandic Communication Ability: Effective Visual Impairment: No Limitations Oven Worker Required: No Beliefs That Will Affect Care: None Current Living Situation: Spouse and Family Current Living Situation Comment: Lives with and sister current occupational status: disabled Other Information That Helps Us Care for You: No other: worked multiple jobs in her 20s, on disability for psych issues since Feels Safe at Home: No Is there a partner from a previous relationship who is making you feel unsafe now?: No Any Concerns about Your Family Situation: No Would You Like to Speak to Someone About Your Situation: No ("I'm afraid of them not answering their phones if I need them") Safety Concerns: Afraid for Self Smoking Status: Current every day smoker Tobacco Type: cigarettes ; Cigarettes Per Day: 20 a day ; Do You Dip or Chew Tobacco: No ; Second Hand Exposure: No ; Tobacco Cessation Education Requested by Patient: No Hx Alcohol Use: No Hx Substance Use: No Review of Systems HPI and ROS are limited secondary to altered mental status. Physical Exam Vital Signs Vital Signs - 24 hr 12/03/18 12:32 12/03/18 14:05 12/03/18 14:12 Temperature 36.6 C Temperature Source Oral Sepsis Recent Fever Within 48 Hours No Sepsis Action Taken by Nursing No Action Required Pulse Rate 70 Pulse Rate [Left Finger] 70 Pulse Rhythm [Left Finger] Pulse Strength [Left Finger] Respiratory Rate 21 18 Respiratory Effort / Characteristics Respiratory Depth Respiratory Pattern Blood Pressure 143/104 H Blood Pressure [Left Arm] 107/82 Blood Pressure Mean 117 Blood Pressure Mean [Left Arm] 90 Blood Pressure Position [Left Arm] Pulse Oximetry 99 100 96 Oxygen Delivery Method Room Air Room Air Room Air 12/03/18 14:36 12/03/18 16:00 12/03/18 18:00 Temperature Temperature Source Sepsis Recent Fever Within 48 Hours Sepsis Action Taken by Nursing Pulse Rate Pulse Rate [Left Finger] 72 65 70 Pulse Rhythm [Left Finger] Regular Pulse Strength [Left Finger] Normal Respiratory Rate 18 18 18 Respiratory Effort / Characteristics Non-Labored Spontaneous Non-Labored Spontaneous Respiratory Depth Normal Normal Respiratory Pattern Regular Regular Blood Pressure Blood Pressure [Left Arm] 144/99 H 149/103 H 149/100 H Blood Pressure Mean Blood Pressure Mean [Left Arm] 114 118 116 Blood Pressure Position [Left Arm] Lying Pulse Oximetry 99 99 99 Oxygen Delivery Method Room Air Room Air Room Air GENERAL: Awake, alert, drowsy-appearing, in no distress HENT: Normocephalic, atraumatic. Oropharynx with dry mucous membranes and otherwise unremarkable. EYES: Normal conjunctiva. Sclera non-icteric. EOMI. No nystamgus. PEARRL. NECK: Supple. No nuchal rigidity. FROM. No JVD. RESPIRATORY: Clear to auscultation bilaterally. CARDIAC: Regular rate, normal rhythm. Extremities warm and well perfused. Pulses equal. ABDOMEN: Soft, non-distended. No tenderness to palpation. No rebound or guardin g. No masses. RECTAL: Deferred. MUSCULOSKELETAL: Chest examination reveals no tenderness. The back is symmetrical on inspection without obvious abnormality. There is no CVA tenderness to palpation. No joint edema. LOWER EXTREMITIES: Calves are equal size bilaterally and non-tender. No edema. No discoloration. NEURO: No focal sensory or motor deficits noted. Mild confusion. Mild slurred speech. Moving all extremities equally. Cerebellar function intact, including finger to nose, alternating palms, heel to edwards. 5/5 strength and SILT x4 extremities. SKIN: No rash or jaundice noted. Course 1256: Past medical records reviewed. The patient was evaluated in room A4B. A complete history and physical exam was performed. 1320: I reviewed the EMR at this time. The patient was admitted in June for altered mental status possibly due to psychiatric conditions vs uremia encephalopathy or toxic encephalopathy. She had dysarthria at the time that was thought to be related to fatigue. 1404: Nursing staff informed me that the patient went to the wrong doctor's office today and had a mental break down because she was confused. They report that she didn't know the time and the month. They state that she wanted to go to her appointment in [place], but came to an office in [place]. 1607: I reevaluated the patient and she is doing well. I discussed the patient's test results with her and updated her on the treatment plan. She verbally agrees and understands. 1615: I discussed the patient's case with Dr. Hilton CRAIG Hospitalist. She will evaluate the patient for further management. Consultations Consultation #1: I discussed the patient's case with Dr. Hilton CRAIG Hospitalist. She will evaluate the patient for further management. Time: 16:15 Administered Medications Atorvastatin Calcium (Lipitor) 40 mg PO HS [facility] Stop: 01/02/19 20:59 Last Admin: 12/03/18 21:22 Dose: 40 mg Documented by: [id number] Carvedilol (Coreg) 25 mg PO BID [facility] Stop: 01/02/19 20:59 Last Admin: 12/03/18 21:21 Dose: 25 mg Documented by: [id number] Clonazepam (Klonopin) 1 mg PO BID [facility]ANG Stop: 01/02/19 20:59 Last Admin: 12/03/18 21:24 Dose: 1 mg Documented by: [id number] Clonidine HCl (Catapress) 0.6 mg PO TID [facility]ANG Stop: 01/02/19 20:59 Last Admin: 12/03/18 21:20 Dose: 0.6 mg Documented by: [id number] Docusate Sodium (Colace) 200 mg PO TID [facility]ANG Stop: 01/02/19 20:59 Last Admin: 12/03/18 21:19 Dose: 200 mg Documented by: [id number] Famotidine (Pepcid) 40 mg PO HS [facility]ANG Stop: 01/02/19 20:59 Last Admin: 12/03/18 21:21 Dose: 40 mg Documented by: [id number] Gabapentin (Neurontin) 600 mg PO TID CHANG Stop: 01/02/19 20:59 Last Admin: 12/03/18 21:19 Dose: 600 mg Documented by: [id number] Sodium Chloride (Nss 1000ml) 1,000 mls @ 80 mls/hr IV .[id number] [facility]ANG Stop: 01/02/19 20:59 Last Admin: 12/03/18 21:26 Dose: 80 mls/hr Documented by: [id number] Imipramine HCl (Tofranil) 200 mg PO HS [facility]ANG Stop: 01/02/19 20:59 Last Admin: 12/03/18 21:20 Dose: 200 mg Documented by: [id number] Insulin Aspart (Novolog Flexpen) 0 units SC ACHS [facility]ANG Stop: 01/02/19 20:59 Last Admin: 12/03/18 21:35 Dose: 19 units Documented by: [id number] Cosigned by: [id number] Insulin Aspart (Novolog Flexpen) 0 units SC 0000,0400 [facility]ANG Stop: 12/04/18 04:01 Last Admin: 12/04/18 00:59 Dose: 8 units Documented by: [id number] Cosigned by: [id number] Lisinopril (Zestril) 20 mg PO BID [facility]ANG Stop: 01/02/19 20:59 Last Admin: 12/03/18 21:20 Dose: 20 mg Documented by: [id number] Methocarbamol (Robaxin) 750 mg PO BID CHANG Stop: 01/02/19 20:59 Last Admin: 12/03/18 22:05 Dose: 750 mg Documented by: [id number] Miscellaneous (Remove Lidoderm Patch) 1 ea N/A DAILY@2100 [facility] Stop: 01/02/19 20:59 Last Admin: 12/03/18 21:38 Dose: Not Given Documented by: [id number] Pantoprazole Sodium (Protonix) 40 mg PO BID CHANG Stop: 01/02/19 20:59 Last Admin: 12/03/18 21:21 Dose: 40 mg Documented by: [id number] Ranitidine HCl (Zantac) 300 mg PO AMHS CHANG Stop: 01/02/19 20:59 Last Admin: 12/03/18 21:21 Dose: 300 mg Documented by: [id number] Topiramate (Topamax) 50 mg PO TID CHANG Stop: 01/02/19 20:59 Last Admin: 12/03/18 21:21 Dose: 50 mg Documented by: [id number] Discontinued Medications Sodium Chloride (Nss 1000ml) 1,000 mls @ 999 mls/hr IV .Q1H1M CHANG Stop: 12/03/18 14:00 Last Infusion: 12/03/18 14:52 Dose: 0 mls/hr Documented by: [id number] Admin: 12/03/18 13:32 Dose: 999 mls/hr Documented by: [id number] Insulin Glargine (Lantus Solostar Pen) 45 units SC 2100 ONE Stop: 12/03/18 21:01 Last Admin: 12/03/18 21:33 Dose: 45 units Documented by: [id number] Cosigned by: [id number] Medical Decision Making Differential Diagnosis Differential Diagnosis includes but is not limited to dehydration, stroke, anemia, hypoglycemia, hyponatremia, hypernatremia, urinary tract infection, pneumonia, bronchitis, sepsis, gastroenteritis, additional abdominal pathology, metabolic abnormalities and infections. Medical Records Attestation: I reviewed the patient's medical records. Home Medications Current Medication List: was personally reviewed by me Laboratory Data Attestation: I reviewed the patient's lab results. Result diagrams: 12/03/18 13:24 12/03/18 13:24 Lab Results 12/03/18 12/03/18 12/03/18 Range/Units 13:24 13:24 13:24 WBC 6.60 (4.8-10.8) K/uL RBC 3.59 L (4.2-5.4) M/uL Hgb 9.1 L (12.0-16.0) g/dL Hct 28.3 L (37-47) % MCV 78.8 L (80-100) fL MCH 25.3 (25-34) pg MCHC 32.2 (32-36) g/dL RDW Std Deviation 44.0 (36.4-46.3) fL RDW Coeff of Shelia 15.4 H (11.5-14.5) % Plt Count 274 (130-400) K/uL MPV 10.0 (7.4-10.4) fL Immature Gran % (Auto) 0.3 % Neut % (Auto) 57.9 % Lymph % (Auto) 36.8 % Dickson % (Auto) 3.9 % Eos % (Auto) 0.8 % Baso % (Auto) 0.3 % Immature Gran # (Auto) 0.02 (0.00-0.02) K/uL Neut # (Auto) 3.82 (1.4-6.5) K/uL Lymph # (Auto) 2.43 (1.2-3.4) K/uL Dickson # (Auto) 0.26 (0.11-0.59) K/uL Eos # (Auto) 0.05 (0-0.5) K/uL Baso # (Auto) 0.02 (0-0.2) K/uL PT (9.0-12.0) Seconds INR (0.9-1.1) VBG pH (7.36-7.41) VBG pCO2 (38-50) mmHg VBG pO2 mmHg VBG HCO3 mmol/L VBG O2 Saturation % VBG Base Excess mEq/L Barometric Pressure mm/Hg Sodium 132 L (136-145) mmol/L Potassium 4.2 (3.5-5.1) mmol/L Chloride 104 (98-107) mmol/L Carbon Dioxide 20 L (21-32) mmol/L Anion Gap 8.0 (3-11) BUN 25 H (7-18) mg/dl Creatinine 1.49 H (0.6-1.2) mg/dl Est Cr Clr Drug Dosing 60.0 ml/min Est GFR ( Amer) 49.3 Est GFR (Non-Af Amer) 42.6 BUN/Creatinine Ratio 16.5 (10-20) Glucose 239 H (70-99) mg/dl Calcium 8.8 (8.5-10.1) mg/dl Phosphorus 3.8 (2.5-4.9) mg/dl Magnesium 2.1 (1.8-2.4) mg/dl Total Bilirubin 0.2 (0.2-1) mg/dl Direct Bilirubin < 0.1 (0-0.2) mg/dl AST 6 L (15-37) U/L ALT 21 (12-78) U/L Alkaline Phosphatase 236 H (45-117) U/L Ammonia 23.0 (11-32) umol/L Troponin I < 0.015 (0-0.045) ng/ml Total Protein 7.3 (6.4-8.2) gm/dl Albumin 3.8 (3.4-5.0) gm/dl Globulin 3.5 (2.5-4.0) gm/dl Albumin/Globulin Ratio 1.1 (0.9-2) Lipase 50 L (73-393) U/L TSH 1.110 (0.300-4.500) uIu/ml Urine Color Urine Appearance (Clear) Urine pH (4.5-7.5) Ur Specific Shoup (1.000-1.030) Urine Protein (Negative) Urine Glucose (UA) (Negative) Urine Ketones (Negative) Urine Blood (Negative) Urine Nitrite (Negative) Urine Bilirubin (Negative) Urine Urobilinogen (Negative) Ur Leukocyte Esterase (Negative) Urine Opiates Screen (Neg) Ur Methadone, Qual (Neg) Urine Barbiturates (Neg) Ur Phencyclidine (PCP) (Neg) U Amphetamin/Meth Scrn (Neg) MDMA (Ecstasy) Screen (Neg) U Benzodiazepines Scrn (Neg) Ur Cocaine Metabolite (Neg) U Marijuana (THC) Screen (Neg) Ethyl Alcohol mg/dL (0-3) mg/dl 12/03/18 12/03/18 12/03/18 Range/Units 13:24 13:24 13:24 WBC (4.8-10.8) K/uL RBC (4.2-5.4) M/uL Hgb (12.0-16.0) g/dL Hct (37-47) % MCV (80-100) fL MCH (25-34) pg MCHC (32-36) g/dL RDW Std Deviation (36.4-46.3) fL RDW Coeff of Shelia (11.5-14.5) % Plt Count (130-400) K/uL MPV (7.4-10.4) fL Immature Gran % (Auto) % Neut % (Auto) % Lymph % (Auto) % Dickson % (Auto) % Eos % (Auto) % Baso % (Auto) % Immature Gran # (Auto) (0.00-0.02) K/uL Neut # (Auto) (1.4-6.5) K/uL Lymph # (Auto) (1.2-3.4) K/uL Dickson # (Auto) (0.11-0.59) K/uL Eos # (Auto) (0-0.5) K/uL Baso # (Auto) (0-0.2) K/uL PT 10.8 (9.0-12.0) Seconds INR 1.1 (0.9-1.1) VBG pH (7.36-7.41) VBG pCO2 (38-50) mmHg VBG pO2 mmHg VBG HCO3 mmol/L VBG O2 Saturation % VBG Base Excess mEq/L Barometric Pressure mm/Hg Sodium (136-145) mmol/L Potassium (3.5-5.1) mmol/L Chloride (98-107) mmol/L Carbon Dioxide (21-32) mmol/L Anion Gap (3-11) BUN (7-18) mg/dl Creatinine (0.6-1.2) mg/dl Est Cr Clr Drug Dosing ml/min Est GFR ( Amer) Est GFR (Non-Af Amer) BUN/Creatinine Ratio (10-20) Glucose (70-99) mg/dl Calcium (8.5-10.1) mg/dl Phosphorus Cancelled (2.5-4.9) mg/dl Magnesium (1.8-2.4) mg/dl Total Bilirubin (0.2-1) mg/dl Direct Bilirubin (0-0.2) mg/dl AST (15-37) U/L ALT (12-78) U/L Alkaline Phosphatase (45-117) U/L Ammonia (11-32) umol/L Troponin I (0-0.045) ng/ml Total Protein (6.4-8.2) gm/dl Albumin (3.4-5.0) gm/dl Globulin (2.5-4.0) gm/dl Albumin/Globulin Ratio (0.9-2) Lipase (73-393) U/L TSH Cancelled (0.300-4.500) uIu/ml Urine Color Urine Appearance (Clear) Urine pH (4.5-7.5) Ur Specific Shoup (1.000-1.030) Urine Protein (Negative) Urine Glucose (UA) (Negative) Urine Ketones (Negative) Urine Blood (Negative) Urine Nitrite (Negative) Urine Bilirubin (Negative) Urine Urobilinogen (Negative) Ur Leukocyte Esterase (Negative) Urine Opiates Screen (Neg) Ur Methadone, Qual (Neg) Urine Barbiturates (Neg) Ur Phencyclidine (PCP) (Neg) U Amphetamin/Meth Scrn (Neg) MDMA (Ecstasy) Screen (Neg) U Benzodiazepines Scrn (Neg) Ur Cocaine Metabolite (Neg) U Marijuana (THC) Screen (Neg) Ethyl Alcohol mg/dL < 3.0 (0-3) mg/dl 12/03/18 12/03/18 12/03/18 Range/Units 13:24 14:30 14:30 WBC (4.8-10.8) K/uL RBC (4.2-5.4) M/uL Hgb (12.0-16.0) g/dL Hct (37-47) % MCV (80-100) fL MCH (25-34) pg MCHC (32-36) g/dL RDW Std Deviation (36.4-46.3) fL RDW Coeff of Shelia (11.5-14.5) % Plt Count (130-400) K/uL MPV (7.4-10.4) fL Immature Gran % (Auto) % Neut % (Auto) % Lymph % (Auto) % Dickson % (Auto) % Eos % (Auto) % Baso % (Auto) % Immature Gran # (Auto) (0.00-0.02) K/uL Neut # (Auto) (1.4-6.5) K/uL Lymph # (Auto) (1.2-3.4) K/uL Dickson # (Auto) (0.11-0.59) K/uL Eos # (Auto) (0-0.5) K/uL Baso # (Auto) (0-0.2) K/uL PT (9.0-12.0) Seconds INR (0.9-1.1) VBG pH 7.32 L (7.36-7.41) VBG pCO2 35 L (38-50) mmHg VBG pO2 28 mmHg VBG HCO3 18 mmol/L VBG O2 Saturation < 60.0 % VBG Base Excess -7.6 mEq/L Barometric Pressure 730.4 mm/Hg Sodium (136-145) mmol/L Potassium (3.5-5.1) mmol/L Chloride (98-107) mmol/L Carbon Dioxide (21-32) mmol/L Anion Gap (3-11) BUN (7-18) mg/dl Creatinine (0.6-1.2) mg/dl Est Cr Clr Drug Dosing ml/min Est GFR ( Amer) Est GFR (Non-Af Amer) BUN/Creatinine Ratio (10-20) Glucose (70-99) mg/dl Calcium (8.5-10.1) mg/dl Phosphorus (2.5-4.9) mg/dl Magnesium (1.8-2.4) mg/dl Total Bilirubin (0.2-1) mg/dl Direct Bilirubin (0-0.2) mg/dl AST (15-37) U/L ALT (12-78) U/L Alkaline Phosphatase (45-117) U/L Ammonia (11-32) umol/L Troponin I (0-0.045) ng/ml Total Protein (6.4-8.2) gm/dl Albumin (3.4-5.0) gm/dl Globulin (2.5-4.0) gm/dl Albumin/Globulin Ratio (0.9-2) Lipase (73-393) U/L TSH (0.300-4.500) uIu/ml Urine Color Yellow Urine Appearance Clear (Clear) Urine pH 5.0 (4.5-7.5) Ur Specific Shoup 1.014 (1.000-1.030) Urine Protein Negative (Negative) Urine Glucose (UA) Negative (Negative) Urine Ketones Negative (Negative) Urine Blood Negative (Negative) Urine Nitrite Negative (Negative) Urine Bilirubin Negative (Negative) Urine Urobilinogen Negative (Negative) Ur Leukocyte Esterase Negative (Negative) Urine Opiates Screen Neg (Neg) Ur Methadone, Qual Neg (Neg) Urine Barbiturates Neg (Neg) Ur Phencyclidine (PCP) Neg (Neg) U Amphetamin/Meth Scrn Neg (Neg) MDMA (Ecstasy) Screen Neg (Neg) U Benzodiazepines Scrn Neg (Neg) Ur Cocaine Metabolite Neg (Neg) U Marijuana (THC) Screen Neg (Neg) Ethyl Alcohol mg/dL (0-3) mg/dl Imaging Data Radiologist's Impression: Radiology results as stated below per my review and the radiologist's interpretation: XR chest 1V portable HISTORY: 43 years-old Female Chest Pain acute atypical chest pain COMPARISON: Acute abdominal series radiographs 09/05/2018 TECHNIQUE: Portable AP view of the chest FINDINGS: Cardiomediastinal and hilar silhouettes are within normal limits. Sutures about the mid upper right chest redemonstrated. No pneumothorax, pleural effusion, focal airspace consolidation or overt pulmonary edema. Bones of the chest appear grossly intact. IMPRESSION: No acute process. The above report was generated using voice recognition software. It may contain grammatical, syntax or spelling errors. Electronically signed by: Navi Christianson M.D. 12/03/2018 1:[address] head/brain wo con CLINICAL HISTORY: 43 years-old Female with ams. Acutely altered mental status TECHNIQUE: Multiple axial CT images of the head were obtained without contrast. A dose lowering technique was utilized adhering to the principles of ALARA. CT DOSE: 537.48 mGy.cm COMPARISON: Head CT 09/05/2018 FINDINGS: No acute intracranial hemorrhage, midline shift, intracranial mass, hydrocephalus, territorial ischemia or abnormal extra-axial collection. Mild bifrontal cerebral atrophy is unchanged. The calvarium is intact. The paranasal sinuses, mastoid air cells, and middle ear cavities are clear. IMPRESSION: No acute intracranial abnormality. The above report was generated using voice recognition software. It may contain grammatical, syntax or spelling errors. Electronically signed by: Navi Christianson M.D. 12/03/2018 1:49 PM ECG Data Attestation: I personally reviewed and interpreted this ECG as follows: Indication: altered mental status Rate (beats per minute): 67 Rhythm: normal sinus Findings: + other (normal axis, nonspecific T wave abnormality) and + nonspecific-ST abn; no ST depression, no ST elevation and no acute ischemic change Comparison ECG Date: from (09/05/2018) Change: no significant change Blood Pressure Blood Pressure Findings: Elevated blood pressure Blood Pressure Disposition: further management by hospitalist MDM Narrative The patient is a 43-year-old woman with a past medical history of CKD, affective disorder, CAD, diabetes, hypertension, hyperlipidemia who presents emergency department with persistent confusion over the past month with presumed acute worsening of this today after she attempted to follow-up with the occupational health office but did not have an appointment but was unable to demonstrate insight or understanding of who she was supposed to see today per hpi. This change in mental status is similar to prior presentations however per recent discharge summary in July from [facility] it was thought t she would be able to be managed outpatient. On arrival the patient is alert to self and place but otherwise confused regarding where she was supposed to be today. She does have some mildly dysarthric speech but otherwise is able to speak fluently. She is moving all extremities equally without any focal neuro deficits. EKG without overt acute ischemia. Chest x-ray negative for acute process. CT head negative for acute process. WBC within normal limits. H/H9 0.1/28.3 similar to prior range of values. Platelets within normal limits. Chemistry with bicarb of 20 and VBG with pH of 7.3 in the setting of the patient's CKD. 91.49 within prior range of values. UA negative for infection. Urine drug screen negative. Patient reevaluated and appearing slightly improved and more alert however still confused and unable to demonstrate medical decision-making capacity in terms of concerns for her confusion and risks, benefits and alternatives of therapy. She is however agreeable to be admitted at this time considering in the patient's current state as was demonstrated today it is difficult for her to follow-up with outpatient providers. Reasonable to admit the patient for further management. Case was discussed with Dr. Zavala, [facility] hospitalist, who will evaluate the patient for admission. Impression & Plan Confusion, CKD (chronic kidney disease) Discharge Plan Visit Data *Final* Discharge Date/Time: 12/03/18 19:38 Chief Complaint: Altered Mental Status Stated Complaint: ams ED Provider: Bola Richard Discharge Problem: Confusion, CKD (chronic kidney disease) Patient Disposition: Admitted As Inpatient Discharge Instructions Interventions: ED Discharge Assessment Last Done: 12/03/18 19:38 Discharge Problem: CKD (chronic kidney disease) Qualifiers: Chronic kidney disease stage: unspecified stage Qualified Code(s): N18.9 - Chronic kidney disease, unspecified The scribe's documentation has been prepared under my direction and personally reviewed by me in its entirety. I confirm that the note above accurately reflects all work, treatment, procedures, and medical decision making performed by me.
[2018-12-03] MEDS: GABAPENTIN 600 MG TAB PO SCH (21:19)
[2018-12-03] MEDS: DOCUSATE SODIUM 100 MG CAP PO SCH (21:19)
[2018-12-03] MEDS: LISINOPRIL 20 MG TAB PO SCH (21:20)
[2018-12-03] MEDS: CARVEDILOL 25 MG TAB PO SCH (21:21)
[2018-12-03] MEDS: PANTOprazole 40 MG TAB PO SCH (21:21)
[2018-12-03] MEDS: TOPIRAMATE 50 MG TAB PO SCH (21:21)
[2018-12-03] MEDS: clonazePAM 1 MG TAB PO SCH (21:24)
[2018-12-03] MEDS: METHOCARBAMOL 750 MG TABLET PO SCH (22:05)
--- NOTE | 2018-12-04 00:49 | History & Physical Report ---
Date of Service December 04, 2018 Assessment & Plan (1) Acute psychosis: Admit to inpatient on telemetry Vital signs every 4 hours Toxicology screen negative, alcohol negative Consulted psychiatry appreciate recommendations Gentle IV fluid hydration Continue home medicine Sitter one-to-one Safety tray DVT prophylaxis heparin 5000 units twice daily Full code Present on Admission?: Yes (2) CKD (chronic kidney disease): Avoid nephrotoxic agents, gentle IV fluid hydration Present on Admission?: Yes (3) Affective disorder: As the above Present on Admission?: Yes (4) CAD (coronary artery disease): Continue home medicine: Furosemide 40 mg p.o. daily as needed, lisinopril 20 mg p.o. twice daily , isosorbide mononitrate 60 mg p.o. daily, carvedilol 25 mg p.o. twice daily. Present on Admission?: Yes (5) COPD, mild: Stable, continue albuterol, ipratropium albuterol every 4 hours as needed, topiramate, Present on Admission?: Yes (6) Diabetes mellitus: Glycemic control per pharmacy, A1c pending Present on Admission?: Yes History of Present Illness Chief Complaint: Patient is a 43 years old female with past medical history of coronary artery disease, COPD, chronic kidney disease, chronic migraine, congestive heart failure, diabetes mellitus type 2, panic disorder seizure disorder, explosive personality disorder depression who was brought to the emergency room with a complaint that she is confused. Patient is not able to answer to any question. Her speech is scattered tangential with neologisms and pressured. Patient is able to move all of her extremities. No face dysmetria. Speech is recognizable but does not make any sense. Speech is not slurred. She appears to be in acute psychosis. Patient has difficulty concentrating. Exhi bits anxiety, delusions and hallucinations. Patient goes to the [facility] wellness in [place] . Review of system difficult to obtain since patient appears to be in acute psychosis. Head CT no acute abnormality. Chest x-rays no acute process. Labs reviewed white blood cell 6.6. Hemoglobin 9.1., Hematocrit 28.3 platelets 274, sodium 132, potassium 4.2, chloride 104, creatinine 1.49 magnesium 2.1, alkaline phosphatase 236, AST 6, lipase 50, albumin 3.8. Primary Care Provider: NO PCP Allergies Allergy/AdvReac Type Severity Reaction Status Date / Time lamotrigine [From Lamictal] Allergy Intermediate hallucinati Verified 10/27/18 10:47 ons mirtazapine [From Remeron] Allergy Intermediate "temper", Verified 10/27/18 10:47 "rash" Penicillins Allergy Intermediate HIVES AND Verified 10/27/18 10:47 PASSES OUT sertraline Allergy Intermediate HIVES AND Verified 10/27/18 10:47 PASSES OUT trazodone Allergy Intermediate IRRITATES Verified 10/27/18 10:47 NEUROPATHY AND HIVES valproic acid Allergy Intermediate HIVES, Verified 10/27/18 10:47 DIZZINESS, SLURRING SPEECH oxycodone [From Percocet] Allergy Mild itchy Verified 10/27/18 10:47 phenytoin [From Dilantin] Allergy Mild "makes my Verified 10/27/18 10:47 eyes crossed" quetiapine [From Seroquel] Allergy Mild irriates Verified 10/27/18 10:47 neuropathy acetaminophen [From Percocet] Allergy Verified 10/27/18 10:47 buspirone [From BuSpar] Allergy Verified 10/27/18 10:47 divalproex sodium Allergy Verified 10/27/18 10:47 [From Depakote] ibuprofen AdvReac Mild "irritates Verified 10/27/18 10:47 my stomach" Penicillins Allergy Uncoded 10/27/18 10:47 trazodone Allergy Uncoded 10/27/18 10:47 Home Medications Home Medications Medication Instructions Recorded Confirmed Type Marcaglar GapinedaPen U-100 Insulin 42 unit SUBCUT DAILY@1130 01/02/18 12/03/18 History acetaminophen [Acetaminophen Extra 1,000 mg PO DAILY PRN 01/02/18 12/03/18 History Strength] atorvastatin [Lipitor] 40 mg PO HS 01/02/18 12/03/18 History carvedilol 25 mg PO BID 01/02/18 12/03/18 History clonazepam 1 mg PO BID 01/02/18 12/03/18 History clonidine HCl 0.6 mg PO TID 01/02/18 12/03/18 History famotidine [Pepcid] 40 mg PO HS 01/02/18 12/03/18 History insulin lispro [Humalog U-100 0 unit SUBCUT QDB 01/02/18 12/03/18 History Insulin] insulin lispro [Humalog U-100 0 unit SUBCUT QDL 01/02/18 12/03/18 History Insulin] insulin lispro [Humalog U-100 0 unit SUBCUT QPM 01/02/18 12/03/18 History Insulin] ipratropium-albuterol 3 ml INHALATION Q4H PRN 01/02/18 12/03/18 History isosorbide mononitrate 60 mg PO DAILY 01/02/18 12/03/18 History nifedipine 0 mg PO UNKNOWN 01/02/18 12/03/18 History pantoprazole 40 mg PO BID 01/02/18 12/03/18 History metformin 1,000 mg PO BID 01/29/18 12/03/18 History albuterol sulfate [Ventolin HFA] 2 puff INHALATION Q4H PRN 07/03/18 12/03/18 History loratadine 10 mg PO DAILY PRN 07/03/18 12/03/18 History magnesium oxide 400 mg PO DAILY 07/03/18 12/03/18 History methocarbamol 750 mg PO BID 07/03/18 12/03/18 History ranitidine HCl 300 mg PO AMHS 07/03/18 12/03/18 History furosemide 40 mg PO DAILY PRN 07/04/18 12/03/18 History lisinopril 20 mg PO BID 07/04/18 12/03/18 History spironolactone 25 mg PO BID 07/04/18 12/03/18 History nitroglycerin 2 % transdermal See Rx Instructions TRANSDERMAL 10/31/18 12/03/18 Rx ointment .COMPLEX PRN #30 gm NS tiotropium bromide 2.5 2 puffs INHALATION DAILY gm 11/04/18 12/03/18 History mcg/actuation mist for inhalation gabapentin 600 mg tablet 600 mg PO TID 30 Days #90 tab 11/10/18 12/03/18 Rx lidocaine 5 % topical patch 1 patch TOP DAILY #30 ea 11/19/18 12/03/18 Rx benzonatate 100 mg capsule 100 mg PO TID PRN cap 12/01/18 12/03/18 History docusate sodium 100 mg capsule 200 mg PO TID cap 12/01/18 12/03/18 History ergocalciferol (vitamin D2) 50,000 50,000 units PO Q14D cap 12/01/18 12/03/18 History unit capsule sennosides 8.6 mg tablet 17.2 mg PO BID tab 12/01/18 12/03/18 History fluoxetine 0 mg PO DAILY 12/03/18 12/03/18 History imipramine HCl 200 mg PO HS 12/03/18 12/03/18 History potassium chloride 0 meq PO QID 12/03/18 12/03/18 History topiramate 0 mg PO TID 12/03/18 12/03/18 History Past Med/Surg History Medical History Acute renal failure Hyperkalemia Uremic encephalopathy Chronic back pain Deep vein thrombosis 1997 LEFT LEG Diabetes mellitus, type 2 IDDM Explosive personality disorder Fatty liver disease, nonalcoholic GERD (gastroesophageal reflux disease) Controlled GI bleed Hyperlipidemia Pancreatitis and 06/2018 Panic anxiety syndrome Rheumatoid arthritis Surgical History H/O removal of cyst ON ABDOMEN History of anesthesia reaction TAKES MORE ANESTHESIA TO GET TO SLEEP History of bronchoscopy History of cardiac cath History of cholecystectomy History of colonoscopy History of dilatation and curettage [id number] History of esophagogastroduodenoscopy (EGD) History of heart artery stent X1 STENT (2012) History of lung surgery RIGHT VATS (12/2017) History of surgery PER PT HAD 32 GYNECOLOGY SURGERIES TO "SCRAP UTERUS AND OVARIES" History of tooth extraction ALL TEETH REMOVED History of total abdominal hysterectomy and bilateral salpingo-oophorectomy History of total left knee replacement (TKR) Family History Mother , age 54 of pneumonia. Family history of diabetes mellitus Hypertension Father , age 72 Hypertension Social History Preferred Language: Syrian Communication Ability: Effective Visual Impairment: No Limitations Workers' Compensation Mediator Required: No Beliefs That Will Affect Care: None Current Living Situation: Spouse and Family Current Living Situation Comment: Lives with and sister current occupational status: disabled Other Information That Helps Us Care for You: No other: worked multiple jobs in her 20s, on disability for psych issues since Feels Safe at Home: No Is there a partner from a previous relationship who is making you feel unsafe now?: No Any Concerns about Your Family Situation: No Would You Like to Speak to Someone About Your Situation: No ("I'm afraid of them not answering their phones if I need them") Safety Concerns: Afraid for Self Smoking Status: Current every day smoker Tobacco Type: cigarettes ; Cigarettes Per Day: 20 a day ; Do You Dip or Chew Tobacco: No ; Second Hand Exposure: No ; Tobacco Cessation Education Requested by Patient: No Hx Alcohol Use: No Hx Substance Use: No Physical Exam Constitutional: WD/WN, vitals as above + ill appearing Eyes: PERRL, conjunctivae normal, anicteric sclerae ENMT: external ear and nose normal, oropharynx normal Neck: trachea midline, no thyromegaly Respiratory: normal respiratory effort, lungs clear to auscultation Cardiovascular: RRR, no murmur, no edema Gastrointestinal (Abdomen): normal bowel sounds, soft, nontender, no hepatosplenomegaly Musculoskeletal: no cyanosis or clubbing, extremities motor strength 5/5 Skin: no rashes, warm and dry Neurologic: patellar DTR's 2+ bilat, sensation intact Psychiatric: Apperance: + disheveled Motor Behavior: + psychomotor agitation, + psychomotor retardation and + akathisia Speech: + pressured spe ech Affect: + anxious affect Thought Process: + tangential thought process, + looseness of associations and + perseveration Lymphatic: no cervical or axillary lymphadenopathy Results & Data Vital Signs (Past 12 Hours) Vital Signs Temp Pulse Pulse Resp BP BP Pulse Ox 12/03/18 23:08 36.5 C 64 19 125/83 99 12/03/18 20:15 36.4 C L 74 22 169/116 H 100 12/03/18 18:00 70 18 149/100 H 99 12/03/18 16:00 65 18 149/103 H 99 12/03/18 14:36 72 18 144/99 H 99 12/03/18 14:12 70 18 107/82 96 12/03/18 14:05 100 12/03/18 12:32 36.6 C 70 21 143/104 H 99 Code Status & VTE Plan Code Status Full code VTE Prophylaxis Plan VTE Prophylaxis will be ordered: Yes PG Care Time/CCT Total # of Minutes Spent Total Time Spent with Patient: Total time spent is greater than 50% in coordination of care (as documented) at patient's floor/unit and/or counseling patient: (1) CKD (chronic kidney disease) Chronic kidney disease stage: unspecified stage Qualified Code(s): N18.9 - Chronic kidney disease, unspecified
[2018-12-04] MEDS: INSULIN ASPART 100 UNITS/ML 3 ML PEN SC SCH ×5 (00:59→18:13)
[2018-12-04] MEDS ORDERED: NICOTINE 14 MG/24 HR PATCH TD SCH (01:20)
[2018-12-04] MEDS ORDERED: INSULIN ASPART 100 UNITS/ML 3 ML PEN SC SCH ×2 (07:30→16:30)
[2018-12-04 08:25] LABS: Basophils # (auto) 0.01 K/uL (0-0.2); Basophils % (auto) 0.2 %; Eosinophils # (auto) 0.06 K/uL (0-0.5); Eosinophils % (auto) 1.4 %; Hematocrit (blood only) 27.4 % (37-47); Hemoglobin 8.8 g/dL (12.0-16.0); Immature Granulocytes # (auto) 0.01 K/uL (0.00-0.02); Immature Granulocytes % (auto) 0.2 %; Lymphocytes # (auto) 1.75 K/uL (1.2-3.4); Lymphocytes % (auto) 41.7 %; Mean Corpuscular Hemoglobin 25.4 pg (25-34); Mean Corpuscular Hgb Conc 32.1 g/dL (32-36); Mean Platelet Volume 10.2 fL (7.4-10.4); Monocytes # (auto) 0.33 K/uL (0.11-0.59); Monocytes % (auto) 7.9 %; Neutrophils # (auto) 2.04 K/uL (1.4-6.5); Neutrophils % (auto) 48.6 %; Platelet Count 223 K/uL (130-400); RDW Coefficient of Variation 15.6 % (11.5-14.5); RDW Standard Deviation 44.9 fL (36.4-46.3); Red Blood Count 3.47 M/uL (4.2-5.4)
[2018-12-04] MEDS: clonazePAM 1 MG TAB PO SCH (08:51)
[2018-12-04] MEDS: CARVEDILOL 25 MG TAB PO SCH (08:52)
[2018-12-04] MEDS: SPIRONOLACTONE 25 MG TAB PO SCH ×2 (08:53→16:30)
[2018-12-04] MEDS: DOCUSATE SODIUM 100 MG CAP PO SCH ×2 (08:54→16:28)
[2018-12-04] MEDS: GABAPENTIN 600 MG TAB PO SCH ×2 (08:54→16:27)
[2018-12-04] MEDS: TOPIRAMATE 50 MG TAB PO SCH ×2 (08:54→16:27)
[2018-12-04] MEDS: LISINOPRIL 20 MG TAB PO SCH (08:54)
[2018-12-04] MEDS: PANTOprazole 40 MG TAB PO SCH (08:55)
[2018-12-04] MEDS: METHOCARBAMOL 750 MG TABLET PO SCH (08:55)
[2018-12-04 08:56] LABS: Albumin Level 3.1 gm/dl (3.4-5.0); BUN Creatinine Ratio 17.9 (10-20); Calcium 8.1 mg/dl (8.5-10.1); Est GFR (African American) 76.2; Est GFR (Non-African American) 65.8; Potassium 3.9 mmol/L (3.5-5.1)
[2018-12-04] MEDS ORDERED: HEPARIN SOD 5,000 UNIT/0.5 ML VIAL SQ SCH (09:00)
[2018-12-04] MEDS ORDERED: TIOTROPIUM BROMIDE 5 PUFF/90 MCG INH INH SCH (09:00)
[2018-12-04] MEDS ORDERED: MAGNESIUM OXIDE 400 MG TAB PO SCH (09:00)
[2018-12-04] MEDS ORDERED: ISOSORBIDE MONO EXTENDED REL 60 MG TABCR PO SCH (09:00)
[2018-12-04] MEDS ORDERED: FLUOXETINE HCL 10 MG CAP PO SCH (09:00)
[2018-12-04] MEDS ORDERED: NIFEdipine EXTENDED REL 30 MG TABCR PO SCH (09:00)
[2018-12-04] MEDS ORDERED: LIDOCAINE 5% 1 PATCH TD SCH (09:00)
[2018-12-04 09:03] LABS: Bilirubin,Total 0.1 mg/dl (0.2-1); Globulin 3.2 gm/dl (2.5-4.0); Thyroid Stimulating Hormone 1.92 uIu/ml (0.300-4.500); Total Protein 6.3 gm/dl (6.4-8.2)
--- NOTE | 2018-12-04 09:09 | Pharmacy Report ---
Pharmacy Glycemic Short Note 2 - Date of Service December 04, 2018 - Glycemic Short BSG Results (Last 24 hours): 12/03/18 12/03/18 12/03/18 13:24 20:58 20:59 Glucose 239 H POC Glucose 347 H* 370 H* 12/04/18 12/04/18 12/04/18 00:04 00:04 04:10 Glucose POC Glucose 306 H* 296 H 57 L* 12/04/18 12/04/18 12/04/18 04:11 04:34 04:36 Glucose POC Glucose 56 L* 62 L* 77 12/04/18 12/04/18 07:33 07:55 Glucose 203 H POC Glucose 245 H OUTPATIENT ANTIDIABETIC REGIMEN: * Basaglar 42 units daily with lunch * Lispro with meals (last recorded doses 10 units w/ breakfast + 12 units w/ lunch + 14 units w/ dinner) + sliding scale * Metformin 1gm PO BID * A1c = pending ASSESSMENT: * Brittle type 2 diabetic admitted for acute psychosis * Pharmacy has followed patient on prior admissions. She is prone to both hypoglycemia and severe hyperglycemia * BSGs were in the upper 300s last evening however dropped to 50's overnight and are now back up into the 200s this AM * Lantus 45 units given yesterday evening, she also received 2 doses of Novolog late in the evening likely leading to hypoglycemia overnight * We have little good data from prior admissions to make informed decisions for her. I believe in the past we have over-treated her with rapid acting insulin leading to lows. Will base Insulin doses this admission upon weight and moderate stress level initially. PLAN FOR INPATIENT GLYCEMIC CONTROL: * Hold outpatient oral diabetes medications (metformin) * Basal insulin * Lantus 35 units SQ daily * Bolus insulin * NovoLog per scale ACHS and at 0200 tonight * Goal Range: Low 110 mg/dL - High 160 mg/dL * Correction Factor: 25 mg/dL/unit * Nutritional / Prandial insulin per carb ratio of 1 unit per 7 grams CHO consumed PLAN FOR DISCHARGE: * to be determined
[2018-12-04 09:18] LABS: Estimated Average Glucose 223 mg/dl; Hemoglobin A1C 9.4 % (4.5-5.6)
[2018-12-04] MEDS ORDERED: INSULIN GLARGINE SOLOSTAR 100 UNITS/ML 3 ML PEN SC SCH (11:30)
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
--- NOTE | 2018-12-04 18:29 | Discharge Summary ---
Date of Service December 04, 2018 Admission HPI Per Admitting Provider Patient is known to us from a previous psychiatric consultation in 06/2018. At that time, she reported suicidal statements in the context of chest pain, denied any plan or intent to harm herself, and denied active mood and anxiety symptoms. She reported a history of multiple psychiatric hospitalizations and numerous previous medication trials, and at the time was prescribed only clonazepam. Outpatient follow-up was recommended. She was also seen in the ER in August for nonspecific illness with fever, loss of appetite, nausea and vomiting, diarrhea, and left arm cyst. She had recently been hospitalized at [facility] in [place], and the records indicated a history of IV drug use and recent unintentional 10 pound weight loss. They suspected she had metabolic acidosis due to IV drug use, and her drug screen there was positive for amphetamines and benzodiazepines. On this admission, she presented to the ER yesterday with confusion, stated she had a nervous breakdown, and that when that occurs, she forgets everything from the day before. She had apparently shown up at a local doctor's office believing she had an appointment when she did not. Per staff, she was disoriented. She said she was asking her questions that did not make sense, slurring her speech, and dropping her drinks and cigarettes. Her toxicology screen was negative, WBCs normal, metabolic panel with slight hyponatremia 132, elevated BUN 25, and elevated creatinine 1.49. Glucose elevated 239, and has been as high as370 and as low as 56 since admission. She was continued on her home psychotropic medications: Fluoxetine 10 mg daily and clonazepam 1 mg twice daily (filled within the past month per her external med history, prescribed by her psychiatrist Dr. Paiz). Confirmed clonazepam prescription via PDMP, filled 30-day supply 1219. On my assessment, the patient states that she had a "nervous breakdown," which she attributes to getting confused about her appointments, driving to [place] as she thought she had an appointment here, and then finding out that it was actually in [place]. She says she was upset because she had canceled her outpatient psychiatric appointment, which was in [place], in order to attend the other appointment. She does not drive and utilizes [facility] transportation to get to appointments. She states that her mood is "fine," she is eating and sleeping well, and denies SI, HI, and hallucinations. She says that she takes her medications as prescribed, but has significant difficulty reviewing the medication she is on, insisting that she is on Effexor XR (where his pharmacy history indicates fluoxetine), and mentions taking 4 mg of clonazepam a day, when she is only prescribed a maximum of 2 mg. She then says that she used to be on a higher dose of clonazepam, but her psychiatrist decreased it, which she does not agree with. She does not think that she needs to be here in the hospital and would like to be discharged home. She is agreeable to signing a release so that we can send Dr. Paiz her records and ensure her follow-up appointment is rescheduled. Principal Diagnosis Acute change in mental status of unknown etiology Confusion/acute psychosis, resolved Anxiety History of deep venous thrombosis in 1997 Diabetes mellitus type 2 Fatty liver Explosive personality disorder GERD Dyslipidemia Panic anxiety syndrome History of rheumatoid arthritis Discharge Exam Physical examination General patient appears to be comfortable, not in acute distress HEENT: Atraumatic , normocephalic /no jaundice /no pallor /anicteric /no dry mucous membrane /normal external ear inspection Neck: Supple /no swelling /central trach Heart: S1/S2 normal/regular rate and rhythm/no gallop /no rub /no murmur Lungs: Clear to auscultation bilaterally/normal chest with expansion/no rhonchi/no rales/no wheezing/no use of accessory muscles of respiration Abdomen: Soft/nontender/no guarding/no rebound/no organomegaly/no pulsatile mass Musculoskeletal: No swelling/no edema/no tenderness/normal range of motion Neuro exam: Awake alert oriented 3/cranial nerves II through XII appear to be intact/sensation intact/moves all extremities/no abnormal movements Psychiatric evaluation: No depressed mood/normal affect Skin: No rash on exposed skin area/no erythema Extremity: Normal pulse/no pitting edema/no clubbing or cyanosis Endocrine/lymphatic: No obvious lymphadenopathy /no lymphedema Discharge Data Allergies Allergy/AdvReac Type Severity Reaction Status Date / Time lamotrigine [From Lamictal] Allergy Intermediate hallucinati Verified 10/27/18 10:47 ons mirtazapine [From Remeron] Allergy Intermediate "temper", Verified 10/27/18 10:47 "rash" Penicillins Allergy Intermediate HIVES AND Verified 10/27/18 10:47 PASSES OUT sertraline Allergy Intermediate HIVES AND Verified 10/27/18 10:47 PASSES OUT trazodone Allergy Intermediate IRRITATES Verified 10/27/18 10:47 NEUROPATHY AND HIVES valproic acid Allergy Intermediate HIVES, Verified 10/27/18 10:47 DIZZINESS, SLURRING SPEECH oxycodone [From Percocet] Allergy Mild itchy Verified 10/27/18 10:47 phenytoin [From Dilantin] Allergy Mild "makes my Verified 10/27/18 10:47 eyes crossed" quetiapine [From Seroquel] Allergy Mild irriates Verified 10/27/18 10:47 neuropathy acetaminophen [From Percocet] Allergy Verified 10/27/18 10:47 buspirone [From BuSpar] Allergy Verified 10/27/18 10:47 divalproex sodium Allergy Verified 10/27/18 10:47 [From Depakote] ibuprofen AdvReac Mild "irritates Verified 10/27/18 10:47 my stomach" Penicillins Allergy Uncoded 10/27/18 10:47 trazodone Allergy Uncoded 10/27/18 10:47 Consultations 12/03/18 16:17 ED Decision to Admit Stat 12/03/18 20:16 Consult Psychiatry Routine Ordered Studies 12/03/18 13:00 CT head/brain wo con Stat Hospital Course (1) Acute psychosis: Patient symptoms were unexplained but she was admitted to telemetry and placed on one-to-one sitter for observation Toxicology screen negative, alcohol negative She was started on gentle IV fluid hydration She was continued on her home medicine CT head and chest x-ray are all within normal limits During my evaluation at 6 PM and the day of admission patient was completely normal, physical exam was completely normal, she was answering all questions appropriately, she said that she has been under severe stress from her family and inside her and that led to her state of unresponsiveness. Psychiatric consult appreciated by Dr. Winters, her assessment and plan as copied below " (1) Confusion: This is an interesting case, as she has had multiple presentations and hospitalizations in various facilities, has multiple medical problems and a history of anxiety treated with clonazepam, and has had repeated presentations for altered mental status, at times attributed to encephalopathy, and other times thought to be related to psychiatric issues. From what we know of her symptom pattern, it is not consistent with a primary mood or thought disorder, and appears more likely delirium related to her medical conditions, or possibly surreptitious drug use, as noted in the outside hospital records. Although her drug screen here was negative, substances are metabolized rapidly and would not be picked up by our screen. And certainly concerned about her chronic clonazepam use, as benzodiazepines can worsen confusion, dysarthria, and coordination. She indicates a desire to take higher doses of benzodiazepines, and recommend her outpatient psychiatrist who is prescribing to be informed of hospitalization and her ongoing issues given the risks of these medications. She states she is at baseline psychiatrically and denies, anxiety, and psychotic symptoms. It sounds most likely that her episode yesterday was due to metabolic encephalopathy, as it came on acutely and has resolved. I will ask the liaison nurse to return and get a release for Dr. Paiz so that we can send our note and schedule a follow-up appointment. Present on Admission?: Yes " Patient during my exam was completely normal and she requested to be discharged. Denied any desire to hurt herself or others Appears to be comfortable, not in acute distress Psych evaluation appears to be within normal limits, normal affect, normal process of thinking Since she is within acceptable medical stability for discharge, will discharge her today and she will follow-up with outpatient psychiatrist, and new primary care physician. (2) CKD (chronic kidney disease): Not in acute exacerbation She was giving gentle IV fluid hydration (3) Affective disorder: As the above (4) CAD (coronary artery disease): Continued her home medicine: Furosemide 40 mg p.o. daily as needed, lisinopril 20 mg p.o. twice daily , isosorbide mononitrate 60 mg p.o. daily, carvedilol 25 mg p.o. twice daily. (5) COPD, mild: Stable, continued albuterol, ipratropium albuterol every 4 hours as needed, topiramate, (6) Diabetes mellitus: Glycemic control per pharmacy, A1c was elevated 9.4 Total Time Total Time Spent Total Time Spent (In Minutes): 35 minutes total time spent is greater than 50% in coordination of care (as documented) at patient's floor/unit and/or counseling patient/family discussion of care with nursing staff Discharge Plan Discharge Items Patient Disposition: Home - Self-Care Reason For Visit: PSYCHOSIS, AMS Discharge Diagnosis: Acute change in mental status of unknown etiology Confusion/acute psychosis, resolved Anxiety History of deep venous thrombosis in 1997 Diabetes mellitus type 2 Fatty liver Explosive personality disorder GERD Dyslipidemia Panic anxiety syndrome History of rheumatoid arthritis Discharge Goals: Decrease discomfort and Improve disease control Activity: Resume your previous activity Lifting: Gradually increase as tolerated and No more than 5 pounds Bathing: No limitations Sexual Activity: When tolerated Exercise/Sports: Gradually increase as tolerated Driving/Machine Use Comment: Do not drive until follow-up with your psychiatrist Weightbearing: Full weightbearing Non-emergency contact: Primary Care Provider, Neurologist and Psychiatrist Call non-emergency contact if: you have any medication questions and your symptoms worsen Follow-up/Referrals: Janice Vazquez CRNP [Primary Care Provider] - 12/08/18 10:30 am (Please, follow up with Janice HAWLEY on SaturdayDecember 08 at 10:30 am. *The office is located at [address] [place] [address] in [place]. If you need to change this appointment, call the office at [phone].) Diet: Carb Consistent or DM2 Addtl Provider Instructions: Follow-up with primary care physician/psychiatrist/neurologist as an outpatient Also follow-up with machine rug cleaner as your hemoglobin A1c is 9.4 You need to be strictly compliant with your diabetes regimen and with low caloric diet Prescriptions: New nicotine 7 mg/24 hr Patch 24 Hour 14 mg transdermal QAM Qty: 30 RF: 0 Continued nitroglycerin 2 % ointment See Rx Instructions TRANSDERMAL .COMPLEX PRN (Reason: Chest Pain) Qty: 30 RF: 0 gabapentin 600 mg tablet 600 mg PO TID 30 Days Qty: 90 RF: 5 lidocaine 5 % adhesive patch,medicated 1 patch TOP DAILY Qty: 30 RF: 0 tiotropium bromide 2.5 mcg/actuation mist 2 puffs inhalation DAILY RF: 0 benzonatate 100 mg capsule 100 mg PO TID PRN (Reason: cough) RF: 0 metformin 1,000 mg Tablet 1,000 mg PO BID RF: 0 magnesium oxide 400 mg (241.3 mg magnesium) tablet 400 mg PO DAILY RF: 0 methocarbamol 750 mg tablet 750 mg PO BID RF: 0 albuterol sulfate [Ventolin HFA] 90 mcg/actuation HFA aerosol inhaler 2 puff inhalation Q4H PRN (Reason: Shortness Of Breath Or Wheezing) RF: 0 loratadine 10 mg Tablet 10 mg PO DAILY PRN (Reason: Allergy Symptoms) RF: 0 furosemide 40 mg Tablet 40 mg PO DAILY PRN (Reason: Edema) RF: 0 lisinopril 20 mg Tablet 20 mg PO BID RF: 0 spironolactone 25 mg Tablet 25 mg PO BID RF: 0 sennosides [senna] 8.6 mg tablet 17.2 mg PO BID RF: 0 atorvastatin [Lipitor] 40 mg Tablet 40 mg PO HS RF: 0 carvedilol 25 mg Tablet 25 mg PO BID RF: 0 ipratropium-albuterol 0.5 mg-3 mg(2.5 mg base)/3 mL Solution For Nebulization 3 ml INHALATION Q4H PRN (Reason: Shortness Of Breath Or Wheezing) RF: 0 nifedipine 90 mg Tablet Extended Release PO UNKNOWN RF: 0 famotidine [Pepcid] 40 mg Tablet 40 mg PO HS RF: 0 clonidine HCl 0.3 mg Tablet 0.6 mg PO TID RF: 0 clonazepam 1 mg Tablet 1 mg PO BID RF: 0 acetaminophen [Acetaminophen Extra Strength] 500 mg Tablet 1,000 mg PO DAILY PRN (Reason: Pain) RF: 0 isosorbide mononitrate 60 mg Tablet Extended Release 24 Hr 60 mg PO DAILY RF: 0 pantoprazole 40 mg Tablet,Delayed Release (Dr/Ec) 40 mg PO BID RF: 0 insulin lispro [Humalog U-100 Insulin] 100 unit/mL Solution SUBCUT QDB RF: 0 insulin lispro [Humalog U-100 Insulin] 100 unit/mL Solution SUBCUT QDL RF: 0 insulin lispro [Humalog U-100 Insulin] 100 unit/mL Solution SUBCUT QPM RF: 0 Basaglar KwikPen U-100 Insulin 100 unit/mL (3 mL) Insulin Pen 42 unit SUBCUT DAILY@1130 RF: 0 docusate sodium [Colace] 100 mg capsule 200 mg PO TID RF: 0 ergocalciferol (vitamin D2) 50,000 unit capsule 50,000 units PO Q14D RF: 0 imipramine HCl 50 mg tablet 200 mg PO HS RF: 0 potassium chloride 20 mEq tablet,ER particles/crystals PO QID RF: 0 fluoxetine 10 mg capsule PO DAILY RF: 0 topiramate 50 mg tablet PO TID RF: 0 Discontinued ranitidine HCl 300 mg tablet 300 mg PO AMHS RF: 0 Stand-Alone Forms: [facility]charge Orders: Discharge Order (Routine); Ordered 12/04/18 Ordered By: Paulina Palacios Admission Data Admit Date/Time: 12/03/18 18:57 Attending Provider: Paulina Ocasio Admit Provider: Dedrick Zavala Primary Care Provider: Janice Vazquez Other Providers: Dedrick Zavala ; Janice Winters Service: Telemetry
[2018-12-04] MEDS ORDERED: SUMAtriptan succinate 25 MG TAB PO STA (19:19)
[2018-12-05] MEDS ORDERED: INSULIN ASPART 100 UNITS/ML 3 ML PEN SC SCH (02:00)
[2018-12-05 09:08] LABS: C-Reactive Protein High Sens. 0.8 MG/L (0.0-3.0)
== END 2018-12-04 20:15 | disposition home or self-care (01) | DRG 885 ==
LOC: ED 12:35 → 2S 18:57 → SUATTDRO 18:57 → 2S 19:38